=== PATIENT | male | born 1940 | race Caucasian/White ===

== ENCOUNTER 2021-06-25 22:03 | Emergency (ER) | payer MEDICARE ==
[2021-06-25] MEDS ORDERED: SODIUM CHLORIDE 0.9% 1,000 ML IV STA ×2 (22:06)
[2021-06-25 22:16] VITALS: RESP 18; TEMP 99.2
[2021-06-25 22:37] LABS: Basophils # (A) 0.1 k/uL (0-0.2); Basophils % (A) 1 %; Eosinophils # (A) 0.2 k/uL (0-0.7); Eosinophils % (A) 2 %; HCT 46.6 % (39.0-53.0); HGB 15.7 gm/dL (13.0-17.5); Lymphocytes # (A) 2.4 k/uL (1.0-4.8); Lymphocytes % (A) 27 %; MCH 31.3 pg (25.0-35.0); MCHC 33.7 g/dL (31.0-37.0); MCV 92.7 fL (80.0-100.0); Mean Platelet Volume 6.9; Monocytes # (A) 0.6 k/uL (0-1.0); Monocytes % (A) 6 %; Neutrophils # (A) 5.8 k/uL (1.3-7.7); Neutrophils % (A) 63 %; Platelet Count 278 k/uL (150-450); RBC 5.03 m/uL (4.30-5.90); RDW 13.1 % (11.5-15.5); WBC 9.1 k/uL (3.8-10.6)
[2021-06-25] MEDS ORDERED: ALTEPLASE 81 MG in EMPTY BAG 1 BAG IV STA ×2 (22:47→22:50)
[2021-06-25] MEDS ORDERED: ALTEPLASE BOLUS FOR STROKE 9 MG in EMPTY SYRINGE 1 SYR IV STA (22:47)
[2021-06-25 22:50] LABS: ALT 22 U/L (4-49); AST 47 U/L (17-59); African American GFR (CKD) >90 (>60 ml/min/1.73 sqM); Albumin 4.6 g/dL (3.5-5.0); Alkaline Phosphatase 69 U/L (38-126); Anion Gap 11 mmol/L; Blood Urea Nitrogen 21 mg/dL (9-20); Calcium 8.8 mg/dL (8.4-10.2); Carbon Dioxide 20 mmol/L (22-30); Chloride 106 mmol/L (98-107); Glucose 132 mg/dL (74-99); Magnesium 2.1 mg/dL (1.6-2.3); Non-African American GFR(CKD) 90 (>60 ml/min/1.73 sqM); Phosphorus 3.5 mg/dL (2.5-4.5); Potassium 4.8 mmol/L (3.5-5.1); Sodium 137 mmol/L (137-145); Total Protein 7.7 g/dL (6.3-8.2)
--- NOTE | 2021-06-25 22:51 | ED ---
Syncope HPI - General Chief Complaint: Fall Stated Complaint: Syncope Time Seen by Provider: 06/25/21 22:04 Source: EMS, RN notes reviewed, old records reviewed Mode of arrival: EMS Limitations: altered mental status - History of Present Illness Initial Comments: This is an 80-year-old male to the emergency department for evaluation patient resents by EMS for evaluation of a syncopal event patient was found on the back area is taking up done. Patient also admits to shoveling snow today. 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 Patient denying current chest pain thinks he may have lost consciousness when she was little before after his fall patient was found on the ground on his back not acting appropriately per family with no seizure-like activity. Patient was able to be picked up and ambulate at his house he did walk to the bathroom and walk to the ambulance and patient currently is complaining of headache MD Complaint: loss of consciousness, collapsed -: minutes(s) Prodromal Symptoms: headache, lightheaded, nausea/vomiting -: second(s) Witnessed: yes - by bystander Injuries Sustained Associated with Event: Head Current Symptoms: lightheaded, headache, weakness History: pacemaker Context: at rest Treatments Prior to Arrival: none - Related Data Allergies Allergy/AdvReac Type Severity Reaction Status Date / Time No Known Allergies Allergy Verified 06/25/21 22:16 Review of Systems ROS Statement: Those systems with pertinent positive or pertinent negative responses have been documented in the HPI. ROS Other: All systems not noted in ROS Statement are negative. Past Medical History Past Medical History: Hypertension Additional Past Medical History / Comment(s): aortic aneurysm History of Any Multi-Drug Resistant Organisms: None Reported Past Surgical History: Joint Replacement Past Psychological History: No Psychological Hx Reported Smoking Status: Never smoker Past Alcohol Use History: None Reported Past Drug Use History: None Reported General Exam - General Exam Comments Initial Comments: GCS of 15 NIH of 0 Limitations: no limitations General appearance: alert, in no apparent distress Head exam: Present: atraumatic, normocephalic, normal inspection Eye exam: Present: normal appearance, PERRL, EOMI. Absent: scleral icterus, conjunctival injection, periorbital swelling ENT exam: Present: normal exam, mucous membranes moist Neck exam: Present: normal inspection. Absent: tenderness, meningismus, lymphadenopathy Respiratory exam: Present: normal lung sounds bilaterally. Absent: respiratory distress, wheezes, rales, rhonchi, stridor Cardiovascular Exam: Present: regular rate, normal rhythm, normal heart sounds. Absent: systolic murmur, diastolic murmur, rubs, gallop, clicks GI/Abdominal exam: Present: soft, normal bowel sounds. Absent: distended, tenderness, guarding, rebound, rigid Extremities exam: Present: normal inspection, full ROM, normal capillary refill. Absent: tenderness, pedal edema, joint swelling, calf tenderness Back exam: Present: normal inspection Neurological exam: Present: alert, oriented X3, CN II-XII intact Psychiatric exam: Present: normal affect, normal mood Skin exam: Present: warm, dry, intact, normal color. Absent: rash Course Vital Signs 06/25/21 06/25/21 06/25/21 22:06 23:10 23:18 Temperature 99.2 F Pulse Rate 98 95 84 Respiratory 18 18 18 Rate Blood Pressure 189/95 209/120 173/90 O2 Sat by Pulse 97 96 96 Oximetry 06/25/21 23:30 Temperature Pulse Rate 86 Respiratory 18 Rate Blood Pressure 174/95 O2 Sat by Pulse 95 Oximetry - Reevaluation(s) Reevaluation #1: 06/26/21 00:28 Medical record is reviewed Reevaluation #2: 06/26/21 00:28 Code stroke paged about 20-30 minutes in the patient's stay as he developed complete left leg weakness loss of sensation NIH of 4 Reevaluation #3: 06/26/21 00:29 Spoke with neuro interventional list here in the emergency department, patient does have what appears to be traumatic subarachnoid hemorrhage Reevaluation #4: 06/26/21 00:29 Patient still unable to move his left leg also having urinary retention and a Fo payal is placed 06/26/21 00:30 Patient has close blood pressure parameters monitored, patient on Cardene SPP 60 Reevaluation #5: 06/26/21 00:29 Spoke with family and patient, informed results and questions have been answered - Consultations Consultation #1: Spoke with Taya Castillo will be to accept patient transfer both trauma surgery and neurology EKG Findings - EKG Comments: EKG Findings:: EKG shows A. fib 98 QRS 162 QTC 448 Medical Decision Making - Medical Decision Making 80-year-old male DF for evaluation of syncopal and surrounding the fall. Unsure of syncope happened before the fall due to the fall than is brought to the emergency department developed left-sided paralysis and urinary retention p atient does have subarachnoid hemorrhage likely traumatic no aneurysm, patient transferred for definitive treatment by neurosurgery and trauma surgery - Lab Data Result diagrams: 06/25/21 22:29 06/25/21 22:29 Lab Results 06/25/21 06/25/21 06/25/21 Range/Units 22:29 22: 22: WBC 9.1 (3.8-10.6) k/uL RBC 5.03 (4.30-5.90) m/uL Hgb 15.7 (13.0-17.5) gm/dL Hct 46.6 (39.0-53.0) % MCV 92.7 (80.0-100.0) fL MCH 31.3 (25.0-35.0) pg MCHC 33.7 (31.0-37.0) g/dL RDW 13.1 (11.5-15.5) % Plt Count 278 (150-450) k/uL MPV 6.9 Neutrophils % 63 % Lymphocytes % 27 % Monocytes % 6 % Eosinophils % 2 % Basophils % 1 % Neutrophils # 5.8 (1.3-7.7) k/uL Lymphocytes # 2.4 (1.0-4.8) k/uL Monocytes # 0.6 (0-1.0) k/uL Eosinophils # 0.2 (0-0.7) k/uL Basophils # 0.1 (0-0.2) k/uL PT 10.5 (9.0-12.0) sec INR 1.0 (<1.2) APTT 24.0 (22.0-30.0) sec D-Dimer 3.55 H (<0.60) mg/L FEU Sodium 137 (137-145) mmol/L Potassium 4.8 (3.5-5.1) mmol/L Chloride 106 (98-107) mmol/L Carbon Dioxide 20 L (22-30) mmol/L Anion Gap 11 mmol/L BUN 21 H (9-20) mg/dL Creatinine 0.69 (0.66-1.25) mg/dL Est GFR (CKD-EPI)AfAm >90 (>60 ml/min/1.73 sqM) Est GFR (CKD-EPI)NonAf 90 (>60 ml/min/1.73 sqM) Glucose 132 H (74-99) mg/dL Plasma Lactic Acid Ricardo (0.7-2.0) mmol/L Calcium 8.8 (8.4-10.2) mg/dL Phosphorus 3.5 (2.5-4.5) mg/dL Magnesium 2.1 (1.6-2.3) mg/dL Total Bilirubin 1.0 (0.2-1.3) mg/dL AST 47 (17-59) U/L ALT 22 (4-49) U/L Alkaline Phosphatase 69 (38-126) U/L Troponin I (0.000-0.034) ng/mL Total Protein 7.7 (6.3-8.2) g/dL Albumin 4.6 (3.5-5.0) g/dL TSH 2.930 (0.465-4.680) mIU/L 06/25/21 06/25/21 Range/Units 22:29 22:29 WBC (3.8-10.6) k/uL RBC (4.30-5.90) m/uL Hgb (13.0-17.5) gm/dL Hct (39.0-53.0) % MCV (80.0-100.0) fL MCH (25.0-35.0) pg MCHC (31.0-37.0) g/dL RDW (11.5-15.5) % Plt Count (150-450) k/uL MPV Neutrophils % % Lymphocytes % % Monocytes % % Eosinophils % % Basophils % % Neutrophils # (1.3-7.7) k/uL Lymphocytes # (1.0-4.8) k/uL Monocytes # (0-1.0) k/uL Eosinophils # (0-0.7) k/uL Basophils # (0-0.2) k/uL PT (9.0-12.0) sec INR (<1.2) APTT (22.0-30.0) sec D-Dimer (<0.60) mg/L FEU Sodium (137-145) mmol/L Potassium (3.5-5.1) mmol/L Chloride (98-107) mmol/L Carbon Dioxide (22-30) mmol/L Anion Gap mmol/L BUN (9-20) mg/dL Creatinine (0.66-1.25) mg/dL Est GFR (CKD-EPI)AfAm (>60 ml/min/1.73 sqM) Est GFR (CKD-EPI)NonAf (>60 ml/min/1.73 sqM) Glucose (74-99) mg/dL Plasma Lactic Acid Ricardo 2.0 (0.7-2.0) mmol/L Calcium (8.4-10.2) mg/dL Phosphorus (2.5-4.5) mg/dL Magnesium (1.6-2.3) mg/dL Total Bilirubin (0.2-1.3) mg/dL AST (17-59) U/L ALT (4-49) U/L Alkaline Phosphatase (38-126) U/L Troponin I <0.012 (0.000-0.034) ng/mL Total Protein (6.3-8.2) g/dL Albumin (3.5-5.0) g/dL TSH (0.465-4.680) mIU/L - Radiology Data Radiology results: report reviewed (Chest x-ray CT brain CT angios had neck CT lumbar spine positive for significant subarachnoid hemorrhage), image reviewed Critical Care Time Critical Care Time: Yes Total Critical Care Time: 32 Disposition Clinical Impression: Fall, Syncope, Subarachnoid hemorrhage, Head injury, Urinary retention, Back pain, Weakness Disposition: OTHER INSTITUTION NOT DEFINED Condition: Serious Is patient prescribed a controlled substance at d/c from ED?: No Referrals: Vince Carrasquillo DO [Primary Care Provider] - 1-2 days - Out of Hospital Transfer - Req. Specs Out of Hospital Transfer - Requested Specifics: Other Emergency Center ([facility])
[2021-06-25 22:53] LABS: Prothrombin Time 10.5 sec (9.0-12.0)
[2021-06-25] MEDS ORDERED: MORPHINE SULFATE 4 MG/ML SYRINGE IVP STA (23:05)
[2021-06-25] MEDS ORDERED: MORPHINE SULFATE 4 MG/ML SYRINGE IVP PRN (23:05)
[2021-06-25] MEDS ORDERED: LABETALOL 5 MG/ML VIAL MDV IVP STA (23:05)
--- NOTE | 2021-06-25 23:12 | XR ---
EXAMINATION TYPE: XR chest 1V portable DATE OF EXAM: 06/25/2021 COMPARISON: NONE HISTORY: Chest pain TECHNIQUE: Single view FINDINGS: There is no heart failure nor confluent pneumonic infiltrate. There are sternal wires. Cost ophrenic angles are clear there are chest leads. IMPRESSION: No active cardiopulmonary disease.
[2021-06-25] MEDS ORDERED: niCARdipine 20 MG in SODIUM CHLORIDE 0.9% 192 ML IV SCH (23:15)
--- NOTE | 2021-06-25 23:21 | CT ---
EXAMINATION TYPE: CT brain cspine wo con DATE OF EXAM: 06/25/2021 COMPARISON: None HISTORY: Fall CT DLP: 1633.80 mGycm Automated exposure control for dose reduction was used. Images of the brain and cervical spine obtained without contrast. There is high attenuation along the interhemispheric fissure measuring up to 2 cm in thickness and co nsistent with acute subarachnoid hemorrhage. There is also smaller amount of hemorrhage at the pariet al convexity in the right hemisphere. There are small punctate foci of increased density in the anterior left and right thalamus region isaac t is consistent with acute hemorrhage. These measure 5 mm. There is some mild mass effect upon the la teral ventricles. There is no midline shift. There is atherosclerotic calcification in the vertebral arteries. Calvarium is intact. Skull base is intact. The cervical vertebra have normal alignment. Disc spaces a re fairly normal. There is no compression fracture. There is some hypertrophic mild cervical facet ar thropathy. IMPRESSION: Massive acute subarachnoid hemorrhage in the interhemispheric fissure. Small foci of hemorrhage in th e anterior left and right thalamus. There is small amount of hemorrhage along the right cerebellar te ntorium. No acute abnormality of the cervical spine.
--- NOTE | 2021-06-25 23:23 | CT ---
EXAMINATION TYPE: CT lumbar spine wo con DATE OF EXAM: 06/25/2021 COMPARISON: None HISTORY: Fall Back pain CT DLP: 2138.60 mGycm Automated exposure control for dose reduction was used. Images obtained from the level of T11 to the S2 vertebra without contrast. The lumbar vertebrae have normal alignment. The disc spaces are fairly normal for age. There is no co mpression fracture. There is mild spurring of the endplates. Posterior elements are intact. Facet elias nts are intact. There is mild hypertrophic facet arthropathy. There is no lumbar paraspinal mass. The re is no focal bone destruction. Sacroiliac joints are intact. IMPRESSION: Mild spondylotic changes. No fracture seen.
--- NOTE | 2021-06-25 23:38 | CT ---
EXAMINATION TYPE: CT angio head neck DATE OF EXAM: 06/25/2021 COMPARISON: None HISTORY: Fall CT DLP: 538.20 mGycm Automated exposure control for dose reduction was used. CONTRAST: Performed with IV Contrast, patient injected with 65 mL of Isovue 370. Images obtained from the aortic arch to the vertex of the brain with IV contrast. There are Three-D p ostprocessed images. There is normal branching pattern of the great vessels on the aortic arch. There is asymmetric enlarg ement of the left thyroid lobe measures 4.8 cm. There is arterial flow in the subclavian arteries. Th ere is arterial flow in the common internal and external carotid arteries bilaterally. There is wide patency of the carotid artery bifurcations. There is bilateral arterial flow in the vertebral arterie s. There is no evidence of carotid or vertebral artery aneurysm or dissection. There is no mass effec t. There is arterial flow in the vertebral basilar artery system. There is atheromatous changes in the d istal vertebral arteries. There is arterial flow in the anterior posterior and middle cerebral arteries. I see no evidence of i ntracranial aneurysm or neovascularity. There is no evidence of hemodynamic stenosis. There is high a ttenuation in the interhemispheric fissure related to large acute subarachnoid hemorrhage. There is a lso high attenuation in the right cerebellar tentorium consistent with additional subarachnoid hemorr priscilla. No intracranial aneurysm identified. There is normal enhancement of the venous sinuses. IMPRESSION: Negative CT angiogram of the neck. There is a large subarachnoid hemorrhage in the interhemispheric fissure and along the right cerebell ar tentorium. Intracranial aneurysm is not identified. No evidence of hemodynamic stenosis. Negative CT angiogram of the neck. This exam and the CT brain exam were discussed with emergency room staff at 11:45 PM.
[2021-06-25] MEDS ORDERED: SODIUM CHLORIDE 0.9% 50 ML MINI-BAG IV ONE (23:48)
[2021-06-25] MEDS ORDERED: HYDROmorphone 1 MG/ML 1 ML SYRINGE IVP STA (23:58)
[2021-06-25] MEDS ORDERED: ONDANSETRON 4 MG/2 ML VIAL IVP STA (23:58)
[2021-06-26 01:03] VITALS: BP 132/87; PULSE 70
== END 2021-06-26 01:20 | disposition other institution (70) ==
LOC: EC 22:03 → SUPCPDRO 22:03 → EC 06-26 01:20
DX: S09.90XA Unspecified injury of head, initial encounter (principal); I60.9 Nontraumatic subarachnoid hemorrhage, unspecified; R33.9 Retention of urine, unspecified; I10 Essential (primary) hypertension; W19.XXXA Unspecified fall, initial encounter
CPT/HCPCS: 96361 ×2; 96375 ×3; 99285 ×2; 96365 ×2; 96366 ×2; 36415; 93005; 85379; 80053; 83605; 83735; 84100; 84443; 84484; 85025; 85610; 85730; 71045; 72125; 72131; 70496; 70450; 70498; J2270; J2405; J1170; Q9967; 96374

== ENCOUNTER → 2021-11-29 | Outpatient (CLI) | payer MEDICARE ==
[2021-11-29 17:43] LABS: HCT 44.7 % (39.6-50.0); HGB 14.6 g/dL (13.0-17.0); MCH 29.4 pg (27.0-32.0); MCHC 32.7 g/dL (32.0-37.0); MCV 89.9 fL (80.0-97.0); NRBC Per 100 WBC 0 /100 WBCS (0.0-0.0); Platelet Count 283 X 10*3/uL (140-440); RBC 4.97 X 10*6/uL (4.40-5.60); RDW 13.2 % (11.5-14.5); WBC 8.91 X 10*3/uL (4.50-10.00)
[2021-11-29 17:57] LABS: Protein, Total 6.8 g/dL (6.2-8.2)
== END | disposition home or self-care (01) ==
LOC: LABWHC1 12:16
PROVIDERS: ATTEND Psychiatry & Neurology Neurology
DX: G62.9 Polyneuropathy, unspecified (principal)
CPT/HCPCS: 36415; 82306; 84165; 84207; 84432; 85027

== ENCOUNTER → 2021-12-08 | Outpatient (CLI) | payer MEDICARE ==
--- NOTE | 2021-12-08 08:23 | CT ---
EXAMINATION TYPE: CT brain wo con CT DLP: 1135 mGycm, Automated exposure control for dose reduction was used. DATE OF EXAM: 12/08/2021 8:14 AM COMPARISON: Prior CT Brain from 08/03/2021 . CLINICAL INDICATION:Male, 81 years old with history of R42,I60.9, History of Subarachnoid bleed TECHNIQUE: Brain: Multiple axial CT images of the brain were obtained without IV contrast. Coronal and sagittal reformats are reviewed. FINDINGS: Brain: Extra-axial spaces: No abnormal extra-axial fluid collections. Ventricular system: Within normal limits Cerebral parenchyma: No acute intraparenchymal hemorrhage or mass effect. Resolution of previously se en right falx subdural hematoma. The guo-white junction is well differentiated. Scattered hypoattenu ating areas are seen within the white matter. Stable calcifications within the bilateral basal gangli a. Cerebellum: Unremarkable. Mass effect: No evidence of midline shift. Intracranial vasculature: Atherosclerotic calcifications of the intracranial vessels. Soft tissues: Normal. Calvarium/osseous structures: No depressed skull fracture. Paranasal sinuses and mastoid air cells: Clear Visualized orbits: Orbital contents are intact. IMPRESSION: 1. No acute intracranial process. 2. Resolution of previously seen right falx subdural hematoma. 3. Nonspecific white matter changes, likely secondary to chronic small vessel ischemic disease.
== END | disposition home or self-care (01) ==
LOC: RADCTMAIN 07:54
PROVIDERS: ATTEND Psychiatry & Neurology Neurology
DX: R42 Dizziness and giddiness (principal); I60.9 Nontraumatic subarachnoid hemorrhage, unspecified; I67.82 Cerebral ischemia
CPT/HCPCS: 70450

== ENCOUNTER → 2021-12-08 | Outpatient (CLI) | payer MEDICARE ==
[2021-12-08 09:31] LABS: Partial Thromboplastin Time 22.3 sec (22.0-30.0); Prothrombin Time 10.7 sec (9.0-12.0)
[2021-12-08 14:38] LABS: HGB 14.8 g/dL (13.0-17.0); MCH 29.8 pg (27.0-32.0); MCHC 32.9 g/dL (32.0-37.0); MCV 90.5 fL (80.0-97.0); Mean Platelet Volume 9.2 fL (9.5-12.2); NRBC Per 100 WBC 0 /100 WBCS (0.0-0.0); Platelet Count 286 X 10*3/uL (140-440); RBC 4.97 X 10*6/uL (4.40-5.60); RDW 13.3 % (11.5-14.5); WBC 12.43 X 10*3/uL (4.50-10.00)
[2021-12-08 14:46] LABS: African American GFR (CKD) 92.4 (60.0-200.0); Albumin/Globulin Ratio 1.82 (1.60-3.17); Anion Gap 10.5 mmol/L (10.00-18.00); BUN/Creat Ratio 25.75 Ratio (12.00-20.00); Blood Urea Nitrogen 23.2 mg/dL (9.0-27.0); Calcium 8.6 mg/dL (8.7-10.3); Carbon Dioxide 28.1 mmol/L (20.0-27.5); Globulin 2.2 g/dL (1.6-3.3); Non-African American GFR(CKD) 79.7 (60.0-200.0); Potassium 3.8 mmol/L (3.5-5.5); Total Bilirubin 0.4 mg/dL (0.30-1.20); Total Protein 6.1 g/dL (6.2-8.2)
[2021-12-08 15:24] LABS: Appearance,Urine Clear (Clear); Bilirubin,Urine Negative (Negative); Blood,Urine Negative (Negative); Color,Urine Yellow (Yellow); Ketones,Urine Negative (Negative); Nitrite,Urine Negative (Negative); Specific Gravity,Urine 1.011 (1.001-1.030); Urobilinogen,Urine 0.2 (0.2,1.0)
== END | disposition home or self-care (01) ==
LOC: LABPAT 08:15
PROVIDERS: ATTEND Orthopaedic Surgery
DX: Z01.818 Encounter for other preprocedural examination (principal); I44.0 Atrioventricular block, first degree; M17.12 Unilateral primary osteoarthritis, left knee
CPT/HCPCS: 80053; 81003; 85027; 85610; 85730; 87070; 93005

== ENCOUNTER 2024-05-22 04:25 | Inpatient (IN) | payer MEDICARE ==
--- NOTE | 2024-05-22 04:57 | ED ---
General Adult HPI - General Chief complaint: Shortness of Breath Stated complaint: SOB Time Seen by Provider: 05/22/24 04:37 Source: EMS Mode of arrival: EMS Limitations: no limitations - History of Present Illness Initial comments: Patient is an 83 y/o male hx MM presenting today for shortness of breath. Patient resides at the [facility] and this morning woke up short of breath, patient's pulse ox was in the 80s and on room air, patient was placed on nasal cannula and transported to the hospital. Patient does not wear oxygen at baseline. Patient states that he woke up feeling disoriented and got scared, began feeling short of breath. He denies any recent cough, hemoptysis, denies any chest pain, numbness or weakness, abdominal pain, nausea or vomiting, fevers or chills. Of note patient is a somewhat poor historian, he is oriented to self and place but not time. Reportedly recently finished radiation for his multiple myeloma. - Related Data Home Medications Medication Instructions Recorded Confirmed DULoxetine HCL [Cymbalta] 30 mg PO DAILY 12/17/21 05/22/24 Finasteride [Proscar] 5 mg PO DAILY 12/17/21 05/22/24 Multivitamins, Thera [Multivitamin 1 tab PO DAILY 12/17/21 05/22/24 (formulary)] Rosuvastatin [Crestor] 10 mg PO HS 12/17/21 05/22/24 ALPRAZolam [Xanax] 0.25 mg PO BID PRN 05/22/24 05/22/24 Famotidine [Pepcid] 20 mg PO BID 05/22/24 05/22/24 HYDROcodone/APAP 5-325MG [[place] 1 tab PO Q4HR PRN 05/22/24 05/22/24 5-325] Loperamide [Imodium] 2 mg PO BID PRN 05/22/24 05/22/24 amLODIPine [Norvasc] 10 mg PO DAILY 05/22/24 05/22/24 carvediloL [Coreg] 25 mg PO BID-W/MEALS 05/22/24 05/22/24 cloNIDine HCL [Catapres] 0.2 mg PO TID 05/22/24 05/22/24 hydrALAZINE HCL [Apresoline] 100 mg PO BID 05/22/24 05/22/24 Allergies Allergy/AdvReac Type Severity Reaction Status Date / Time No Known Allergies Allergy Verified 05/22/24 07:14 Review of Systems ROS Statement: Those systems with pertinent positive or pertinent negative responses have been documented in the HPI. ROS Other: All systems not noted in ROS Statement are negative. Limitations: ROS unobtainable due to patients medical condition Past Medical History Past Medical History: Cancer, GERD/Reflux, Hyperlipidemia, Hypertension Additional Past Medical History / Comment(s): aortic aneurysm,neuropathy, chronic back pain, radiation, multiple myloma History of Any Multi-Drug Resistant Organisms: None Reported Past Surgical History: Back Surgery, Joint Replacement, Orthopedic Surgery Past Psychological History: No Psychological Hx Reported Smoking Status: Never smoker Past Alcohol Use History: None Reported Past Drug Use History: None Reported General Exam - General Exam Comments Initial Comments: PE: CONSTITUTIONAL: [no apparent distress, chronically ill appearring, nontoxic, awake and alert ] SKIN: [warm, dry, no jaundice, hives or petechiae] EYES:[ pupils are equally round, extraocular movements intact without nystagmus, clear conjunctiva, non-icteric sclera] HENT: [normocephalic, atraumatic,dry mucus membranes, oropharynx clear without exudates] NECK: , [Full range of motion, normal appearance] PULMONARY: [Rhonchi and rales in the bilateral lung swan, worse on the left than the right, no wheezes or stridor, normal excursion no accessory muscle use ] CARDIOVASCULAR:[ regular rate, rhythm, normal S1 and S2. No appreciated murmurs, rubs or gallops. Strong radial pulses with intact distal perfusion. No lower extremity edema] GASTROINTESTINAL: [soft, active bowel sounds throughout, non-tender, non- distended, no palpable masses, no rebound or guarding. No hepatosplenomegaly] GENITOURINARY: MUSCULOSKELETAL: [Extremities have no gross deformity ] NEUROLOGIC: [_a/o x 3, GCS 15, normal mentation and speech. Moves all extremities x 4 without motor or sensory deficit] PSYCHIATRIC:[ _normal mood and affect, thought process is clear and linear] Limitations: no limitations Course Vital Signs 05/22/24 05/22/24 05/22/24 04:31 05:35 06:16 Temperature 99.0 F 98.6 F Pulse Rate 60 70 Respiratory 20 18 Rate Blood Pressure 132/84 124/67 O2 Sat by Pulse 92 L 96 96 Oximetry 05/22/24 05/22/24 05/22/24 08:11 09:45 09:51 Temperature Pulse Rate 65 69 69 Respiratory 16 20 22 Rate Blood Pressure 128/71 143/72 143/72 O2 Sat by Pulse 96 94 L 94 L Oximetry 05/22/24 05/22/24 05/22/24 11:00 16:11 18:22 Temperature Pulse Rate 70 68 82 Respiratory 18 18 Rate Blood Pressure 122/76 117/63 113/70 O2 Sat by Pulse 96 97 Oximetry 05/22/24 05/22/24 05/23/24 19:57 20:40 00:31 Temperature 98.1 F 97.9 F Pulse Rate 70 81 87 Respiratory 20 20 15 Rate Blood Pressure 121/63 114/56 142/66 O2 Sat by Pulse 95 95 95 Oximetry 05/23/24 05/23/24 05/23/24 02:00 04:14 08:08 Temperature Pulse Rate 81 75 95 Respiratory 17 16 18 Rate Blood Pressure 132/80 137/71 153/72 O2 Sat by Pulse 95 95 92 L Oximetry 05/23/24 11:59 Temperature Pulse Rate 86 Respiratory 16 Rate Blood Pressure 146/71 O2 Sat by Pulse 96 Oximetry EKG Findings - EKG Comments: EKG Findings:: Sinus rhythm, rate 66 bpm MS interval 201 ms QRS duration 178 ms QT/QTc 464/478 ms, right bundle branch block, left axis deviation, no STEMI. EKG performed repeated at 557 due to elevated troponin to ensure no dynamic changes, repeat EKG does appear consistent with prior without new ST elevations or depressions, QT remains prolonged with QTc QTc 484/491, no STEMI Medical Decision Making - Medical Decision Making Was pt. sent in by a medical professional or institution (, PA, PILATES INSTRUCTOR, urgent care, hospital, or care home...) When possible be specific @ -No Did you speak to anyone other than the patient for history (EMS, parent, family, police, friend...)? What history was obtained from this source @ -No Did you review nursing and triage notes (agree or disagree)? Why? @ -I reviewed nursing and triage notes Were old charts reviewed (outside hosp., previous admission, EMS record, old EKG, old radiological studies, urgent care reports/EKG's, care home records)? Report findings @ -Medical records reviewed reviewed paperwork sent from transferring facility Differential Diagnosis (chest pain, altered mental status, abdominal pain women, abdominal pain men, vaginal bleeding, weakness, fever, dyspnea, syncope, headache, dizziness, GI bleed, back pain, seizure, CVA, palpatations, mental health, musculoskeletal)? @ -Differential Dyspnea: Coronary syndrome, arrhythmia, tamponade, asthma, COPD, pulmonary embolism, pneumonia, pneumothorax, pulmonary effusion, anaphylaxis, diabetic ketoacidosis, anemia, neuromuscular, this is not meant to be an all-inclusive list. EKG interpreted by me (3pts min.). @ -As above X-rays interpreted by me (1pt min.). @ -None done CT interpreted by me (1pt min.). @ On my review, I see no evidence of pulmonary embolism, but there does appear to be bilateral upper lobe ground glass opacities. U/S interpreted by me (1pt. min.). @ -None done What testing was considered but not performed or refused? (CT, X-rays, U/S, labs)? Why? @ -None What meds were considered but not given or refused? Why? @ -None Did you discuss the management of the patient with other professionals (professionals i.e. , PA, PILATES INSTRUCTOR, lab, RT, psych nurse, social work associate, brick stacker, teacher, assignment officer, family preservation caseworker)? Give summary @ -No Was smoking cessation discussed for >3mins.? @ -No Was critical care preformed (if so, how long)? @Yes 35 minutes Were there social determinants of health that impacted care today? How? (Homelessness, low income, unemployed, alcoholism, drug addiction, transportation, low edu. Level, literacy, decrease access to med. care, shelter, rehab)? @ -No Was there de-escalation of care discussed even if they declined (Discuss DNR or withdrawal of care, Hospice)? @ -No What co-morbidities impacted this encounter? (DM, HTN, Smoking, COPD, CAD, Cancer, CVA, ARF, Chemo, Hep., AIDS, mental health diagnosis, sleep apnea, morbi d obesity)? @CHF, dementia, multiple myeloma Was patient admitted / discharged? Hospital course, mention meds given and route, prescriptions, significant lab abnormalities, going to OR and other [facility] nent info. @ -Admission- Patient is an 83 y/o male PMH MM, dementia, CHF, presenting today for shortness of breath. NAD however chronically ill appearing on exam. Rhonchi/rales in bilateral upper lung swan. Extremities appear somewhat dry. Pt arrives on 3L NC. When O2 turned down to 2L during exam pt desats to 87%, increased back to 3 L w/ pulse ox 92%, pt increased to 6L and will be transitio ap to [facility]. Discussed with pt plan for comprehensive labs, Small IV fluid bolus 500 cc can given history multiple myeloma and increased oxygen requirement will also obtain CT PE study. Patient was able to maintain adequate oxygen saturations on high flow nasal cannula on reassessment. On review of patient's labs, he has no leukocytosis or elevated neutrophils, mild hyponatremia sodium 129 potassium 3.1, chloride 95 magnesium level 2.0, troponin is elevated 0.093 with a BNP of 10,100, I suspect elevation in troponin is secondary to demand ischemia, as opposed to acute CO, will repeat an EKG, patient currently denies any chest pain, replacement potassium and Lasix ordered. Repeat EKG does not show any dynamic changes or signs of any evolving STEMI. QT QTc remains prolonged with QT/QTc 44/491, will order IV magnesium and avoid QT prolonging drugs. Reviewed CT PE study, I see no evidence of PE however does appear to show bilateral upper lobe opacities, official read pending. Pt's presented to bedside, updated her and patient to findings and plan for admission. Case discussed w. Dr Villagomez, kindly accepts for admission. Note CT chest ultimately read as significant for destructive soft tissue mass seen within the T1/T2 vertebral bodies with compromise of adjacent spinal canal not excluded, confluent soft tissue opacity seen in the bilateral upper lobes underlying malignancy not excluded, bilateral upper lobe groundglass changes concerning for underlying infectious or inflammatory process, bilateral pleural effusions no PE Undiagnosed new problem with uncertain prognosis? @ -No Drug Therapy requiring intensive monitoring for toxicity (Heparin, Nitro, Insulin, Cardizem)? @ -No Were any procedures done? @ -No Diagnosis/symptom? @Acute hypoxic respiratory failure, CHF exacerbation Acute, or Chronic, or Acute on Chronic? @Acute Uncomplicated (without systemic symptoms) or Complicated (systemic symptoms)? Complicated Side effects of treatment? @ -No Exacerbation, Progression, or Severe Exacerbation? @ -No Poses a threat to life or bodily function? How? (Chest pain, USA, CO, pneumonia, PE, COPD, DKA, ARF, appy, cholecystitis, CVA, Diverticulitis, Homicidal, Dailey icidal, threat to staff... and all critical care pts) @Yes, if allowed to progress untreated could result in fulminant respiratory failure requiring mechanical ventilation, cardiogenic shock and - Lab Data Result diagrams: 05/24/24 06:04 05/27/24 10:07 Lab Results 05/22/24 05/22/24 05/22/24 Range/Units 04:35 04:35 04:35 WBC 5.4 (3.8-10.6) k/uL RBC 3.50 L (4.30-5.90) m/uL Hgb 11.3 L (13.0-17.5) gm/dL Hct 31.8 L (39.0-53.0) % MCV 90.9 (80.0-100.0) fL MCH 32.3 (25.0-35.0) pg MCHC 35.5 (31.0-37.0) g/dL RDW 14.5 (11.5-15.5) % Plt Count 221 (150-450) k/uL MPV 7.0 Neutrophils % 79 % Lymphocytes % 16 % Monocytes % 3 % Eosinophils % 1 % Basophils % 0 % Neutrophils # 4.3 (1.3-7.7) k/uL Lymphocytes # 0.8 L (1.0-4.8) k/uL Monocytes # 0.2 (0-1.0) k/uL Eosinophils # 0.0 (0-0.7) k/uL Basophils # 0.0 (0-0.2) k/uL Poikilocytosis Slight PT 12.8 H (10.0-12.5) sec INR 1.2 H (<1.2) APTT 24.1 (22.0-30.0) sec Sodium 129 L (137-145) mmol/L Potassium 3.1 L (3.5-5.1) mmol/L Chloride 95 L (98-107) mmol/L Carbon Dioxide 26 (22-30) mmol/L Anion Gap 8 mmol/L BUN 12 (9-20) mg/dL Creatinine 0.40 L (0.66-1.25) mg/dL Est GFR (CKD-EPI)AfAm >90 (>60 ml/min/1.73 sqM) Est GFR (CKD-EPI)NonAf >90 (>60 ml/min/1.73 sqM) Glucose 132 H (74-99) mg/dL Calcium 7.1 L (8.4-10.2) mg/dL Magnesium 2.0 (1.6-2.3) mg/dL Total Bilirubin 1.0 (0.2-1.3) mg/dL AST 29 (17-59) U/L ALT 24 (4-49) U/L Alkaline Phosphatase 66 (38-126) U/L Troponin I (0.000-0.034) ng/mL NT-Pro-B Natriuret Pep 99407 pg/mL Total Protein 4.9 L (6.3-8.2) g/dL Albumin 2.5 L (3.5-5.0) g/dL 05/22/24 05/22/24 05/22/24 Range/Units 04:35 07:27 10:19 WBC (3.8-10.6) k/uL RBC (4.30-5.90) m/uL Hgb (13.0-17.5) gm/dL Hct (39.0-53.0) % MCV (80.0-100.0) fL MCH (25.0-35.0) pg MCHC (31.0-37.0) g/dL RDW (11.5-15.5) % Plt Count (150-450) k/uL MPV Neutrophils % % Lymphocytes % % Monocytes % % Eosinophils % % Basophils % % Neutrophils # (1.3-7.7) k/uL Lymphocytes # (1.0-4.8) k/uL Monocytes # (0-1.0) k/uL Eosinophils # (0-0.7) k/uL Basophils # (0-0.2) k/uL Poikilocytosis PT (10.0-12.5) sec INR (<1.2) APTT (22.0-30.0) sec Sodium (137-145) mmol/L Potassium (3.5-5.1) mmol/L Chloride (98-107) mmol/L Carbon Dioxide (22-30) mmol/L Anion Gap mmol/L BUN (9-20) mg/dL Creatinine (0.66-1.25) mg/dL Est GFR (CKD-EPI)AfAm (>60 ml/min/1.73 sqM) Est GFR (CKD-EPI)NonAf (>60 ml/min/1.73 sqM) Glucose (74-99) mg/dL Calcium (8.4-10.2) mg/dL Magnesium (1.6-2.3) mg/dL Total Bilirubin (0.2-1.3) mg/dL AST (17-59) U/L ALT (4-49) U/L Alkaline Phosphatase (38-126) U/L Troponin I 0.093 H* 0.102 H* 0.092 H* (0.000-0.034) ng/mL NT-Pro-B Natriuret Pep pg/mL Total Protein (6.3-8.2) g/dL Albumin (3.5-5.0) g/dL 05/23/24 Range/Units 03:20 WBC (3.8-10.6) k/uL RBC (4.30-5.90) m/uL Hgb (13.0-17.5) gm/dL Hct (39.0-53.0) % MCV (80.0-100.0) fL MCH (25.0-35.0) pg MCHC (31.0-37.0) g/dL RDW (11.5-15.5) % Plt Count (150-450) k/uL MPV Neutrophils % % Lymphocytes % % Monocytes % % Eosinophils % % Basophils % % Neutrophils # (1.3-7.7) k/uL Lymphocytes # (1.0-4.8) k/uL Monocytes # (0-1.0) k/uL Eosinophils # (0-0.7) k/uL Basophils # (0-0.2) k/uL Poikilocytosis PT (10.0-12.5) sec INR (<1.2) APTT (22.0-30.0) sec Sodium 135 L (137-145) mmol/L Potassium 2.9 L (3.5-5.1) mmol/L Chloride 98 (98-107) mmol/L Carbon Dioxide 31 H (22-30) mmol/L Anion Gap 6 mmol/L BUN 13 (9-20) mg/dL Creatinine 0.47 L (0.66-1.25) mg/dL Est GFR (CKD-EPI)AfAm >90 (>60 ml/min/1.73 sqM) Est GFR (CKD-EPI)NonAf >90 (>60 ml/min/1.73 sqM) Glucose 119 H (74-99) mg/dL Calcium 7.0 L (8.4-10.2) mg/dL Magnesium (1.6-2.3) mg/dL Total Bilirubin (0.2-1.3) mg/dL AST (17-59) U/L ALT (4-49) U/L Alkaline Phosphatase (38-126) U/L Troponin I (0.000-0.034) ng/mL NT-Pro-B Natriuret Pep pg/mL Total Protein (6.3-8.2) g/dL Albumin (3.5-5.0) g/dL Disposition Clinical Impression: CHF exacerbation Disposition: ADMITTED IP TO THIS HOSP Condition: Stable
[2024-05-22 05:05] LABS: Basophils % (A) 0 %; Eosinophils % (A) 1 %; HCT 31.8 % (39.0-53.0); HGB 11.3 gm/dL (13.0-17.5); Lymphocytes # (A) 0.8 k/uL (1.0-4.8); Lymphocytes % (A) 16 %; MCH 32.3 pg (25.0-35.0); MCHC 35.5 g/dL (31.0-37.0); MCV 90.9 fL (80.0-100.0); Monocytes # (A) 0.2 k/uL (0-1.0); Monocytes % (A) 3 %; Neutrophils # (A) 4.3 k/uL (1.3-7.7); Neutrophils % (A) 79 %; Platelet Count 221 k/uL (150-450); Poikilocytosis Slight; RDW 14.5 % (11.5-15.5); WBC 5.4 k/uL (3.8-10.6)
[2024-05-22] MEDS: SODIUM CHLORIDE 0.9% 500 ML 500 ML IV STA (05:09)
[2024-05-22] MEDS: ALPRAZolam 0.25 MG TAB PO STA (05:09)
[2024-05-22] MEDS: ASPIRIN 81 MG PO STA (05:09)
[2024-05-22 05:12] LABS: ALT 24 U/L (4-49); AST 29 U/L (17-59); African American GFR (CKD) >90 (>60 ml/min/1.73 sqM); Albumin 2.5 g/dL (3.5-5.0); Alkaline Phosphatase 66 U/L (38-126); Anion Gap 8 mmol/L; Blood Urea Nitrogen 12 mg/dL (9-20); Calcium 7.1 mg/dL (8.4-10.2); Carbon Dioxide 26 mmol/L (22-30); Chloride 95 mmol/L (98-107); Glucose 132 mg/dL (74-99); Non-African American GFR(CKD) >90 (>60 ml/min/1.73 sqM); Potassium 3.1 mmol/L (3.5-5.1); Sodium 129 mmol/L (137-145); Total Protein 4.9 g/dL (6.3-8.2)
[2024-05-22 05:21] LABS: NT-Pro-B-Type Natriuretic Pept 10100 pg/mL
[2024-05-22 05:48] LABS: INR 1.2 (<1.2); Partial Thromboplastin Time 24.1 sec (22.0-30.0); Prothrombin Time 12.8 sec (10.0-12.5)
--- NOTE | 2024-05-22 05:54 | CT ---
EXAM: CT Angiography Chest With Intravenous Contrast CLINICAL HISTORY: ITS.REASON CT Reason: multiple myeloma, REGINALD, hypoxia TECHNIQUE: Axial computed tomographic angiography images of the chest with intravenous contrast. CTDI is 31 mGy and DLP is 562 mGy-cm. This CT exam was performed using one or more of the following dose reduction techniques: automated exposure control, adjustment of the mA and/or kV according to patient size, and/or use of iterative reconstruction technique. MIP reconstructed images were created and reviewed. COMPARISON: No relevant prior studies available. FINDINGS: Pulmonary arteries: Unremarkable. No pulmonary embolism. Aorta: Aneurysmal dilatation of the ascending thoracic aorta measuring 4.3 cm. Calcifications are seen within the aorta. Lungs: Consolidative changes are seen within the bilateral upper lobes. Patchy areas of groundglass changes are seen throughout the bilateral upper lobes. Bibasilar atelectasis. Pleural space: Bilateral pleural effusions. No pneumothorax. Heart: Cornea artery calcifications. Mild cardiac enlargement. No significant pericardial effusion. No evidence of RV dysfunction. Mediastinum: Enlargement of the thyroid gland extending into the superior mediastinum. Bones/joints: Soft tissue mass is seen within the vertebral body and posterior elements of the 1 and T2 best characterized on series 501 image 30. Degenerative changes are seen within the spine and shoulders. The spinal canal at T1 and T2 is poorly evaluated. No acute fracture. No dislocation. Soft tissues: Unremarkable. Lymph nodes: Unremarkable. No enlarged lymph nodes. Liver: Hepatomegaly and hepatic steatosis. Kidneys and ureters: Multiple partially characterized right renal cysts which do not require follow-up. IMPRESSION: 1. Destructive soft tissue mass seen within the T1 and T2 vertebral bodies with compromise of the adjacent spinal canal not excluded. 2. Confluent soft tissue opacity seen within the bilateral upper lobes, underlying malignancy is not excluded. 3. Bilateral upper lobe groundglass changes concerning for underlying infectious or inflammatory processes. 4. Bilateral pleural effusions. 5. No pulmonary artery embolism.
[2024-05-22] MEDS: POTASSIUM CHLORIDE ER 20 MEQ TAB.ER PO STA (06:18)
[2024-05-22] MEDS: POTASSIUM CHLORIDE 20 MEQ in WATER FOR INJECTION 1 100ML.BAG IVPB STA (06:18)
[2024-05-22] MEDS: FUROSEMIDE 10 MG/ML 4 ML VIAL IV STA (06:18)
--- NOTE | 2024-05-22 09:18 | P.CRDCN ---
History of Present Illness History of present illness: HISTORY OF PRESENT ILLNESS: This is a 83-year-old male with a past medical history significant for multiple myeloma, hypertension, hyperlipidemia and GERD. Patient not follow with a [facility] ologist. We have been asked to see the patient in consultation for congestive heart failure. Patient examined at the bedside. The emergency room. Patient presented to the hospital with a chief complaint of shortness of breath. He denies chest pain or pressure. He continues to report shortness of breath this morning. Vital signs are stable. DIAGNOSTICS: - EKG reveals sinus mechanism with left bundle branch block. - Laboratory data: WBC 5.4. Hemoglobin 11.3. Platelet count 221. Sodium 129. Potassium 3.1. BUN 12. Creatinine 0.40. proBNP 10,100. Troponin 0.093. 0.102. - Chest CT: Destructive soft tissue mass seen within T1 and T2 vertebral bodies with compromise of the adjacent spinal canal not excluded. Confluent soft tissue opacity seen within the bilateral upper lobes underlying malignancy is not excluded. Bilateral upper lobe groundglass changes concerning for infectious or inflammatory process. Bilateral pleural effusions. No pulmonary embolism. - Current home cardiac medications include amlodipine 10 mg daily, carvedilol 25 mg twice a day, Catapres 0.2 mg 3 times a day, rosuvastatin 10 mg at night, hydralazine 100 mg twice a day - No previous echocardiogram, stress test, or cardiac catheterization available in EMR for review REVIEW OF SYSTEMS: At the time of my exam: CONSTITUTIONAL: Denies fever or chills. HEENT: Denies blurred vision, vision changes, or eye pain. Denies hemoptysis CARDIOVASCULAR: Denies chest pain. Denies orthopnea. Denies PND. Denies palpitations RESPIRATORY: Denies shortness of breath. GASTROINTESTINAL: Denies abdominal pain. Denies nausea or vomiting. HEMATOLOGIC: Denies bleeding disorders. GENITOURINARY: Denies any blood in urine. SKIN: Denies pruitis. Denies rash. PHYSICAL EXAM: VITAL SIGNS: Reviewed. GENERAL: Well-developed in no acute distress. HEENT: Head is normocephalic. Pupils are equal, round. Sclerae anicteric. Mucous membranes of the mouth are moist. Neck supple. No JVD or thyromegaly LUNGS: Respirations even and unlabored. Lungs essentially clear to auscultation bilaterally. HEART: Regular rate and rhythm. S1 and S2 heard. Systolic murmur noted ABDOMEN: Soft. Nondistended. Nontender. EXTREMITIES: Normal range of motion. No clubbing or cyanosis. Peripheral pulses intact. Bilateral lower extremity edema NEUROLOGIC: Awake and alert. Oriented x 3. ASSESSMENT: Shortness of breath Acute heart failure with reduced EF Acute hypoxic respiratory failure requiring supplemental oxygen Bilateral pleural effusions Elevated troponins, type II [place] secondary to oxygen supply/demand mismatch Destructive soft tissue mass seen within T1 and T2 vertebral bodies, per CT History of multiple myeloma Hypertension Hyperlipidemia History of aortic aneurysm with surgical repair GERD PLAN: Obtain 2D echo to assess cardiac structure and function Resume home cardiac medications Hold Catapres. Resume additional anti per tensive medications. Begin IV Lasix 40 mg every 12 hours Daily weights, accurate intake and output, and monitoring of kidney function Further recommendations pending patient course Nurse practitioner note has been reviewed by physician. Signing provider agrees with the documented findings, assessment, and plan of care documented by BRIDGE BUILDER as a scribe. Past Medical History Past Medical History: Cancer, GERD/Reflux, Hyperlipidemia, Hypertension Additional Past Medical History / Comment(s): aortic aneurysm,neuropathy, chr onic back pain, radiation, multiple myloma History of Any Multi-Drug Resistant Organisms: None Reported Past Surgical History: Back Surgery, Joint Replacement, Orthopedic Surgery Past Psychological History: No Psychological Hx Reported Smoking Status: Never smoker Past Alcohol Use History: None Reported Past Drug Use History: None Reported Medications and Allergies Home Medications Medication Instructions Recorded Confirmed Type DULoxetine HCL [Cymbalta] 30 mg PO DAILY 12/17/21 05/22/24 History Finasteride [Proscar] 5 mg PO DAILY 12/17/21 05/22/24 History Multivitamins, Thera [Multivitamin 1 tab PO DAILY 12/17/21 05/22/24 History (formulary)] Rosuvastatin [Crestor] 10 mg PO HS 12/17/21 05/22/24 History ALPRAZolam [Xanax] 0.25 mg PO BID PRN 05/22/24 05/22/24 History Famotidine [Pepcid] 20 mg PO BID 05/22/24 05/22/24 History HYDROcodone/APAP 5-325MG [[place] 1 tab PO Q4HR PRN 05/22/24 05/22/24 History 5-325] Loperamide [Imodium] 2 mg PO BID PRN 05/22/24 05/22/24 History amLODIPine [Norvasc] 10 mg PO DAILY 05/22/24 05/22/24 History carvediloL [Coreg] 25 mg PO BID-W/MEALS 05/22/24 05/22/24 History cloNIDine HCL [Catapres] 0.2 mg PO TID 05/22/24 05/22/24 History hydrALAZINE HCL [Apresoline] 100 mg PO BID 05/22/24 05/22/24 History Allergies Allergy/AdvReac Type Severity Reaction Status Date / Time No Known Allergies Allergy Verified 05/22/24 07:14 Physical Exam Vitals: Vital Signs Temp Pulse Resp BP Pulse Ox 05/22/24 08:11 65 16 128/71 96 05/22/24 06:16 98.6 F 70 18 124/67 96 05/22/24 05:35 96 05/22/24 04:31 99.0 F 60 20 132/84 92 L Intake and Output 05/21/24 05/22/24 05/22/24 22:59 06:59 14:59 Output Total 625 Balance -625 Output: Urine 625 Other: Voiding Method Indwelling Catheter Weight 111.13 kg Results 05/22/24 04:35 05/22/24 04:35 Cardiac Enzymes 05/22/24 05/22/24 05/22/24 Range/Units 04:35 04:35 07:27 AST 29 (17-59) U/L Troponin I 0.093 H* 0.102 H* (0.000-0.034) ng/mL Coagulation 05/22/24 Range/Units 04:35 PT 12.8 H (10.0-12.5) sec APTT 24.1 (22.0-30.0) sec CBC 05/22/24 Range/Units 04:35 WBC 5.4 (3.8-10.6) k/uL RBC 3.50 L (4.30-5.90) m/uL Hgb 11.3 L (13.0-17.5) gm/dL Hct 31.8 L (39.0-53.0) % Plt Count 221 (150-450) k/uL Comprehensive Metabolic Panel 05/22/24 Range/Units 04:35 Sodium 129 L (137-145) mmol/L Potassium 3.1 L (3.5-5.1) mmol/L Chloride 95 L (98-107) mmol/L Carbon Dioxide 26 (22-30) mmol/L BUN 12 (9-20) mg/dL Creatinine 0.40 L (0.66-1.25) mg/dL Glucose 132 H (74-99) mg/dL Calcium 7.1 L (8.4-10.2) mg/dL AST 29 (17-59) U/L ALT 24 (4-49) U/L Alkaline Phosphatase 66 (38-126) U/L Total Protein 4.9 L (6.3-8.2) g/dL Albumin 2.5 L (3.5-5.0) g/dL Current Medications Generic Name Dose Route Start Last Admin Trade Name Freq PRN Reason Stop Dose Admin Heparin Sodium (Porcine) 5,000 unit 05/22/24 09:00 Heparin Sodium,Porcine 5,000 Unit/Ml 1 Ml Vial SQ Q12HR SHARON Intake and Output 05/21/24 05/22/24 05/22/24 22:59 06:59 14:59 Output Total 625 Balance -625 Output: Urine 625 Other: Voiding Method Indwelling Catheter Weight 111.13 kg 05/22/24 04:35 05/22/24 04:35
[2024-05-22] MEDS: FUROSEMIDE 10 MG/ML 4 ML VIAL IV SCH (09:33)
[2024-05-22] MEDS: HEPARIN SODIUM,PORCINE 5,000 UNIT/ML 1 ML VIAL SQ SCH (09:33)
[2024-05-22] MEDS: HYDROcodone/APAP 5-325MG 1 EACH TAB PO STA (09:34)
[2024-05-22] MEDS: amLODIPine 10 MG TAB PO SCH (09:34)
[2024-05-22] MEDS: ASPIRIN 81 MG PO SCH (09:34)
[2024-05-22] MEDS: hydrALAZINE HCL 50 MG TAB PO SCH (09:34)
[2024-05-22] MEDS ORDERED: LOPERAMIDE 2 MG CAP PO PRN (10:06)
[2024-05-22] MEDS: DULoxetine HCL 30 MG CAPSULE.DR PO SCH (11:30)
[2024-05-22] MEDS: MULTIVITAMINS, THERA 1 EACH TAB PO SCH (11:30)
[2024-05-22] MEDS: FAMOTIDINE 20 MG TAB PO SCH (11:30)
[2024-05-22] MEDS: FINASTERIDE 5 MG TAB PO SCH (11:30)
[2024-05-22] MEDS ORDERED: ZINC OXIDE PASTE (Z-GUARD) 1 APPLIC TOPICAL PRN (14:51)
--- NOTE | 2024-05-22 15:52 | P.HPIM ---
History of Present Illness H&P Date: 05/22/24 Chief Complaint: Increased shortness of breath 83-year-old patient who follows with Dr. Marce Murrell. Patient has a diagnosis of multiple myeloma. Being followed by Dr. Tse oncologist. Patient is too weak to get any chemotherapy. Has received radiation treatment. Was diagnosed in March 2024. Multiple myeloma did affect T1 T2-3 3. Does use a collar. Received radiation treatment. Patient recently has been hospitalized at [facility]. Has progressively gotten weak. Just under a week at [facility]. Patient Comes with 1 day history of increasing shortness of breath. No cough no fever no chills. Appetite is good. Has bowel movements. Review of systems: GEN.: Tired EYES: None HEENT: None NECK: None RESPIRATORY: As above] CARDIOVASCULAR: None GASTROINTESTINAL: None GENITOURINARY: None MUSCULOSKELETAL: [Pain especially in the spine LYMPHATICS: None HEMATOLOGICAL: None PSYCHIATRY: None NEUROLOGICAL: Getting physical therapy. Difficult to walk Social history: Currently at [facility]. . No smoking or alcohol Physical examination: VITAL SIGNS: 98.6, 65, 16, 128 x 71, 96% on 6 L GENERAL: BMI 31.5, reclining bed awake short of breath. EYES: Pupils equal. Conjunctiva mi l. HEENT: External appearance of nose and ears normal, oral cavity grossly normal. NECK: JVD not raised; masses not palpable. HEART: First and second heart sounds are normal; no edema. LUNGS: Respiratory rate increased, decreased breath sounds. ABDOMEN: Soft, nontender, liver spleen not palpable, no masses palpable. PSYCH: Alert and oriented x3; mood and affect mi l. MUSCULOSKELETAL:No Clubbing/cyanosis;muscles-grossly intact NEUROLOGICAL: Cranial nerves grossly intact; no facial asymmetry, straight leg raising left side 10 to 15 degrees, right leg 10 degrees. LYMPHATICS: No lymph nodes palpable in the axilla and neck INVESTIGATIONS, reviewed in the clinical context: May 22, 2024: White count 5.4 hemoglobin 11.3 platelets 221 sodium 129 potassium 3.1 BUN 12 creatinine 0.4 Troponin I 0.093, 0.102, 0.092 proBNP [id number] EKG tracing normal sinus rhythm. Left bundle zoila block. Chest CTA: Destructive soft tissue mass within T1 and T2 vertebral bodies with compromise adjacent spinal canal not excluded. Confluent soft tissue opacity seen within the bilateral upper lobes. Bilateral pleural effusion. Bilateral upper groundglass changes. Assessment plan: -Acute congestive heart failure exacerbation IV Lasix 40 mg every 12. Fluid restriction. Cardiology consulted. 2D echo -Troponin leak from CHF. No ACS -Multiple myeloma being follow-up with Dr. Schwab out of the area. Patient is too weak to receive chemotherapy. Care received radiation treatment. It does also involve T1-T2-T3. Does wear a collar. 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 Involvement of T1-T2-T3. Has been working with PT OT outpatient. PT OT -Hyperlipidemia Crestor -BPH Proscar -Essential hypertension Amlodipine, Coreg, Catapres -Depression Cymbalta -DNR -Medical power of microelectronics assembler, Kristen - Given the complexity and severity of patient's condition expect the patient to be in the hospital at least for 2 overnights Past Medical History Past Medical History: Cancer, GERD/Reflux, Hyperlipidemia, Hypertension Additional Past Medical History / Comment(s): aortic aneurysm,neuropathy, chronic back pain, radiation, multiple myloma History of Any Multi-Drug Resistant Organisms: None Reported Past Surgical History: Back Surgery, Joint Replacement, Orthopedic Surgery Past Psychological History: No Psychological Hx Reported Smoking Status: Never smoker Past Alcohol Use History: None Reported Past Drug Use History: None Reported Medications and Allergies Home Medications Medication Instructions Recorded Confirmed Type DULoxetine HCL [Cymbalta] 30 mg PO DAILY 12/17/21 05/22/24 History Finasteride [Proscar] 5 mg PO DAILY 12/17/21 05/22/24 History Multivitamins, Thera [Multivitamin 1 tab PO DAILY 12/17/21 05/22/24 History (formulary)] Rosuvastatin [Crestor] 10 mg PO HS 12/17/21 05/22/24 History ALPRAZolam [Xanax] 0.25 mg PO BID PRN 05/22/24 05/22/24 History Famotidine [Pepcid] 20 mg PO BID 05/22/24 05/22/24 History HYDROcodone/APAP 5-325MG [[place] 1 tab PO Q4HR PRN 05/22/24 05/22/24 History 5-325] Loperamide [Imodium] 2 mg PO BID PRN 05/22/24 05/22/24 History amLODIPine [Norvasc] 10 mg PO DAILY 05/22/24 05/22/24 History carvediloL [Coreg] 25 mg PO BID-W/MEALS 05/22/24 05/22/24 History cloNIDine HCL [Catapres] 0.2 mg PO TID 05/22/24 05/22/24 History hydrALAZINE HCL [Apresoline] 100 mg PO BID 05/22/24 05/22/24 History Allergies Allergy/AdvReac Type Severity Reaction Status Date / Time No Known Allergies Allergy Verified 05/22/24 07:14 Physical Exam Vitals: Vital Signs Temp Pulse Resp BP Pulse Ox 05/22/24 09:51 69 22 143/72 94 L 05/22/24 09:45 69 20 143/72 94 L 05/22/24 08:11 65 16 128/71 96 05/22/24 06:16 98.6 F 70 18 124/67 96 05/22/24 05:35 96 05/22/24 04:31 99.0 F 60 20 132/84 92 L Intake and Output 05/21/24 05/22/24 05/22/24 22:59 06:59 14:59 Output Total 625 2400 Balance -625 -2400 Output: Urine 625 2400 Other: Voiding Method Indwelling Catheter Weight 111.13 kg Results CBC & Chem 7: 05/22/24 04:35 05/22/24 04:35 Labs: Abnormal Lab Results - Last 24 Hours (Table) 05/22/24 05/22/24 05/22/24 Range/Units 04:35 04:35 04:35 RBC 3.50 L (4.30-5.90) m/uL Hgb 11.3 L (13.0-17.5) gm/dL Hct 31.8 L (39.0-53.0) % Lymphocytes # 0.8 L (1.0-4.8) k/uL PT 12.8 H (10.0-12.5) sec INR 1.2 H (<1.2) Sodium 129 L (137-145) mmol/L Potassium 3.1 L (3.5-5.1) mmol/L Chloride 95 L (98-107) mmol/L Creatinine 0.40 L (0.66-1.25) mg/dL Glucose 132 H (74-99) mg/dL Calcium 7.1 L (8.4-10.2) mg/dL Troponin I (0.000-0.034) ng/mL Total Protein 4.9 L (6.3-8.2) g/dL Albumin 2.5 L (3.5-5.0) g/dL 05/22/24 05/22/24 Range/Units 04:35 07:27 RBC (4.30-5.90) m/uL Hgb (13.0-17.5) gm/dL Hct (39.0-53.0) % Lymphocytes # (1.0-4.8) k/uL PT (10.0-12.5) sec INR (<1.2) Sodium (137-145) mmol/L Potassium (3.5-5.1) mmol/L Chloride (98-107) mmol/L Creatinine (0.66-1.25) mg/dL Glucose (74-99) mg/dL Calcium (8.4-10.2) mg/dL Troponin I 0.093 H* 0.102 H* (0.000-0.034) ng/mL Total Protein (6.3-8.2) g/dL Albumin (3.5-5.0) g/dL
[2024-05-22] MEDS: carvediloL 12.5 MG TAB PO SCH (17:19)
[2024-05-22] MEDS: ATORVASTATIN 20 MG TAB PO SCH (20:48)
[2024-05-23 04:01] LABS: African American GFR (CKD) >90 (>60 ml/min/1.73 sqM); Anion Gap 6 mmol/L; Blood Urea Nitrogen 13 mg/dL (9-20); Carbon Dioxide 31 mmol/L (22-30); Chloride 98 mmol/L (98-107); Glucose 119 mg/dL (74-99); Non-African American GFR(CKD) >90 (>60 ml/min/1.73 sqM); Potassium 2.9 mmol/L (3.5-5.1); Sodium 135 mmol/L (137-145)
[2024-05-23] MEDS: POTASSIUM CHLORIDE ER 20 MEQ TAB.ER PO SCH ×4 (05:17→21:23)
--- NOTE | 2024-05-23 10:58 | P.CONS ---
History of Present Illness - Reason for Consult Consult date: 05/23/24 wound care - History of Present Illness This is an 83-year-old patient being seen in the emergency room for a nonhealing ulceration to the right buttocks the ulceration measures approximately 2 x 1.5 x 0.1 cm patient states that the ulceration has been there off and on for the last few months. Patient states that he has been having treatment done typically creams with home care. He has not been seen by his PCP for treatment to the ulceration. Ulceration Is a stage II pressure ulcer with fat layer exposed. Wound edges are attached to the wound base granulation seen throughout the wound bed minimal slough and nonviable tissue present patient's past medical history significant for Multiple myeloma with radiation no chemotherapy because patient is unable to tolerate denies diabetes hypertension hyperlipidemia GERD neuropathy. Review Of Systems: Constitutional: No fever, no chills, no night sweats. No weight change. No weakness, fatigue or lethargy. No daytime sleepiness. Integumentary:reports wounds, no lesions. No rash or pruritus. No unusual bruising. No change in hair or nails. Physical exam: General Appearance: Alert, cooperative, no distress, appears stated age. Skin: See HPI all other Skin color, texture, tugor normal, no rashes or lesions. Neurologic: Alert oriented x3 Assessment: 1. Stage II pressure ulcer right buttocks Plan: 1. Apply honey gel and bordered foam turn patient every 2 hours. Utilize air- filled cushion while sitting. Patient would benefit from advanced wound care however he declined at this time. Stating that home care has been taking care of it. Would be happy to see him upon discharge. Thank you for the consultation any questions please contact the wound care center DNP note has been reviewed and discussed with Dr. Begum and the impression and plan of care has been directed as dictated. Past Medical History Past Medical History: Cancer, GERD/Reflux, Hyperlipidemia, Hypertension Additional Past Medical History / Comment(s): aortic aneurysm,neuropathy, chronic back pain, radiation, multiple myloma History of Any Multi-Drug Resistant Organisms: None Reported Past Surgical History: Back Surgery, Joint Replacement, Orthopedic Surgery Past Psychological History: No Psychological Hx Reported Smoking Status: Never smoker Past Alcohol Use History: None Reported Past Drug Use History: None Reported Medications and Allergies Home Medications Medication Instructions Recorded Confirmed Type DULoxetine HCL [Cymbalta] 30 mg PO DAILY 08/19/22 01/22/25 History Finasteride [Proscar] 5 mg PO DAILY 12/17/21 05/22/24 History Multivitamins, Thera [Multivitamin 1 tab PO DAILY 12/17/21 05/22/24 History (formulary)] Rosuvastatin [Crestor] 10 mg PO HS 12/17/21 05/22/24 History ALPRAZolam [Xanax] 0.25 mg PO BID PRN 05/22/24 05/22/24 History Famotidine [Pepcid] 20 mg PO BID 05/22/24 05/22/24 History HYDROcodone/APAP 5-325MG [[place] 1 tab PO Q4HR PRN 05/22/24 05/22/24 History 5-325] Loperamide [Imodium] 2 mg PO BID PRN 05/22/24 05/22/24 History amLODIPine [Norvasc] 10 mg PO DAILY 05/22/24 05/22/24 History carvediloL [Coreg] 25 mg PO BID-W/MEALS 05/22/24 05/22/24 History cloNIDine HCL [Catapres] 0.2 mg PO TID 05/22/24 05/22/24 History hydrALAZINE HCL [Apresoline] 100 mg PO BID 05/22/24 05/22/24 History Allergies Allergy/AdvReac Type Severity Reaction Status Date / Time No Known Allergies Allergy Verified 05/22/24 07:14 Physical Exam Vitals: Vital Signs Temp Pulse Resp BP Pulse Ox 05/23/24 08:08 95 18 153/72 92 L 05/23/24 04:14 75 16 137/71 95 05/23/24 02:00 81 17 132/80 95 05/23/24 00:31 97.9 F 87 15 142/66 95 05/22/24 20:40 81 20 114/56 95 05/22/24 19:57 98.1 F 70 20 121/63 95 05/22/24 18:22 82 18 113/70 97 05/22/24 16:11 68 18 117/63 05/22/24 11:00 70 122/76 96 Intake and Output 05/22/24 05/23/24 05/23/24 22:59 06:59 14:59 Intake Total 150 Output Total 2200 400 Balance -2049 Intake: Oral 150 Output: Urine 2199 400 Uretheral (White) 1100 400 Results CBC & Chem 7: 05/22/24 04:35 05/23/24 03:20 Labs: Abnormal Lab Results - Last 24 Hours (Table) 05/22/24 05/23/24 Range/Units 10:19 03:20 Sodium 135 L (137-145) mmol/L Potassium 2.9 L (3.5-5.1) mmol/L Carbon Dioxide 31 H (22-30) mmol/L Creatinine 0.47 L (0.66-1.25) mg/dL Glucose 119 H (74-99) mg/dL Calcium 7.0 L (8.4-10.2) mg/dL Troponin I 0.092 H* (0.000-0.034) ng/mL Assessment and Plan (1) Stage II pressure ulcer of right buttock Current Visit: Yes Status: Acute Code(s): L89.312 - PRESSURE ULCER OF RIGHT BUTTOCK, STAGE 2 SNOMED Code(s): 32162925857399
--- NOTE | 2024-05-23 12:28 | PN ---
PROGRESS NOTE SUBJECTIVE: Rogerio is an 83-year-old gentleman, who is admitted to the hospital with acute exacerbation of chronic systolic heart failure. He has elevated troponin secondary to supply-demand mismatch with multiple myeloma involving the vertebrae. He has history of aortic aneurysm and underwent surgical repair for the same. This morning, he is feeling better. Urine output has improved. His oxygen needs are coming down. PHYSICAL EXAMINATION: VITAL SIGNS: Heart rate is 95 beats per minute, blood pressure is 115/70, respiratory rate is 18. CHEST: Exam reveals good air entry without any crackles. HEART: Exam reveals first and second heart sounds. No gallop. EXTREMITIES: Reveals mild edema. The patient is currently on aspirin, Norvasc, Lipitor, Lasix 40 IV q.12, and labs show that his potassium is very low. I will put him on regular dose of K-Dur at 20 b.i.d. and supplement the potassium per protocol. MMVINAYL / IJN: [id number] /
--- NOTE | 2024-05-23 13:25 | CA ---
Transthoracic Echo Report Name: Rogerio Mercado Age: 83 Gender: M : 1940 Exam Date: 05/22/2024 08:10 Exam Location: [facility] Ht (in): 74 Wt (lb): 245 Ordering Physician: Anabel Levin MD Attending/Referring Phys: Medical Insurance Biller Dorota Turcios RDCS Procedure CPT: Indications: Heart failure Cardiac Hx: Hx of AO anurysm repair Technical Quality: Good Contrast 1: Total Dose (mL): Contrast 2: Total Dose (mL): MEASUREMENTS (Male / Female) Normal Values 2D ECHO LV Diastolic Diameter PLAX 5.1 cm 4.2 - 5.9 / 3.9 - 5.3 cm LV Systolic Diameter PLAX 4.5 cm IVS Diastolic Thickness 1.6 cm 0.6 - 1.0 / 0.6 - 0.9 cm LVPW Diastolic Thickness 1.4 cm 0.6 - 1.0 / 0.6 - 0.9 cm LV Relative Wall Thickness 0.6 RV Internal Dim ED PLAX 2.8 cm LA Systolic Diameter LX 4.0 cm 3.0 - 4.0 / 2.7 - 3.8 cm LV Diastolic Volume MOD BP 160.4 cm??? 67 - 155 / 56 - 104 cm??? LV Systolic Volume MOD BP 110.1 cm??? - / 19 - 49 cm??? LV Ejection Fraction MOD BP 31.4 % >= 55 % LV Cardiac Index MOD BP 1756.0 cm???/min???m??? LV Diastolic Volume MOD 4C 163.5 cm??? LV Systolic Volume MOD 4C 121.1 cm??? LV Ejection Fraction MOD 4C 25.9 % LV Cardiac Index MOD 4C 1479.3 cm???/min???m??? LV Diastolic Length 4C 8.5 cm LV Systolic Length 4C 7.9 cm LV Diastolic Volume MOD 2C 135.1 cm??? LV Systolic Volume MOD 2C 100.3 cm??? LV Ejection Fraction MOD 2C 25.7 % LV Cardiac Index MOD 2C 1213.5 cm???/min???m??? LV Diastolic Length 2C 7.3 cm LV Systolic Length 2C 8.1 cm LA Volume 131.3 cm??? 18 - 58 / 22 - 52 cm??? LA Volume Index 53.9 cm???/m??? 16 - 28 cm???/m??? M-MODE Aortic Root Diameter MM 3.2 cm AV Cusp Separation MM 2.1 cm DOPPLER AV Peak Velocity 170.8 cm/s AV Peak Gradient 11.7 mmHg AI Peak Velocity 413.0 cm/s AI Peak Gradient 68.2 mmHg AI Pressure Half Time 813.1 ms MV Area PHT 5.7 cm??? MV Deceleration Time 149.3 ms TR Peak Velocity 295.5 cm/s TR Peak Gradient 34.9 mmHg Right Ventricular Systolic Press 39.9 mmHg FINDINGS Left Ventricle Left ventricular ejection fraction is estimated at 25-30 %. Left ventricular cavity size normal. Moderate concentric left ventricular hypertrophy. Severely increased left ventricular systoli. Mildly increased left ventricular diastolic volume. Severely increased left ventricular systolic volume. Severly decreased left ventricular ejection fraction. Right Ventricle Normal right ventricular size. Mildly reduced right ventricular global systolic function. Mild pulmonary hypertension. Right Atrium Mild right atrial dilatation. No right atrial thrombus or mass seen. Left Atrium Severely increased left atrial volume. Mildly increased left atrial area. No left atrial thrombus or mass present. Mitral Valve Structurally normal mitral valve. Trace to mild mitral regurgitation. No evidence for mitral valve prolapse. No mitral stenosis. Aortic Valve Trileaflet aortic valve. Thickened aortic valve without stenosis. Moderate to severe aortic regurgitation. Consider HARPREET if clinically indicated however no diastolic flow noted in the aorta. Tricuspid Valve Structurally normal tricuspid valve. Mild tricuspid regurgitation. Pulmonic Valve Pulmonic valve not well visualized. No pulmonic regurgitation. Pericardium No pericardial effusion. Aorta Severely dilated proximal ascending aorta 46 mm. AO anurysm repair CONCLUSIONS Left ventricular ejection fraction 25-30% with global hypokinesis RVSP 40 Moderately dilated left atrium Moderate to severe aortic regurgitation. Consider HARPREET if clinically indicated however no diastolic flow noted in the aorta. Mild tricuspid regurgitation Ascending aortic aneurysm measuring 4.6 cm Previewed by: Dr. Roel Lewis DO (Electronically Signed) Final Date: 22 May 2024 09:53
--- NOTE | 2024-05-23 14:35 | P.PN ---
Subjective Progress Note Date: 05/23/24 83-year-old patient who follows with Dr. Marce Murrell. Patient has a diagnosis of multiple myeloma. Being followed by Dr. Tse oncologist. Patient is too weak to get any chemotherapy. Has received radiation treatment. Was diagnosed in March 2024. Multiple myeloma did affect T1 T2-3 3. Does use a collar. Received radiation treatment. Patient recently has been hospitalized at [facility]. Has progressively gotten weak. Just under a week at [facility]. Patient Comes with 1 day history of increasing shortness of breath. No cough no fever no chills. Appetite is good. Has bowel movements. 05/23. Patient seen and examined. States breathing has improved. Stated he feels much better REVIEW OF SYSTEMS: CONSTITUTIONAL: No fever, no malaise,. CARDIOVASCULAR: No chest pain, no palpitations, no syncope. PULMONARY: As mentioned above GASTROINTESTINAL: No diarrhea, no nausea, no vomiting, no abdominal pain. NEUROLOGICAL: No headaches, no weakness, PHYSICAL EXAMINATION: GENERAL: The patient is alert and oriented x3, not in any acute distress. Well developed, well nourished. HEENT: Pupils are round and equally reacting to light. EOMI. No scleral icterus. No conjunctival pallor. Normocephalic, atraumatic. No pharyngeal erythema. No thyromegaly. CARDIOVASCULAR: S1 and S2 present. No murmurs, rubs, or gallops. PULMONARY: Diminished breath sounds at the bases bilaterally, no wheezing or crackles. ABDOMEN: Soft, nontender, nondistended, normoactive bowel sounds. No palpable organomegaly. MUSCULOSKELETAL: No joint swelling or deformity. EXTREMITIES: No cyanosis, clubbing, or pedal edema. NEUROLOGICAL: Gross neurological examination did not reveal any focal deficits. SKIN: No rashes. Assessment and plan -Acute congestive heart failure exacerbation Monitor vital signs monitor CBC Monitor CMP Strict I's and O's, daily weights, continue IV Lasix 40 mg every 12 2D echo pending cardiology following -Troponin leak from CHF. No ACS -Multiple myeloma being follow-up with Dr. Schwab out of the area. Patient is too weak to receive chemotherapy. Care received radiation treatment. It does also involve T1-T2-T3. Does wear a collar. 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 Involvement of T1-T2-T3. Has been working with PT OT outpatient. PT OT -Hyperlipidemia Crestor -BPH Proscar -Essential hypertension Amlodipine, Coreg, Catapres -Depression Cymbalta Labs and medication were reviewed.. Continue same treatment. Continue with symptomatic treatment. Resume home medication. Monitor labs and vitals. DVT and GI prophylaxis. Further recommendations as per clinical course of the patient Dictation was produced using [employer] dictation software. please excuse any grammatical, word or spelling errors. Objective - Vital Signs Vital signs: Vital Signs Temp 97.9 F 05/23/24 00:31 Pulse 95 05/23/24 08:08 Resp 18 05/23/24 08:08 BP 153/72 05/23/24 08:08 Pulse Ox 92 L 05/23/24 08:08 FiO2 Intake & Output 05/22/24 05/23/24 05/23/24 18:59 06:59 18:59 Intake Total 150 Output Total 3900 2200 400 Balance -3900 -2050 -400 Weight 111.13 kg Intake: Oral 150 Output: Urine 3900 2200 400 Uretheral (White) 1100 400 - Labs CBC & Chem 7: 05/22/24 04:35 05/23/24 11:17 Labs: Abnormal Lab Results - Last 24 Hours (Table) 05/23/24 Range/Units 03:20 Sodium 135 L (137-145) mmol/L Potassium 2.9 L (3.5-5.1) mmol/L Carbon Dioxide 31 H (22-30) mmol/L Creatinine 0.47 L (0.66-1.25) mg/dL Glucose 119 H (74-99) mg/dL Calcium 7.0 L (8.4-10.2) mg/dL
[2024-05-23] MEDS: hydrALAZINE HCL 50 MG TAB PO SCH (15:16)
[2024-05-23] MEDS ORDERED: Potassium Replacement Protocol 1 EACH MISC MISCELLANE PRN (20:05)
[2024-05-24 06:30] LABS: Basophils % (A) 0 %; Eosinophils # (A) 0.1 k/uL (0-0.7); Eosinophils % (A) 1 %; HCT 36.1 % (39.0-53.0); HGB 11.9 gm/dL (13.0-17.5); Lymphocytes % (A) 16 %; MCH 30.5 pg (25.0-35.0); MCHC 32.9 g/dL (31.0-37.0); MCV 92.7 fL (80.0-100.0); Mean Platelet Volume 6.6; Monocytes # (A) 0.3 k/uL (0-1.0); Monocytes % (A) 5 %; Neutrophils # (A) 5.2 k/uL (1.3-7.7); Neutrophils % (A) 77 %; Platelet Count 331 k/uL (150-450); Poikilocytosis Slight; RDW 14.9 % (11.5-15.5); WBC 6.7 k/uL (3.8-10.6)
[2024-05-24 07:11] LABS: ALT 21 U/L (4-49); AST 22 U/L (17-59); African American GFR (CKD) >90 (>60 ml/min/1.73 sqM); Albumin 2.7 g/dL (3.5-5.0); Alkaline Phosphatase 88 U/L (38-126); Anion Gap 7 mmol/L; Blood Urea Nitrogen 16 mg/dL (9-20); Calcium 7.6 mg/dL (8.4-10.2); Carbon Dioxide 31 mmol/L (22-30); Chloride 99 mmol/L (98-107); Glucose 122 mg/dL (74-99); Non-African American GFR(CKD) >90 (>60 ml/min/1.73 sqM); Potassium 3.9 mmol/L (3.5-5.1); Sodium 137 mmol/L (137-145); Total Bilirubin 0.8 mg/dL (0.2-1.3); Total Protein 5.2 g/dL (6.3-8.2)
[2024-05-24] MEDS: HYDROcodone/APAP 5-325MG 1 EACH TAB PO PRN (08:22)
[2024-05-24] MEDS: ZINC OXIDE PASTE (Z-GUARD) 1 APPLIC TOPICAL SCH (09:00)
[2024-05-24] MEDS: ALPRAZolam 0.25 MG TAB PO PRN (11:04)
--- NOTE | 2024-05-24 13:37 | P.PN ---
Subjective HISTORY OF PRESENT ILLNESS: This is a 83-year-old male with a past medical history significant for multiple myeloma, hypertension, hyperlipidemia and GERD. Patient not follow with a seismic engineer at [facility]. We have been asked to see the patient in consultation for congestive heart failure. Patient examined at the bedside. The emergency room. Patient presented to the hospital with a chief complaint of shortness of breath. He denies chest pain or pressure. He continues to report shortness of breath this morning. Vital signs are stable. DIAGNOSTICS: - EKG reveals sinus mechanism with left bundle branch block. - Laboratory data: WBC 5.4. Hemoglobin 11.3. Platelet count 221. Sodium 129. Potassium 3.1. BUN 12. Creatinine 0.40. proBNP 10,100. Troponin 0.093. 0.102. - Chest CT: Destructive soft tissue mass seen within T1 and T2 vertebral bodies with compromise of the adjacent spinal canal not excluded. Confluent soft tissue opacity seen within the bilateral upper lobes underlying malignancy is not excluded. Bilateral upper lobe groundglass changes concerning for infectious or inflammatory process. Bilateral pleural effusions. No pulmonary embolism. - Current home cardiac medications include amlodipine 10 mg daily, carvedilol 25 mg twice a day, Catapres 0.2 mg 3 times a day, rosuvastatin 10 mg at night, hydralazine 100 mg twice a day - No previous echocardiogram, stress test, or cardiac catheterization available in EMR for review 05/24/2024 Patient examined this morning the bedside. Patient currently denies chest pain or pressure. He denies shortness of breath. Vital signs are stable. Echoc ardiogram completed revealing ejection fraction 25 to 30%, mild pulmonary hypertension, moderate to severe aortic regurgitation, trace to mild mitral regurgitation, and ascending aortic aneurysm measuring 4.6 cm. PHYSICAL EXAM: VITAL SIGNS: Reviewed. GENERAL: Well-developed in no acute distress. HEENT: Head is normocephalic. Pupils are equal, round. Sclerae anicteric. Mucous membranes of the mouth are moist. Neck supple. No JVD or thyromegaly LUNGS: Respirations even and unlabored. Lungs essentially clear to auscultation bilaterally. HEART: Regular rate and rhythm. S1 and S2 heard. Systolic murmur noted EXTREMITIES: Normal range of motion. No clubbing or cyanosis. Peripheral pulses intact. 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 Begin oral Lasix 40 mg daily Add Farxiga 10 mg daily Add Aldactone 25 mg daily Obtain records from patient's primary seismic engineer No plans for any invasive procedures from cardiac standpoint Further recommendations pending patient course Nurse practitioner note has been reviewed by physician. Signing provider agrees with the documented findings, assessment, and plan of care documented by ELECTRONIC DEVICE MONITOR as a scribe. Objective - Vital Signs Vital signs: Vital Signs Temp 97.8 F 05/24/24 11:12 Pulse 70 05/24/24 11:12 Resp 20 05/24/24 11:12 BP 139/66 05/24/24 11:12 Pulse Ox 96 05/24/24 08:20 FiO2 Intake & Output 05/23/24 05/24/24 05/24/24 18:59 06:59 18:59 Intake Total 240 20 128 Output Total 1200 1200 Balance -960 -1180 128 Weight 111.13 kg 97.5 kg Intake: IV 20 10 Invasive Line 1 20 10 Oral 240 118 Output: Urine 1200 1200 Uretheral (White) 400 Other: Voiding Method Indwelling Catheter Indwelling Catheter Indwelling Catheter - Labs CBC & Chem 7: 05/24/24 06:04 05/24/24 06:04 Labs: Abnormal Lab Results - Last 24 Hours (Table) 05/24/24 05/24/24 Range/Units 06:04 06:04 RBC 3.90 L (4.30-5.90) m/uL Hgb 11.9 L (13.0-17.5) gm/dL Hct 36.1 L (39.0-53.0) % Carbon Dioxide 31 H (22-30) mmol/L Creatinine 0.59 L (0.66-1.25) mg/dL Glucose 122 H (74-99) mg/dL Calcium 7.6 L (8.4-10.2) mg/dL Total Protein 5.2 L (6.3-8.2) g/dL Albumin 2.7 L (3.5-5.0) g/dL
[2024-05-24 13:53] VITALS: BMI 27.6
--- NOTE | 2024-05-24 14:38 | P.PN ---
Subjective Progress Note Date: 05/24/24 83-year-old patient who follows with Dr. Marce Murrell. Patient has a diagnosis of multiple myeloma. Being followed by Dr. Tse oncologist. Patient is too weak to get any chemotherapy. Has received radiation treatment. Was diagnosed in March 2024. Multiple myeloma did affect T1 T2-3 3. Does use a collar. Received radiation treatment. Patient recently has been hospitalized at [facility]. Has progressively gotten weak. Just under a week at [facility]. Patient Comes with 1 day history of increasing shortness of breath. No cough no fever no chills. Appetite is good. Has bowel movements. 05/23. Patient seen and examined. States breathing has improved. Stated he feels much better 05/24. Patient seen and examined. Blood work done today showed WBC 6.7, he moglobin 9.9, sodium 137, potassium 3.9, BUN 16, creatinine 0.59. Still complaining of shortness of breath. REVIEW OF SYSTEMS: CONSTITUTIONAL: No fever, no malaise,. CARDIOVASCULAR: No chest pain, no palpitations, no syncope. PULMONARY: As mentioned above GASTROINTESTINAL: No diarrhea, no nausea, no vomiting, no abdominal pain. NEUROLOGICAL: No headaches, no weakness, PHYSICAL EXAMINATION: GENERAL: The patient is alert and oriented x3, not in any acute distress. Well developed, well nourished. HEENT: Pupils are round and equally reacting to light. EOMI. No scleral icterus. No conjunctival pallor. Normocephalic, atraumatic. No pharyngeal erythema. No thyromegaly. CARDIOVASCULAR: S1 and S2 present. No murmurs, rubs, or gallops. PULMONARY: Diminished breath sounds at the bases bilaterally, no wheezing or crackles. ABDOMEN: Soft, nontender, nondistended, normoactive bowel sounds. No palpable organomegaly. MUSCULOSKELETAL: No joint swelling or deformity. EXTREMITIES: No cyanosis, clubbing, or pedal edema. NEUROLOGICAL: Gross neurological examination did not reveal any focal deficits. SKIN: No rashes. Assessment and plan -Acute congestive heart failure exacerbation Monitor vital signs monitor CBC Monitor CMP Strict I's and O's, daily weights, IV Lasix changed to oral cardiology following -Troponin leak from CHF. No ACS -Multiple myeloma being follow-up with Dr. Schwab out of the area. Patient is too weak to receive chemotherapy. Care received radiation treatment. It does also involve T1-T2-T3. Does wear a collar. 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 Involvement of T1-T2-T3. Has been working with PT OT outpatient. PT OT -Hyperlipidemia Crestor -BPH Proscar -Essential hypertension Amlodipine, Coreg, Catapres -Depression Cymbalta Labs and medication were reviewed.. Continue same treatment. Continue with symptomatic treatment. Resume home medication. Monitor labs and vitals. DVT and GI prophylaxis. Further recommendations as per clinical course of the patient Dictation was produced using [employer] dictation software. please excuse any grammatical, word or spelling errors. Objective - Vital Signs Vital signs: Vital Signs Temp 97.5 F L 05/24/24 08:20 Pulse 102 H 05/24/24 08:20 Resp 17 05/24/24 08:20 BP 151/72 05/24/24 08:20 Pulse Ox 96 05/24/24 08:20 FiO2 Intake & Output 05/23/24 05/24/24 05/24/24 18:59 06:59 18:59 Intake Total 240 20 128 Output Total 1200 1200 Balance -960 -1180 128 Weight 111.13 kg 97.5 kg Intake: IV 20 10 Invasive Line 1 20 10 Oral 240 118 Output: Urine 1200 1200 Uretheral (White) 400 Other: Voiding Method Indwelling Catheter Indwelling Catheter Indwelling Catheter - Labs CBC & Chem 7: 05/24/24 06:04 05/24/24 06:04 Labs: Abnormal Lab Results - Last 24 Hours (Table) 05/23/24 05/24/24 05/24/24 Range/Units 11:17 06:04 06:04 RBC 3.90 L (4.30-5.90) m/uL Hgb 11.9 L (13.0-17.5) gm/dL Hct 36.1 L (39.0-53.0) % Potassium 3.2 L (3.5-5.1) mmol/L Carbon Dioxide 31 H (22-30) mmol/L Creatinine 0.59 L (0.66-1.25) mg/dL Glucose 122 H (74-99) mg/dL Calcium 7.6 L (8.4-10.2) mg/dL Total Protein 5.2 L (6.3-8.2) g/dL Albumin 2.7 L (3.5-5.0) g/dL
[2024-05-24] MEDS: SPIRONOLACTONE 25 MG TAB PO SCH (14:54)
[2024-05-25] MEDS: FUROSEMIDE 40 MG TAB PO SCH (08:31)
[2024-05-25] MEDS: DAPAGLIFLOZIN PROPANEDIOL 10 MG TABLET PO SCH (08:31)
--- NOTE | 2024-05-25 11:08 | P.PN ---
Subjective HISTORY OF PRESENT ILLNESS: This is a 83-year-old male with a past medical history significant for multiple myeloma, hypertension, hyperlipidemia and GERD. Patient not follow with a vegetable washing machine operator at [facility]. We have been asked to see the patient in consultation for congestive heart failure. Patient examined at the bedside. The emergency room. Patient presented to the hospital with a chief complaint of shortness of breath. He denies chest pain or pressure. He continues to report shortness of breath this morning. Vital signs are stable. DIAGNOSTICS: - EKG reveals sinus mechanism with left bundle branch block. - Laboratory data: WBC 5.4. Hemoglobin 11.3. Platelet count 221. Sodium 129. Potassium 3.1. BUN 12. Creatinine 0.40. proBNP 10,100. Troponin 0.093. 0.102. - Chest CT: Destructive soft tissue mass seen within T1 and T2 vertebral bodies with compromise of the adjacent spinal canal not excluded. Confluent soft tissue opacity seen within the bilateral upper lobes underlying malignancy is not excluded. Bilateral upper lobe groundglass changes concerning for infectious or inflammatory process. Bilateral pleural effusions. No pulmonary embolism. - Current home cardiac medications include amlodipine 10 mg daily, carvedilol 25 mg twice a day, Catapres 0.2 mg 3 times a day, rosuvastatin 10 mg at night, hydralazine 100 mg twice a day - No previous echocardiogram, stress test, or cardiac catheterization available in EMR for review 05/24/2024 Patient examined this morning the bedside. Patient currently denies chest pain or pressure. He denies shortness of breath. Vital signs are stable. Echoc ardiogram completed revealing ejection fraction 25 to 30%, mild pulmonary hypertension, moderate to severe aortic regurgitation, trace to mild mitral regurgitation, and ascending aortic aneurysm measuring 4.6 cm. 05/25/2024 Patient examined this morning at the bedside. Patient currently denies any chest pain or pressure. He denies shortness of breath. Vital signs are stable. No records received from patient's primary vegetable washing machine operator as of this morning. Patient is hoping to be discharged today. PHYSICAL EXAM: VITAL SIGNS: Reviewed. GENERAL: Well-developed in no acute distress. HEENT: Head is normocephalic. Pupils are equal, round. Sclerae anicteric. Mucous membranes of the mouth are moist. Neck supple. No JVD or thyromegaly LUNGS: Respirations even and unlabored. Lungs essentially clear to auscultation bilaterally. HEART: Regular rate and rhythm. S1 and S2 heard. Systolic murmur noted EXTREMITIES: Normal range of motion. No clubbing or cyanosis. Peripheral pulses intact. Bilateral lower extremity edema ASSESSMENT: Shortness of breath Acute heart failure with reduced EF Cardiomyopathy, 25 to 30%, ischemic versus nonischemic Moderate to severe aortic regurgitation Acute hypoxic respiratory failure requiring supplemental oxygen Bilateral pleural effusions Elevated troponins, type II CA secondary to oxygen supply/demand mismatch Destructive soft tissue mass seen within T1 and T2 vertebral bodies, per CT History of multiple myeloma Hypertension Hyperlipidemia History of aortic aneurysm with surgical repair GERD PLAN: Continue current cardiac medications No plans for any invasive procedures from cardiac standpoint Patient is hoping to be discharged home today Patient may be discharged from a cardiac standpoint. He is to follow-up postdischarge with his primary vegetable washing machine operator in [place] Further recommendations pending patient course Nurse practitioner note has been reviewed by physician. Signing provider agrees with the documented findings, assessment, and plan of care documented by WEAVER AXMINSTER as a scribe. Objective - Vital Signs Vital signs: Vital Signs Temp 97.7 F 05/25/24 08:30 Pulse 64 05/25/24 08:30 Resp 20 05/25/24 08:30 BP 148/71 05/25/24 08:30 Pulse Ox 94 L 05/25/24 08:30 FiO2 Intake & Output 05/24/24 05/25/24 05/25/24 18:59 06:59 18:59 Intake Total 796 20 730 Output Total 450 Balance 796 -430 730 Weight 97.5 kg 98 kg Intake: IV 20 20 10 Invasive Line 1 20 20 10 Oral 776 720 Output: Urine 450 Other: Voiding Method Indwelling Catheter Indwelling Catheter Indwelling Catheter # Bowel Movements 1 - Labs CBC & Chem 7: 05/24/24 06:04 05/24/24 06:04
--- NOTE | 2024-05-25 13:15 | P.PN ---
Subjective Progress Note Date: 05/25/24 83-year-old patient who follows with Dr. Marce Murrell. Patient has a diagnosis of multiple myeloma. Being followed by Dr. Tse oncologist. Patient is too weak to get any chemotherapy. Has received radiation treatment. Was diagnosed in March 2024. Multiple myeloma did affect T1 T2-3 3. Does use a collar. Received radiation treatment. Patient recently has been hospitalized at [facility]. Has progressively gotten weak. Just under a week at [facility]. Patient Comes with 1 day history of increasing shortness of breath. No cough no fever no chills. Appetite is good. Has bowel movements. 05/23. Patient seen and examined. States breathing has improved. Stated he feels much better 05/24. Patient seen and examined. Blood work done today showed WBC 6.7, he moglobin 9.9, sodium 137, potassium 3.9, BUN 16, creatinine 0.59. Still complaining of shortness of breath. 05/25. Patient seen and examined. Complaining of lethargy and weakness. Breathing is improving. REVIEW OF SYSTEMS: CONSTITUTIONAL: No fever, no malaise,. CARDIOVASCULAR: No chest pain, no palpitations, no syncope. PULMONARY: As mentioned above GASTROINTESTINAL: No diarrhea, no nausea, no vomiting, no abdominal pain. NEUROLOGICAL: No headaches, no weakness, PHYSICAL EXAMINATION: GENERAL: The patient is alert and oriented x3, ill looking HEENT: Pupils are round and equally reacting to light. EOMI. No scleral icterus. No conjunctival pallor. Normocephalic, atraumatic. No pharyngeal erythema. No thyromegaly. CARDIOVASCULAR: S1 and S2 present. No murmurs, rubs, or gallops. PULMONARY: Diminished breath sounds at the bases bilaterally, no wheezing or crackles. ABDOMEN: Soft, nontender, nondistended, normoactive bowel sounds. No palpable organomegaly. MUSCULOSKELETAL: No joint swelling or deformity. EXTREMITIES: No cyanosis, clubbing, or pedal edema. NEUROLOGICAL: Gross neurological examination did not reveal any focal deficits. SKIN: No rashes. Assessment and plan -Acute systolic congestive heart failure exacerbation Monitor vital signs monitor CBC Monitor CMP Strict I's and O's, daily weights, Lasix 40 g daily Continue [facility] cardiology following, recommend guideline to treatment therapy for CHF -Troponin leak from CHF. No ACS -Multiple myeloma being follow-up with Dr. Schwab out of the area. Patient is too weak to receive chemotherapy. Care received radiation treatment. It does also involve T1-T2-T3. Does wear a collar. 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 Involvement of T1-T2-T3. Has been working with PT OT outpatient. PT OT -Hyperlipidemia Crestor -BPH Proscar -Essential hypertension Amlodipine, Coreg, Catapres -Depression Cymbalta Labs and medication were reviewed.. Continue same treatment. Continue with symptomatic treatment. Resume home medication. Monitor labs and vitals. DVT and GI prophylaxis. Further recommendations as per clinical course of the patient Dictation was produced using [employer] dictation software. please excuse any grammatical, word or spelling errors. Objective - Vital Signs Vital signs: Vital Signs Temp 97.9 F 05/25/24 11:40 Pulse 99 05/25/24 11:40 Resp 18 05/25/24 11:40 BP 107/51 05/25/24 11:40 Pulse Ox 95 05/25/24 11:40 FiO2 Intake & Output 05/24/24 05/25/24 05/25/24 18:59 06:59 18:59 Intake Total 336 57 5752 Output Total 450 Balance 796 -430 1210 Weight 97.5 kg 98 kg Intake: IV 20 20 10 Invasive Line 1 20 20 10 Oral 776 1200 Output: Urine 450 Other: Voiding Method Indwelling Catheter Indwelling Catheter Indwelling Catheter # Bowel Movements 1 - Labs CBC & Chem 7: 05/24/24 06:04 05/24/24 06:04
--- NOTE | 2024-05-25 17:52 | XR ---
EXAMINATION TYPE: XR abdomen 1V DATE OF EXAM: 05/25/2024 5:45 PM COMPARISON: None. CLINICAL INDICATION: Male, 83 years old with history of abdominal distention; H TECHNIQUE: One radiographic view of the abdomen was obtained. FINDINGS: Numerous dilated gas-filled loops of bowel throughout the abdomen concerning for obstructio n. [id number] chronic stubborn in the right hemiabdomen. Evaluate for free air limited by supin e technique. Partially visualized median sternotomy wires. IMPRESSION: Numerous dilated gas-filled loops of bowel throughout the abdomen concerning for small bowel obstruct ion. Recommend CT abdomen/pelvis for further evaluation as clinically indicated. [facility], , 05/25/2024 5:49 PM
--- NOTE | 2024-05-25 19:23 | CT ---
EXAMINATION TYPE: CT abdomen pelvis wo con DATE OF EXAM: 05/25/2024 6:41 PM COMPARISON: Previous CT study 05/22/2024. CLINICAL INDICATION: Male, 83 years old with history of possible small bowel obstruction; SBO TECHNIQUE: Axial CT abdomen pelvis wo con;Sagittal and coronal reformats were created on a separate workstation. Oral contrast used: without Oral Contrast (none if empty) CT DLP: 820 mGycm, Automated exposure control for dose reduction was used. FINDINGS: LOWER CHEST: Small bilateral pleural effusions. Partially visualized coronary artery calcifications a nd median sternotomy wires. ABDOMEN LIVER: Unremarkable GALLBLADDER AND BILE DUCTS: Unremarkable. PANCREAS: Fatty parenchyma atrophy. No pancreatic ductal dilatation or evidence of acute pancreatitis . SPLEEN: Unremarkable. ADRENAL GLANDS: Unremarkable. KIDNEYS AND URETERS: Simple and hemorrhagic cysts in the bilateral kidneys. Limited evaluation for re nal cell carcinoma given lack of IV contrast. No hydronephrosis or ureter. Nonobstructing renal or ur eteral calculus. PELVIS BLADDER: Decompressed with intraluminal White catheter and several ventral wall thickening. REPRODUCTIVE: Unremarkable. ABDOMEN & PELVIS STOMACH AND BOWEL: Fluid-filled rectosigmoid colon suggesting diarrhea. No evidence of small bowel ob struction.Stomach unremarkable. PERITONEUM/RETROPERITONEUM: No evidence of pneumoperitoneum or free fluid. VASCULATURE: No abdominal aortic aneurysm. 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 MUSCULOSKELETAL: No acute osseous abnormalities LYMPH NODES: No gross evidence for lymphadenopathy. SOFT TISSUE/ABDOMINAL WALL: Small fat containing bilateral inguinal hernias. IMPRESSION: 1. No evidence of small bowel obstruction. 2. Liquid stool in the rectosigmoid colon suggesting diarrhea. 3. White catheter within the decompressed urinary bladder lumen. 4. Small bilateral pleural effusions partially visualized. 5. Fusiform interval dilatation of the proximal left renal artery, not well evaluated given lack of IV contrast. [facility], , 05/25/2024 7:20 PM
--- NOTE | 2024-05-26 10:19 | P.CON ---
Consult Note - . Consult date: 05/26/24 Assessment/Plan:: Patient is an 83 y/o male hx MM presenting today for shortness of breath. Patient resides at the [facility] and woke up short of breath. Patient evaluated for small bowel obstruction. He states he is currently not having any nausea or vomiting. He states he is passing gas. He had a CT-AP which does not show small bowel obstruction. Review of Systems ROS Statement: Those systems with pertinent positive or pertinent negative responses have been documented in the HPI. ROS Other: All systems not noted in ROS Statement are negative. Limitations: ROS unobtainable due to patients medical condition Past Medical History Past Medical History: Cancer, GERD/Reflux, Hyperlipidemia, Hypertension Additional Past Medical History / Comment(s): aortic aneurysm,neuropathy, chronic back pain, radiation, multiple myloma History of Any Multi-Drug Resistant Organisms: None Reported Past Surgical History: Back Surgery, Joint Replacement, Orthopedic Surgery Past Psychological History: No Psychological Hx Reported Smoking Status: Never smoker Past Alcohol Use History: None Reported Past Drug Use History: None Reported General Exam - General Exam Comments Initial Comments: PE: CONSTITUTIONAL: [no apparent distress, well appearing] SKIN: [warm, dry, no jaundice, hives or petechiae] EYES:[ pupils are equally round, extraocular movements intact without nystagmus, clear conjunctiva, non-icteric sclera] HENT: [normocephalic, atraumatic, moist mucus membranes, oropharynx clear without exudates] NECK: , [Full range of motion, normal appearance] PULMONARY: [Rhonchi and rales in the bilateral lung swan, worse on the left than the right, no wheezes or stridor, normal excursion no accessory muscle use c] CARDIOVASCULAR:[ regular rate, rhythm, normal S1 and S2. No appreciated murmurs, rubs or gallops. Strong radial pulses with intact distal perfusion. No lower extremity edema] GASTROINTESTINAL: [soft, active bowel sounds throughout, non-tender, non- distended, no palpable masses, no rebound or guarding. No hepatosplenomegaly] GENITOURINARY: MUSCULOSKELETAL: [Extremities have no gross deformity, no edema, redness, or swelling. No calf swelling ] NEUROLOGIC: [_a/o x 3, GCS 15, normal mentation and speech. Moves all extremities x 4 without motor or sensory deficit] PSYCHIATRIC:[ _normal mood and affect, thought process is clear and linear] 83 year old male evaluated for SBO -CT-AP reviewed which does not show any evidence of SBO. However patients abdomen is quite distended. Will keep NPO with meds for now. No need for nasogastric tube at this time. -Monitor Bowel Function -Further recs to follow Elias Wheeler DO [facility] [phone]
--- NOTE | 2024-05-26 10:50 | P.PN ---
Subjective HISTORY OF PRESENT ILLNESS: This is a 83-year-old male with a past medical history significant for multiple myeloma, hypertension, hyperlipidemia and GERD. Patient not follow with a jewelry drilling machine operator at [facility]. We have been asked to see the patient in consultation for congestive heart failure. Patient examined at the bedside. The emergency room. Patient presented to the hospital with a chief complaint of shortness of breath. He denies chest pain or pressure. He continues to report shortness of breath this morning. Vital signs are stable. DIAGNOSTICS: - EKG reveals sinus mechanism with left bundle branch block. - Laboratory data: WBC 5.4. Hemoglobin 11.3. Platelet count 221. Sodium 129. Potassium 3.1. BUN 12. Creatinine 0.40. proBNP 10,100. Troponin 0.093. 0.102. - Chest CT: Destructive soft tissue mass seen within T1 and T2 vertebral bodies with compromise of the adjacent spinal canal not excluded. Confluent soft tissue opacity seen within the bilateral upper lobes underlying malignancy is not excluded. Bilateral upper lobe groundglass changes concerning for infectious or inflammatory process. Bilateral pleural effusions. No pulmonary embolism. - Current home cardiac medications include amlodipine 10 mg daily, carvedilol 25 mg twice a day, Catapres 0.2 mg 3 times a day, rosuvastatin 10 mg at night, hydralazine 100 mg twice a day - No previous echocardiogram, stress test, or cardiac catheterization available in EMR for review 05/24/2024 Patient examined this morning the bedside. Patient currently denies chest pain or pressure. He denies shortness of breath. Vital signs are stable. Echoc ardiogram completed revealing ejection fraction 25 to 30%, mild pulmonary hypertension, moderate to severe aortic regurgitation, trace to mild mitral regurgitation, and ascending aortic aneurysm measuring 4.6 cm. 05/25/2024 Patient examined this morning at the bedside. Patient currently denies any chest pain or pressure. He denies shortness of breath. Vital signs are stable. No records received from patient's primary jewelry drilling machine operator as of this morning. Patient is hoping to be discharged today. 05/26/2024 Patient examined this morning at the bedside. Patient currently denies any chest pain or pressure. He denies shortness of breath. Vital signs are stable. Telemetry reveals sinus mechanism. PHYSICAL EXAM: VITAL SIGNS: Reviewed. GENERAL: Well-developed in no acute distress. HEENT: Head is normocephalic. Pupils are equal, round. Sclerae anicteric. Mucous membranes of the mouth are moist. Neck supple. No JVD or thyromegaly LUNGS: Respirations even and unlabored. Lungs essentially clear to auscultation bilaterally. HEART: Regular rate and rhythm. S1 and S2 heard. Systolic murmur noted EXTREMITIES: Normal range of motion. No clubbing or cyanosis. Peripheral pulses intact. Bilateral lower extremity edema ASSESSMENT: Shortness of breath Acute heart failure with reduced EF Cardiomyopathy, 25 to 30%, ischemic versus nonischemic Moderate to severe aortic regurgitation Acute hypoxic respiratory failure requiring supplemental oxygen Bilateral pleural effusions Elevated troponins, type II MN secondary to oxygen supply/demand mismatch Destructive soft tissue mass seen within T1 and T2 vertebral bodies, per CT History of multiple myeloma Hypertension Hyperlipidemia History of aortic aneurysm with surgical repair GERD PLAN: Continue current cardiac medications No plans for any invasive procedures from cardiac standpoint He is to follow-up postdischarge with his primary jewelry drilling machine operator in [place] Further recommendations pending patient course Nurse practitioner note has been reviewed by physician. Signing provider agrees with the documented findings, assessment, and plan of care documented by ROVING MARKER as a scribe. Objective - Vital Signs Vital signs: Vital Signs Temp 98 F 05/26/24 08:45 Pulse 81 05/26/24 08:45 Resp 18 05/26/24 08:45 BP 149/68 05/26/24 08:45 Pulse Ox 93 L 05/26/24 08:45 FiO2 Intake & Output 05/25/24 05/26/24 05/26/24 18:59 06:59 18:59 Intake Total 2180 20 10 Output Total 950 1280 Balance 1230 -1260 10 Weight 96.5 kg Intake: IV 20 20 10 Invasive Line 1 20 20 10 Oral 2160 Output: Urine 950 1280 Other: Voiding Method Indwelling Catheter Indwelling Catheter Indwelling Catheter # Bowel Movements 1 - Labs CBC & Chem 7: 05/24/24 06:04 05/24/24 06:04
--- NOTE | 2024-05-26 14:00 | P.PN ---
Subjective Progress Note Date: 05/26/24 83-year-old patient who follows with Dr. Marce Murrell. Patient has a diagnosis of multiple myeloma. Being followed by Dr. Tse oncologist. Patient is too weak to get any chemotherapy. Has received radiation treatment. Was diagnosed in March 2024. Multiple myeloma did affect T1 T2-3 3. Does use a collar. Received radiation treatment. Patient recently has been hospitalized at [facility]. Has progressively gotten weak. Just under a week at [facility]. Patient Comes with 1 day history of increasing shortness of breath. No cough no fever no chills. Appetite is good. Has bowel movements. 05/23. Patient seen and examined. States breathing has improved. Stated he feels much better 05/24. Patient seen and examined. Blood work done today showed WBC 6.7, he moglobin 9.9, sodium 137, potassium 3.9, BUN 16, creatinine 0.59. Still complaining of shortness of breath. 05/25. Patient seen and examined. Complaining of lethargy and weakness. Breathing is improving. 05/26. Patient seen and examined. Patient was complaining abdominal distention. CT abdomen and pelvis done did not show any bowel obstruction. Patient is passing gas. REVIEW OF SYSTEMS: CONSTITUTIONAL: No fever, no malaise,. CARDIOVASCULAR: No chest pain, no palpitations, no syncope. PULMONARY: As mentioned above GASTROINTESTINAL: As mentioned above NEUROLOGICAL: No headaches, no weakness, PHYSICAL EXAMINATION: GENERAL: The patient is alert and oriented x3, ill looking HEENT: Pupils are round and equally reacting to light. EOMI. No scleral icterus. No conjunctival pallor. Normocephalic, atraumatic. No pharyngeal erythema. No thyromegaly. CARDIOVASCULAR: S1 and S2 present. No murmurs, rubs, or gallops. PULMONARY: Diminished breath sounds at the bases bilaterally, no wheezing or crackles. ABDOMEN: Distended, no guarding normoactive bowel sounds. No palpable organomegaly. MUSCULOSKELETAL: No joint swelling or deformity. EXTREMITIES: No cyanosis, clubbing, or pedal edema. NEUROLOGICAL: Gross neurological examination did not reveal any focal deficits. SKIN: No rashes. Assessment and plan -Acute systolic congestive heart failure exacerbation Monitor vital signs monitor CBC Monitor CMP Strict I's and O's, daily weights, Lasix 40 mg daily Continue Farxiga, Coreg, Norvasc cardiology following, recommend guideline to treatment therapy for CHF -Troponin leak from CHF. No ACS Abdominal distention Keep patient n.p.o. Results of CT abdominal and pelvis noted. General surgery following -Multiple myeloma being follow-up with Dr. Schwab out of the area. Patient is too weak to receive chemotherapy. Care received radiation treatment. It does also involve T1-T2-T3. Does wear a collar. 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 Involvement of T1-T2-T3. Has been working with PT OT outpatient. PT OT -Hyperlipidemia Crestor -BPH Proscar -Essential hypertension Amlodipine, Coreg, Catapres -Depression Cymbalta Labs and medication were reviewed.. Continue same treatment. Continue with symptomatic treatment. Resume home medication. Monitor labs and vitals. DVT and GI prophylaxis. Further recommendations as per clinical course of the patient Dictation was produced using [email or web address] dictation software. please excuse any grammatical, word or spelling errors. Objective - Vital Signs Vital signs: Vital Signs Temp 98 F 05/26/24 08:45 Pulse 81 05/26/24 08:45 Resp 18 05/26/24 08:45 BP 149/68 05/26/24 08:45 Pulse Ox 93 L 05/26/24 08:45 FiO2 Intake & Output 05/25/24 05/26/24 05/26/24 18:59 06:59 18:59 Intake Total 2180 20 10 Output Total 950 1280 1100 Balance 1230 -1260 -1090 Weight 96.5 kg Intake: IV 20 20 10 Invasive Line 1 20 20 10 Oral 2160 Output: Urine 950 1280 1100 Other: Voiding Method Indwelling Catheter Indwelling Catheter Indwelling Catheter # Bowel Movements 1 - Labs CBC & Chem 7: 05/24/24 06:04 05/24/24 06:04
[2024-05-27 03:01] LABS: Glucose,Whole Blood 78 mg/dL (70-110)
[2024-05-27] MEDS: QUEtiapine 25 MG TAB PO STA (03:16)
--- NOTE | 2024-05-27 03:52 | CT ---
EXAM: CT Head Without Intravenous Contrast CLINICAL HISTORY: ITS.REASON CT Reason: confusion TECHNIQUE: Axial computed tomography images of the head/brain without intravenous contrast. CTDI is 49.2 mGy and DLP is 1272.2 mGy-cm. This CT exam was performed using one or more of the following dose reduction techniques: automated exposure control, adjustment of the mA and/or kV according to patient size, and/or use of iterative reconstruction technique. COMPARISON: No relevant prior studies available. FINDINGS: Brain: No hemorrhage, herniation, or mass effect. Chronic microvascular ischemic changes. Ventricles: No hydrocephalus. Age related cerebral volume loss. Bones/joints: Unremarkable. Soft tissues: Unremarkable. Sinuses: No air fluid levels. Mastoid air cells: Clear. IMPRESSION: No acute hemorrhage, hydrocephalus, or mass effect.
[2024-05-27 05:13] LABS: ABG Base Excess 3.3 mmol/L; ABG HCO3 27 mmol/L (21-25); ABG PCO2 36 mmHg (35-45); ABG PH 7.48 (7.35-7.45); ABG PO2 68 mmHg (83-108); ABG TCO2 28 mmol/L (19-24); Allen Test Performed? Yes
[2024-05-27] MEDS ORDERED: SACUBITRIL/VALSARTAN 24 MG-26 MG TABLET PO SCH (10:15)
[2024-05-27 10:43] LABS: African American GFR (CKD) >90 (>60 ml/min/1.73 sqM); Anion Gap 9 mmol/L; Blood Urea Nitrogen 20 mg/dL (9-20); Calcium 8.2 mg/dL (8.4-10.2); Carbon Dioxide 26 mmol/L (22-30); Chloride 98 mmol/L (98-107); Glucose 99 mg/dL (74-99); Non-African American GFR(CKD) >90 (>60 ml/min/1.73 sqM); Potassium 4.3 mmol/L (3.5-5.1); Sodium 133 mmol/L (137-145)
--- NOTE | 2024-05-27 14:22 | P.PN ---
Subjective Progress Note Date: 05/27/24 HISTORY OF PRESENT ILLNESS: This is a 83-year-old male with a past medical history significant for multiple myeloma, hypertension, hyperlipidemia and GERD. Patient not follow with a cigarette making machine catcher at [facility]. We have been asked to see the patient in consultation for congestive heart failure. Patient examined at the bedside. The emergency room. Patient presented to the hospital with a chief complaint of shortness of breath. He denies chest pain or pressure. He continues to report shortness of breath this morning. Vital signs are stable. DIAGNOSTICS: - EKG reveals sinus mechanism with left bundle branch block. - Laboratory data: WBC 5.4. Hemoglobin 11.3. Platelet count 221. Sodium 129. Potassium 3.1. BUN 12. Creatinine 0.40. proBNP 10,100. Troponin 0.093. 0.102. - Chest CT: Destructive soft tissue mass seen within T1 and T2 vertebral bodies with compromise of the adjacent spinal canal not excluded. Confluent soft tissue opacity seen within the bilateral upper lobes underlying malignancy is not excluded. Bilateral upper lobe groundglass changes concerning for i nfectious or inflammatory process. Bilateral pleural effusions. No pulmonary embolism. - Current home cardiac medications include amlodipine 10 mg daily, carvedilol 25 mg twice a day, Catapres 0.2 mg 3 times a day, rosuvastatin 10 mg at night, hydralazine 100 mg twice a day - No previous echocardiogram, stress test, or cardiac catheterization available in EMR for review 05/24/2024 Patient examined this morning the bedside. Patient currently denies chest pain or pressure. He denies shortness of breath. Vital signs are stable. Echocardiogram completed revealing ejection fraction 25 to 30%, mild pulmonary hypertension, moderate to severe aortic regurgitation, trace to mild mitral regurgitation, and ascending aortic aneurysm measuring 4.6 cm. 05/25/2024 Patient examined this morning at the bedside. Patient currently denies any chest pain or pressure. He denies shortness of breath. Vital signs are stable. No records received from patient's primary cigarette making machine catcher as of this morning. Patient is hoping to be discharged today. 05/26/2024 Patient examined this morning at the bedside. Patient currently denies any chest pain or pressure. He denies shortness of breath. Vital signs are stable. Telemetry reveals sinus mechanism. 05/27 Patient seen and examined. Blood pressure 132/60, heart rate 82. Reviewed patient's medications. Repeat blood work reveals BUN 20, creatinine 0.[address] of the brain reveals no acute hemorrhage, hydrocephalus or mass effect. PHYSICAL EXAM: VITAL SIGNS: Reviewed. GENERAL: Well-developed in no acute distress. HEENT: Head is normocephalic. Pupils are equal, round. Sclerae anicteric. Mucous membranes of the mouth are moist. Neck supple. No JVD or thyromegaly LUNGS: Respirations even and unlabored. Lungs essentially clear to auscultation bilaterally. HEART: Regular rate and rhythm. S1 and S2 heard. Systolic murmur noted EXTREMITIES: Normal range of motion. No clubbing or cyanosis. Peripheral pulses intact. Bilateral lower extremity edema ASSESSMENT: Shortness of breath Acute heart failure with reduced EF Cardiomyopathy, 25 to 30%, ischemic versus nonischemic Moderate to severe aortic regurgitation Acute hypoxic respiratory failure requiring supplemental oxygen Bilateral pleural effusions Elevated troponins, type II MD secondary to oxygen supply/demand mismatch Destructive soft tissue mass seen within T1 and T2 vertebral bodies, per CT History of multiple myeloma Hypertension Hyperlipidemia History of aortic aneurysm with surgical repair GERD PLAN: Continue current cardiac medications No plans for any invasive procedures from cardiac standpoint Continue patient on aspirin 81 mg daily, atorvastatin, Coreg, Farxiga, Lasix 40 mg daily, hydralazine, potassium, spironolactone Discontinue amlodipine Start patient on Entresto 24-26 mg twice daily. He is to follow-up postdischarge with his primary cigarette making machine catcher in [place] Further recommendations pending patient course Nurse practitioner note has been reviewed by physician. Signing provider agrees with the documented findings, assessment, and plan of care documented by HVAC REFRIGERATION TECHNICIAN as a scribe. Objective - Vital Signs Vital signs: Vital Signs Temp 98.1 F 05/27/24 04:00 Pulse 82 05/27/24 04:00 Resp 15 05/27/24 04:00 BP 132/60 05/27/24 04:00 Pulse Ox 93 L 05/27/24 04:00 FiO2 Intake & Output 05/26/24 05/27/24 05/27/24 18:59 06:59 18:59 Intake Total 20 20 Output Total 2400 520 Balance -2380 -500 Weight 96.3 kg Intake: IV 20 20 Invasive Line 1 20 20 Output: Urine 2400 520 Other: Voiding Method Indwelling Catheter Indwelling Catheter - Labs CBC & Chem 7: 05/24/24 06:04 05/27/24 10:07 Labs: Abnormal Lab Results - Last 24 Hours (Table) 05/27/24 Range/Units 05:02 ABG pH 7.48 H (7.35-7.45) ABG pO2 68 L (83-108) mmHg ABG HCO3 27 H (21-25) mmol/L ABG Total CO2 28 H (19-24) mmol/L Hemoglobin 11.9 L (13.0-17.5) gm/dL
--- NOTE | 2024-05-27 14:22 | P.PN ---
Subjective Progress Note Date: 05/27/24 SURGICAL PROGRESS NOTE CHIEF COMPLAINT: Shortness of breath HISTORY OF PRESENT ILLNESS: Patient is abdomen remains distended. Nursing staff reports no nausea or vomiting. Last bowel movement was Monday. He had a CT scan abdomen and pelvis that showed no evidence of small bowel obstruction. Patient is confused. Per nursing staff his confusion is worse. Afebrile. WBC 6.7 PHYSICAL EXAM: VITAL SIGNS: Reviewed. GENERAL: Well-developed in no acute distress. ABDOMEN: Soft. Distended. Nontender NEUROLOGIC: Confused ASSESSMENT: 1. Abdominal distention. No evidence of small bowel obstruction on CT PLAN: -Keep patient n.p.o. -Continue to monitor bowel function -Continue to monitor -Further recommendations forthcoming per surgeon Physician Community Advocate note has been reviewed by physician. Signing provider agrees with the documented findings, assessment, and plan of care. Attestation Patient seen and examined at bedside. Resting comfortably. Denies any nausea or vomiting today. Patient does have some confusion at this time. No evidence of bowel obstruction on imaging. Plan to advance to clear liquid diet. Continue to monitor for further bowel function. Abdomen is soft on my exam today. Balwinder Noel, Objective - Vital Signs Vital signs: Vital Signs Temp 97.8 F 05/27/24 09:15 Pulse 62 05/27/24 11:15 Resp 17 05/27/24 11:15 BP 123/62 05/27/24 11:15 Pulse Ox 98 05/27/24 11:15 FiO2 Intake & Output 05/26/24 05/27/24 05/27/24 18:59 06:59 18:59 Intake Total 20 20 20 Output Total 2400 520 Balance -2380 -500 20 Weight 96.3 kg Intake: IV 20 20 20 Invasive Line 1 20 20 20 Output: Urine 2400 520 Other: Voiding Method Indwelling Catheter Indwelling Catheter Indwelling Catheter - Labs CBC & Chem 7: 05/24/24 06:04 05/27/24 10:07 Labs: Abnormal Lab Results - Last 24 Hours (Table) 05/27/24 05/27/24 Range/Units 05:02 10:07 ABG pH 7.48 H (7.35-7.45) ABG pO2 68 L (83-108) mmHg ABG HCO3 27 H (21-25) mmol/L ABG Total CO2 28 H (19-24) mmol/L Hemoglobin 11.9 L (13.0-17.5) gm/dL Sodium 133 L (137-145) mmol/L Creatinine 0.56 L (0.66-1.25) mg/dL Calcium 8.2 L (8.4-10.2) mg/dL
--- NOTE | 2024-05-27 16:56 | P.PN ---
Progress Note - Text Progress Note Date: 05/27/24 Chief Complaint: Increased shortness of breath 83-year-old patient who follows with Dr. Marce Murrell. Patient has a diagnosis of multiple myeloma. Being followed by Dr. Tse oncologist. Patient is too weak to get any chemotherapy. Has received radiation treatment. Was diagnosed in March 2024. Multiple myeloma did affect T1 T2-3 3. Does use a collar. Received radiation treatment. Patient recently has been hospitalized at [facility]. Has progressively gotten weak. Just under a week at [facility]. Patient Comes with 1 day history of increasing shortness of breath. No cough no fever no chills. Appetite is good. Has bowel movements. 05/23. Patient seen and examined. States breathing has improved. Stated he feels much better 05/24. Patient seen and examined. Blood work done today showed WBC 6.7, hemoglobin 9.9, sodium 137, potassium 3.9, BUN 16, creatinine 0.59. Still complaining of shortness of breath. 05/25. Patient seen and examined. Complaining of lethargy and weakness. Breathing is improving. 05/26. Patient seen and examined. Patient was complaining abdominal distention. CT abdomen and pelvis done did not show any bowel obstruction. Patient is passing gas. May 27: Laying in bed. Tired. Return to answer questions. This morning NPO. Took his medications. Spoke to patient's brother and sister at the bedside. Social history: Currently at [facility]. . No smoking or alcohol. Patient started on clear liquids by surgery. Seen by physical therapy. Patient is a total assist. Will require rehab. Physical examination: VITAL SIGNS: 97.8, 86, 18, 138 x 70, 97% on 5 L GENERAL: Reclining in bed, tired but sleepy. EYES: Pupils equal. Conjunctiva mi l. HEENT: External appearance of nose and ears normal, oral cavity grossly normal. NECK: JVD not raised; masses not palpable. HEART: First and second heart sounds are normal; no edema. LUNGS: Respiratory rate i normal, decreased breath sounds. ABDOMEN: Soft, nontender, liver spleen not palpable, no masses palpable. PSYCH: Sleepy but arousable l. MUSCULOSKELETAL: OA INVESTIGATIONS, reviewed in the clinical context: May 27: Sodium 133 potassium 4.3 [address]UN [address] scan brain [May 26] Nil acute CT abdomen pelvis [May 25] liquid stool in the rectum or sigmoid colon. Otherwise nonspecific 2D echocardiogram: EF 25 to 30%. Moderate concentric LVH. Aortic valve: Moderate to severe AR. May 22, 2024: White count 5.4 hemoglobin 11.3 platelets 221 sodium 129 potassium 3.1 BUN 12 creatinine 0.4 Troponin I 0.093, 0.102, 0.092 proBNP 43947 EKG tracing normal sinus rhythm. Left bundle zoila block. Chest CTA: Destructive soft tissue mass within T1 and T2 vertebral bodies with compromise adjacent spinal canal not excluded. Confluent soft tissue opacity seen within the bilateral upper lobes. Bilateral pleural effusion. Bilateral upper groundglass changes. Assessment plan: -Acute congestive heart failure exacerbation from systolic dysfunction EF 25 to 30%: Improved IV Lasix received. Fluid restriction. Cardiology followed Lasix 40 mg p.o. daily -Troponin leak from CHF. No ACS -Multiple myeloma being follow-up with Dr. Schwab out of the area. Patient is too weak to receive chemotherapy. received radiation treatment. It does also involve T1-T2-T3. Does wear a collar. 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 Involvement of T1-T2-T3. Has been working with PT OT outpatient. PT OT-requiring total assist -Moderate to severe aortic regurgitation Cardio following -Hyperlipidemia Crestor -BPH Proscar -Essential hypertension Amlodipine, Coreg, Catapres -Depression Cymbalta -DNR -Medical power of assistant city attorney, Kristen - Prognosis guarded. Patient require rehab. Decrease FiO2. Started on clear liquids. Past Medical History Past Medical History: Cancer, GERD/Reflux, Hyperlipidemia, Hypertension Additional Past Medical History / Comment(s): aortic aneurysm,neuropathy, chronic back pain, radiation, multiple myloma History of Any Multi-Drug Resistant Organisms: None Reported Past Surgical History: Back Surgery, Joint Replacement, Orthopedic Surgery Past Psychological History: No Psychological Hx Reported Smoking Status: Never smoker Past Alcohol Use History: None Reported Past Drug Use History: None Reported
[2024-05-27] MEDS: SACUBITRIL/VALSARTAN 24 MG-26 MG TABLET PO SCH (21:20)
--- NOTE | 2024-05-28 14:29 | P.PN ---
Subjective Progress Note Date: 05/28/24 HISTORY OF PRESENT ILLNESS: This is a 83-year-old male with a past medical history significant for multiple myeloma, hypertension, hyperlipidemia and GERD. Patient not follow with a professor of forestry at [facility]. We have been asked to see the patient in consultation for congestive heart failure. Patient examined at the bedside. The emergency room. Patient presented to the hospital with a chief complaint of shortness of breath. He denies chest pain or pressure. He continues to report shortness of breath this morning. Vital signs are stable. DIAGNOSTICS: - EKG reveals sinus mechanism with left bundle branch block. - Laboratory data: WBC 5.4. Hemoglobin 11.3. Platelet count 221. Sodium 129. Potassium 3.1. BUN 12. Creatinine 0.40. proBNP 10,100. Troponin 0.093. 0.102. - Chest CT: Destructive soft tissue mass seen within T1 and T2 vertebral bodies with compromise of the adjacent spinal canal not excluded. Confluent soft tissue opacity seen within the bilateral upper lobes underlying malignancy is not excluded. Bilateral upper lobe groundglass changes concerning for i nfectious or inflammatory process. Bilateral pleural effusions. No pulmonary embolism. - Current home cardiac medications include amlodipine 10 mg daily, carvedilol 25 mg twice a day, Catapres 0.2 mg 3 times a day, rosuvastatin 10 mg at night, hydralazine 100 mg twice a day - No previous echocardiogram, stress test, or cardiac catheterization available in EMR for review 05/24/2024 Patient examined this morning the bedside. Patient currently denies chest pain or pressure. He denies shortness of breath. Vital signs are stable. Echocardiogram completed revealing ejection fraction 25 to 30%, mild pulmonary hypertension, moderate to severe aortic regurgitation, trace to mild mitral regurgitation, and ascending aortic aneurysm measuring 4.6 cm. 05/25/2024 Patient examined this morning at the bedside. Patient currently denies any chest pain or pressure. He denies shortness of breath. Vital signs are stable. No records received from patient's primary professor of forestry as of this morning. Patient is hoping to be discharged today. 05/26/2024 Patient examined this morning at the bedside. Patient currently denies any chest pain or pressure. He denies shortness of breath. Vital signs are stable. Telemetry reveals sinus mechanism. 05/27 Patient seen and examined. Blood pressure 132/60, heart rate 82. Reviewed patient's medications. Repeat blood work reveals BUN 20, creatinine 0.[address] of the brain reveals no acute hemorrhage, hydrocephalus or mass effect. 05/28 Patient seen and examined. Yesterday, patient was started on Entresto 24-26 mg twice daily. Blood pressure 119/58, heart rate 93, pulse ox 98% on 3 L nasal cannula. Repeat blood work reveals BUN 20 creatinine 0.56, sodium 133 and potassium 4.3. PHYSICAL EXAM: VITAL SIGNS: Reviewed. GENERAL: Well-developed in no acute distress. HEENT: Head is normocephalic. Pupils are equal, round. Sclerae anicteric. Mucous membranes of the mouth are moist. Neck supple. No JVD or thyromegaly LUNGS: Respirations even and unlabored. Lungs essentially clear to auscultation bilaterally. HEART: Regular rate and rhythm. S1 and S2 heard. Systolic murmur noted EXTREMITIES: No clubbing or cyanosis. Peripheral pulses intact. Bilateral lower extremity edema ASSESSMENT: Shortness of breath Acute heart failure with reduced EF Cardiomyopathy, 25 to 30%, ischemic versus nonischemic Moderate to severe aortic regurgitation Acute hypoxic respiratory failure requiring supplemental oxygen Bilateral pleural effusions Elevated troponins, type II NM secondary to oxygen supply/demand mismatch Destructive soft tissue mass seen within T1 and T2 vertebral bodies, per CT History of multiple myeloma Hypertension Hyperlipidemia History of aortic aneurysm with surgical repair GERD PLAN: Continue current cardiac medications No plans for any invasive procedures from cardiac standpoint Continue patient on aspirin 81 mg daily, atorvastatin, Coreg, Farxiga, Lasix 40 mg daily, hydralazine, potassium, spironolactone Continue patient on Entresto 24-26 mg twice daily. He is to follow-up postdischarge with his primary professor of forestry in [place] Further recommendations pending patient course Nurse practitioner note has been reviewed by physician. Signing provider agrees with the documented findings, assessment, and plan of care documented by TURRET LATHE TENDER as a scribe. Objective - Vital Signs Vital signs: Vital Signs Temp 97.9 F 05/28/24 04:00 Pulse 89 05/28/24 04:00 Resp 15 05/28/24 04:00 BP 122/65 05/28/24 04:00 Pulse Ox 96 05/28/24 04:00 FiO2 Intake & Output 05/27/24 05/28/24 05/28/24 18:59 06:59 18:59 Intake Total 20 20 Output Total 600 425 Balance -580 -405 Weight 92.5 kg Intake: IV 20 20 Invasive Line 1 20 10 Invasive Line 2 10 Output: Urine 600 425 Other: Voiding Method Indwelling Catheter Indwelling Catheter - Labs CBC & Chem 7: 05/24/24 06:04 05/27/24 10:07 Labs: Abnormal Lab Results - Last 24 Hours (Table) 05/27/24 Range/Units 10:07 Sodium 133 L (137-145) mmol/L Creatinine 0.56 L (0.66-1.25) mg/dL Calcium 8.2 L (8.4-10.2) mg/dL
--- NOTE | 2024-05-28 15:07 | P.PN ---
Subjective Progress Note Date: 05/28/24 SURGICAL PROGRESS NOTE CHIEF COMPLAINT: Shortness of breath HISTORY OF PRESENT ILLNESS: Abdominal distention has improved. Patient did have a large liquidy stool this morning. He denies any abdominal pain. Denies any nausea or vomiting. Patient appears less confused today. Diet advanced to full liquids for lunch. Afebrile. PHYSICAL EXAM: VITAL SIGNS: Reviewed. GENERAL: Well-developed in no acute distress. ABDOMEN: Soft. Nondistended. Nontender NEUROLOGIC: mildly Confused ASSESSMENT: 1. Abdominal distention. Resolved. No evidence of small bowel obstruction on CT PLAN: -Advance diet to low fiber for dinner -Senna, stool softener added for constipation -Continue to monitor Physician Manager Bank note has been reviewed by physician. Signing provider agrees with the documented findings, assessment, and plan of care. Attestation Patient seen and examined at bedside. Patient with history of abdominal distention that appears to be resolving. No evidence of bowel obstruction. Had a large bowel movement this morning. Plan to advance diet and introduce bowel regimen. No plan for surgical intervention. Balwinder Noel DO Objective - Vital Signs Vital signs: Vital Signs Temp 97.6 F 05/28/24 08:00 Pulse 55 L 05/28/24 11:50 Resp 18 05/28/24 11:50 BP 131/62 05/28/24 11:50 Pulse Ox 97 05/28/24 11:50 FiO2 Intake & Output 05/27/24 05/28/24 05/28/24 18:59 06:59 18:59 Intake Total 20 20 20 Output Total 600 425 Balance -580 -405 20 Weight 92.5 kg Intake: IV 20 20 20 Invasive Line 1 20 10 Invasive Line 2 10 20 Output: Urine 600 425 Other: Voiding Method Indwelling Catheter Indwelling Catheter Indwelling Catheter # Bowel Movements 1 - Labs CBC & Chem 7: 05/24/24 06:04 05/27/24 10:07
[2024-05-28] MEDS: SENNOSIDES 8.6 MG TAB PO SCH (15:27)
--- NOTE | 2024-05-28 15:47 | P.PN ---
Progress Note - Text Progress Note Date: 05/28/24 Chief Complaint: Increased shortness of breath 83-year-old patient who follows with Dr. Marce Murrell. Patient has a diagnosis of multiple myeloma. Being followed by Dr. Tse oncologist. Patient is too weak to get any chemotherapy. Has received radiation treatment. Was diagnosed in March 2024. Multiple myeloma did affect T1 T2-3 3. Does use a collar. Received radiation treatment. Patient recently has been hospitalized at [facility]. Has progressively gotten weak. Just under a week at [facility]. Patient Comes with 1 day history of increasing shortness of breath. No cough no fever no chills. Appetite is good. Has bowel movements. 05/23. Patient seen and examined. States breathing has improved. Stated he feels much better 05/24. Patient seen and examined. Blood work done today showed WBC 6.7, hemoglobin 9.9, sodium 137, potassium 3.9, BUN 16, creatinine 0.59. Still complaining of shortness of breath. 05/25. Patient seen and examined. Complaining of lethargy and weakness. Breathing is improving. 05/26. Patient seen and examined. Patient was complaining abdominal distention. CT abdomen and pelvis done did not show any bowel obstruction. Patient is passing gas. May 27: Laying in bed. Tired. Return to answer questions. This morning NPO. Took his medications. Spoke to patient's brother and sister at the bedside.Patient started on clear liquids by surgery. Seen by physical therapy. Patient is a total assist. Will require rehab. 8: In bed. More awake. Holding a conversation with visitors. On full liquids per surgery. Advance to low fiber diet for supper tonight. No BM today. Abdomen soft. No nausea vomiting. Active Medications Hydrocodone Bitart/Acetaminophen (Hydrocodone/Apap 5-325mg 1 Each Tab) 1 each PO Q4HR PRN PRN Reason: Pain Last Admin: 05/28/24 15:27 Dose: 1 each Alprazolam (Alprazolam 0.25 Mg Tab) 0.25 mg PO BID PRN PRN Reason: Anxiety Last Admin: 05/26/24 20:50 Dose: 0.25 mg Aspirin (Aspirin 81 Mg) 81 mg PO DAILY [facility] Last Admin: 05/28/24 08:07 Dose: 81 mg Atorvastatin Calcium (Atorvastatin 20 Mg Tab) 20 mg PO HS [facility] Last Admin: 05/27/24 21:20 Dose: 20 mg Carvedilol (Carvedilol 12.5 Mg Tab) 25 mg PO BID-W/MEALS [facility] Last Admin: 05/28/24 15:27 Dose: 25 mg Dapagliflozin (Dapagliflozin Propanediol 10 Mg Tablet) 10 mg PO DAILY [facility] Last Admin: 05/28/24 08:07 Dose: 10 mg Duloxetine HCl (Duloxetine Hcl 30 Mg Capsule.Dr) 30 mg PO DAILY [facility] Last Admin: 05/28/24 08:07 Dose: 30 mg Famotidine (Famotidine 20 Mg Tab) 20 mg PO BID [facility] Last Admin: 05/28/24 08:07 Dose: 20 mg Finasteride (Finasteride 5 Mg Tab) 5 mg PO DAILY [facility] Last Admin: 05/28/24 08:07 Dose: 5 mg Furosemide (Furosemide 40 Mg Tab) 40 mg PO DAILY [facility] Last Admin: 05/28/24 08:07 Dose: 40 mg Heparin Sodium (Porcine) (Heparin Sodium,Porcine 5,000 Unit/Ml 1 Ml Vial) 5,000 unit SQ Q12HR [facility] Last Admin: 05/28/24 08:08 Dose: 5,000 unit Hydralazine HCl (Hydralazine Hcl 50 Mg Tab) 100 mg PO TID [facility] Last Admin: 05/28/24 15:27 Dose: 100 mg Loperamide HCl (Loperamide 2 Mg Cap) 2 mg PO BID PRN PRN Reason: Diarrhea Miscellaneous Information (Potassium Replacement Protocol 1 Each Misc) 1 each MISCELLANE DAILY PRN; Protocol PRN Reason: Per Protocol Multivitamins (Multivitamins, Thera 1 Each Tab) 1 each PO DAILY [facility] Last Admin: 05/28/24 08:07 Dose: 1 each Petrolatum (Zinc Oxide Paste (Z-Guard) 1 Applic) 1 applic TOPICAL BID [facility]; Protocol Last Admin: 05/28/24 08:08 Dose: 1 applic Potassium Chloride (Potassium Chloride Er 20 Meq Tab.Er) 20 meq PO BID [facility] Last Admin: 05/28/24 08:07 Dose: 20 meq Sacubitril/Valsartan (Sacubitril/Valsartan 24 Mg-26 Mg Tablet) 1 each PO Q12H [facility] Last Admin: 05/28/24 08:07 Dose: 1 each Senna (Sennosides 8.6 Mg Tab) 8.6 mg PO DAILY [facility] Last Admin: 05/28/24 15:27 Dose: 8.6 mg Spironolactone (Spironolactone 25 Mg Tab) 25 mg PO DAILY [facility] Last Admin: 05/28/24 08:07 Dose: 25 mg Social history: Currently at [facility]. . No smoking or alcohol. Physical examination: VITAL SIGNS: 97.6, 71, 18, 118 x 51, 97% on 3 L GENERAL: Resting bed, comfortable, awake. EYES: Pupils equal. Conjunctiva mi l. HEENT: External appearance of nose and ears normal, oral cavity grossly normal. NECK: JVD not raised; masses not palpable. HEART: First and second heart sounds are normal; no edema. LUNGS: Respiratory rate i normal, decreased breath sounds. ABDOMEN: Soft, nontender, liver spleen not palpable, no masses palpable. PSYCH: Answering questions appropriately MUSCULOSKELETAL: OA INVESTIGATIONS, reviewed in the clinical context: May 27: Sodium 133 potassium 4.3 BUN [address] scan brain [May 26] Nil acute CT abdomen pelvis [May 25] liquid stool in the rectum or sigmoid colon. Otherwise nonspecific 2D echocardiogram: EF 25 to 30%. Moderate concentric LVH. Aortic valve: Moderate to severe AR. May 22, 2024: White count 5.4 hemoglobin 11.3 platelets 221 sodium 129 potas sium 3.1 BUN 12 creatinine 0.4 Troponin I 0.093, 0.102, 0.092 proBNP 18107 EKG tracing normal sinus rhythm. Left bundle zoila block. Chest CTA: Destructive soft tissue mass within T1 and T2 vertebral bodies with compromise adjacent spinal canal not excluded. Confluent soft tissue opacity seen within the bilateral upper lobes. Bilateral pleural effusion. Bilateral upper groundglass changes. Assessment plan: -Acute congestive heart failure exacerbation from systolic dysfunction EF 25 to 30%: Improved IV Lasix initially. Fluid restriction. Cardiology followed Lasix 40 mg p.o. daily -Troponin leak from CHF. No ACS -Multiple myeloma being follow-up with Dr. Schwab out of the area. Patient is too weak to receive chemotherapy. received radiation treatment. It does also involve T1-T2-T3. Does wear a collar. 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 Involvement of T1-T2-T3. Has been working with PT OT outpatient. PT OT-requiring total assist -Moderate to severe aortic regurgitation Cardio following -Hyperlipidemia Crestor -BPH Proscar -Essential hypertension Amlodipine, Coreg, Catapres -Depression Cymbalta -DNR -Medical power of direct mail marketer, Kristen - Tolerating full liquid. Advance to soft bland this evening. Looking at probable discharge to rehab tomorrow. Past Medical History Past Medical History: Cancer, GERD/Reflux, Hyperlipidemia, Hypertension Additional Past Medical History / Comment(s): aortic aneurysm,neuropathy, chronic back pain, radiation, multiple myloma History of Any Multi-Drug Resistant Organisms: None Reported Past Surgical History: Back Surgery, Joint Replacement, Orthopedic Surgery Past Psychological History: No Psychological Hx Reported Smoking Status: Never smoker Past Alcohol Use History: None Reported Past Drug Use History: None Reported
[2024-05-29 07:04] LABS: African American GFR (CKD) >90 (>60 ml/min/1.73 sqM); Anion Gap 4 mmol/L; Blood Urea Nitrogen 29 mg/dL (9-20); Calcium 8.3 mg/dL (8.4-10.2); Carbon Dioxide 30 mmol/L (22-30); Chloride 100 mmol/L (98-107); Glucose 131 mg/dL (74-99); Non-African American GFR(CKD) 90 (>60 ml/min/1.73 sqM); Potassium 4.9 mmol/L (3.5-5.1); Sodium 134 mmol/L (137-145)
--- NOTE | 2024-05-29 10:43 | P.PN ---
Subjective HISTORY OF PRESENT ILLNESS: This is a 83-year-old male with a past medical history significant for multiple myeloma, hypertension, hyperlipidemia and GERD. Patient not follow with a wheel aligner at [facility]. We have been asked to see the patient in consultation for congestive heart failure. Patient examined at the bedside. The emergency room. Patient presented to the hospital with a chief complaint of shortness of breath. He denies chest pain or pressure. He continues to report shortness of breath this morning. Vital signs are stable. DIAGNOSTICS: - EKG reveals sinus mechanism with left bundle branch block. - Laboratory data: WBC 5.4. Hemoglobin 11.3. Platelet count 221. Sodium 129. Potassium 3.1. BUN 12. Creatinine 0.40. proBNP 10,100. Troponin 0.093. 0.102. - Chest CT: Destructive soft tissue mass seen within T1 and T2 vertebral bodies with compromise of the adjacent spinal canal not excluded. Confluent soft tissue opacity seen within the bilateral upper lobes underlying malignancy is not excluded. Bilateral upper lobe groundglass changes concerning for infectious or inflammatory process. Bilateral pleural effusions. No pulmonary embolism. - Current home cardiac medications include amlodipine 10 mg daily, carvedilol 25 mg twice a day, Catapres 0.2 mg 3 times a day, rosuvastatin 10 mg at night, hydralazine 100 mg twice a day - No previous echocardiogram, stress test, or cardiac catheterization available in EMR for review 05/24/2024 Patient examined this morning the bedside. Patient currently denies chest pain or pressure. He denies shortness of breath. Vital signs are stable. Echoc ardiogram completed revealing ejection fraction 25 to 30%, mild pulmonary hypertension, moderate to severe aortic regurgitation, trace to mild mitral regurgitation, and ascending aortic aneurysm measuring 4.6 cm. 05/25/2024 Patient examined this morning at the bedside. Patient currently denies any chest pain or pressure. He denies shortness of breath. Vital signs are stable. No records received from patient's primary wheel aligner as of this morning. Patient is hoping to be discharged today. 05/26/2024 Patient examined this morning at the bedside. Patient currently denies any chest pain or pressure. He denies shortness of breath. Vital signs are stable. Telemetry reveals sinus mechanism. 05/27 Patient seen and examined. Blood pressure 132/60, heart rate 82. Reviewed patient's medications. Repeat blood work reveals BUN 20, creatinine 0.[address] of the brain reveals no acute hemorrhage, hydrocephalus or mass effect. 05/28 Patient seen and examined. Yesterday, patient was started on Entresto 24-26 mg twice daily. Blood pressure 119/58, heart rate 93, pulse ox 98% on 3 L nasal cannula. Repeat blood work reveals BUN 20 creatinine 0.56, sodium 133 and potas sium 4.3. 05/29/2024 Patient examined this morning at the bedside. Patient currently denies chest p ain or pressure. He denies shortness of breath. Vital signs are stable. Patient is currently on 3 L nasal cannula with oxygen saturations greater than 92%. Vital signs are stable. Per nursing, patient has chronic indwelling urinary catheter. PHYSICAL EXAM: VITAL SIGNS: Reviewed. GENERAL: Well-developed in no acute distress. HEENT: Head is normocephalic. Pupils are equal, round. Sclerae anicteric. Mucous membranes of the mouth are moist. Neck supple. No JVD or thyromegaly LUNGS: Respirations even and unlabored. Lungs essentially clear to auscultation bilaterally. HEART: Regular rate and rhythm. S1 and S2 heard. Systolic murmur noted EXTREMITIES: Normal range of motion. No clubbing or cyanosis. Peripheral pulses intact. Trace bilateral lower extremity edema ASSESSMENT: Shortness of breath Acute heart failure with reduced EF Cardiomyopathy, 25 to 30%, ischemic versus nonischemic Moderate to severe aortic regurgitation Acute hypoxic respiratory failure requiring supplemental oxygen Bilateral pleural effusions Elevated troponins, type II WI secondary to oxygen supply/demand mismatch Destructive soft tissue mass seen within T1 and T2 vertebral bodies, per CT History of multiple myeloma Hypertension Hyperlipidemia History of aortic aneurysm with surgical repair GERD PLAN: Continue current cardiac medications Wean oxygen as tolerated to maintain oxygen saturations greater than 92% No plans for any invasive procedures from cardiac standpoint He is to follow-up postdischarge with his primary wheel aligner in [place] We will follow on an as-needed basis. Please call with questions or concerns. Nurse practitioner note has been reviewed by physician. Signing provider agrees with the documented findings, assessment, and plan of care documented by FUR DYER as a scribe. Objective - Vital Signs Vital signs: Vital Signs Temp 97.8 F 05/29/24 06:02 Pulse 76 05/29/24 06:02 Resp 12 01/29/25 06:02 BP 125/68 05/29/24 06:02 Pulse Ox 91 L 05/29/24 08:46 FiO2 Intake & Output 05/28/24 05/29/24 05/29/24 18:59 06:59 18:59 Intake Total 140 800 200 Output Total 900 250 Balance -760 550 200 Weight 92.5 kg Intake: IV 20 20 Invasive Line 2 20 20 Oral 120 780 200 Output: Urine 900 250 Other: Voiding Method Indwelling Catheter Indwelling Catheter # Bowel Movements 1 - Labs CBC & Chem 7: 05/24/24 06:04 05/29/24 05:56 Labs: Abnormal Lab Results - Last 24 Hours (Table) 05/29/24 Range/Units 05:56 Sodium 134 L (137-145) mmol/L BUN 29 H (9-20) mg/dL Glucose 131 H (74-99) mg/dL Calcium 8.3 L (8.4-10.2) mg/dL
--- NOTE | 2024-05-29 14:18 | P.PN ---
Subjective Progress Note Date: 05/29/24 SURGICAL PROGRESS NOTE CHIEF COMPLAINT: Shortness of breath HISTORY OF PRESENT ILLNESS: Patient lying in bed comfortably. He did have bowel movement yesterday. He is tolerating low fiber diet. He denies any abdominal pain. Vital stable PHYSICAL EXAM: VITAL SIGNS: Reviewed. GENERAL: Well-developed in no acute distress. ABDOMEN: Soft. Mildly distended. Nontender ASSESSMENT: 1. Abdominal distention. Improved. No evidence of small bowel obstruction on CT PLAN: -Continue low fiber diet -Continue Senokot stool softener -Continue to monitor bowel function -Increase activity level Physician Roof Painter note has been reviewed by physician. Signing provider agrees with the documented findings, assessment, and plan of care. Attestation Patient seen and examined at bedside. Presented with chief complaint of shortness of breath. Abdominal distention appears to be improving. Continues to have bowel function. Continue low fiber diet and bowel regimen. No plan for surgical intervention at this time. Balwinder Noel, Objective - Vital Signs Vital signs: Vital Signs Temp 97.5 F L 05/29/24 12:14 Pulse 90 05/29/24 12:14 Resp 16 05/29/24 12:14 BP 119/61 05/29/24 12:14 Pulse Ox 95 05/29/24 12:14 FiO2 Intake & Output 05/28/24 05/29/24 05/29/24 18:59 06:59 18:59 Intake Total 140 800 440 Output Total 900 250 Balance -760 550 440 Weight 92.5 kg Intake: IV 20 20 Invasive Line 2 20 20 Oral 120 780 440 Output: Urine 900 250 Other: Voiding Method Indwelling Catheter Indwelling Catheter Indwelling Catheter # Bowel Movements 1 - Labs CBC & Chem 7: 05/24/24 06:04 05/29/24 05:56 Labs: Abnormal Lab Results - Last 24 Hours (Table) 05/29/24 Range/Units 05:56 Sodium 134 L (137-145) mmol/L BUN 29 H (9-20) mg/dL Glucose 131 H (74-99) mg/dL Calcium 8.3 L (8.4-10.2) mg/dL
--- NOTE | 2024-05-29 18:41 | P.PN ---
Progress Note - Text Progress Note Date: 05/29/24 Chief Complaint: Increased shortness of breath 83-year-old patient who follows with Dr. Marce Murrell. Patient has a diagnosis of multiple myeloma. Being followed by Dr. Tse oncologist. Patient is too weak to get any chemotherapy. Has received radiation treatment. Was diagnosed in March 2024. Multiple myeloma did affect T1 T2-3 3. Does use a collar. Received radiation treatment. Patient recently has been hospitalized at [facility]. Has progressively gotten weak. Just under a week at [facility]. Patient Comes with 1 day history of increasing shortness of breath. No cough no fever no chills. Appetite is good. Has bowel movements. 05/23. Patient seen and examined. States breathing has improved. Stated he feels much better 05/24. Patient seen and examined. Blood work done today showed WBC 6.7, hemoglobin 9.9, sodium 137, potassium 3.9, BUN 16, creatinine 0.59. Still complaining of shortness of breath. 05/25. Patient seen and examined. Complaining of lethargy and weakness. Breathing is improving. 05/26. Patient seen and examined. Patient was complaining abdominal distention. CT abdomen and pelvis done did not show any bowel obstruction. Patient is passing gas. May 27: Laying in bed. Tired. Return to answer questions. This morning NPO. Took his medications. Spoke to patient's brother and sister at the bedside.Patient started on clear liquids by surgery. Seen by physical therapy. Patient is a total assist. Will require rehab. : In bed. More awake. Holding a conversation with visitors. On full liquids per surgery. Advance to low fiber diet for supper tonight. No BM today. Abdomen soft. No nausea vomiting. May 29: Social work is looking into placement. Eating fair. Patient still requiring assist. Seen by PT OT. Active Medications Hydrocodone Bitart/Acetaminophen (Hydrocodone/Apap 5-325mg 1 Each Tab) 1 each PO Q4HR PRN PRN Reason: Pain Last Admin: 05/28/24 20:20 Dose: 1 each Alprazolam (Alprazolam 0.25 Mg Tab) 0.25 mg PO BID PRN PRN Reason: Anxiety Last Admin: 05/26/24 20:50 Dose: 0.25 mg Aspirin (Aspirin 81 Mg) 81 mg PO DAILY [facility] Last Admin: 05/29/24 09:55 Dose: 81 mg Atorvastatin Calcium (Atorvastatin 20 Mg Tab) 20 mg PO HS [facility] Last Admin: 05/28/24 20:20 Dose: 20 mg Carvedilol (Carvedilol 12.5 Mg Tab) 25 mg PO BID-W/MEALS [facility] Last Admin: 05/29/24 17:52 Dose: 25 mg Dapagliflozin (Dapagliflozin Propanediol 10 Mg Tablet) 10 mg PO DAILY [facility] Last Admin: 05/29/24 09:48 Dose: 10 mg Duloxetine HCl (Duloxetine Hcl 30 Mg Capsule.Dr) 30 mg PO DAILY [facility] Last Admin: 05/29/24 09:48 Dose: 30 mg Famotidine (Famotidine 20 Mg Tab) 20 mg PO BID [facility] Last Admin: 05/29/24 09:47 Dose: 20 mg Finasteride (Finasteride 5 Mg Tab) 5 mg PO DAILY [facility] Last Admin: 05/29/24 09:48 Dose: 5 mg Furosemide (Furosemide 40 Mg Tab) 40 mg PO DAILY [facility] Last Admin: 05/29/24 09:48 Dose: 40 mg Heparin Sodium (Porcine) (Heparin Sodium,Porcine 5,000 Unit/Ml 1 Ml Vial) 5,000 unit SQ Q12HR [facility] Last Admin: 05/29/24 09:49 Dose: 5,000 unit Hydralazine HCl (Hydralazine Hcl 50 Mg Tab) 100 mg PO TID [facility] Last Admin: 05/29/24 16:46 Dose: 100 mg Loperamide HCl (Loperamide 2 Mg Cap) 2 mg PO BID PRN PRN Reason: Diarrhea Miscellaneous Information (Potassium Replacement Protocol 1 Each Misc) 1 each MISCELLANE DAILY PRN; Protocol PRN Reason: Per Protocol Multivitamins (Multivitamins, Thera 1 Each Tab) 1 each PO DAILY [facility] Last Admin: 05/29/24 09:55 Dose: 1 each Petrolatum (Zinc Oxide Paste (Z-Guard) 1 Applic) 1 applic TOPICAL BID [facility]; Protocol Last Admin: 05/29/24 16:48 Dose: 1 applic Potassium Chloride (Potassium Chloride Er 20 Meq Tab.Er) 20 meq PO BID [facility] Last Admin: 05/29/24 09:48 Dose: 20 meq Sacubitril/Valsartan (Sacubitril/Valsartan 24 Mg-26 Mg Tablet) 1 each PO Q12H [facility] Last Admin: 05/29/24 09:48 Dose: 1 each Senna (Sennosides 8.6 Mg Tab) 8.6 mg PO DAILY [facility] Last Admin: 05/29/24 09:48 Dose: 8.6 mg Spironolactone (Spironolactone 25 Mg Tab) 25 mg PO DAILY [facility] Last Admin: 05/29/24 09:48 Dose: 25 mg Social history: Currently at [facility]. . No smoking or alcohol. Physical examination: VITAL SIGNS: 97.5, 90, 16, 119 x 61, 95% on 3 L GENERAL: Resting bed awake comfortable EYES: Pupils equal. Conjunctiva mi l. HEENT: External appearance of nose and ears normal, oral cavity grossly normal. NECK: JVD not raised; masses not palpable. HEART: First and second heart sounds are normal; no edema. LUNGS: Respiratory rate i normal, decreased breath sounds. ABDOMEN: Soft, nontender, liver spleen not palpable, no masses palpable. PSYCH: Answering questions appropriately MUSCULOSKELETAL: OA INVESTIGATIONS, reviewed in the clinical context: May 29: Potassium 4.9 creatinine 0.66 May 27: Sodium 133 potassium 4.3 BUN [address] scan brain [May 26] Nil acute CT abdomen pelvis [May 25] liquid stool in the rectum or sigmoid colon. Otherwise nonspecific 2D echocardiogram: EF 25 to 30%. Moderate concentric LVH. Aortic valve: Moderate to severe AR. May 22, 2024: White count 5.4 hemoglobin 11.3 platelets 221 sodium 129 potassium 3.1 BUN 12 creatinine 0.4 Troponin I 0.093, 0.102, 0.092 proBNP 57441 EKG tracing normal sinus rhythm. Left bundle zoila block. Chest CTA: Destructive soft tissue mass within T1 and T2 vertebral bodies with compromise adjacent spinal canal not excluded. Confluent soft tissue opacity seen within the bilateral upper lobes. Bilateral pleural effusion. Bilateral upper groundglass changes. Assessment plan: -Acute congestive heart failure exacerbation from systolic dysfunction EF 25 to 30%: Improved IV Lasix initially. Now on Lasix 40 mg daily Fluid restriction. Cardiology followed -Troponin leak from CHF. No ACS -Multiple myeloma being follow-up with Dr. Schwab out of the area. Patient is too weak to receive chemotherapy. received radiation treatment. It does also involve T1-T2-T3. Does wear a collar. 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 Involvement of T1-T2-T3. Has been working with PT OT outpatient. PT OT-requiring total assist -Moderate to severe aortic regurgitation Cardio following -Hyperlipidemia Crestor -BPH Proscar -Essential hypertension Amlodipine, Coreg, Catapres -Depression Cymbalta -DNR -Medical power of city attorney, Kristen - Continue current medication treatment plan. Look into possible rehab placement. Past Medical History Past Medical History: Cancer, GERD/Reflux, Hyperlipidemia, Hypertension Additional Past Medical History / Comment(s): aortic aneurysm,neuropathy, chronic back pain, radiation, multiple myloma History of Any Multi-Drug Resistant Organisms: None Reported Past Surgical History: Back Surgery, Joint Replacement, Orthopedic Surgery Past Psychological History: No Psychological Hx Reported Smoking Status: Never smoker Past Alcohol Use History: None Reported Past Drug Use History: None Reported
--- NOTE | 2024-05-30 14:00 | P.DS ---
Providers Date of admission: 05/23/24 08:23 Expected date of discharge: 05/30/24 Attending physician: Vasile Villagomez Consults: 05/25/24 18:06 Consult Physician Routine Consulting Provider: Eilas Wheeler Consult Reason/Comments: possible small obstruction Do you want consulting provider notified?: Yes Primary care physician: Marce Murrell [facility] Course: Chief Complaint: Increased shortness of breath 83-year-old patient who follows with Dr. Marce Murrell. Patient has a diagnosis of multiple myeloma. Being followed by Dr. Tse oncologist. Patient is too weak to get any chemotherapy. Has received radiation treatment. Was diagnosed in March 2024. Multiple myeloma did affect T1 T2-3 3. Does use a collar. Received radiation treatment. Patient recently has been hospitalized at [facility]. Has progressively gotten weak. Just under a week at [facility]. Patient Comes with 1 day history of increasing shortness of breath. No cough no fever no chills. Appetite is good. Has bowel movements. 05/23. Patient seen and examined. States breathing has improved. Stated he feels much better 05/24. Patient seen and examined. Blood work done today showed WBC 6.7, hemoglobin 9.9, sodium 137, potassium 3.9, BUN 16, creatinine 0.59. Still complaining of shortness of breath. 05/25. Patient seen and examined. Complaining of lethargy and weakness. Breathing is improving. 05/26. Patient seen and examined. Patient was complaining abdominal distention. CT abdomen and pelvis done did not show any bowel obstruction. Patient is passing gas. May 27: Laying in bed. Tired. Return to answer questions. This morning NPO. Took his medications. Spoke to patient's brother and sister at the [facility].Patient started on clear liquids by surgery. Seen by physical therapy. Patient is a total assist. Will require rehab. : In bed. More awake. Holding a conversation with visitors. On full liquids per surgery. Advance to low fiber diet for supper tonight. No BM today. Abdomen soft. No nausea vomiting. May 29: Social work is looking into placement. Eating fair. Patient still requiring assist. Seen by PT OT. May 30: Comfortable. Tolerating diet. Spoke to aids social worker Paolo. Patient accepted at [facility]. Patient follow-up with cardiology outpatient. Social history: Currently at [facility]. . No smoking or alcohol. Physical examination: VITAL SIGNS: 97.5, 71, 16, 125 x 55, 95% GENERAL: Resting bed awake comfortable EYES: Pupils equal. Conjunctiva mi l. HEENT: External appearance of nose and ears normal, oral cavity grossly normal. NECK: JVD not raised; masses not palpable. HEART: First and second heart sounds are normal; no edema. LUNGS: Respiratory rate i normal, decreased breath sounds. ABDOMEN: Soft, nontender, liver spleen not palpable, no masses palpable. PSYCH: Answering questions appropriately MUSCULOSKELETAL: OA INVESTIGATIONS, reviewed in the clinical context: May 29: Potassium 4.9 creatinine 0.66 May 27: Sodium 133 potassium 4.3 BUN [address] scan brain [May 26] Nil acute CT abdomen pelvis [May 25] liquid stool in the rectum or sigmoid colon. Otherwise nonspecific 2D echocardiogram: EF 25 to 30%. Moderate concentric LVH. Aortic valve: Moderate to severe AR. May 22, 2024: White count 5.4 hemoglobin 11.3 platelets 221 sodium 129 potassium 3.1 BUN 12 creatinine 0.4 Troponin I 0.093, 0.102, 0.092 proBNP 52435 EKG tracing normal sinus rhythm. Left bundle zoila block. Chest CTA: Destructive soft tissue mass within T1 and T2 vertebral bodies with compromise adjacent spinal canal not excluded. Confluent soft tissue opacity seen within the bilateral upper lobes. Bilateral pleural effusion. Bilateral upper groundglass changes. Assessment plan: -Acute congestive heart failure exacerbation from systolic dysfunction EF 25 to 30%: Improved IV Lasix initially. Now on Lasix 40 mg daily Fluid restriction. Cardiology followed -Troponin leak from CHF. No ACS -Multiple myeloma being follow-up with Dr. Schwab out of the area. Patient is too weak to receive chemotherapy. received radiation treatment. It does also involve T1-T2-T3. Does wear a collar. 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 Involvement of T1-T2-T3. Has been working with PT OT outpatient. -Moderate to severe aortic regurgitation Cardio following -Hyperlipidemia Crestor -BPH Proscar -Essential hypertension Amlodipine, Coreg, Catapres -Depression Cymbalta -DNR -Medical power of manager services, Kristen - Disposition: [facility] for rehab Past Medical History Past Medical History: Cancer, GERD/Reflux, Hyperlipidemia, Hypertension Additional Past Medical History / Comment(s): aortic aneurysm,neuropathy, chronic back pain, radiation, multiple myloma History of Any Multi-Drug Resistant Organisms: None Reported Past Surgical History: Back Surgery, Joint Replacement, Orthopedic Surgery Past Psychological History: No Psychological Hx Reported Smoking Status: Never smoker Past Alcohol Use History: None Reported Past Drug Use History: None Reported Plan - Discharge Summary Discharge Rx Participant: No New Discharge Prescriptions: New Spironolactone [Aldactone] 25 mg PO DAILY tab Aspirin 81 mg PO DAILY tab Sacubitril/Valsartan [Entresto 24 mg-26 mg Tablet] 1 each PO Q12H tab Dapagliflozin Propanediol [Farxiga] 10 mg PO DAILY #0 tab Potassium Chloride ER [K-Dur 20] 20 meq PO BID tab Furosemide [Lasix] 40 mg PO DAILY tab Sennosides [Senokot] 8.6 mg PO DAILY tab Continue Multivitamins, Thera [Multivitamin (formulary)] 1 tab PO DAILY DULoxetine HCL [Cymbalta] 30 mg PO DAILY Finasteride [Proscar] 5 mg PO DAILY carvediloL [Coreg] 25 mg PO BID-W/MEALS Famotidine [Pepcid] 20 mg PO BID HYDROcodone/APAP 5-325MG [[place] 5-325] 1 tab PO Q4HR PRN #18 tab PRN Reason: Pain Rosuvastatin [Crestor] 10 mg PO HS Loperamide [Imodium] 2 mg PO BID PRN PRN Reason: Diarrhea ALPRAZolam [Xanax] 0.25 mg PO BID PRN #6 tab PRN Reason: Anxiety Changed hydrALAZINE HCL [Apresoline] 100 mg PO TID #0 Discontinued cloNIDine HCL [Catapres] 0.2 mg PO TID amLODIPine [Norvasc] 10 mg PO DAILY Discharge Medication List DULoxetine HCL [Cymbalta] 30 mg PO DAILY 12/17/21 [History] Finasteride [Proscar] 5 mg PO DAILY 12/17/21 [History] Multivitamins, Thera [Multivitamin (formulary)] 1 tab PO DAILY 12/17/21 [History] Rosuvastatin [Crestor] 10 mg PO HS 12/17/21 [History] Famotidine [Pepcid] 20 mg PO BID 05/22/24 [History] Loperamide [Imodium] 2 mg PO BID PRN 05/22/24 [History] carvediloL [Coreg] 25 mg PO BID-W/MEALS 05/22/24 [History] ALPRAZolam [Xanax] 0.25 mg PO BID PRN #6 tab 05/30/24 [Rx] Aspirin 81 mg PO DAILY tab 05/30/24 [Rx] Dapagliflozin Propanediol [Farxiga] 10 mg PO DAILY #0 tab 05/30/24 [Rx] Furosemide [Lasix] 40 mg PO DAILY tab 05/30/24 [Rx] HYDROcodone/APAP 5-325MG [[place] 5-325] 1 tab PO Q4HR PRN #18 tab 05/30/24 [Rx] Potassium Chloride ER [K-Dur 20] 20 meq PO BID tab 05/30/24 [Rx] Sacubitril/Valsartan [Entresto 24 mg-26 mg Tablet] 1 each PO Q12H tab 05/30/24 [Rx] Sennosides [Senokot] 8.6 mg PO DAILY tab 05/30/24 [Rx] Spironolactone [Aldactone] 25 mg PO DAILY tab 05/30/24 [Rx] hydrALAZINE HCL [Apresoline] 100 mg PO TID #0 05/30/24 [Rx] Follow up Appointment(s)/Referral(s): Roel Lewis DO [STAFF PHYSICIAN] - 2 Weeks [facility], [NON-STAFF] - 1 Week Marce Murrell MD [Primary Care Provider] - 1-2 days
--- NOTE | 2024-05-30 15:16 | P.PN ---
Subjective Progress Note Date: 05/30/24 SURGICAL PROGRESS NOTE CHIEF COMPLAINT: Shortness of breath HISTORY OF PRESENT ILLNESS: Patient is sitting up in bedside chair comfortably. He has been tolerating diet. He has had bowel movement. Denies any abdominal pain. Afebrile. Patient scheduled for discharge today PHYSICAL EXAM: VITAL SIGNS: Reviewed. GENERAL: Well-developed in no acute distress. ABDOMEN: Soft. nondistended. Nontender ASSESSMENT: 1. Abdominal distention. Improved. No evidence of small bowel obstruction on CT PLAN: -Patient can be discharged from surgical standpoint -Recommend continuing a bowel regimen after discharge Physician Loan Service Officer note has been reviewed by physician. Signing provider agrees with the documented findings, assessment, and plan of care. Attestation Patient seen and examined at bedside. Presented with chief complaint of shortness of breath. Consulted for abdominal distention. Having bowel function with no evidence of small bowel obstruction. Tolerating diet. No plan for surgical intervention. Surgically stable for discharge. Balwinder Noel DO Objective - Vital Signs Vital signs: Vital Signs Temp 97.5 F L 05/30/24 12:59 Pulse 71 05/30/24 12:59 Resp 17 05/30/24 09:32 BP 125/55 05/30/24 12:59 Pulse Ox 95 05/30/24 12:59 FiO2 Intake & Output 05/29/24 05/30/24 05/30/24 18:59 06:59 18:59 Intake Total 440 480 Output Total 1400 500 Balance -960 -20 Intake: Oral 440 480 Output: Urine 1400 500 Other: Voiding Method Indwelling Catheter Indwelling Catheter Indwelling Catheter # Bowel Movements 1 - Labs CBC & Chem 7: 05/24/24 06:04 05/29/24 05:56
[2024-05-30 15:26] VITALS: BP 103/55; PULSE 78; RESP 16; TEMP 97
== END 2024-05-30 17:55 | DRG 280 ==
LOC: EC 04:25 → 3SCARD 07:11 → OBSVTOIN 05-23 08:23 → 3SCARD 05-23 11:45 → 5NMEDONC 05-29 05:47
PROVIDERS: ADMIT Hospitalist; ATTEND Hospitalist
PROC: 3E0F7SF Introduction of Other Gas into Respiratory Tract, Via Natural or Artificial Opening (ICD-10-PCS; principal; 2024-05-23)
DX: I11.0 Hypertensive heart disease with heart failure (principal); I50.23 Acute on chronic systolic (congestive) heart failure; I21.A1 Myocardial infarction type 2; J96.01 Acute respiratory failure with hypoxia; L89.312 Pressure ulcer of right buttock, stage 2; C90.00 Multiple myeloma not having achieved remission; Z66 Do not resuscitate; F32.A Depression, unspecified; I71.9 Aortic aneurysm of unspecified site, without rupture; I08.0 Rheumatic disorders of both mitral and aortic valves; I27.20 Pulmonary hypertension, unspecified; N40.0 Benign prostatic hyperplasia without lower urinary tract symptoms; K21.9 Gastro-esophageal reflux disease without esophagitis; I25.5 Ischemic cardiomyopathy; I42.8 Other cardiomyopathies; I44.7 Left bundle-branch block, unspecified; E78.5 Hyperlipidemia, unspecified; G89.29 Other chronic pain; M54.9 Dorsalgia, unspecified; Z92.3 Personal history of irradiation; L98.492 Non-pressure chronic ulcer of skin of other sites with fat layer exposed; Z79.899 Other long term (current) drug therapy; Z86.79 Personal history of other diseases of the circulatory system; Z79.82 Long term (current) use of aspirin
CPT/HCPCS: 36415; 36600; 51702; 70450; 71275; 74018; 74176; 80048; 80053; 82805; 83735; 83880; 84132; 84484; 85025; 85610; 85730; 93005; 93306; 94760; 96361; 96365; 96366; 96372; 96375; 96376; 99291

== ENCOUNTER 2024-07-31 12:03 | Inpatient (IN) | payer MEDICARE ==
--- NOTE | 2024-07-31 12:13 | ED ---
Altered Mental Status HPI - General Chief Complaint: Altered Mental Status Stated Complaint: AMS Time Seen by Provider: 07/31/24 12:05 Source: EMS, RN notes reviewed, old records reviewed Mode of arrival: EMS Limitations: altered mental status, physical limitation - History of Present Illness Initial Comments: This is a 83-year-old male to the ER was a poor historian for altered mental status. Patient comes in as a known DNR no code coming in for respiratory distress on BiPAP. Comes in for altered mental status unknown how long found to be significantly hypoxic by EMS on arrival, EMS presents patient in transport for hypoxia with altered mental status and respiratory distress MD Complaint: decreased responsiveness -: days(s) Consistency of Symptoms: getting worse Context: history of similar presentation Associated Symptoms: fever/chills, nausea/vomiting, shortness of breath, weakness, foul smelling urine Treatments Prior to Arrival: IV fluid, oxygen - Related Data Home Medications Medication Instructions Recorded Confirmed DULoxetine HCL [Cymbalta] 30 mg PO DAILY 12/17/21 07/31/24 carvediloL [Coreg] 25 mg PO BID 05/22/24 07/31/24 Acetaminophen Tab [Tylenol] 650 mg PO Q6H PRN 07/31/24 07/31/24 Aspirin 81 mg PO HS 07/31/24 07/31/24 Atorvastatin [Lipitor] 20 mg PO HS 07/31/24 07/31/24 Naloxone HCl 0.4 mg IM DIRECTED PRN 07/31/24 07/31/24 Omeprazole [PriLOSEC] 20 mg PO BID 07/31/24 07/31/24 Potassium Chloride ER [K-Dur 10] 10 meq PO DAILY 07/31/24 07/31/24 Sacubitril/Valsartan [Entresto 24 1 tab PO BID 07/31/24 07/31/24 mg-26 mg Tablet] Sennosides [Senokot] 17.2 mg PO DAILY 07/31/24 07/31/24 Tamsulosin [Flomax] 0.4 mg PO HS 07/31/24 07/31/24 Previous Rx's Medication Instructions Recorded Dapagliflozin Propanediol [Farxiga] 10 mg PO DAILY #0 tab 05/30/24 hydrALAZINE HCL [Apresoline] 100 mg PO TID #0 05/30/24 HYDROcodone/APAP 5-325MG [Pride 1 each PO Q8HR PRN #9 tab 08/05/24 5-325] HYDROcodone/APAP 5-325MG [Pride 1 tab PO Q8HR PRN #9 tab 08/05/24 5-325] Magnesium Oxide [Mag-Ox] 400 mg PO DAILY tab 08/05/24 Spironolactone [Aldactone] 12.5 mg PO DAILY #0 tab 08/05/24 Torsemide [Demadex] 20 mg PO DAILY #30 tab 08/05/24 Allergies Allergy/AdvReac Type Severity Reaction Status Date / Time No Known Allergies Allergy Verified 07/31/24 13:00 Review of Systems ROS Statement: Those systems with pertinent positive or pertinent negative responses have been documented in the HPI. ROS Other: All systems not noted in ROS Statement are negative. Past Medical History Past Medical History: Cancer, GERD/Reflux, Hyperlipidemia, Hypertension Additional Past Medical History / Comment(s): aortic aneurysm,neuropathy, chronic back pain, radiation, multiple myloma History of Any Multi-Drug Resistant Organisms: None Reported Past Surgical History: Back Surgery, Joint Replacement, Orthopedic Surgery Past Psychological History: No Psychological Hx Reported Smoking Status: Never smoker Past Alcohol Use History: None Reported Past Drug Use History: None Reported General Exam Limitations: altered mental status, physical limitation General appearance: alert, anxious, lethargic, obtunded, in distress Head exam: Present: atraumatic, normocephalic, normal inspection Eye exam: Present: normal appearance, PERRL, EOMI. Absent: scleral icterus, conjunctival injection, periorbital swelling ENT exam: Present: normal exam, mucous membranes moist Neck exam: Present: normal inspection. Absent: tenderness, meningismus, lymphadenopathy Respiratory exam: Present: respiratory distress, rhonchi, accessory muscle use, decreased breath sounds, prolonged expiratory. Absent: wheezes, rales, stridor Cardiovascular Exam: Present: normal rhythm, tachycardia, normal heart sounds. Absent: systolic murmur, diastolic murmur, rubs, gallop, clicks GI/Abdominal exam: Present: soft, normal bowel sounds. Absent: distended, tenderness, guarding, rebound, rigid Extremities exam: Present: normal inspection, full ROM, normal capillary refill. Absent: tenderness, pedal edema, joint swelling, calf tenderness Back exam: Present: normal inspection Neurological exam: Present: alert, oriented X3, CN II-XII intact Psychiatric exam: Present: normal affect, normal mood Skin exam: Present: warm, dry, intact, normal color. Absent: rash Course Vital Signs 07/31/24 07/31/24 07/31/24 12:04 12:08 12:09 Temperature 100 F H Pulse Rate 101 H Pulse Rate [ Surface Mount Technology Operator ] Respiratory 28 H 32 H Rate Blood Pressure 71/44 76/42 Blood Pressure [Right Arm] O2 Sat by Pulse 91 L Oximetry Fraction of Inspired Oxygen (FIO2) 07/31/24 07/31/24 07/31/24 12:25 12:27 12:31 Temperature 100.8 F H Pulse Rate 99 97 Pulse Rate [ Surface Mount Technology Operator ] Respiratory 28 H Rate Blood Pressure 73/45 Blood Pressure [Right Arm] O2 Sat by Pulse 96 Oximetry Fraction of 50 Inspired Oxygen (FIO2) 07/31/24 07/31/24 07/31/24 12:42 13:08 13:41 Temperature 97.0 F L Pulse Rate 92 93 86 Pulse Rate [ Surface Mount Technology Operator ] Respiratory 38 H 34 H Rate Blood Pressure 81/46 70/42 Blood Pressure [Right Arm] O2 Sat by Pulse 98 98 Oximetry Fraction of Inspired Oxygen (FIO2) 07/31/24 07/31/24 07/31/24 14:47 15:04 15:53 Temperature 95.5 F L Pulse Rate 83 82 Pulse Rate [ Surface Mount Technology Operator ] Respiratory 25 H 22 Rate Blood Pressure 73/42 91/51 83/48 Blood Pressure [Right Arm] O2 Sat by Pulse 98 99 Oximetry Fraction of Inspired Oxygen (FIO2) 07/31/24 07/31/24 07/31/24 16:13 17:15 17:37 Temperature Pulse Rate 86 86 Pulse Rate [ Surface Mount Technology Operator ] Respiratory 20 18 Rate Blood Pressure 107/58 107/62 Blood Pressure [Right Arm] O2 Sat by Pulse 100 100 Oximetry Fraction of 35 Inspired Oxygen (FIO2) 07/31/24 07/31/24 07/31/24 18:10 18:56 19:57 Temperature 97 F L 96.3 F L Pulse Rate 82 Pulse Rate [ Surface Mount Technology Operator ] Respiratory 18 12 Rate Blood Pressure 107/56 Blood Pressure 144/67 [Right Arm] O2 Sat by Pulse 98 98 Oximetry Fraction of 35 35 Inspired Oxygen (FIO2) 07/31/24 07/31/24 07/31/24 20:34 20:36 21:00 Temperature 96.6 F L 96.6 F L Pulse Rate 87 69 Pulse Rate [ 72 Surface Mount Technology Operator ] Respiratory 30 H 13 Rate Blood Pressure 136/89 145/74 Blood Pressure 146/76 [Right Arm] O2 Sat by Pulse 97 99 Oximetry Fraction of 50 35 35 Inspired Oxygen (FIO2) - Reevaluation(s) Reevaluation #1: 07/31/24 13:35 Medical record is reviewed Patient does have documented no code, DNR and transfer paperwork Reevaluation #2: 07/31/24 13:35 Patient is showing improvement on BiPAP for significant work of breathing Heart rate is improved patient given fever control here in the ER Blood pressure is improving with IV resuscitation Reevaluation #3: 07/31/24 13:36 Patient continues to improve here in the ER Reevaluation #4: Was pt. sent in by a medical professional or institution (, PA, VIDEO NETWORK ENGINEER, urgent care, hospital, or senior living...) When possible be specific @ -no Did you speak to anyone other than the patient for history (EMS, parent, family, police, friend...)? What history was obtained from this source @ -no Did you review nursing and triage notes (agree or disagree)? Why? @ -agree Are old charts reviewed (outside hosp., previous admission, EMS record, old EKG, old radiological studies, urgent care reports/EKG's, senior living records)? Report findings @ -yes Differential Diagnosis (chest pain, altered mental status, abdominal pain women, abdominal pain men, vaginal bleeding, weakness, fever, dyspnea, syncope, headache, dizziness, GI bleed, back pain, seizure, CVA, palpatations, mental health, musculoskeletal)? @ -prior EKG interpreted by me (3pts min.). @ -yes X-rays interpreted by me (1pt min.). @ -yes negative for acute disease CT interpreted by me (1pt min.). @ -no U/S interpreted by me (1pt. min.). @ -no What testing was considered but not performed or refused? (CT, X-rays, U/S, labs)? Why? @ -none What meds were considered but not given or refused? Why? @ -none Did you discuss the management of the patient with other professionals (professionals i.e. , PA, VIDEO NETWORK ENGINEER, lab, RT, psych nurse, social science research assistant, medical laboratory technologist, teacher, field artillery officer, director case)? Give summary @ -no Was smoking cessation discussed for >3mins.? @ -no Was critical care preformed (if so, how long)? @ -yes95 Were there social determinants of health that impacted care today? How? (Homelessness, low income, unemployed, alcoholism, drug addiction, transportation, low edu. Level, literacy, decrease access to med. care, senior living, rehab)? @ -none Was there de-escalation of care discussed even if they declined (Discuss DNR or withdrawal of care, Hospice)? DNR status @ -no What co-morbidities impacted this encounter? (DM, HTN, Smoking, COPD, CAD, Cancer, CVA, ARF, Chemo, Hep., AIDS, mental health diagnosis, sleep apnea, morbid obesity)? @ -none Was patient admitted / discharged? Hospital course, mention meds given and route, prescriptions, significant lab abnormalities, going to OR and other perti nent info. @ - 83 male with significant sepsis fever UTI pneumonia CHF acute kidney injury non-ST elevated KS with renal failure. Patient will be admitted for further supportive care is a doing not intubate DO NOT RESUSCITATE patient no code Admitted Undiagnosed new problem with uncertain prognosis? @ -no Drug Therapy requiring intensive monitoring for toxicity (Heparin, Nitro, Insulin, Cardizem)? @ -no Were any procedures done? @ -no Diagnosis/symptom? @ -UTI pneumonia CHF ROSA non-STEMI renal failure sepsis and hypotension Acute, or Chronic, or Acute on Chronic? @ -Acute Uncomplicated (without systemic symptoms) or Complicated (systemic symptoms)? @ -Complicated Side effects of treatment? @ -no Exacerbation, Progression, or Severe Exacerbation? @ -exacerbation Poses a threat to life or bodily function? How? (Chest pain, USA, KS, pneumonia, PE, COPD, DKA, ARF, appy, cholecystitis, CVA, Diverticulitis, Homicidal, Suicidal, threat to staff... and all critical care pts) @ -yes severe life threat Reevaluation #5: Differential Fever: Pneumonia, viral URI, endocarditis, myocarditis, pericarditis, otitis, sinusitis, peritonsillar Abscess, retropharyngeal Abscess, epiglottitis, peritonitis, appendicitis, [place] cystitis, diverticulitis, hepatitis, colitis, UTI, PID, TOA, pyelonephritis, prostatitis, epididymitis, meningitis, encephalitis, pulmonary embolism, CVA, thyroid storm, pancreatitis, adrenal crisis, cavernous sinus thrombosis, this is not meant to be an all-inclusive list. - Consultations Consultation #1: Spoke with Dr. Florian agrees to admit this patient Procedures - Central Line Placement Right IJ Consent Obtained: verbal consent Patient Placed on Monitor/Pulse Ox: Yes MD Prep: mask, gown, gloves Central Line Prep: Chlorhexidine scrub, sterile drapes applied Local Anesthesia Used: Lidocaine 1% Ultrasound Used for Placement: Yes Central Line Lumen Inserted: triple Bloods Obtained for Lab: Yes Central Line Position: good blood return, all ports aspirated, flushed, capped, sutured in place with 3-0 nylon Dressing Applied: Tegaderm Post Procedure X-Ray: tip of catheter in good position Patient Tolerated Procedure: well Complications: none Medical Decision Making - Medical Decision Making 83 male with significant sepsis fever UTI pneumonia CHF acute kidney injury non- ST elevated KS with renal failure. Patient will be admitted for further s upportive care is a doing not intubate DO NOT RESUSCITATE patient no code - Lab Data Result diagrams: 08/04/24 05:34 08/05/24 04:46 Lab Results 07/31/24 07/31/24 07/31/24 Range/Units 12:13 12:13 12:13 WBC 16.0 H (3.8-10.6) k/uL RBC 4.54 (4.30-5.90) m/uL Hgb 13.4 (13.0-17.5) gm/dL Hct 42.8 (39.0-53.0) % MCV 94.2 (80.0-100.0) fL MCH 29.6 (25.0-35.0) pg MCHC 31.4 (31.0-37.0) g/dL RDW 14.7 (11.5-15.5) % Plt Count 225 (150-450) k/uL MPV 7.3 Neutrophils % 96 % Lymphocytes % 2 % Monocytes % 1 % Eosinophils % 0 % Basophils % 0 % Neutrophils # 15.3 H (1.3-7.7) k/uL Lymphocytes # 0.3 L (1.0-4.8) k/uL Monocytes # 0.2 (0-1.0) k/uL Eosinophils # 0.1 (0-0.7) k/uL Basophils # 0.0 (0-0.2) k/uL PT 12.9 H (10.0-12.5) sec INR 1.2 H (<1.2) APTT 24.1 (22.0-30.0) sec Sodium 130 L (137-145) mmol/L Potassium 4.1 (3.5-5.1) mmol/L Chloride 100 (98-107) mmol/L Carbon Dioxide 14 L (22-30) mmol/L Anion Gap 16 mmol/L BUN 76 H (9-20) mg/dL Creatinine 3.75 H (0.66-1.25) mg/dL Est GFR (CKD-EPI)AfAm 16 (>60 ml/min/1.73 sqM) Est GFR (CKD-EPI)NonAf 14 (>60 ml/min/1.73 sqM) Glucose 99 (74-99) mg/dL Lactic Ac Sepsis Rflx Plasma Lactic Acid Ricardo (0.7-2.0) mmol/L Calcium 7.6 L (8.4-10.2) mg/dL Phosphorus 6.1 H (2.5-4.5) mg/dL Magnesium 2.2 (1.6-2.3) mg/dL Total Bilirubin 1.0 (0.2-1.3) mg/dL AST 18 (17-59) U/L ALT 12 (4-49) U/L Alkaline Phosphatase 183 H (38-126) U/L Troponin I (0.000-0.034) ng/mL NT-Pro-B Natriuret Pep 16938 pg/mL Total Protein 5.2 L (6.3-8.2) g/dL Albumin 2.6 L (3.5-5.0) g/dL TSH 2.470 (0.465-4.680) mIU/L Urine Color Urine Appearance (Clear) Urine pH (5.0-8.0) Ur Specific [place] (1.001-1.035) Urine Protein (Negative) Urine Glucose (UA) (Negative) Urine Ketones (Negative) Urine Blood (Negative) Urine Nitrite (Negative) Urine Bilirubin (Negative) Urine Urobilinogen (<2.0) mg/dL Ur Leukocyte Esterase (Negative) Urine RBC (0-5) /hpf Urine WBC (0-5) /hpf Ur Squamous Epith Cells (0-4) /hpf Urine Bacteria (None) /hpf Influenza Type A (PCR) (Not Detectd) Influenza Type B (PCR) (Not Detectd) RSV (PCR) (Not Detectd) SARS-CoV-2 (PCR) (Not Detectd) 07/31/24 07/31/24 07/31/24 Range/Units 12:13 12:13 12:13 WBC (3.8-10.6) k/uL RBC (4.30-5.90) m/uL Hgb (13.0-17.5) gm/dL Hct (39.0-53.0) % MCV (80.0-100.0) fL MCH (25.0-35.0) pg MCHC (31.0-37.0) g/dL RDW (11.5-15.5) % Plt Count (150-450) k/uL MPV Neutrophils % % Lymphocytes % % Monocytes % % Eosinophils % % Basophils % % Neutrophils # (1.3-7.7) k/uL Lymphocytes # (1.0-4.8) k/uL Monocytes # (0-1.0) k/uL Eosinophils # (0-0.7) k/uL Basophils # (0-0.2) k/uL PT (10.0-12.5) sec INR (<1.2) APTT (22.0-30.0) sec Sodium (137-145) mmol/L Potassium (3.5-5.1) mmol/L Chloride (98-107) mmol/L Carbon Dioxide (22-30) mmol/L Anion Gap mmol/L BUN (9-20) mg/dL Creatinine (0.66-1.25) mg/dL Est GFR (CKD-EPI)AfAm (>60 ml/min/1.73 sqM) Est GFR (CKD-EPI)NonAf (>60 ml/min/1.73 sqM) Glucose (74-99) mg/dL Lactic Ac Sepsis Rflx Plasma Lactic Acid Ricardo 2.9 H* (0.7-2.0) mmol/L Calcium (8.4-10.2) mg/dL Phosphorus (2.5-4.5) mg/dL Magnesium (1.6-2.3) mg/dL Total Bilirubin (0.2-1.3) mg/dL AST (17-59) U/L ALT (4-49) U/L Alkaline Phosphatase (38-126) U/L Troponin I 0.122 H* (0.000-0.034) ng/mL NT-Pro-B Natriuret Pep pg/mL Total Protein (6.3-8.2) g/dL Albumin (3.5-5.0) g/dL TSH (0.465-4.680) mIU/L Urine Color Urine Appearance (Clear) Urine pH (5.0-8.0) Ur Specific [place] (1.001-1.035) Urine Protein (Negative) Urine Glucose (UA) (Negative) Urine Ketones (Negative) Urine Blood (Negative) Urine Nitrite (Negative) Urine Bilirubin (Negative) Urine Urobilinogen (<2.0) mg/dL Ur Leukocyte Esterase (Negative) Urine RBC (0-5) /hpf Urine WBC (0-5) /hpf Ur Squamous Epith Cells (0-4) /hpf Urine Bacteria (None) /hpf Influenza Type A (PCR) Not Detected (Not Detectd) Influenza Type B (PCR) Not Detected (Not Detectd) RSV (PCR) Not Detected (Not Detectd) SARS-CoV-2 (PCR) Not Detected (Not Detectd) 07/31/24 07/31/24 Range/Units 12:27 12:53 WBC (3.8-10.6) k/uL RBC (4.30-5.90) m/uL Hgb (13.0-17.5) gm/dL Hct (39.0-53.0) % MCV (80.0-100.0) fL MCH (25.0-35.0) pg MCHC (31.0-37.0) g/dL RDW (11.5-15.5) % Plt Count (150-450) k/uL MPV Neutrophils % % Lymphocytes % % Monocytes % % Eosinophils % % Basophils % % Neutrophils # (1.3-7.7) k/uL Lymphocytes # (1.0-4.8) k/uL Monocytes # (0-1.0) k/uL Eosinophils # (0-0.7) k/uL Basophils # (0-0.2) k/uL PT (10.0-12.5) sec INR (<1.2) APTT (22.0-30.0) sec Sodium (137-145) mmol/L Potassium (3.5-5.1) mmol/L Chloride (98-107) mmol/L Carbon Dioxide (22-30) mmol/L Anion Gap mmol/L BUN (9-20) mg/dL Creatinine (0.66-1.25) mg/dL Est GFR (CKD-EPI)AfAm (>60 ml/min/1.73 sqM) Est GFR (CKD-EPI)NonAf (>60 ml/min/1.73 sqM) Glucose (74-99) mg/dL Lactic Ac Sepsis Rflx Y Plasma Lactic Acid Ricardo (0.7-2.0) mmol/L Calcium (8.4-10.2) mg/dL Phosphorus (2.5-4.5) mg/dL Magnesium (1.6-2.3) mg/dL Total Bilirubin (0.2-1.3) mg/dL AST (17-59) U/L ALT (4-49) U/L Alkaline Phosphatase (38-126) U/L Troponin I (0.000-0.034) ng/mL NT-Pro-B Natriuret Pep pg/mL Total Protein (6.3-8.2) g/dL Albumin (3.5-5.0) g/dL TSH (0.465-4.680) mIU/L Urine Color Yellow Urine Appearance Turbid (Clear) Urine pH 5.0 (5.0-8.0) Ur Specific [place] 1.014 (1.001-1.035) Urine Protein 1+ H (Negative) Urine Glucose (UA) 1+ H (Negative) Urine Ketones Negative (Negative) Urine Blood Moderate H (Negative) Urine Nitrite Negative (Negative) Urine Bilirubin Negative (Negative) Urine Urobilinogen <2.0 (<2.0) mg/dL Ur Leukocyte Esterase Large H (Negative) Urine RBC 34 H (0-5) /hpf Urine WBC >182 H (0-5) /hpf Ur Squamous Epith Cells 1 (0-4) /hpf Urine Bacteria Many H (None) /hpf Influenza Type A (PCR) (Not Detectd) Influenza Type B (PCR) (Not Detectd) RSV (PCR) (Not Detectd) SARS-CoV-2 (PCR) (Not Detectd) - EKG Data -: EKG Interpreted by Me (EKG is sinus tachycardia, 100 OR 212 QRS 169 QTc 439) - Radiology Data Radiology results: report reviewed (Chest x-ray is positive CHF suspect pneumonia), image reviewed Critical Care Time Critical Care Time: Yes Total Critical Care Time: 95 Disposition Clinical Impression: CHF exacerbation, Altered mental status, CHF (congestive heart failure), ROSA (acute kidney injury), Sepsis, NSTEMI (non-ST elevated myocardial infarction), DNR no code (do not resuscitate), Delirium due to general medical condition Disposition: ADMITTED IP TO THIS HOSP Is patient prescribed a controlled substance at d/c from ED?: No Time of Disposition: 14:00
[2024-07-31] MEDS: LACTATED RINGERS 1,000 ML IV SCH (12:23)
[2024-07-31] MEDS: SODIUM CHLORIDE 0.9% 1,000 ML IV ONE (12:23)
[2024-07-31 12:26] LABS: Basophils % (A) 0 %; Eosinophils # (A) 0.1 k/uL (0-0.7); Eosinophils % (A) 0 %; HCT 42.8 % (39.0-53.0); HGB 13.4 gm/dL (13.0-17.5); Lymphocytes # (A) 0.3 k/uL (1.0-4.8); Lymphocytes % (A) 2 %; MCH 29.6 pg (25.0-35.0); MCHC 31.4 g/dL (31.0-37.0); MCV 94.2 fL (80.0-100.0); Mean Platelet Volume 7.3; Monocytes # (A) 0.2 k/uL (0-1.0); Monocytes % (A) 1 %; Neutrophils # (A) 15.3 k/uL (1.3-7.7); Neutrophils % (A) 96 %; Platelet Count 225 k/uL (150-450); RBC 4.54 m/uL (4.30-5.90); RDW 14.7 % (11.5-15.5)
[2024-07-31] MEDS: IPRATROPIUM-ALBUTEROL 3 ML NEB INHALATION STA (12:31)
[2024-07-31] MEDS: ACETAMINOPHEN IV (For NPO) 1,000 MG in EMPTY BAG 1 BAG IVPB STA (12:32)
[2024-07-31] MEDS: AZITHROMYCIN 500 MG in SODIUM CHLORIDE 0.9% 250 ML IVPB SCH (12:36)
[2024-07-31 12:44] LABS: ALT 12 U/L (4-49); AST 18 U/L (17-59); Albumin 2.6 g/dL (3.5-5.0); Alkaline Phosphatase 183 U/L (38-126); Anion Gap 16 mmol/L; Blood Urea Nitrogen 76 mg/dL (9-20); Calcium 7.6 mg/dL (8.4-10.2); Carbon Dioxide 14 mmol/L (22-30); Chloride 100 mmol/L (98-107); Glucose 99 mg/dL (74-99); Magnesium 2.2 mg/dL (1.6-2.3); Phosphorus 6.1 mg/dL (2.5-4.5); Potassium 4.1 mmol/L (3.5-5.1); Sodium 130 mmol/L (137-145); Total Protein 5.2 g/dL (6.3-8.2)
[2024-07-31 12:49] LABS: African American GFR (CKD) 16 (>60 ml/min/1.73 sqM); Non-African American GFR(CKD) 14 (>60 ml/min/1.73 sqM)
[2024-07-31 12:51] LABS: INR 1.2 (<1.2)
[2024-07-31 12:52] LABS: Partial Thromboplastin Time 24.1 sec (22.0-30.0); Prothrombin Time 12.9 sec (10.0-12.5)
[2024-07-31 12:53] LABS: NT-Pro-B-Type Natriuretic Pept 12000 pg/mL
[2024-07-31 12:59] LABS: Appearance,Urine Turbid (Clear); Bacteria,Urine Many /hpf; Bilirubin,Urine Negative (Negative); Blood,Urine Moderate (Negative); Color,Urine Yellow; Glucose,Urine (UA) 1+ (Negative); Ketones,Urine Negative (Negative); Leukocyte Esterase,Urine Large (Negative); Nitrite,Urine Negative (Negative); Protein,Urine 1+ (Negative); RBC,Urine 34 /hpf (0-5); Specific Gravity,Urine 1.014 (1.001-1.035); Squamous Epithelial Cell,Urine 1 /hpf (0-4); Urobilinogen,Urine <2.0 mg/dL (<2.0); WBC,Urine >182 /hpf (0-5)
[2024-07-31 13:01] LABS: Influenza A Not Detected (Not Detectd); Influenza B Not Detected (Not Detectd); RSV Not Detected (Not Detectd)
[2024-07-31] MEDS: IBUPROFEN IV 800 MG in SODIUM CHLORIDE 0.9% 250 ML IV ONE (13:08)
[2024-07-31] MEDS ORDERED: ONDANSETRON 4 MG/2 ML VIAL IVP PRN (13:30)
[2024-07-31] MEDS ORDERED: NALOXONE 0.4 MG/ML 1 ML VIAL IV PRN (13:30)
[2024-07-31] MEDS ORDERED: MORPHINE SULFATE 4 MG/ML SYRINGE IV PRN (13:30)
[2024-07-31] MEDS: DEXTROSE 5%-0.45% NACL 1,000 ML IV SCH (13:40)
[2024-07-31] MEDS: PANTOPRAZOLE 40 MG/10 ML VIAL IV SCH (13:43)
[2024-07-31] MEDS: NOREPINEPHRINE 32 MG in SODIUM CHLORIDE 0.9% 218 ML IV SCH (14:36)
--- NOTE | 2024-07-31 15:27 | XR ---
EXAMINATION TYPE: XR chest 1V portable DATE OF EXAM: 07/31/2024 3:19 PM COMPARISON: Chest radiographs from 06/25/2021 CLINICAL INDICATION: Male, 83 years old with history of weak; [facility] TECHNIQUE: XR chest 1V portable Frontal view of the chest. FINDINGS: Lungs/Pleura: There is no evidence of pleural effusion, focal consolidation, or pneumothorax. Pulmonary vascularity: Unremarkable. Heart/mediastinum: Cardiomediastinal silhouette is unremarkable. Left atrial appendage occlusion rossy ce is present. Musculoskeletal: No acute osseous pathology. Midline sternotomy wires are noted. Other findings: None Lines/Tubes: Right internal jugular central venous catheter with distal tip at the cavoatrial junction. IMPRESSION: Chronic changes without acute pulmonary process. No significant change from prior. [facility], , 07/31/2024 3:25 PM
[2024-07-31] MEDS: CEFEPIME 2 GM in SODIUM CHLORIDE 0.9% 100 ML IVPB STA (16:37)
--- NOTE | 2024-07-31 17:40 | P.CNPUL ---
History of Present Illness Consult date: 07/31/24 Reason for consult: dyspnea History of present illness: This is a 83-year-old male patient was transferred to the emergency department from alf due to diminished level of consciousness and significant respiratory distress. The patient was noted to be dehydrated, septic and the patient also had purulent foul-smelling urine output. In the emergency, the patient was placed on a BiPAP at a pressure of 12 over 5 cm of water with an FiO 2 of 50%. The patient received 1 L of IV fluid en route and received another 2 L in the emergency and started on pressors for hemodynamic support and the patient was noted to be hypotensive. The patient has a DNR/DNI CODE STATUS. Multiple comorbidities including previous history of multiple myeloma, chronic systolic heart failure with an EF of around 25 to 30% and moderate-severe aortic regurgitation, hypertension, hyperlipidemia, BPH and depression. The patient was hospitalized back in May 2024 for worsening shortness of breath. At that time, the patient was treated for an acute decompensated CHF and the patient was discharged home. For now, the patient has a leukocytosis with white cell count of 16. He has an acute kidney injury. His creatinine is currently up to 3.7 with a BUN of 76 from a normal baseline. He has an anion gap metabolic acidosis with a gap of 16 and a serum bicarb of 14. His troponin was elevated at 0.122. proBNP level is 12,000. Albumin level is at 2.6. LFTs are normal. UA is suggestive of an infection as the patient has more than 180 white cell count per high-power field. Patient also has large leukocyte esterase. Plus for glucose and +1 ket ones. The viral screen was negative. The patient was given a triple-lumen catheter in the emergency department and started on IV fluids and pressors. He was also given a dose of Rocephin and Zithromax in the emergency department. CAT scan of the abdomen and pelvis that was done during his last admission from May 2024 showed no significant intra-abdominal abnormalities. He does have a destructive soft tissue mass involving the T1/T2 vertebral bodies with compromise of the adjacent spinal canal and this was attributed to his previous history of multiple myeloma. In terms of his multiple myeloma, the patient has been treated by an out of town nursing admin oncologist and details of the treatment are not available. Review of Systems ROS unobtainable: due to mental status Past Medical History Past Medical History: Cancer, GERD/Reflux, Hyperlipidemia, Hypertension Additional Past Medical History / Comment(s): aortic aneurysm,neuropathy, chronic back pain, radiation, multiple myloma History of Any Multi-Drug Resistant Organisms: None Reported Past Surgical History: Back Surgery, Joint Replacement, Orthopedic Surgery Past Psychological History: No Psychological Hx Reported Smoking Status: Never smoker Past Alcohol Use History: None Reported Past Drug Use History: None Reported Medications and Allergies Home Medications Medication Instructions Recorded Confirmed Type DULoxetine HCL [Cymbalta] 30 mg PO DAILY 12/17/21 07/31/24 History carvediloL [Coreg] 25 mg PO BID 05/22/24 07/31/24 History Dapagliflozin Propanediol [Farxiga] 10 mg PO DAILY #0 tab 05/30/24 07/31/24 Rx Furosemide [Lasix] 40 mg PO DAILY tab 05/30/24 07/31/24 Rx Spironolactone [Aldactone] 25 mg PO DAILY tab 05/30/24 07/31/24 Rx hydrALAZINE HCL [Apresoline] 100 mg PO TID #0 05/30/24 07/31/24 Rx Acetaminophen Tab [Tylenol] 650 mg PO Q6H PRN 07/31/24 07/31/24 History Aspirin 81 mg PO HS 07/31/24 07/31/24 History Atorvastatin [Lipitor] 20 mg PO HS 07/31/24 07/31/24 History Docusate [Colace] 100 mg PO BID 07/31/24 07/31/24 History HYDROcodone/APAP 5-325MG [[place] 1 tab PO Q8HR PRN 07/31/24 07/31/24 History 5-325] Naloxone HCl 0.4 mg IM DIRECTED PRN 07/31/24 07/31/24 History Naloxone HCl [Narcan] 4 mg NASAL DIRECTED PRN 07/31/24 07/31/24 History Omeprazole [PriLOSEC] 20 mg PO BID 07/31/24 07/31/24 History Potassium Chloride ER [K-Dur 10] 10 meq PO DAILY 07/31/24 07/31/24 History Sacubitril/Valsartan [Entresto 24 1 tab PO BID 07/31/24 07/31/24 History mg-26 mg Tablet] Sennosides [Senokot] 17.2 mg PO DAILY 07/31/24 07/31/24 History Tamsulosin [Flomax] 0.4 mg PO HS 07/31/24 07/31/24 History Allergies Allergy/AdvReac Type Severity Reaction Status Date / Time No Known Allergies Allergy Verified 07/31/24 13:00 Physical Exam Vitals: Vital Signs Temp Pulse Resp BP Pulse Ox FiO2 07/31/24 13:41 86 34 H 70/42 98 07/31/24 13:08 97.0 F L 93 38 H 81/46 98 07/31/24 12:42 92 07/31/24 12:31 97 07/31/24 12:27 100.8 F H 99 28 H 73/45 96 07/31/24 12:25 50 07/31/24 12:09 32 H 07/31/24 12:08 76/42 07/31/24 12:04 100 F H 101 H 28 H 71/44 91 L Intake and Output 07/30/24 07/31/24 07/31/24 22:59 06:59 14:59 Other: Weight 88.451 kg The patient appeared quite sick and the patient has labored breathing and a BiPAP pressure of 12/5 with an FiO2 of 50%. Head exam is unremarkable. No scleral icterus or corneal arcus noted. Neck is with jugular venous distension, thyromegaly, or carotid bruits. Carotid upstrokes are brisk bilaterally. Lungs are c diminished bilaterally along with bibasilar crackles Cardiac exam reveals the PMI to be normally sized and situated. Rhythm is regular. First and second heart sounds normal. No murmurs, rubs or gallops. Abdominal exam reveals normal bowel sounds, no masses, no organomegaly and no aortic enlargement. Extremities are nonedematous and both femoral and pedal pulses are normal. Examination of the skin revealed no evidence of significant rashes, suspicious appearing nevi or other concerning lesions. Neurologically, the patient is obtunded and has diminished level of consciousness. Results - Laboratory Findings CBC and BMP: 07/31/24 12:13 07/31/24 12:13 PT/INR, D-dimer PT 12.9 sec (10.0-12.5) H 07/31/24 12:13 INR 1.2 (<1.2) H 07/31/24 12:13 Abnormal lab findings: Abnormal Labs 07/31/24 07/31/24 07/31/24 12:13 12:13 12:13 WBC 16.0 H Neutrophils # 15.3 H Lymphocytes # 0.3 L PT 12.9 H INR 1.2 H Sodium 130 L Carbon Dioxide 14 L BUN 76 H Creatinine 3.75 H Plasma Lactic Acid Ricardo Calcium 7.6 L Phosphorus 6.1 H Alkaline Phosphatase 183 H Troponin I Total Protein 5.2 L Albumin 2.6 L Urine Protein Urine Glucose (UA) Urine Blood Ur Leukocyte Esterase Urine RBC Urine WBC Urine Bacteria 07/31/24 07/31/24 07/31/24 12:13 12:13 12:27 WBC Neutrophils # Lymphocytes # PT INR Sodium Carbon Dioxide BUN Creatinine Plasma Lactic Acid Ricardo 2.9 H* Calcium Phosphorus Alkaline Phosphatase Troponin I 0.122 H* Total Protein Albumin Urine Protein 1+ H Urine Glucose (UA) 1+ H Urine Blood Moderate H Ur Leukocyte Esterase Large H Urine RBC 34 H Urine WBC >182 H Urine Bacteria Many H - Diagnostic Findings Chest x-ray: image reviewed Assessment and Plan Plan: Septic shock, likely of a urinary source. The patient was given a total of 3 L of IV fluids and the patient is currently on norepinephrine for blood pressure support. The patient was given broad-spectrum antibiotics and currently is on a combination of IV Rocephin and Zithromax. Cultures were sent and the results are still pending for now. There could be also a cardiogenic component to his shock as the patient has severe cardiomyopathy with an EF around 25 to 30% in addition to valvular heart disease Acute leukocytosis secondary to above Acute hypotension secondary to above Acute kidney injury, rule out intravascular volume depletion/dehydration in addition to sepsis. Rule out ATN. In addition, the patient has an acute urinary tract infection. Acute hypoxic respiratory failure, currently on a BiPAP at a pressure of 12 over 5 cm of water and FiO2 of 50% Chronic systolic heart failure with an ejection fraction of 25 to 30% Valvular heart disease with severe aortic regurgitation Ascending aortic aneurysm post surgical repair (Dr Heath, 10/2019) Multiple myeloma, details of his previous treatment is unknown. 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 The patient has received radiation therapy in 04/23 and he was given neck collar Hypertension Hyperlipidemia BPH Depression Osteoarthritis DNR/DNI CODE STATUS NHR resident, Marla in [facility] This patient is critically ill. Currently on a BiPAP at a pressure of 12/5 with an FiO2 of 35% Continue fluid resuscitation and switched IV fluids to D5 bicarb infusion at rate of 150 cc an hour Norepinephrine infusion currently running at 0.25 mcg/kg/min. Will add vasopressin Continue IV antibiotics. The patient was given a combination of IV Rocephin and Zithromax. Antibiotics has been switched to IV cefepime. I reviewed the chest x-ray. I particularly do not see any airspace disease or consolidation. The septic source is most likely urinary. Blood cultures Urine cultures US renal in am White catheter in place Urine output is adequate Cardiac rhythm is sinus Triple-lumen catheter has been inserted DNR/DNI CODE STATUS Will continue to follow Time with Patient: Greater than 30
[2024-07-31] MEDS: VASOPRESSIN 20 UNIT in SODIUM CHLORIDE 0.9% 50 ML IV SCH (18:21)
[2024-07-31] MEDS: DEXTROSE 5% IN WATER 1,000 ML with SODIUM BICARB (1 MEQ/ML) 150 ML IV SCH (18:38)
[2024-07-31 20:32] LABS: Glucose,Whole Blood 211 mg/dL (70-110)
[2024-07-31] MEDS: TAMSULOSIN 0.4 MG CAP.ER.24H PO SCH (21:26)
[2024-07-31] MEDS: ASPIRIN 81 MG PO SCH (21:26)
[2024-07-31] MEDS: PANTOPRAZOLE 40 MG TABLET PO SCH (21:26)
[2024-07-31] MEDS: ATORVASTATIN 20 MG TAB PO SCH (21:26)
--- NOTE | 2024-07-31 22:10 | P.HPIM ---
History of Present Illness H&P Date: 07/31/24 Chief Complaint: Altered mentation This is a 83-year-old patient who was transferred from [facility]. Patient Dr. Marce Murrell Most of the history obtained by the nurse at the bedside. Patient at the baseline nonambulatory. Is a 2% maximum assist. They often use a Roni lift. Patient at baseline is AOx3 rather talkative. Patient is at a chronic White catheter since March. Last changed in June of this year. Patient was brought in today because of altered mental status and also is found to have a pulse ox of 84%. Patient's urine was found to be rather cloudy. Patient became hypotensive felt to be in hypotensive shock. Was given a liter bolus by the EMS and 2 more liters in the ER. Admitted to the ICU. Put on vasopressors to in clude IV vasopressin and norepinephrine. Patient is on ZOLL on a BiPAP. Patient's Brenda does the medical decision making. Patient's CODE STATUS is DNR. Earlier in the day patient was seen by the bilingual teacher. White catheter was changed the ER. Does have some traumatic hematuria. Which is starting to clear up. Present time patient unable to give any history Admitting review of systems: Currently patient unable to give any history Social history: Resident of [facility]. Two-person maximum assist. Often Roni lift is used. Patient's monitors the medical power of assistant prosecuting attorney. No history of smoking or alcohol reported Physical examination: VITAL SIGNS: Tmax 100.8, 101, 28, 71 x 44, 91% on 15 L nonrebreather on presentation GENERAL: BMI 25, on BiPAP lethargic. EYES: Pupils equal. Conjunctiva mi l. HEENT: External appearance of nose and ears normal, oral cavity grossly normal. NECK: JVD unable to assess; masses not palpable. HEART: First and second heart sounds are normal; no edema. LUNGS: Respiratory rate increased, diminished breath sounds. ABDOMEN: Soft, nontender, liver spleen not palpable, no masses palpable. White catheter with cloudy urine PSYCH: Lethargic]l. MUSCULOSKELETAL:No Clubbing/cyanosis;muscles-grossly intact. OA in many joints NEUROLOGICAL: Cranial nerves grossly intact; no facial asymmetry, power sensation grossly intact. LYMPHATICS: No lymph nodes palpable in the axilla and neck INVESTIGATIONS, reviewed in the clinical context: July 31, 2024: White count 16 hemoglobin 13.4 platelets 225 sodium 130 potassium 4.1 BUN 36 creatinine 3.75 lactic acid 2.9 phosphorus 6.1 troponin I 0.122 proBNP 87217 TSH 2.4 UA moderate blood. Large leukoesterase. WBC greater than 182. Nitrite negative Influenza type A, type B, RSV, SARS-CoV-2: Not detected EKG tracing personally reviewed by me-normal sinus rhythm. Left bundle zoila block pattern. Abnormal baseline Chest x-ray film personally reviewed by me-possible scattered infiltrates right base 2D echocardiogram: [May 2024) EF 25 to 30%. Moderate concentric LVH. Moderate to severe aortic regurgitation Creatinine 0.66 May 29, 2024 Assessment plan: -Septic shock Patient received IV fluid boluses. Currently on IV vasopressin norepinephrine -Right basal pneumonia suspect gram-negative organism, causing acute hypoxic respiratory failure IV cefepime -Acute delirium/toxic encephalopathy, from sepsis -Acute hypoxic respiratory failure secondary to pneumonia Currently on BiPAP -Acute kidney injury, ATN from septic shock Patient's creatinine was 0.6 in May 29, 2024 IV fluids. Follow renal function closely -Acute UTI with cystitis causing sepsis from chronic White catheter. Urine culture. IV cefepime -Chronic bladder outflow obstruction patient has a chronic White catheter since March 2024. Catheter was last changed in June of this year and in the ER. -Traumatic hematuria from White catheter being replaced in the ER. Started to clear up -Chronic medical debility. At baseline patient is a two-person assist and requires a Roni lift -Left buttock decub ulcer stage II/III. Consult wound care team -Hypovolemic, hyponatremia IV fluids -Positive troponin from hemodynamic mismatch. No ACS -Left bundle zoila block -Hyperlipidemia -Essential hypertension, currently in hypotensive shock -Primary osteoarthritis multiple joint -Chronic congestive heart failure, from systolic dysfunction EF 25 to 30%. Follow fluid status closely. -Moderate to severe aortic regurgitation -DNR -Medical power of assistant prosecuting attorney, Kristen Patient in the ICU. Being followed by bilingual teacher. Past Medical History Past Medical History: Cancer, Heart Failure, GERD/Reflux, Hyperlipidemia, Hypertension Additional Past Medical History / Comment(s): aortic aneurysm,neuropathy, chronic back pain, radiation, multiple myloma History of Any Multi-Drug Resistant Organisms: None Reported Past Surgical History: Back Surgery, Joint Replacement, Orthopedic Surgery Additional Past Surgical History / Comment(s): Aortic aneurysm repair, Lt knee replacement Past Anesthesia/Blood Transfusion Reactions: No Reported Reaction Past Psychological History: No Psychological Hx Reported Smoking Status: Never smoker Past Alcohol Use History: None Reported Past Drug Use History: None Reported Medications and Allergies Home Medications Medication Instructions Recorded Confirmed Type DULoxetine HCL [Cymbalta] 30 mg PO DAILY 12/17/21 07/31/24 History carvediloL [Coreg] 25 mg PO BID 05/22/24 07/31/24 History Dapagliflozin Propanediol [Farxiga] 10 mg PO DAILY #0 tab 05/30/24 07/31/24 Rx Furosemide [Lasix] 40 mg PO DAILY tab 05/30/24 07/31/24 Rx Spironolactone [Aldactone] 25 mg PO DAILY tab 05/30/24 07/31/24 Rx hydrALAZINE HCL [Apresoline] 100 mg PO TID #0 05/30/24 07/31/24 Rx Acetaminophen Tab [Tylenol] 650 mg PO Q6H PRN 07/31/24 07/31/24 History Aspirin 81 mg PO HS 07/31/24 07/31/24 History Atorvastatin [Lipitor] 20 mg PO HS 07/31/24 07/31/24 History Docusate [Colace] 100 mg PO BID 07/31/24 07/31/24 History HYDROcodone/APAP 5-325MG [[place] 1 tab PO Q8HR PRN 07/31/24 07/31/24 History 5-325] Naloxone HCl 0.4 mg IM DIRECTED PRN 07/31/24 07/31/24 History Naloxone HCl [Narcan] 4 mg NASAL DIRECTED PRN 07/31/24 07/31/24 History Omeprazole [PriLOSEC] 20 mg PO BID 07/31/24 07/31/24 History Potassium Chloride ER [K-Dur 10] 10 meq PO DAILY 07/31/24 07/31/24 History Sacubitril/Valsartan [Entresto 24 1 tab PO BID 07/31/24 07/31/24 History mg-26 mg Tablet] Sennosides [Senokot] 17.2 mg PO DAILY 07/31/24 07/31/24 History Tamsulosin [Flomax] 0.4 mg PO HS 07/31/24 07/31/24 History Allergies Allergy/AdvReac Type Severity Reaction Status Date / Time No Known Allergies Allergy Verified 07/31/24 13:00 Physical Exam Vitals: Vital Signs Temp Pulse Pulse Resp BP BP Pulse Ox 07/31/24 21:00 96.6 F L 72 12 146/76 98 07/31/24 20:36 07/31/24 20:34 96.6 F L 87 30 H 136/89 97 07/31/24 19:57 96.3 F L 12 144/67 98 07/31/24 18:56 07/31/24 18:10 97 F L 82 18 107/56 98 07/31/24 17:37 07/31/24 17:15 86 18 107/62 100 07/31/24 16:13 86 20 107/58 100 07/31/24 15:53 95.5 F L 82 22 83/48 99 07/31/24 15:04 83 25 H 91/51 98 07/31/24 14:47 73/42 07/31/24 13:41 86 34 H 70/42 98 07/31/24 13:08 97.0 F L 93 38 H 81/46 98 07/31/24 12:42 92 07/31/24 12:31 97 07/31/24 12:27 100.8 F H 99 28 H 73/45 96 07/31/24 12:25 07/31/24 12:09 32 H 07/31/24 12:08 76/42 07/31/24 12:04 100 F H 101 H 28 H 71/44 91 L FiO2 07/31/24 21:00 35 07/31/24 20:36 35 07/31/24 20:34 50 07/31/24 19:57 35 07/31/24 18:56 35 07/31/24 18:10 07/31/24 17:37 35 07/31/24 17:15 07/31/24 16:13 07/31/24 15:53 07/31/24 15:04 07/31/24 14:47 07/31/24 13:41 07/31/24 13:08 07/31/24 12:42 07/31/24 12:31 07/31/24 12:27 07/31/24 12:25 50 07/31/24 12:09 07/31/24 12:08 07/31/24 12:04 Intake and Output 07/31/24 07/31/24 07/31/24 06:59 14:59 22:59 Intake Total 0.622 342.986 Output Total 225 Balance 0.622 117.986 Intake: IV 300 Dextrose 5% in Water 1, 300 000 ml @ 150 mls/hr IV . Q7H40M SHARON with Sodium Bicarb (1 Meq/ml) 150 ml Rx#:[id number] Intake, IV Titration 0.622 42.986 Amount Norepinephrine 32 mg In 0.622 42.986 Sodium Chloride 0.9% 218 ml @ 0.03 MCG/KG/MIN 1. 244 mls/hr IV .Q24H SHARON Rx#:[id number] Output: Urine 225 Other: Weight 88.451 kg 88.451 kg Results CBC & Chem 7: 07/31/24 12:13 07/31/24 12:13 Labs: Abnormal Lab Results - Last 24 Hours (Table) 07/31/24 07/31/24 07/31/24 Range/Units 12:13 12:13 12:13 WBC 16.0 H (3.8-10.6) k/uL Neutrophils # 15.3 H (1.3-7.7) k/uL Lymphocytes # 0.3 L (1.0-4.8) k/uL PT 12.9 H (10.0-12.5) sec INR 1.2 H (<1.2) Sodium 130 L (137-145) mmol/L Carbon Dioxide 14 L (22-30) mmol/L BUN 76 H (9-20) mg/dL Creatinine 3.75 H (0.66-1.25) mg/dL POC Glucose (mg/dL) (70-110) mg/dL Plasma Lactic Acid Ricardo (0.7-2.0) mmol/L Calcium 7.6 L (8.4-10.2) mg/dL Phosphorus 6.1 H (2.5-4.5) mg/dL Alkaline Phosphatase 183 H (38-126) U/L Troponin I (0.000-0.034) ng/mL Total Protein 5.2 L (6.3-8.2) g/dL Albumin 2.6 L (3.5-5.0) g/dL Urine Protein (Negative) Urine Glucose (UA) (Negative) Urine Blood (Negative) Ur Leukocyte Esterase (Negative) Urine RBC (0-5) /hpf Urine WBC (0-5) /hpf Urine Bacteria (None) /hpf 07/31/24 07/31/24 07/31/24 Range/Units 12:13 12:13 12:27 WBC (3.8-10.6) k/uL Neutrophils # (1.3-7.7) k/uL Lymphocytes # (1.0-4.8) k/uL PT (10.0-12.5) sec INR (<1.2) Sodium (137-145) mmol/L Carbon Dioxide (22-30) mmol/L BUN (9-20) mg/dL Creatinine (0.66-1.25) mg/dL POC Glucose (mg/dL) (70-110) mg/dL Plasma Lactic Acid Ricardo 2.9 H* (0.7-2.0) mmol/L Calcium (8.4-10.2) mg/dL Phosphorus (2.5-4.5) mg/dL Alkaline Phosphatase (38-126) U/L Troponin I 0.122 H* (0.000-0.034) ng/mL Total Protein (6.3-8.2) g/dL Albumin (3.5-5.0) g/dL Urine Protein 1+ H (Negative) Urine Glucose (UA) 1+ H (Negative) Urine Blood Moderate H (Negative) Ur Leukocyte Esterase Large H (Negative) Urine RBC 34 H (0-5) /hpf Urine WBC >182 H (0-5) /hpf Urine Bacteria Many H (None) /hpf 07/31/24 Range/Units 20:31 WBC (3.8-10.6) k/uL Neutrophils # (1.3-7.7) k/uL Lymphocytes # (1.0-4.8) k/uL PT (10.0-12.5) sec INR (<1.2) Sodium (137-145) mmol/L Carbon Dioxide (22-30) mmol/L BUN (9-20) mg/dL Creatinine (0.66-1.25) mg/dL POC Glucose (mg/dL) 211 H (70-110) mg/dL Plasma Lactic Acid Ricardo (0.7-2.0) mmol/L Calcium (8.4-10.2) mg/dL Phosphorus (2.5-4.5) mg/dL Alkaline Phosphatase (38-126) U/L Troponin I (0.000-0.034) ng/mL Total Protein (6.3-8.2) g/dL Albumin (3.5-5.0) g/dL Urine Protein (Negative) Urine Glucose (UA) (Negative) Urine Blood (Negative) Ur Leukocyte Esterase (Negative) Urine RBC (0-5) /hpf Urine WBC (0-5) /hpf Urine Bacteria (None) /hpf Thrombosis Risk Factor Assmnt - Choose All That Apply Any of the Below Risk Factors Present?: Yes Each Factor Represents 1 point: Medical pt on bed rest, Sepsis (< 1month) Each Risk Factor Represents 2 Points: Central venous access, Patient confined to bed Each Risk Factor Represents 3 Points: Age 75 years or older Thrombosis Risk Factor Assessment Total Risk Factor Score: 9 Thrombosis Risk Factor Assessment Level: High Risk
--- NOTE | 2024-07-31 22:51 | P.CONS ---
History of Present Illness - Reason for Consult Consult date: 07/31/24 Sepsis Requesting physician: Jeffry Samuel - Chief Complaint Decreased level of responsiveness weakness x 1 day - History of Present Illness Patient is a 83-year-old male with a past medical history significant for reflux hyperlipidemia hypertension aortic aneurysm history of multiple myeloma and shelter resident patient did have a chronic indwelling White catheter for retention not very clear when the last time his catheter was changed patient was primarily seen by the family yesterday and she was doing well has been sent to the ER this morning from a local shelter via EMS concerning for decreased level of consciousness and also noticed to have significant respiratory distress on arrival to the ER patient did have a temperature of 100.8 F patient was tachycardic tachypneic hypotensive requiring fluid and pressor support he was also hypoxic requiring a BiPAP patient was started on Rocephin and Zithromax infectious disease was consulted for further management of antibiotic therapy most information has been obtained from the and the son at the bedside as reported being less responsive this morning and lethargic no clear history of any fever at the shelter no clear history of any nausea or vomiting or diarrhea and the not very clear about when the last time the White catheter was changed, patient did have a white count of 16,000 with a left shift did have elevated BUN and creatinine liver enzymes are normal troponin was elevated urine is positive influenza RSV COVID testing was negative patient did have chest x-ray chronic changes without acute pulmonary process, the patient does have significant sediment in his White catheter that has been changed by the nursing staff in the ER Review of Systems Positive points has been mentioned in HPI complete review could not be obtained because of his underlying mental status Past Medical History Past Medical History: Cancer, GERD/Reflux, Hyperlipidemia, Hypertension Additional Past Medical History / Comment(s): aortic aneurysm,neuropathy, chronic back pain, radiation, multiple myloma History of Any Multi-Drug Resistant Organisms: None Reported Past Surgical History: Back Surgery, Joint Replacement, Orthopedic Surgery Past Psychological History: No Psychological Hx Reported Smoking Status: Never smoker Past Alcohol Use History: None Reported Past Drug Use History: None Reported Medications and Allergies Home Medications Medication Instructions Recorded Confirmed Type DULoxetine HCL [Cymbalta] 30 mg PO DAILY 12/17/21 07/31/24 History carvediloL [Coreg] 25 mg PO BID 05/22/24 07/31/24 History Dapagliflozin Propanediol [Farxiga] 10 mg PO DAILY #0 tab 05/30/24 07/31/24 Rx Furosemide [Lasix] 40 mg PO DAILY tab 05/30/24 07/31/24 Rx Spironolactone [Aldactone] 25 mg PO DAILY tab 05/30/24 07/31/24 Rx hydrALAZINE HCL [Apresoline] 100 mg PO TID #0 05/30/24 07/31/24 Rx Acetaminophen Tab [Tylenol] 650 mg PO Q6H PRN 07/31/24 07/31/24 History Aspirin 81 mg PO HS 07/31/24 07/31/24 History Atorvastatin [Lipitor] 20 mg PO HS 07/31/24 07/31/24 History Docusate [Colace] 100 mg PO BID 07/31/24 07/31/24 History HYDROcodone/APAP 5-325MG [[place] 1 tab PO Q8HR PRN 07/31/24 07/31/24 History 5-325] Naloxone HCl 0.4 mg IM DIRECTED PRN 07/31/24 07/31/24 History Naloxone HCl [Narcan] 4 mg NASAL DIRECTED PRN 07/31/24 07/31/24 History Omeprazole [PriLOSEC] 20 mg PO BID 07/31/24 07/31/24 History Potassium Chloride ER [K-Dur 10] 10 meq PO DAILY 07/31/24 07/31/24 History Sacubitril/Valsartan [Entresto 24 1 tab PO BID 07/31/24 07/31/24 History mg-26 mg Tablet] Sennosides [Senokot] 17.2 mg PO DAILY 07/31/24 07/31/24 History Tamsulosin [Flomax] 0.4 mg PO HS 07/31/24 07/31/24 History Allergies Allergy/AdvReac Type Severity Reaction Status Date / Time No Known Allergies Allergy Verified 07/31/24 13:00 Physical Exam Vitals: Vital Signs Temp Pulse Resp BP Pulse Ox FiO2 07/31/24 13:41 86 34 H 70/42 98 07/31/24 13:08 97.0 F L 93 38 H 81/46 98 07/31/24 12:42 92 07/31/24 12:31 97 07/31/24 12:27 100.8 F H 99 28 H 73/45 96 07/31/24 12:25 50 07/31/24 12:09 32 H 07/31/24 12:08 76/42 07/31/24 12:04 100 F H 101 H 28 H 71/44 91 L Intake and Output 07/30/24 07/31/24 07/31/24 22:59 06:59 14:59 Other: Weight 88.451 kg GENERAL DESCRIPTION: Elderly male on the BiPAP HEENT: Shows Pallor , no scleral icterus. Oral mucous membrane is dry. NECK: Trachea central, no thyromegaly. LUNGS: Unlabored breathing. Decreased breath sounds at the base HEART: S1, S2, regular rate and rhythm. No loud murmur ABDOMEN: Soft, no tenderness , guarding or rigidity, no organomegaly EXTREMITIES: No edema of feet. SKIN: No rash, no masses palpable. NEUROLOGICAL: The patient is unresponsive on a BiPAP orientation could not be determined Results CBC & Chem 7: 07/31/24 12:13 07/31/24 12:13 Labs: Abnormal Lab Results - Last 24 Hours (Table) 07/31/24 07/31/24 07/31/24 Range/Units 12:13 12:13 12:13 WBC 16.0 H (3.8-10.6) k/uL Neutrophils # 15.3 H (1.3-7.7) k/uL Lymphocytes # 0.3 L (1.0-4.8) k/uL PT 12.9 H (10.0-12.5) sec INR 1.2 H (<1.2) Sodium 130 L (137-145) mmol/L Carbon Dioxide 14 L (22-30) mmol/L BUN 76 H (9-20) mg/dL Creatinine 3.75 H (0.66-1.25) mg/dL Plasma Lactic Acid Ricardo (0.7-2.0) mmol/L Calcium 7.6 L (8.4-10.2) mg/dL Phosphorus 6.1 H (2.5-4.5) mg/dL Alkaline Phosphatase 183 H (38-126) U/L Troponin I (0.000-0.034) ng/mL Total Protein 5.2 L (6.3-8.2) g/dL Albumin 2.6 L (3.5-5.0) g/dL Urine Protein (Negative) Urine Glucose (UA) (Negative) Urine Blood (Negative) Ur Leukocyte Esterase (Negative) Urine RBC (0-5) /hpf Urine WBC (0-5) /hpf Urine Bacteria (None) /hpf 07/31/24 07/31/24 07/31/24 Range/Units 12:13 12:13 12:27 WBC (3.8-10.6) k/uL Neutrophils # (1.3-7.7) k/uL Lymphocytes # (1.0-4.8) k/uL PT (10.0-12.5) sec INR (<1.2) Sodium (137-145) mmol/L Carbon Dioxide (22-30) mmol/L BUN (9-20) mg/dL Creatinine (0.66-1.25) mg/dL Plasma Lactic Acid Ricardo 2.9 H* (0.7-2.0) mmol/L Calcium (8.4-10.2) mg/dL Phosphorus (2.5-4.5) mg/dL Alkaline Phosphatase (38-126) U/L Troponin I 0.122 H* (0.000-0.034) ng/mL Total Protein (6.3-8.2) g/dL Albumin (3.5-5.0) g/dL Urine Protein 1+ H (Negative) Urine Glucose (UA) 1+ H (Negative) Urine Blood Moderate H (Negative) Ur Leukocyte Esterase Large H (Negative) Urine RBC 34 H (0-5) /hpf Urine WBC >182 H (0-5) /hpf Urine Bacteria Many H (None) /hpf Assessment and Plan (1) Catheter-associated urinary tract infection Current Visit: Yes Status: Acute Code(s): T83.511A - I/I REACT D/T INDWELLING URETHRAL CATHETER, INIT; N39.0 - URINARY TRACT INFECTION, SITE NOT SPECIFIED SNOMED Code(s): 235784107 (2) Sepsis Current Visit: Yes Status: Acute Code(s): A41.9 - SEPSIS, UNSPECIFIED ORGANISM SNOMED Code(s): 91173841 Plan: 1patient presented hospital with sepsis in this patient who did have fever tachycardia elevated white count hypotension and tachypnea requiring admission to the ICU source is likely catheter associated UTI keeping in mind patient is a shelter resident will need to cover for resistant gram-negative with a likely pathogen 2patient did have elevated creatinine high risk of nephrotoxicity from certain diabetics and will need to check ultrasound to make sure evidence of any obstructive uropathy 3-White catheter has already been change urine culture need to be sent and we will follow-up on the blood culture 3discontinue Rocephin and Zithromax 4we will start the patient cefepime dose adjusted to the kidney function while waiting for the culture to finalize Family the bedside question concern answered We will follow on clinical condition and cultures to further adjust medication if needed Thank you for this consultation we will follow the patient along with you Dictation was produced using [employer] dictation software. please excuse any g rammatical, word or spelling errors. Time with Patient: Greater than 30
[2024-08-01] MEDS: ACETAMINOPHEN TAB 325 MG TAB PO PRN (00:52)
[2024-08-01 03:33] LABS: ALT 21 U/L (4-49); AST 32 U/L (17-59); Albumin 2.3 g/dL (3.5-5.0); Alkaline Phosphatase 124 U/L (38-126); Anion Gap 15 mmol/L; Blood Urea Nitrogen 74 mg/dL (9-20); Calcium 6.9 mg/dL (8.4-10.2); Carbon Dioxide 17 mmol/L (22-30); Chloride 95 mmol/L (98-107); Glucose 226 mg/dL (74-99); Phosphorus 6.7 mg/dL (2.5-4.5); Potassium 4.3 mmol/L (3.5-5.1); Sodium 127 mmol/L (137-145); Total Bilirubin 0.8 mg/dL (0.2-1.3); Total Protein 4.6 g/dL (6.3-8.2)
[2024-08-01 03:39] LABS: African American GFR (CKD) 17 (>60 ml/min/1.73 sqM); Non-African American GFR(CKD) 15 (>60 ml/min/1.73 sqM)
[2024-08-01 03:50] LABS: Basophils % (A) 0 %; Eosinophils % (A) 0 %; HCT 35.2 % (39.0-53.0); HGB 11.1 gm/dL (13.0-17.5); Hypochromasia Slight; Lymphocytes # (A) 0.5 k/uL (1.0-4.8); Lymphocytes % (A) 2 %; MCH 30.1 pg (25.0-35.0); MCHC 31.5 g/dL (31.0-37.0); MCV 95.3 fL (80.0-100.0); Monocytes # (A) 0.7 k/uL (0-1.0); Monocytes % (A) 3 %; Neutrophils # (A) 20.3 k/uL (1.3-7.7); Neutrophils % (A) 94 %; Platelet Count 166 k/uL (150-450); RBC 3.69 m/uL (4.30-5.90); RDW 14.7 % (11.5-15.5); WBC 21.7 k/uL (3.8-10.6)
[2024-08-01] MEDS: CEFEPIME 1 GM in SODIUM CHLORIDE 0.9% 50 ML IVPB SCH (04:00)
--- NOTE | 2024-08-01 08:22 | XR ---
EXAMINATION TYPE: XR chest 1V portable DATE OF EXAM: 08/01/2024 5:35 AM COMPARISON: Chest radiographs from 07/31/2024 CLINICAL INDICATION: Male, 83 years old with history of Sepsis; [facility] TECHNIQUE: XR chest 1V portable Frontal view of the chest. FINDINGS: Lungs/Pleura: There is no evidence of pleural effusion, focal consolidation, or pneumothorax. Pulmonary vascularity: Unremarkable. Heart/mediastinum: Cardiomediastinal silhouette is unremarkable. Atherosclerotic calcifications are seen in the aorta. Left atrial appendage occlusion device is present. Musculoskeletal: No acute osseous pathology. Midline sternotomy wires are noted. Other findings: None Lines/Tubes: Right internal jugular central venous catheter with distal tip at the cavoatrial junction. IMPRESSION: No acute cardiopulmonary disease/process. [facility], , 08/01/2024 8:20 AM
--- NOTE | 2024-08-01 08:33 | US ---
EXAMINATION TYPE: US kidneys/renal and bladder DATE OF EXAM: 08/01/2024 COMPARISON: 05/25/2024 CLINICAL INDICATION: Male, 83 years old with history of uti and bacteremia; Portable ICU patient. Bl adder saunders. Hx renal cysts. TECHNIQUE: Grayscale imaging of the bilateral kidneys and urinary bladder: FINDINGS: EXAM MEASUREMENTS: Right Kidney: 12.7 x 5.9 x 6.3 cm Left Kidney: 13.0 x 5.4 x 6.4 cm Right Kidney: Free fluid seen anterior to lower pole. Possible dilated renal pelvis. Mid anterior cor tical solid appearing lesion = 2.1 x 2.9 x 2.7 cm. Mid lower pole anechoic lesion - 2.0 x 1.5 x 2.0 cm Left Kidney: Medial inferior anechoic lesion - 4.8 x 5.2 x 4.7 cm. Possible lesion vs cortical lobul arity - 2.4 x 2.0 x 2.2 cm Bladder: saunders seen. Bladder wall - 6.3 mm Bilateral Jets not seen due to saunders IMPRESSION: 1. Right renal solid cortical mass measuring up to 2.9 cm concerning for malignancy until proven oth erwise. Renal mass protocol MRI with contrast recommended. Additional cysts area of probable lobulati on the left kidney could also be evaluated at that time. 2. Additional simple appearing right-sided and left-sided renal cysts. 3. Thickened urinary bladder wall with Saunders catheter. Correlate with urinalysis for cystitis. [facility], , 08/01/2024 8:31 AM
[2024-08-01] MEDS ORDERED: HALOPERIDOL LACTATE 5 MG/ML 1 ML VIAL IVP PRN ×2 (09:09→09:12)
[2024-08-01] MEDS: DULoxetine HCL 30 MG CAPSULE.DR PO SCH (09:10)
[2024-08-01] MEDS: HALOPERIDOL LACTATE 5 MG/ML 1 ML VIAL IVP PRN (09:26)
--- NOTE | 2024-08-01 11:16 | P.NPCON ---
History of Present Illness - Reason for Consult acute renal failure - History of Present Illness Patient is an 83-year-old male with history of dementia, gastroesophageal reflux disease and hypertension. Patient also has history of multiple myeloma. He is admitted to the hospital with mental status changes and shortness of breath. Patient apparently had foul-smelling urine. He was initially on BiPAP. Blood pressure was low with systolic in the 70s. Patient is status post IV fluids and was maintained on pressors. He was on Levophed and vasopressin. Vasopressin is now off and Levophed is significantly decreased. Currently patient has had good urine output. He is being treated for urinary tract infection Patient was agitated earlier today. He received Haldol. Serum creatinine was 3.7 on admission and decreased to 3.5 today. Previous creatinine was 0.6 on 05/29/2024. Past Medical History Past Medical History: Cancer, GERD/Reflux, Hyperlipidemia, Hypertension Additional Past Medical History / Comment(s): aortic aneurysm,neuropathy, chronic back pain, radiation, multiple myloma History of Any Multi-Drug Resistant Organisms: None Reported Past Surgical History: Back Surgery, Joint Replacement, Orthopedic Surgery Additional Past Surgical History / Comment(s): Aortic aneurysm repair, Lt knee replacement Past Anesthesia/Blood Transfusion Reactions: No Reported Reaction Past Psychological History: No Psychological Hx Reported Smoking Status: Never smoker Past Alcohol Use History: None Reported Past Drug Use History: None Reported Medications and Allergies Home Medications Medication Instructions Recorded Confirmed Type DULoxetine HCL [Cymbalta] 30 mg PO DAILY 12/17/21 07/31/24 History carvediloL [Coreg] 25 mg PO BID 05/22/24 07/31/24 History Dapagliflozin Propanediol [Farxiga] 10 mg PO DAILY #0 tab 05/30/24 07/31/24 Rx Furosemide [Lasix] 40 mg PO DAILY tab 05/30/24 07/31/24 Rx Spironolactone [Aldactone] 25 mg PO DAILY tab 05/30/24 07/31/24 Rx hydrALAZINE HCL [Apresoline] 100 mg PO TID #0 05/30/24 07/31/24 Rx Acetaminophen Tab [Tylenol] 650 mg PO Q6H PRN 07/31/24 07/31/24 History Aspirin 81 mg PO HS 07/31/24 07/31/24 History Atorvastatin [Lipitor] 20 mg PO HS 07/31/24 07/31/24 History Docusate [Colace] 100 mg PO BID 07/31/24 07/31/24 History HYDROcodone/APAP 5-325MG [[place] 1 tab PO Q8HR PRN 07/31/24 07/31/24 History 5-325] Naloxone HCl 0.4 mg IM DIRECTED PRN 07/31/24 07/31/24 History Naloxone HCl [Narcan] 4 mg NASAL DIRECTED PRN 07/31/24 07/31/24 History Omeprazole [PriLOSEC] 20 mg PO BID 07/31/24 07/31/24 History Potassium Chloride ER [K-Dur 10] 10 meq PO DAILY 07/31/24 07/31/24 History Sacubitril/Valsartan [Entresto 24 1 tab PO BID 07/31/24 07/31/24 History mg-26 mg Tablet] Sennosides [Senokot] 17.2 mg PO DAILY 07/31/24 07/31/24 History Tamsulosin [Flomax] 0.4 mg PO HS 07/31/24 07/31/24 History Allergies Allergy/AdvReac Type Severity Reaction Status Date / Time No Known Allergies Allergy Verified 07/31/24 13:00 Physical Exam Vitals: Vital Signs Temp Pulse Pulse Resp BP BP Pulse Ox 08/01/24 10:15 65 16 93/52 95 08/01/24 10:00 70 13 93/43 95 08/01/24 09:45 63 13 101/53 95 08/01/24 09:30 76 22 110/59 94 L 08/01/24 09:15 80 21 109/64 96 08/01/24 09:00 78 20 102/60 96 08/01/24 08:45 79 18 110/61 93 L 08/01/24 08:38 94 L 08/01/24 08:30 77 19 116/52 97 08/01/24 08:15 89 20 105/55 92 L 08/01/24 08:00 96.8 F L 76 22 108/58 96 08/01/24 07:45 75 22 118/60 95 08/01/24 07:30 68 24 115/69 98 08/01/24 07:15 70 24 102/60 99 08/01/24 07:00 62 16 91/46 98 04/03/25 06:00 64 18 88/48 98 08/01/24 05:06 08/01/24 05:00 62 11 L 90/48 99 08/01/24 04:00 96.6 F L 64 12 128/64 99 08/01/24 03:00 62 16 132/61 99 08/01/24 02:00 61 14 125/61 98 08/01/24 01:00 67 18 149/93 99 08/01/24 00:08 96.4 F L 65 14 132/61 99 08/01/24 00:00 96.4 F L 65 11 L 141/65 98 07/31/24 23:00 75 18 143/78 99 07/31/24 22:00 70 12 148/79 98 07/31/24 21:00 96.6 F L 69 72 13 145/74 146/76 99 07/31/24 20:36 07/31/24 20:34 96.6 F L 87 30 H 136/89 97 07/31/24 19:57 96.3 F L 12 144/67 98 07/31/24 18:56 07/31/24 18:10 97 F L 82 18 107/56 98 07/31/24 17:37 07/31/24 17:15 86 18 107/62 100 07/31/24 16:13 86 20 107/58 100 07/31/24 15:53 95.5 F L 82 22 83/48 99 07/31/24 15:04 83 25 H 91/51 98 07/31/24 14:47 73/42 07/31/24 13:41 86 34 H 70/42 98 07/31/24 13:08 97.0 F L 93 38 H 81/46 98 07/31/24 12:42 92 07/31/24 12:31 97 07/31/24 12:27 100.8 F H 99 28 H 73/45 96 07/31/24 12:25 07/31/24 12:09 32 H 07/31/24 12:08 76/42 07/31/24 12:04 100 F H 101 H 28 H 71/44 91 L FiO2 08/01/24 10:15 08/01/24 10:00 08/01/24 09:45 08/01/24 09:30 08/01/24 09:15 08/01/24 09:00 08/01/24 08:45 08/01/24 08:38 08/01/24 08:30 08/01/24 08:15 08/01/24 08:00 08/01/24 07:45 08/01/24 07:30 35 08/01/24 07:15 08/01/24 07:00 08/01/24 06:00 08/01/24 05:06 35 08/01/24 05:00 08/01/24 04:00 35 08/01/24 03:00 08/01/24 02:00 08/01/24 01:00 08/01/24 00:08 35 08/01/24 00:00 35 07/31/24 23:00 07/31/24 22:00 07/31/24 21:00 35 07/31/24 20:36 35 07/31/24 20:34 50 07/31/24 19:57 35 07/31/24 18:56 35 07/31/24 18:10 07/31/24 17:37 35 07/31/24 17:15 07/31/24 16:13 07/31/24 15:53 07/31/24 15:04 07/31/24 14:47 07/31/24 13:41 07/31/24 13:08 07/31/24 12:42 07/31/24 12:31 07/31/24 12:27 07/31/24 12:25 50 07/31/24 12:09 07/31/24 12:08 07/31/24 12:04 Intake and Output 07/31/24 08/01/24 08/01/24 22:59 06:59 14:59 Intake Total 094.772 4823.939 459.363 Output Total 265 335 210 Balance 847.252 9054.939 249.363 Intake: IV 450 1350 450 Dextrose 5% in Water 1, 450 1350 450 000 ml @ 150 mls/hr IV . Q7H40M SHARON with Sodium Bicarb (1 Meq/ml) 150 ml Rx#:[id number] Intake, IV Titration 63.847 66.939 9.363 Amount Norepinephrine 32 mg In 63.847 23.716 9.363 Sodium Chloride 0.9% 218 ml @ 0.03 MCG/KG/MIN 1. 244 mls/hr IV .Q24H SHARON Rx#:[id number] Vasopressin 20 unit In 43.223 Sodium Chloride 0.9% 50 ml @ 0.03 UNITS/MIN 4.59 mls/hr IV .Q11H7M SHARON Rx# :[id number] Output: Urine 265 335 210 Other: Voiding Method Indwelling Catheter Indwelling Catheter Indwelling Catheter Weight 88.451 kg 96.8 kg Patient is awake, comfortable, no acute distress. Examination of the heart S1 and S2 Examination of the lungs bilateral breath sounds are heard Abdomen is soft nontender Examination of lower extremities shows no significant edema [employer] ADMINISTRATOR exam shows patient is moving all 4 extremities. Results - Lab Results Most recent lab results Calcium 6.9 mg/dL (8.4-10.2) L 08/01/24 02:46 Phosphorus 6.7 mg/dL (2.5-4.5) H 08/01/24 02:46 Magnesium 2.0 mg/dL (1.6-2.3) 08/01/24 02:46 08/01/24 02:46 08/01/24 02:46 Assessment and Plan Assessment: 1. Acute kidney injury, ischemic ATN, nonoliguric from hypotension and sepsis.Maintained on IV fluids. UA suggestive of UTI. Ultrasound shows right renal cortical mass concern for malignancy. No obstruction noted 2. Anion gap metabolic acidosis associated with acute kidney injury, hypotension and lactic acidosis, maintained on bicarb drip 3. Hyponatremia associated with acute kidney injury. Patient was hypovolemic and currently maintained on bicarb drip. This will be changed to a base of half-normal saline. 4. UTI with sepsis 5. Mental status changes secondary to above 6. Right renal mass with concern for malignancy, patient will need workup down the road Plan: Change bicarb drip to half-normal saline with 100 mEq of sodium bicarb Repeat labs in a.m. Continue with antibiotics Patient will need evaluation of the right renal mass down the road.
[2024-08-01] MEDS: SODIUM CHLORIDE 0.45% 1,000 ML with SODIUM BICARB (1 MEQ/ML) 100 ML IV SCH (12:55)
--- NOTE | 2024-08-01 14:14 | P.CRDCN ---
History of Present Illness Consult date: 08/01/24 History of present illness: HISTORY OF PRESENTING ILLNESS: Patient is known to Dr. Hutchinson. 83-year-old with past medical history multiple myeloma, hypertension, dyslipidemia. Resident of a nursing facility, two-person assist, wheelchair bound, has a chronic White since March. He is not able to provide much history and history is obtained from the present at bedside and from the medical chart. He was brought to the hospital because of altered mental status and was found to be hypoxic. He was also found to be hypertensive with concerns of cloudy urine from the White catheter. In ER he received IV fluid resuscitation and was placed on pressors. Cardiology was consulted for elevated troponins, hemodynamic instability and for management of his multiple cardiac comorbidities. Admission Labs: Leukocytosis WBC 16, repeat 21, Hb 13 repeat 11, BUN 37, cr eatinine 3.75 Admission EKG: Sinus tachycardia with left middle branch block Imaging: Chest x-ray showed mild increased interstitial marking however no signs of consolidation congestion. Prior cardiac testing: Echo from May 2024 shows an EF of 25 to 30%, moderate concentric LVH, mildly dilated RV with mildly reduced systolic function, moderate to severe aortic regurgitation, ascending aorta aneurysm measuring 4.6 cm REVIEW OF SYSTEMS: 14 point review of system is negative except what is mentioned above in HPI. PHYSICAL EXAMINATION: Neck: Brisk carotid upstroke, no jugular venous distention. Lungs: Clear to auscultation. Heart: Regular rate and rhythm, S1-S2, mild systolic murmur audible Abdomen: Soft nontender, positive bowel sounds. Extremities: 1+ pitting edema bilateral extremity. Neuro: Alert but confused,. Detailed neuro exam was not performed. ASSESSMENT: # Septic shock, likely from complicated UTI, likely from infected indwelling White catheter # Metabolic encephalopathy, likely due to above # Acute on chronic hypoxic respiratory failure # ROSA, creatinine 3.5. Baseline 0.5 # Elevated troponin, type II NSTEMI, because of poor renal clearance and septic shock # CAD status post CABG # Moderate to severe aortic regurgitation # Dilated ascending aorta at 4.6 intubator # History of multiple myeloma # Essential hypertension, dyslipidemia # History of aortic aneurysm status post surgical repair PLAN: At this time patient's prognosis is poor because of multi organ involvement Continue supportive care Aspirin, Lipitor, He is on Aldactone 25, Coreg 25 twice daily, Farxiga 10, Entresto 24/26 mg at home. These medications are held at this time because patient is on pressors. Once patient is off pressors, consider reintroducing these medications Monitor kidney function and electrolytes Asael Parr MD, FAC, RPVI Thank you for allowing [facility] to participate in this patient's care. Feel free to reach out in case of any followup questions. Past Medical History Past Medical History: Cancer, GERD/Reflux, Hyperlipidemia, Hypertension Additional Past Medical History / Comment(s): aortic aneurysm,neuropathy, chronic back pain, radiation, multiple myloma History of Any Multi-Drug Resistant Organisms: None Reported Past Surgical History: Back Surgery, Joint Replacement, Orthopedic Surgery Additional Past Surgical History / Comment(s): Aortic aneurysm repair, Lt knee replacement Past Anesthesia/Blood Transfusion Reactions: No Reported Reaction Past Psychological History: No Psychological Hx Reported Smoking Status: Never smoker Past Alcohol Use History: None Reported Past Drug Use History: None Reported Medications and Allergies Home Medications Medication Instructions Recorded Confirmed Type DULoxetine HCL [Cymbalta] 30 mg PO DAILY 12/17/21 07/31/24 History carvediloL [Coreg] 25 mg PO BID 05/22/24 07/31/24 History Dapagliflozin Propanediol [Farxiga] 10 mg PO DAILY #0 tab 05/30/24 07/31/24 Rx Furosemide [Lasix] 40 mg PO DAILY tab 05/30/24 07/31/24 Rx Spironolactone [Aldactone] 25 mg PO DAILY tab 05/30/24 07/31/24 Rx hydrALAZINE HCL [Apresoline] 100 mg PO TID #0 05/30/24 07/31/24 Rx Acetaminophen Tab [Tylenol] 650 mg PO Q6H PRN 07/31/24 07/31/24 History Aspirin 81 mg PO HS 07/31/24 07/31/24 History Atorvastatin [Lipitor] 20 mg PO HS 07/31/24 07/31/24 History Docusate [Colace] 100 mg PO BID 07/31/24 07/31/24 History HYDROcodone/APAP 5-325MG [[place] 1 tab PO Q8HR PRN 07/31/24 07/31/24 History 5-325] Naloxone HCl 0.4 mg IM DIRECTED PRN 07/31/24 07/31/24 History Naloxone HCl [Narcan] 4 mg NASAL DIRECTED PRN 07/31/24 07/31/24 History Omeprazole [PriLOSEC] 20 mg PO BID 07/31/24 07/31/24 History Potassium Chloride ER [K-Dur 10] 10 meq PO DAILY 07/31/24 07/31/24 History Sacubitril/Valsartan [Entresto 24 1 tab PO BID 07/31/24 07/31/24 History mg-26 mg Tablet] Sennosides [Senokot] 17.2 mg PO DAILY 07/31/24 07/31/24 History Tamsulosin [Flomax] 0.4 mg PO HS 07/31/24 07/31/24 History Allergies Allergy/AdvReac Type Severity Reaction Status Date / Time No Known Allergies Allergy Verified 07/31/24 13:00 Physical Exam Vitals: Vital Signs Temp Pulse Pulse Resp BP BP Pulse Ox 08/01/24 13:00 72 26 H 101/61 97 08/01/24 12:45 97 19 104/57 96 08/01/24 12:30 72 18 103/53 96 08/01/24 12:15 77 20 101/57 96 08/01/24 12:00 97.0 F L 70 20 104/48 96 08/01/24 11:45 77 20 106/50 97 08/01/24 11:30 62 17 102/52 95 08/01/24 11:15 73 21 107/58 96 08/01/24 11:00 70 16 103/54 96 08/01/24 10:45 75 16 87/56 96 08/01/24 10:30 63 15 111/56 95 08/01/24 10:15 65 16 93/52 95 08/01/24 10:00 70 13 93/43 95 08/01/24 09:45 63 13 101/53 95 08/01/24 09:30 76 22 110/59 94 L 08/01/24 09:15 80 21 109/64 96 08/01/24 09:00 78 20 102/60 96 08/01/24 08:45 79 18 110/61 93 L 08/01/24 08:38 94 L 08/01/24 08:30 77 19 116/52 97 08/01/24 08:15 89 20 105/55 92 L 08/01/24 08:00 96.8 F L 76 22 108/58 96 08/01/24 07:45 75 22 118/60 95 08/01/24 07:30 68 24 115/69 98 08/01/24 07:15 70 24 102/60 99 08/01/24 07:00 62 16 91/46 98 08/01/24 06:00 64 18 88/48 98 08/01/24 05:06 08/01/24 05:00 62 11 L 90/48 99 08/01/24 04:00 96.6 F L 64 12 128/64 99 08/01/24 03:00 62 16 132/61 99 08/01/24 02:00 61 14 125/61 98 08/01/24 01:00 67 18 149/93 99 08/01/24 00:08 96.4 F L 65 14 132/61 99 08/01/24 00:00 96.4 F L 65 11 L 141/65 98 07/31/24 23:00 75 18 143/78 99 07/31/24 22:00 70 12 148/79 98 07/31/24 21:00 96.6 F L 69 72 13 145/74 146/76 99 07/31/24 20:36 07/31/24 20:34 96.6 F L 87 30 H 136/89 97 07/31/24 19:57 96.3 F L 12 144/67 98 07/31/24 18:56 07/31/24 18:10 97 F L 82 18 107/56 98 07/31/24 17:37 07/31/24 17:15 86 18 107/62 100 07/31/24 16:13 86 20 107/58 100 07/31/24 15:53 95.5 F L 82 22 83/48 99 07/31/24 15:04 83 25 H 91/51 98 07/31/24 14:47 73/42 FiO2 08/01/24 13:00 08/01/24 12:45 08/01/24 12:30 08/01/24 12:15 08/01/24 12:00 08/01/24 11:45 08/01/24 11:30 08/01/24 11:15 08/01/24 11:00 08/01/24 10:45 08/01/24 10:30 08/01/24 10:15 08/01/24 10:00 08/01/24 09:45 08/01/24 09:30 08/01/24 09:15 08/01/24 09:00 08/01/24 08:45 08/01/24 08:38 08/01/24 08:30 08/01/24 08:15 08/01/24 08:00 08/01/24 07:45 08/01/24 07:30 35 08/01/24 07:15 08/01/24 07:00 08/01/24 06:00 08/01/24 05:06 35 08/01/24 05:00 08/01/24 04:00 35 08/01/24 03:00 08/01/24 02:00 08/01/24 01:00 08/01/24 00:08 35 08/01/24 00:00 35 07/31/24 23:00 07/31/24 22:00 07/31/24 21:00 35 07/31/24 20:36 35 07/31/24 20:34 50 07/31/24 19:57 35 07/31/24 18:56 35 07/31/24 18:10 07/31/24 17:37 35 07/31/24 17:15 07/31/24 16:13 07/31/24 15:53 07/31/24 15:04 07/31/24 14:47 Intake and Output 07/31/24 08/01/24 08/01/24 22:59 06:59 14:59 Intake Total 875.526 9627.939 1014.890 Output Total 265 335 290 Balance 578.765 4686.939 724.890 Intake: IV 450 1350 750 Dextrose 5% in Water 1, 450 1350 750 000 ml @ 150 mls/hr IV . Q7H40M SHARON with Sodium Bicarb (1 Meq/ml) 150 ml Rx#:[id number] Intake, IV Titration 63.847 66.939 144.890 Amount Norepinephrine 32 mg In 63.847 23.716 14.890 Sodium Chloride 0.9% 218 ml @ 0.03 MCG/KG/MIN 1. 244 mls/hr IV .Q24H SHARON Rx#:[id number] Sodium Chloride 0.45% 1, 130 000 ml @ 130 mls/hr IV . Q8H28M SHARON with Sodium Bicarb (1 Meq/ml) 100 ml Rx#:[id number] Vasopressin 20 unit In 43.223 Sodium Chloride 0.9% 50 ml @ 0.03 UNITS/MIN 4.59 mls/hr IV .Q11H7M SHARON Rx# :[id number] Tube Feeding 120 Output: Urine 265 335 290 Other: Voiding Method Indwelling Catheter Indwelling Catheter Indwelling Catheter Weight 88.451 kg 96.8 kg Results 08/01/24 02:46 08/01/24 02:46 Cardiac Enzymes 08/01/24 Range/Units 02:46 AST 32 (17-59) U/L CBC 08/01/24 Range/Units 02:46 WBC 21.7 H (3.8-10.6) k/uL RBC 3.69 L (4.30-5.90) m/uL Hgb 11.1 L (13.0-17.5) gm/dL Hct 35.2 L (39.0-53.0) % Plt Count 166 (150-450) k/uL Comprehensive Metabolic Panel 08/01/24 Range/Units 02:46 Sodium 127 L (137-145) mmol/L Potassium 4.3 (3.5-5.1) mmol/L Chloride 95 L (98-107) mmol/L Carbon Dioxide 17 L (22-30) mmol/L BUN 74 H (9-20) mg/dL Creatinine 3.53 H (0.66-1.25) mg/dL Glucose 226 H (74-99) mg/dL Calcium 6.9 L (8.4-10.2) mg/dL AST 32 (17-59) U/L ALT 21 (4-49) U/L Alkaline Phosphatase 124 (38-126) U/L Total Protein 4.6 L (6.3-8.2) g/dL Albumin 2.3 L (3.5-5.0) g/dL Current Medications Generic Name Dose Route Start Last Admin Trade Name Freq PRN Reason Stop Dose Admin Acetaminophen 650 mg 07/31/24 16:11 08/01/24 11:07 Acetaminophen Tab 325 Mg Tab PO 650 mg Q6H PRN Administration Pain Hydrocodone Bitart/Acetaminophen 1 each 04/02/25 16:11 Hydrocodone/Apap 5-325mg 1 Each Tab PO Q8HR PRN Moderate to Severe Pain (4-10) Aspirin 81 mg 07/31/24 21:00 07/31/24 21:26 Aspirin 81 Mg PO Not Given HS [facility] Atorvastatin Calcium 20 mg 07/31/24 21:00 07/31/24 21:26 Atorvastatin 20 Mg Tab PO Not Given HS [facility] Duloxetine HCl 30 mg 08/01/24 09:00 08/01/24 09:10 Duloxetine Hcl 30 Mg Capsule.Dr PO Not Given DAILY [facility] Haloperidol Lactate 2 mg 08/01/24 09:17 08/01/24 09:26 Haloperidol Lactate 5 Mg/Ml 1 Ml Vial IVP 2 mg Q4HR PRN Administration Agitation or Acute Psychosis Norepinephrine Bitartrate 32 250 mls @ 1.244 mls/hr 07/31/24 14:30 08/01/24 12:59 mg/ Sodium Chloride IV 0.03 mcg/kg/min .Q24H SHARON 1.244 mls/hr Titration Protocol 0.03 MCG/KG/MIN Cefepime HCl 1 gm/ Sodium 50 mls @ 12.5 mls/hr 08/01/24 04:00 08/01/24 04:00 Chloride IVPB 12.5 mls/hr Q12H SHARON Administration Protocol Vasopressin 20 unit/ Sodium 51 mls @ 4.59 mls/hr 07/31/24 18:30 08/01/24 04:32 Chloride IV Not Given .Q11H7M SHARON Protocol 0.03 UNITS/MIN Sodium Bicarbonate 100 ml/ 1,100 mls @ 130 mls/hr 08/01/24 13:00 08/01/24 12:55 Sodium Chloride IV 130 mls/hr .Q8H28M SHARON Administration Morphine Sulfate 4 mg 07/31/24 13:30 Morphine Sulfate 4 Mg/Ml Syringe IV Q4HR PRN Severe Pain (Scale 7 to 10) Naloxone HCl 0.2 mg 07/31/24 13:30 Naloxone 0.4 Mg/Ml 1 Ml Vial IV Q2M PRN Opioid Reversal Ondansetron HCl 4 mg 07/31/24 13:30 Ondansetron 4 Mg/2 Ml Vial IVP Q8HR PRN Nausea And Vomiting Pantoprazole Sodium 40 mg 07/31/24 13:45 08/01/24 09:26 Pantoprazole 40 Mg/10 Ml Vial IV 40 mg DAILY SHARON Administration Quetiapine Fumarate 100 mg 08/02/24 09:00 Quetiapine 100 Mg Tab PO DAILY [facility]ON Tamsulosin HCl 0.4 mg 07/31/24 21:00 07/31/24 21:26 Tamsulosin 0.4 Mg Cap.Er.24h PO Not Given HS [facility]ON Intake and Output 07/31/24 08/01/24 08/01/24 22:59 06:59 14:59 Intake Total 931.694 2854.939 1014.890 Output Total 265 335 290 Balance 854.998 1385.939 724.890 Intake: IV 450 1350 750 Dextrose 5% in Water 1, 450 1350 750 000 ml @ 150 mls/hr IV . Q7H40M SHARON with Sodium Bicarb (1 Meq/ml) 150 ml Rx#:[id number] Intake, IV Titration 63.847 66.939 144.890 Amount Norepinephrine 32 mg In 63.847 23.716 14.890 Sodium Chloride 0.9% 218 ml @ 0.03 MCG/KG/MIN 1. 244 mls/hr IV .Q24H SHARON Rx#:[id number] Sodium Chloride 0.45% 1, 130 000 ml @ 130 mls/hr IV . Q8H28M SHARON with Sodium Bicarb (1 Meq/ml) 100 ml Rx#:[id number] Vasopressin 20 unit In 43.223 Sodium Chloride 0.9% 50 ml @ 0.03 UNITS/MIN 4.59 mls/hr IV .Q11H7M SHARON Rx# :[id number] Tube Feeding 120 Output: Urine 265 335 290 Other: Voiding Method Indwelling Catheter Indwelling Catheter Indwelling Catheter Weight 88.451 kg 96.8 kg 08/01/24 02:46 08/01/24 02:46
--- NOTE | 2024-08-01 14:28 | P.PN ---
Subjective Progress Note Date: 08/01/24 Principal diagnosis: Reason for follow-up is sepsis and UTI Patient is a 83-year-old male with a past medical history significant for reflux hyperlipidemia hypertension aortic aneurysm history of multiple myeloma and custodial resident patient did have a chronic indwelling White catheter for retention brought to the hospital for unresponsiveness and has been diagnosed with sepsis secondary to catheter associated UTI. On today's evaluation that is 08/01/2024,the patient did have resolution of his fever and is afebrile today, patient is on room air not requiring supplemental oxygen and denies any shortness of breath no chest pain or cough.Patient seem to be more awake alert today denies having any nausea or vomiting, no abdominal pain and no diarrhea has been reported. Patient white count is 21.7, creatinine is 3.53 cultures currently pending Objective - Vital Signs Vital signs: Vital Signs Temp 96.8 F L 08/01/24 08:00 Pulse 70 08/01/24 11:00 Resp 16 08/01/24 11:00 BP 103/54 08/01/24 11:00 Pulse Ox 96 08/01/24 11:00 FiO2 35 08/01/24 07:30 Intake & Output 07/31/24 08/01/24 08/01/24 18:59 06:59 18:59 Intake Total 4.912 1926.496 459.363 Output Total 600 210 Balance 4.912 1326.496 249.363 Weight 88.451 kg 96.8 kg Intake: IV 1800 450 Dextrose 5% in Water 1, 1800 450 000 ml @ 150 mls/hr IV . Q7H40M SHARON with Sodium Bicarb (1 Meq/ml) 150 ml Rx#:[id number] Intake, IV Titration 4.912 126.496 9.363 Amount Norepinephrine 32 mg In 4.912 83.273 9.363 Sodium Chloride 0.9% 218 ml @ 0.03 MCG/KG/MIN 1. 244 mls/hr IV .Q24H SHARON Rx#:[id number] Vasopressin 20 unit In 43.223 Sodium Chloride 0.9% 50 ml @ 0.03 UNITS/MIN 4.59 mls/hr IV .Q11H7M SHARON Rx# :[id number] Output: Urine 600 210 Other: Voiding Method Indwelling Catheter Indwelling Catheter - Exam GENERAL DESCRIPTION: An elderly male lying in bed in no distress RESPIRATORY SYSTEM: Unlabored breathing , decreased breath sounds at bases HEART: S1 S2 regular rate and rhythm , ABDOMEN: Soft , no tenderness EXTREMITIES: No edema feet - Labs CBC & Chem 7: 08/01/24 02:46 08/01/24 02:46 Labs: Abnormal Lab Results - Last 24 Hours (Table) 07/31/24 07/31/24 07/31/24 Range/Units 12:13 12:13 12:13 WBC (3.8-10.6) k/uL RBC (4.30-5.90) m/uL Hgb (13.0-17.5) gm/dL Hct (39.0-53.0) % Neutrophils # (1.3-7.7) k/uL Lymphocytes # (1.0-4.8) k/uL PT 12.9 H (10.0-12.5) sec INR 1.2 H (<1.2) Sodium 130 L (137-145) mmol/L Chloride (98-107) mmol/L Carbon Dioxide 14 L (22-30) mmol/L BUN 76 H (9-20) mg/dL Creatinine 3.75 H (0.66-1.25) mg/dL Glucose (74-99) mg/dL POC Glucose (mg/dL) (70-110) mg/dL Plasma Lactic Acid Ricardo 2.9 H* (0.7-2.0) mmol/L Calcium 7.6 L (8.4-10.2) mg/dL Phosphorus 6.1 H (2.5-4.5) mg/dL Alkaline Phosphatase 183 H (38-126) U/L Troponin I (0.000-0.034) ng/mL Total Protein 5.2 L (6.3-8.2) g/dL Albumin 2.6 L (3.5-5.0) g/dL Urine Protein (Negative) Urine Glucose (UA) (Negative) Urine Blood (Negative) Ur Leukocyte Esterase (Negative) Urine RBC (0-5) /hpf Urine WBC (0-5) /hpf Urine Bacteria (None) /hpf 07/31/24 07/31/24 07/31/24 Range/Units 12:13 12:27 20:31 WBC (3.8-10.6) k/uL RBC (4.30-5.90) m/uL Hgb (13.0-17.5) gm/dL Hct (39.0-53.0) % Neutrophils # (1.3-7.7) k/uL Lymphocytes # (1.0-4.8) k/uL PT (10.0-12.5) sec INR (<1.2) Sodium (137-145) mmol/L Chloride (98-107) mmol/L Carbon Dioxide (22-30) mmol/L BUN (9-20) mg/dL Creatinine (0.66-1.25) mg/dL Glucose (74-99) mg/dL POC Glucose (mg/dL) 211 H (70-110) mg/dL Plasma Lactic Acid Ricardo (0.7-2.0) mmol/L Calcium (8.4-10.2) mg/dL Phosphorus (2.5-4.5) mg/dL Alkaline Phosphatase (38-126) U/L Troponin I 0.122 H* (0.000-0.034) ng/mL Total Protein (6.3-8.2) g/dL Albumin (3.5-5.0) g/dL Urine Protein 1+ H (Negative) Urine Glucose (UA) 1+ H (Negative) Urine Blood Moderate H (Negative) Ur Leukocyte Esterase Large H (Negative) Urine RBC 34 H (0-5) /hpf Urine WBC >182 H (0-5) /hpf Urine Bacteria Many H (None) /hpf 08/01/24 08/01/24 Range/Units 02:46 02:46 WBC 21.7 H (3.8-10.6) k/uL RBC 3.69 L (4.30-5.90) m/uL Hgb 11.1 L (13.0-17.5) gm/dL Hct 35.2 L (39.0-53.0) % Neutrophils # 20.3 H (1.3-7.7) k/uL Lymphocytes # 0.5 L (1.0-4.8) k/uL PT (10.0-12.5) sec INR (<1.2) Sodium 127 L (137-145) mmol/L Chloride 95 L (98-107) mmol/L Carbon Dioxide 17 L (22-30) mmol/L BUN 74 H (9-20) mg/dL Creatinine 3.53 H (0.66-1.25) mg/dL Glucose 226 H (74-99) mg/dL POC Glucose (mg/dL) (70-110) mg/dL Plasma Lactic Acid Ricardo (0.7-2.0) mmol/L Calcium 6.9 L (8.4-10.2) mg/dL Phosphorus 6.7 H (2.5-4.5) mg/dL Alkaline Phosphatase (38-126) U/L Troponin I (0.000-0.034) ng/mL Total Protein 4.6 L (6.3-8.2) g/dL Albumin 2.3 L (3.5-5.0) g/dL Urine Protein (Negative) Urine Glucose (UA) (Negative) Urine Blood (Negative) Ur Leukocyte Esterase (Negative) Urine RBC (0-5) /hpf Urine WBC (0-5) /hpf Urine Bacteria (None) /hpf Assessment and Plan (1) Catheter-associated urinary tract infection Current Visit: Yes Status: Acute Code(s): T83.511A - I/I REACT D/T INDWELLING URETHRAL CATHETER, INIT; N39.0 - URINARY TRACT INFECTION, SITE NOT SPECIFIED SNOMED Code(s): 598444161 (2) Sepsis Current Visit: Yes Status: Acute Code(s): A41.9 - SEPSIS, UNSPECIFIED ORGANISM SNOMED Code(s): 03211093 Plan: 1patient presented hospital with sepsis in this patient who did have fever tachycardia elevated white count hypotension and tachypnea requiring admission to the ICU source is likely catheter associated UTI keeping in mind patient is a custodial resident will need to cover for resistant gram-negative with a likely pathogen 2patient did have elevated creatinine high risk of nephrotoxicity from certain anTIbiotics, patient did have ultrasound suggestive of right renal mass will benefit from urology evaluation 3-White catheter has already been change urine culture need to be sent and we will follow-up on the blood culture 3patient to continue with cefepime while waiting for the culture to finalize at the bedside question answered Dictation was produced using [employer] dictation software. please excuse any grammatical, word or spelling errors. Time with Patient: Less than 30
[2024-08-01] MEDS ORDERED: BENZOCAINE/MENTHOL LOZENG 1 EACH LOZENGE MUCOUS MEM PRN (15:27)
--- NOTE | 2024-08-01 15:29 | P.PN ---
Progress Note - Text Progress Note Date: 08/01/24 Chief Complaint: Altered mentation This is a 83-year-old patient who was transferred from [facility]. Patient Dr. Marce Murrell Most of the history obtained by the nurse at the bedside. Patient at the baseline nonambulatory. Is a 2% maximum assist. They often use a Roni lift. Patient at baseline is AOx3 rather talkative. Patient is at a chronic White catheter since March. Last changed in June of this year. Patient was brought in today because of altered mental status and also is found to have a pulse ox of 84%. Patient's urine was found to be rather cloudy. Patient became hypotensive felt to be in hypotensive shock. Was given a liter bolus by the EMS and 2 more liters in the ER. Admitted to the ICU. Put on vasopressors to include IV vasopressin and norepinephrine. Patient is on ZOLL on a BiPAP. Patient's Brenda does the medical decision making. Patient's CODE STATUS is DNR. Earlier in the day patient was seen by the lubrication equipment servicer. White catheter was changed the ER. Does have some traumatic hematuria. Which is starting to clear up. Present time patient unable to give any history July 3: ICU. Awake. Was delirious this morning with confusion and shouting out. On epinephrine. Patient been off BiPAP. On room air 97%. White catheter. No hematuria. On IV cefepime. Was n.p.o. this morning. Sodium bicarb drip for metabolic acidosis Active Medications Acetaminophen (Acetaminophen Tab 325 Mg Tab) 650 mg PO Q6H PRN PRN Reason: Pain Last Admin: 08/01/24 11:07 Dose: 650 mg Hydrocodone Bitart/Acetaminophen (Hydrocodone/Apap 5-325mg 1 Each Tab) 1 each PO Q8HR PRN PRN Reason: Moderate to Severe Pain (4-10) Aspirin (Aspirin 81 Mg) 81 mg PO HS [facility] Last Admin: 07/31/24 21:26 Dose: Not Given Atorvastatin Calcium (Atorvastatin 20 Mg Tab) 20 mg PO HS [facility] Last Admin: 07/31/24 21:26 Dose: Not Given Duloxetine HCl (Duloxetine Hcl 30 Mg Capsule.Dr) 30 mg PO DAILY [facility] Last Admin: 08/01/24 09:10 Dose: Not Given Haloperidol Lactate (Haloperidol Lactate 5 Mg/Ml 1 Ml Vial) 2 mg IVP Q4HR PRN PRN Reason: Agitation or Acute Psychosis Last Admin: 08/01/24 09:26 Dose: 2 mg Norepinephrine Bitartrate 32 (mg/ Sodium Chloride) 250 mls @ 1.244 mls/hr IV .Q24H [facility]; Protocol Last Titration: 08/01/24 12:59 Dose: 0.03 mcg/kg/min, 1.244 mls/hr Cefepime HCl 1 gm/ Sodium (Chloride) 50 mls @ 12.5 mls/hr IVPB Q12H [facility]; Protocol Last Admin: 08/01/24 04:00 Dose: 12.5 mls/hr Vasopressin 20 unit/ Sodium (Chloride) 51 mls @ 4.59 mls/hr IV .Q11H7M [facility]; Protocol Last Admin: 08/01/24 04:32 Dose: Not Given Sodium Bicarbonate 100 ml/ (Sodium Chloride) 1,100 mls @ 130 mls/hr IV .Q8H28M [facility] Last Admin: 08/01/24 12:55 Dose: 130 mls/hr Morphine Sulfate (Morphine Sulfate 4 Mg/Ml Syringe) 4 mg IV Q4HR PRN PRN Reason: Severe Pain (Scale 7 to 10) Naloxone HCl (Naloxone 0.4 Mg/Ml 1 Ml Vial) 0.2 mg IV Q2M PRN PRN Reason: Opioid Reversal Ondansetron HCl (Ondansetron 4 Mg/2 Ml Vial) 4 mg IVP Q8HR PRN PRN Reason: Nausea And Vomiting Pantoprazole Sodium (Pantoprazole 40 Mg/10 Ml Vial) 40 mg IV DAILY [facility] Last Admin: 08/01/24 09:26 Dose: 40 mg Quetiapine Fumarate (Quetiapine 100 Mg Tab) 100 mg PO DAILY [facility] Tamsulosin HCl (Tamsulosin 0.4 Mg Cap.Er.24h) 0.4 mg PO HS [facility] Last Admin: 07/31/24 21:26 Dose: Not Given Social history: Resident of [facility]. Two-person maximum assist. Often Roni lift is used. Patient's monitors the medical power of senior trial attorney. No history of smoking or alcohol reported Physical examination: VITAL SIGNS: Afebrile, 77, 18, 106 x 60, 95% room air GENERAL: Awake. Slightly anxious, off oxygen. EYES: Pupils equal. Conjunctiva mi l. HEENT: External appearance of nose and ears normal, oral cavity grossly normal. NECK: JVD unable to assess; masses not palpable. HEART: First and second heart sounds are normal; no edema. LUNGS: Respiratory rate increased, diminished breath sounds. ABDOMEN: Soft, nontender, liver spleen not palpable, no masses palpable. White catheter with cloudy urine PSYCH: Answering simple questions. Was delirious this morning INVESTIGATIONS, reviewed in the clinical context: August 01: White count 21.7 hemoglobin 11.1 platelets 166 sodium 127 potassium 4.3 BUN 34 creatinine 3.53 July 31, 2024: White count 16 hemoglobin 13.4 platelets 225 sodium 130 potassium 4.1 BUN 36 creatinine 3.75 lactic acid 2.9 phosphorus 6.1 troponin I 0.122 proBNP 53205 TSH 2.4 UA moderate blood. Large leukoesterase. WBC greater than 182. Nitrite negative Influenza type A, type B, RSV, SARS-CoV-2: Not detected EKG tracing personally reviewed by me-normal sinus rhythm. Left bundle zoila block pattern. Abnormal baseline Chest x-ray film personally reviewed by me-possible scattered infiltrates right base 2D echocardiogram: [May 2024) EF 25 to 30%. Moderate concentric LVH. Moderate to severe aortic regurgitation Creatinine 0.66 May 29, 2024 Assessment plan: -Septic shock: Slow to improve Patient received IV fluid boluses. Initially on IV vasopressin norepinephrine Today on IV norepinephrine -Right basal pneumonia suspect gram-negative organism, causing acute hypoxic respiratory failure: Improving IV cefepime -Acute delirium/toxic encephalopathy, from sepsis: Fluctuating -Acute hypoxic respiratory failure secondary to pneumonia: Resolved Initially BiPAP. Today on room air -Acute kidney injury, ATN from septic shock: Slow to respond Patient's creatinine was 0.6 in May 29, 2024 IV fluids. Follow renal function closely -Metabolic acidosis from renal failure Sodium bicarbonate drip -Acute UTI with cystitis causing sepsis from chronic White catheter. Urine culture. IV cefepime -Chronic bladder outflow obstruction patient has a chronic White catheter since March 2024. Catheter was last changed in June of this year and in the ER. -Traumatic hematuria from White catheter being replaced in the ER. Resolved -Chronic medical debility. At baseline patient is a two-person assist and requires a Roni lift -Left buttock decub ulcer stage II/III. Consult wound care team -Hypovolemic, hyponatremia: Worsening IV fluids -Positive troponin from hemodynamic mismatch. No ACS -Left bundle zoila block -Hyperlipidemia -Essential hypertension, currently in hypotensive shock -Primary osteoarthritis multiple joint -Chronic congestive heart failure, from systolic dysfunction EF 25 to 30%. Follow fluid status closely. -Moderate to severe aortic regurgitation -DNR -Medical power of senior trial attorney, Kristen Norepinephrine. Delirium. Off oxygen. Continue antibiotics. Cultures pend ing. Past Medical History Past Medical History: Cancer, Heart Failure, GERD/Reflux, Hyperlipidemia, Hypertension Additional Past Medical History / Comment(s): aortic aneurysm,neuropathy, chronic back pain, radiation, multiple myloma History of Any Multi-Drug Resistant Organisms: None Reported Past Surgical History: Back Surgery, Joint Replacement, Orthopedic Surgery Additional Past Surgical History / Comment(s): Aortic aneurysm repair, Lt knee replacement Past Anesthesia/Blood Transfusion Reactions: No Reported Reaction Past Psychological History: No Psychological Hx Reported Smoking Status: Never smoker Past Alcohol Use History: None Reported Past Drug Use History: None Reported
--- NOTE | 2024-08-01 19:29 | P.PN ---
Subjective Progress Note Date: 08/01/24 This is a 83-year-old male patient was transferred to the emergency department from [facility] due to diminished level of consciousness and significant respiratory distress. The patient was noted to be dehydrated, septic and the patient also had purulent foul-smelling urine output. In the emergency, the patient was placed on a BiPAP at a pressure of 12 over 5 cm of water with an FiO2 of 50%. The patient received 1 L of IV fluid en route and received another 2 L in the emergency and started on pressors for hemodynamic support and the patient was noted to be hypotensive. The patient has a DNR/DNI CODE STATUS. Multiple comorbidities including previous history of multiple myeloma, chronic systolic heart failure with an EF of around 25 to 30% and moderate-severe aortic regurgitation, hypertension, hyperlipidemia, BPH and depression. The patient was hospitalized back in May 2024 for worsening shortness of breath. At that time, the patient was treated for an acute decompensated CHF and the patient was discharged home. For now, the patient has a leukocytosis with white cell count of 16. He has an acute kidney injury. His creatinine is currently up to 3.7 with a BUN of 76 from a normal baseline. He has an anion gap metabolic acidosis with a gap of 16 and a serum bicarb of 14. His troponin was elevated at 0.122. proBNP level is 12,000. Albumin level is at 2.6. LFTs are normal. UA is suggestive of an infection as the patient has more than 180 white cell count per high-power field. Patient also has large leukocyte esterase. Plus for glucose and +1 ketones. The viral screen was negative. The patient was given a triple-lumen catheter in the emergency department and started on IV fluids and pressors. He was also given a dose of Rocephin and Zithromax in the emergency department. CAT scan of the abdomen and pelvis that was done during his last admission from May 2024 showed no significant intra-abdominal abnormalities. He does have a destructive soft tissue mass involving the T1/T2 vertebral bodies with compromise of the adjacent spinal canal and this was attributed to his previous history of multiple myeloma. In terms of his multiple myeloma, the patient has been treated by an out of town operations systems specialist oncologist and details of the treatment are not available. On 08/01/2024, the patient is off BiPAP. The patient is currently on room air oxygen with a pulse ox of 95%. The patient is having delirium along with paranoid ideation. He feels that he is being poisoned by the medical staff. He is a bit restless and agitated. He has a sitter at the bedside. The patient accordingly will be given Haldol. Otherwise, he is doing well. He remains on IV fluids and the patient is on D5 bicarb infusion at rate of 150 cc an hour. Urine output has been in the order of 6 ounces over the past 12 hours. The patient remains on norepinephrine running at 0.05 mcg/kg/min. Chest x-ray shows mild pulm vessel congestion. No evidence of any airspace disease or pneumonia or consolidation. The patient's cultures are still pending. UA was significant abnormal suspecting a UTI with secondary sepsis. Rest of the blood work shows a white cell count of 21.7, hemoglobin 11.1 and platelet count of 166. BUN is 74 with a creatinine of 3.5 and sodium levels at 127 and a serum bicarb is currently at 17. Total protein is at 4.6 with an albumin level of 2.3. Remains on IV cefepime. Vasopressin has been discontinued. No other significant events overnight. No focal neurological deficit at this point in time. He has underlying history of multiple myeloma. Objective - Vital Signs Vital signs: Vital Signs Temp 96.8 F L 08/01/24 08:00 Pulse 78 08/01/24 09:00 Resp 20 08/01/24 09:00 BP 102/60 08/01/24 09:00 Pulse Ox 96 08/01/24 09:00 FiO2 35 08/01/24 07:30 Intake & Output 07/31/24 08/01/24 08/01/24 18:59 06:59 18:59 Intake Total 4.912 1926.496 150 Output Total 600 60 Balance 4.912 1326.496 90 Weight 88.451 kg 96.8 kg Intake: IV 1800 150 Dextrose 5% in Water 1, 1800 150 000 ml @ 150 mls/hr IV . Q7H40M [facility] with Sodium Bicarb (1 Meq/ml) 150 ml Rx#:[id number] Intake, IV Titration 4.912 126.496 Amount Norepinephrine 32 mg In 4.2 83.273 Sodium Chloride 0.9% 218 ml @ 0.03 MCG/KG/MIN 1. 244 mls/hr IV .Q24H [facility] Rx#:[id number] Vasopressin 20 unit In 43.223 Sodium Chloride 0.9% 50 ml @ 0.03 UNITS/MIN 4.59 mls/hr IV .Q11H7M [facility] Rx# :[id number] Output: Urine 600 60 Other: Voiding Method Indwelling Catheter - Exam The patient appeared quite sick and the patient calm and comfortable on room air oxygen Head exam is unremarkable. No scleral icterus or corneal arcus noted. Neck is with jugular venous distension, thyromegaly, or carotid bruits. Carotid upstrokes are brisk bilaterally. Lungs are c diminished bilaterally along with bibasilar crackles Cardiac exam reveals the PMI to be normally sized and situated. Rhythm is regular. First and second heart sounds normal. No murmurs, rubs or gallops. Abdominal exam reveals normal bowel sounds, no masses, no organomegaly and no aortic enlargement. Extremities are nonedematous and both femoral and pedal pulses are normal. Examination of the skin revealed no evidence of significant rashes, suspicious appearing nevi or other concerning lesions. Neurologically, the patient is alert awake and communicating. He is delirious and confused. Some mild agitation. Obvious signs of paranoia based on discussion with the patient. - Labs CBC & Chem 7: 08/01/24 02:46 08/01/24 02:46 Labs: Abnormal Lab Results - Last 24 Hours (Table) 07/31/24 07/31/24 07/31/24 Range/Units 12:13 12:13 12:13 WBC 16.0 H (3.8-10.6) k/uL RBC (4.30-5.90) m/uL Hgb (13.0-17.5) gm/dL Hct (39.0-53.0) % Neutrophils # 15.3 H (1.3-7.7) k/uL Lymphocytes # 0.3 L (1.0-4.8) k/uL PT 12.9 H (10.0-12.5) sec INR 1.2 H (<1.2) Sodium 130 L (137-145) mmol/L Chloride (98-107) mmol/L Carbon Dioxide 14 L (22-30) mmol/L BUN 76 H (9-20) mg/dL Creatinine 3.75 H (0.66-1.25) mg/dL Glucose (74-99) mg/dL POC Glucose (mg/dL) (70-110) mg/dL Plasma Lactic Acid Ricardo (0.7-2.0) mmol/L Calcium 7.6 L (8.4-10.2) mg/dL Phosphorus 6.1 H (2.5-4.5) mg/dL Alkaline Phosphatase 183 H (38-126) U/L Troponin I (0.000-0.034) ng/mL Total Protein 5.2 L (6.3-8.2) g/dL Albumin 2.6 L (3.5-5.0) g/dL Urine Protein (Negative) Urine Glucose (UA) (Negative) Urine Blood (Negative) Ur Leukocyte Esterase (Negative) Urine RBC (0-5) /hpf Urine WBC (0-5) /hpf Urine Bacteria (None) /hpf 07/31/24 07/31/24 07/31/24 Range/Units 12:13 12:13 12:27 WBC (3.8-10.6) k/uL RBC (4.30-5.90) m/uL Hgb (13.0-17.5) gm/dL Hct (39.0-53.0) % Neutrophils # (1.3-7.7) k/uL Lymphocytes # (1.0-4.8) k/uL PT (10.0-12.5) sec INR (<1.2) Sodium (137-145) mmol/L Chloride (98-107) mmol/L Carbon Dioxide (22-30) mmol/L BUN (9-20) mg/dL Creatinine (0.66-1.25) mg/dL Glucose (74-99) mg/dL POC Glucose (mg/dL) (70-110) mg/dL Plasma Lactic Acid Ricardo 2.9 H* (0.7-2.0) mmol/L Calcium (8.4-10.2) mg/dL Phosphorus (2.5-4.5) mg/dL Alkaline Phosphatase (38-126) U/L Troponin I 0.122 H* (0.000-0.034) ng/mL Total Protein (6.3-8.2) g/dL Albumin (3.5-5.0) g/dL Urine Protein 1+ H (Negative) Urine Glucose (UA) 1+ H (Negative) Urine Blood Moderate H (Negative) Ur Leukocyte Esterase Large H (Negative) Urine RBC 34 H (0-5) /hpf Urine WBC >182 H (0-5) /hpf Urine Bacteria Many H (None) /hpf 07/31/24 08/01/24 08/01/24 Range/Units 20:31 02:46 02:46 WBC 21.7 H (3.8-10.6) k/uL RBC 3.69 L (4.30-5.90) m/uL Hgb 11.1 L (13.0-17.5) gm/dL Hct 35.2 L (39.0-53.0) % Neutrophils # 20.3 H (1.3-7.7) k/uL Lymphocytes # 0.5 L (1.0-4.8) k/uL PT (10.0-12.5) sec INR (<1.2) Sodium 127 L (137-145) mmol/L Chloride 95 L (98-107) mmol/L Carbon Dioxide 17 L (22-30) mmol/L BUN 74 H (9-20) mg/dL Creatinine 3.53 H (0.66-1.25) mg/dL Glucose 226 H (74-99) mg/dL POC Glucose (mg/dL) 211 H (70-110) mg/dL Plasma Lactic Acid Ricardo (0.7-2.0) mmol/L Calcium 6.9 L (8.4-10.2) mg/dL Phosphorus 6.7 H (2.5-4.5) mg/dL Alkaline Phosphatase (38-126) U/L Troponin I (0.000-0.034) ng/mL Total Protein 4.6 L (6.3-8.2) g/dL Albumin 2.3 L (3.5-5.0) g/dL Urine Protein (Negative) Urine Glucose (UA) (Negative) Urine Blood (Negative) Ur Leukocyte Esterase (Negative) Urine RBC (0-5) /hpf Urine WBC (0-5) /hpf Urine Bacteria (None) /hpf Assessment and Plan Plan: Septic shock, likely of a urinary source. UA was abnormal. Cultures are still pending. The patient was resuscitated with IV fluids and the patient is currently on IV cefepime. Norepinephrine dose has been reduced and the patient is currently on low-dose norepinephrine running at 0.05 mcg/kg/min. The patient is off vasopressin. Delirium/paranoia Acute leukocytosis secondary to above Acute hypotension secondary to above, still requiring low-dose norepinephrine infusion for blood pressure control Acute kidney injury, rule out intravascular volume depletion/dehydration in addition to sepsis. Rule out ATN. In addition, the patient has an acute urinary tract infection. Renal function is slightly improved compared to yesterday and the patient is nonoliguric at this point Acute hypoxic respiratory failure, currently on room air oxygen Chronic systolic heart failure with an ejection fraction of 25 to 30% Valvular heart disease with severe aortic regurgitation Ascending aortic aneurysm post surgical repair (Dr Heath, 10/2019) Multiple myeloma, details of his previous treatment is unknown. 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 The thalia rodríguez has received radiation therapy in 04/23 and he was given neck collar Renal mass.The ultrasound of the kidneys shows a right renal solid cortical mass measuring up to 0.9 cm in size concerning for malignancy unless proven otherwise. Hypertension Hyperlipidemia BPH Depression Osteoarthritis DNR/DNI CODE STATUS NHR resident, [facility] in [facility] Patient is currently on room air oxygen Continue IV fluids to D5 bicarb infusion at rate of 150 cc an hour Norepinephrine infusion is at a low dose and the patient is currently off vasopressin Continue IV antibiotics. IV cefepime. I reviewed the chest x-ray. I particularly do not see any airspace disease or consolidation. The septic source is most likely urinary. Blood cultures Urine cultures The ultrasound of the kidneys shows a right renal solid cortical mass measuring up to 0.9 cm in size concerning for malignancy unless proven otherwise. There is also right and left-sided renal cysts. Thickening of the bladder wall c onsistent with cystitis. White catheter in place Urine output is adequate Cardiac rhythm is sinus Triple-lumen catheter has been inserted Haldol for delirium 2 mg every 4 hours on a as needed basis Seroquel 100 mg p.o. daily DNR/DNI CODE STATUS Will continue to follow Condition remains critical. This evaluation was done and 32 minutes.
[2024-08-01] MEDS: HYDROcodone/APAP 5-325MG 1 EACH TAB PO PRN (20:06)
[2024-08-02 04:19] LABS: African American GFR (CKD) 24 (>60 ml/min/1.73 sqM); Anion Gap 11 mmol/L; Blood Urea Nitrogen 78 mg/dL (9-20); Calcium 6.5 mg/dL (8.4-10.2); Carbon Dioxide 24 mmol/L (22-30); Chloride 93 mmol/L (98-107); Glucose 99 mg/dL (74-99); Non-African American GFR(CKD) 21 (>60 ml/min/1.73 sqM); Potassium 3.3 mmol/L (3.5-5.1); Sodium 128 mmol/L (137-145)
[2024-08-02 04:47] LABS: Basophils % (A) 0 %; Eosinophils # (A) 0.1 k/uL (0-0.7); Eosinophils % (A) 0 %; HCT 32.1 % (39.0-53.0); HGB 10.4 gm/dL (13.0-17.5); Lymphocytes # (A) 0.8 k/uL (1.0-4.8); Lymphocytes % (A) 4 %; MCH 30.5 pg (25.0-35.0); MCHC 32.3 g/dL (31.0-37.0); MCV 94.6 fL (80.0-100.0); Mean Platelet Volume 7.5; Monocytes # (A) 0.6 k/uL (0-1.0); Monocytes % (A) 3 %; Neutrophils % (A) 91 %; Platelet Count 201 k/uL (150-450); RDW 14.7 % (11.5-15.5); WBC 18.7 k/uL (3.8-10.6)
[2024-08-02] MEDS: POTASSIUM CHLORIDE 20 MEQ in WATER FOR INJECTION 1 100ML.BAG IVPB SCH (08:15)
[2024-08-02] MEDS: QUEtiapine 100 MG TAB PO SCH (08:38)
[2024-08-02] MEDS: SODIUM CHLORIDE 0.9% 1,000 ML IV SCH (10:34)
[2024-08-02] MEDS: carvediloL 12.5 MG TAB PO SCH (10:35)
--- NOTE | 2024-08-02 13:55 | P.PN ---
Subjective Progress Note Date: 08/02/24 This is a 83-year-old male patient was [facility] department [facility] due to diminished level of consciousness and significant respiratory distress. The patient was noted to be dehydrated, septic and the patient also had purulent foul-smelling urine output. In the emergency, the patient was placed on a BiPAP at a pressure of 12 over 5 cm of water with an FiO2 of 50%. The patient received 1 L of IV fluid en route and received another 2 L in the emergency and started on pressors for hemodynamic support and the patient was noted to be hypotensive. The patient has a DNR/DNI CODE STATUS. Multiple comorbidities including previous history of multiple myeloma, chronic systolic heart failure with an EF of around 25 to 30% and moderate-severe aortic regurgitation, hypertension, hyperlipidemia, BPH and depression. The patient was hospitalized back in May 2024 for worsening shortness of breath. At that time, the patient was treated for an acute decompensated CHF and the patient was discharged home. For now, the patient has a leukocytosis with white cell count of 16. He has an acute kidney injury. His creatinine is currently up to 3.7 with a BUN of 76 from a normal baseline. He has an anion gap metabolic acidosis with a gap of 16 and a serum bicarb of 14. His troponin was elevated at 0.122. proBNP level is 12,000. Albumin level is at 2.6. LFTs are normal. UA is suggestive of an infection as the patient has more than 180 white cell count per high-power field. Patient also has large leukocyte esterase. Plus for glucose and +1 ketones. The viral screen was negative. The patient was given a triple-lumen catheter in the emergency department and started on IV fluids and pressors. He was also given a dose of Rocephin and Zithromax in the emergency department. CAT scan of the abdomen and pelvis that was done during his last admission from May 2024 showed no significant intra-abdominal abnormalities. He does have a destructive soft tissue mass involving the T1/T2 vertebral bodies with compromise of the adjacent spinal canal and this was attributed to his previous history of multiple myeloma. 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 On 08/01/2024, the patient is off BiPAP. The patient is currently on room air oxygen with a pulse ox of 95%. The patient is having delirium along with paranoid ideation. He feels that he is being poisoned by the medical staff. He is a bit restless and agitated. He has a sitter at the bedside. The patient accordingly will be given Haldol. Otherwise, he is doing well. He remains on IV fluids and the patient is on D5 bicarb infusion at rate of 150 cc an hour. Urine output has been in the order of 6 ounces over the past 12 hours. The patient remains on norepinephrine running at 0.05 mcg/kg/min. Chest x-ray shows mild pulm vessel congestion. No evidence of any airspace disease or pneumonia or consolidation. The patient's cultures are still pending. UA was significant abnormal suspecting a UTI with secondary sepsis. Rest of the blood work shows a white cell count of 21.7, hemoglobin 11.1 and platelet count of 166. BUN is 74 with a creatinine of 3.5 and sodium levels at 127 and a serum bicarb is currently at 17. Total protein is at 4.6 with an albumin level of 2.3. Remains on IV cefepime. Vasopressin has been discontinued. No other significant events overnight. No focal neurological deficit at this point in time. He has underlying history of multiple myeloma. 08/02/2024, the patient is being seen for a follow-up. The patient is stable and the patient is doing well. Awake and alert and communicating. No significant respiratory distress and the patient is currently on room air oxygen. Has not required BiPAP therapy overnight. He remains on a D5 bicarb infusion at rate of 130 cc an hour. He is on room air oxygen. Mental status is improved and the patient has no significant bradycardia on today's evaluation. Given Haldol he yesterday. Also given Seroquel yesterday. No focal neurological deficits. Vitals improving and currently down to 18.7 with a hemoglobin 10.4 and a platelet count of 2 1. Sodium levels at 128, potassium is at 3.3, renal function continues to improve and the creatinine is down to 2.7 with a BUN of 78. Serum bicarb is at 24. Cultures remain negative. The patient remains on IV cefepime as an empiric antibiotic coverage. He will be started back on his Coreg at a lower dose of 6.25 mg p.o. twice a day. Denies having any specific complaints. He remains on room air oxygen. Objective - Vital Signs Vital signs: Vital Signs Temp 97.6 F 08/02/24 08:00 Pulse 64 08/02/24 08:00 Resp 19 08/02/24 08:00 BP 114/48 08/02/24 08:00 Pulse Ox 95 08/02/24 08:00 FiO2 35 08/01/24 07:30 Intake & Output 08/01/24 08/02/24 08/02/24 18:59 06:59 18:59 Intake Total 2198.083 1871.207 440 Output Total 440 530 235 Balance 5643.832 5004.207 205 Weight 104 kg Intake: IV 750 310 Dextrose 5% in Water 1, 750 000 ml @ 150 mls/hr IV . Q7H40M [facility] with Sodium Bicarb (1 Meq/ml) 150 ml Rx#:[id number] Potassium Chloride 20 meq 50 In Water For Injection 1 100ml.bag @ 50 mls/hr IVPB Q2H [facility] Rx#: [id number] Sodium Chloride 0.45% 1, 260 000 ml @ 130 mls/hr IV . Q8H28M [facility] with Sodium Bicarb (1 Meq/ml) 100 ml Rx#:[id number] Intake, IV Titration 607.881 3629.207 130 Amount Cefepime 1 gm In Sodium 50 Chloride 0.9% 50 ml @ 12. 5 mls/hr IVPB Q12H [facility] Rx #:[id number] Norepinephrine 32 mg In 18.083 11.207 Sodium Chloride 0.9% 218 ml @ 0.03 MCG/KG/MIN 1. 244 mls/hr IV .Q24H [facility] Rx#:[id number] Sodium Chloride 0.45% 1, 780 1560 130 000 ml @ 130 mls/hr IV . Q8H28M [facility] with Sodium Bicarb (1 Meq/ml) 100 ml Rx#:[id number] Oral 480 300 Tube Feeding 120 Output: Urine 440 530 235 Other: Voiding Method Indwelling Catheter Indwelling Catheter # Bowel Movements 1 - Exam The patient appeared quite sick and the patient calm and comfortable on room air oxygen Head exam is unremarkable. No scleral icterus or corneal arcus noted. Neck is with jugular venous distension, thyromegaly, or carotid bruits. Carotid upstrokes are brisk bilaterally. Lungs are c diminished bilaterally along with bibasilar crackles Cardiac exam reveals the PMI to be normally sized and situated. Rhythm is regular. First and second heart sounds normal. No murmurs, rubs or gallops. Abdominal exam reveals normal bowel sounds, no masses, no organomegaly and no aortic enlargement. Extremities are nonedematous and both femoral and pedal pulses are normal. Examination of the skin revealed no evidence of significant rashes, suspicious appearing nevi or other concerning lesions. Neurologically, the patient is alert awake and communicating. He is delirious and confused. Some mild agitation. Obvious signs of paranoia based on discussion with the patient. - Labs CBC & Chem 7: 08/02/24 02:58 08/02/24 02:58 Labs: Abnormal Lab Results - Last 24 Hours (Table) 08/02/24 08/02/24 Range/Units 02:58 02:58 WBC 18.7 H (3.8-10.6) k/uL RBC 3.40 L (4.30-5.90) m/uL Hgb 10.4 L (13.0-17.5) gm/dL Hct 32.1 L (39.0-53.0) % Neutrophils # 17.0 H (1.3-7.7) k/uL Lymphocytes # 0.8 L (1.0-4.8) k/uL Sodium 128 L (137-145) mmol/L Potassium 3.3 L (3.5-5.1) mmol/L Chloride 93 L (98-107) mmol/L BUN 78 H (9-20) mg/dL Creatinine 2.72 H (0.66-1.25) mg/dL Calcium 6.5 L (8.4-10.2) mg/dL Microbiology - Last 24 Hours (Table) 07/31/24 22:56 Blood Culture - Preliminary Blood 07/31/24 22:56 Urine Culture - Preliminary Urine,Catheterized Assessment and Plan Plan: Septic shock, likely of a urinary source. UA was abnormal. Cultures are still pending. The patient was resuscitated with IV fluids and the patient is currently on IV cefepime. Cultures are still pending and the patient is currently off pressors Delirium/paranoia, improved, given Haldol and currently on Seroquel Acute leukocytosis secondary to above Acute hypotension secondary to above, the patient is currently off pressors Acute kidney injury, rule out intravascular volume depletion/dehydration in addition to sepsis. Rule out ATN. In addition, the patient has an acute urinary tract infection. Renal function continues to improve and the patient is producing adequate amount of urine output Acute hypoxic respiratory failure, currently on room air oxygen Chronic systolic heart failure with an ejection fraction of 25 to 30% Valvular heart disease with severe aortic regurgitation Ascending aortic aneurysm post surgical repair (Dr Heath, 10/2019) Multiple myeloma, details of his previous treatment is unknown. 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 The patient has received radiation therapy in 04/23 and he was given neck collar Renal mass.The ultrasound of the kidneys shows a right renal solid cortical mass measuring up to 0.9 cm in size concerning for malignancy unless proven otherwise. Hypertension Hyperlipidemia BPH Depression Osteoarthritis DNR/DNI CODE STATUS NHR resident, [place] in [facility] Patient is currently on room air oxygen Continue IV fluids and switch this patient to normal saline at rate of 75 cc an hour The patient is currently off pressors Continue IV antibiotics. IV cefepime. I reviewed the chest x-ray. I particularly do not see any airspace disease or consolidation. The septic source is most likely urinary. Blood cultures pending Urine cultures pending The ultrasound of the kidneys shows a right renal solid cortical mass measuring up to 0.9 cm in size concerning for malignancy unless proven otherwise. There is also right and left-sided renal cysts. Thickening of the bladder wall consistent with cystitis. White catheter in place Urine output is adequate Cardiac rhythm is sinus Triple-lumen catheter has been inserted Seroquel 100 mg p.o. daily Start Coreg 6.25 mg twice a day DNR/DNI CODE STATUS Will continue to follow Time with Patient: Greater than 30
--- NOTE | 2024-08-02 14:13 | P.PN ---
Subjective Progress Note Date: 08/02/24 HISTORY OF PRESENTING ILLNESS: Patient is known to Dr. Hutchinson. 83-year-old with past medical history multiple myeloma, hypertension, dyslipidemia. Resident of a nursing facility, two-person assist, wheelchair bound, has a chronic White since March. He is not able to provide much history and history is obtained from the present at bedside and from the medical chart. He was brought to the hospital because of altered mental status and was found to be hypoxic. He was also found to be hypertensive with concerns of cloudy urine from the White catheter. In ER he received IV fluid resuscitation and was placed on pressors. Cardiology was consulted for elevated troponins, hemodynamic instability and for management of his multiple cardiac comorbidities. Admission Labs: Leukocytosis WBC 16, repeat 21, Hb 13 repeat 11, BUN 37, creatinine 3.75 Admission EKG: Sinus tachycardia with left middle branch block Imaging: Chest x-ray showed mild increased interstitial marking however no signs of consolidation congestion. Prior cardiac testing: Echo from May 2024 shows an EF of 25 to 30%, moderate concentric LVH, mildly dilated RV with mildly reduced systolic function, moderate to severe aortic regurgitation, ascending aorta aneurysm measuring 4.6 cm 08/02/2024 Seen and examined at bedside this a.m. Very drowsy and not able to provide a review of system. He received Seroquel this morning since then he has been sleeping. Off pressors, blood pressure is stable, sinus rhythm on telemetry Mild swelling in the legs, will discontinue IV fluids PHYSICAL EXAMINATION: Neck: Brisk carotid upstroke, no jugular venous distention. Lungs: Clear to auscultation. Heart: Regular rate and rhythm, S1-S2, mild systolic murmur audible Abdomen: Soft nontender, positive bowel sounds. Extremities: 1+ pitting edema bilateral extremity. Neuro: Alert but confused,. Detailed neuro exam was not performed. ASSESSMENT: # Septic shock, likely from complicated UTI, likely from infected indwelling White catheter # Metabolic encephalopathy, likely due to above # Acute on chronic hypoxic respiratory failure # ROSA, creatinine 3.5. Baseline 0.5 # Elevated troponin, type II NSTEMI, because of poor renal clearance and septic shock # CAD status post CABG # Moderate to severe aortic regurgitation # Dilated ascending aorta at 4.6 intubator # History of multiple myeloma # Essential hypertension, dyslipidemia # History of aortic aneurysm status post surgical repair PLAN: At this time patient's prognosis is poor because of multi organ involvement Continue supportive care Aspirin, Lipitor, Patient is off pressors. Start Coreg 6.25 mg twice daily, uptitrate as tolerated. Kidney function is not at baseline, continue to hold other medications. He is on Aldactone 25, Coreg 25 twice daily, Farxiga 10, Entresto 24/26 mg at home prior to admission. Objective - Vital Signs Vital signs: Vital Signs Temp 97.6 F 08/02/24 08:00 Pulse 82 08/02/24 11:00 Resp 14 08/02/24 11:00 BP 144/73 08/02/24 11:00 Pulse Ox 96 08/02/24 11:00 FiO2 35 08/01/24 07:30 Intake & Output 08/01/24 08/02/24 08/02/24 18:59 06:59 18:59 Intake Total 2198.083 1871.207 695 Output Total 440 530 385 Balance 5971.869 5824.207 310 Weight 104 kg Intake: IV 750 565 Dextrose 5% in Water 1, 750 000 ml @ 150 mls/hr IV . Q7H40M [facility] with Sodium Bicarb (1 Meq/ml) 150 ml Rx#:[id number] Potassium Chloride 20 meq 100 In Water For Injection 1 100ml.bag @ 50 mls/hr IVPB Q2H [facility] Rx#: [id number] Sodium Chloride 0.45% 1, 390 000 ml @ 130 mls/hr IV . Q8H28M [facility] with Sodium Bicarb (1 Meq/ml) 100 ml Rx#:[id number] Sodium Chloride 0.9% 1, 75 000 ml @ 75 mls/hr IV . [id number] [facility] Rx#:[id number] Intake, IV Titration 635.083 8574.207 130 Amount Cefepime 1 gm In Sodium 50 Chloride 0.9% 50 ml @ 12. 5 mls/hr IVPB Q12H [facility] Rx #:[id number] Norepinephrine 32 mg In 18.083 11.207 Sodium Chloride 0.9% 218 ml @ 0.03 MCG/KG/MIN 1. 244 mls/hr IV .Q24H [facility] Rx#:[id number] Sodium Chloride 0.45% 1, 780 1560 130 000 ml @ 130 mls/hr IV . Q8H28M [facility] with Sodium Bicarb (1 Meq/ml) 100 ml Rx#:[id number] Oral 480 300 Tube Feeding 120 Output: Urine 440 530 385 Other: Voiding Method Indwelling Catheter Indwelling Catheter Indwelling Catheter # Bowel Movements 1 - Labs CBC & Chem 7: 08/02/24 02:58 08/02/24 02:58 Labs: Abnormal Lab Results - Last 24 Hours (Table) 08/02/24 08/02/24 Range/Units 02:58 02:58 WBC 18.7 H (3.8-10.6) k/uL RBC 3.40 L (4.30-5.90) m/uL Hgb 10.4 L (13.0-17.5) gm/dL Hct 32.1 L (39.0-53.0) % Neutrophils # 17.0 H (1.3-7.7) k/uL Lymphocytes # 0.8 L (1.0-4.8) k/uL Sodium 128 L (137-145) mmol/L Potassium 3.3 L (3.5-5.1) mmol/L Chloride 93 L (98-107) mmol/L BUN 78 H (9-20) mg/dL Creatinine 2.72 H (0.66-1.25) mg/dL Calcium 6.5 L (8.4-10.2) mg/dL Microbiology - Last 24 Hours (Table) 07/31/24 22:56 Blood Culture - Preliminary Blood 07/31/24 22:56 Urine Culture - Preliminary Urine,Catheterized
--- NOTE | 2024-08-02 14:54 | P.PN ---
Subjective Patient is seen for follow-up for acute kidney injury. Maintained on IV fluids Bicarb drip has been discontinued Currently off of pressors Serum creatinine down to 2.7. Mentation has improved. Patient is tolerating oral intake. Objective - Vital Signs Vital signs: Vital Signs Temp 97.6 F 08/02/24 08:00 Pulse 82 08/02/24 11:00 Resp 14 08/02/24 11:00 BP 144/73 08/02/24 11:00 Pulse Ox 96 08/02/24 11:00 FiO2 35 08/01/24 07:30 Intake & Output 08/01/24 08/02/24 08/02/24 18:59 06:59 18:59 Intake Total 2198.083 1871.207 695 Output Total 440 530 385 Balance 7847.322 4001.207 310 Weight 104 kg Intake: IV 750 565 Dextrose 5% in Water 1, 750 000 ml @ 150 mls/hr IV . Q7H40M [facility] with Sodium Bicarb (1 Meq/ml) 150 ml Rx#:[id number] Potassium Chloride 20 meq 100 In Water For Injection 1 100ml.bag @ 50 mls/hr IVPB Q2H [facility] Rx#: [id number] Sodium Chloride 0.45% 1, 390 000 ml @ 130 mls/hr IV . Q8H28M [facility] with Sodium Bicarb (1 Meq/ml) 100 ml Rx#:[id number] Sodium Chloride 0.9% 1, 75 000 ml @ 75 mls/hr IV . [id number] [facility] Rx#:[id number] Intake, IV Titration 971.912 6796.207 130 Amount Cefepime 1 gm In Sodium 50 Chloride 0.9% 50 ml @ 12. 5 mls/hr IVPB Q12H [facility] Rx #:[id number] Norepinephrine 32 mg In 18.083 11.207 Sodium Chloride 0.9% 218 ml @ 0.03 MCG/KG/MIN 1. 244 mls/hr IV .Q24H [facility] Rx#:[id number] Sodium Chloride 0.45% 1, 780 1560 130 000 ml @ 130 mls/hr IV . Q8H28M [facility] with Sodium Bicarb (1 Meq/ml) 100 ml Rx#:[id number] Oral 480 300 Tube Feeding 120 Output: Urine 440 530 385 Other: Voiding Method Indwelling Catheter Indwelling Catheter Indwelling Catheter # Bowel Movements 1 - Exam Patient is awake, comfortable, no acute distress. Examination of the heart S1 and S2 Examination of the lungs bilateral breath sounds are heard Abdomen is soft nontender Examination of lower extremities shows no significant edema [employer] SAL[employer] exam shows patient is moving all 4 extremities. - Labs CBC & Chem 7: 08/02/24 02:58 08/02/24 02:58 Labs: Abnormal Lab Results - Last 24 Hours (Table) 08/02/24 08/02/24 Range/Units 02:58 02:58 WBC 18.7 H (3.8-10.6) k/uL RBC 3.40 L (4.30-5.90) m/uL Hgb 10.4 L (13.0-17.5) gm/dL Hct 32.1 L (39.0-53.0) % Neutrophils # 17.0 H (1.3-7.7) k/uL Lymphocytes # 0.8 L (1.0-4.8) k/uL Sodium 128 L (137-145) mmol/L Potassium 3.3 L (3.5-5.1) mmol/L Chloride 93 L (98-107) mmol/L BUN 78 H (9-20) mg/dL Creatinine 2.72 H (0.66-1.25) mg/dL Calcium 6.5 L (8.4-10.2) mg/dL Microbiology - Last 24 Hours (Table) 07/31/24 22:56 Blood Culture - Preliminary Blood 07/31/24 22:56 Urine Culture - Preliminary Urine,Catheterized Assessment and Plan Assessment: 1. Acute kidney injury, ischemic ATN, nonoliguric from hypotension and sepsis. Maintained on IV fluids. UA suggestive of UTI. Ultrasound shows right renal cortical mass with concern for malignancy. No obstruction noted. 2. Anion gap metabolic acidosis associated with acute kidney injury, hypotension and lactic acidosis, status post bicarb drip 3. Hyponatremia, hypovolemic, improving 4. UTI with sepsis 5. Mental status changes secondary to above 6. Right renal mass with concern for malignancy, patient will need workup down the road Plan: Agree with discontinuation of bicarb drip. Continue with normal saline Repeat labs in a.m. Continue with antibiotics Patient will need evaluation of the right renal mass down the road.
--- NOTE | 2024-08-02 16:59 | P.PN ---
Progress Note - Text Progress Note Date: 08/02/24 Chief Complaint: Altered mentation This is a 83-year-old patient who was transferred from [facility]. Patient Dr. Marce Murrell Most of the history obtained by the nurse at the bedside. Patient at the baseline nonambulatory. Is a 2% maximum assist. They often use a Roni lift. Patient at baseline is AOx3 rather talkative. Patient is at a chronic White catheter since March. Last changed in June of this year. Patient was brought in today because of altered mental status and also is found to have a pulse ox of 84%. Patient's urine was found to be rather cloudy. Patient became hypotensive felt to be in hypotensive shock. Was given a liter bolus by the EMS and 2 more liters in the ER. Admitted to the ICU. Put on vasopressors to include IV vasopressin and norepinephrine. Patient is on ZOLL on a BiPAP. Patient's Brenda does the medical decision making. Patient's CODE STATUS is DNR. Earlier in the day patient was seen by the webbing tacker. White catheter was changed the ER. Does have some traumatic hematuria. Which is starting to clear up. Present time patient unable to give any history July 3: ICU. Awake. Was delirious this morning with confusion and shouting out. On epinephrine. Patient been off BiPAP. On room air 97%. White catheter. No hematuria. On IV cefepime. Was n.p.o. this morning. Sodium bicarb drip for metabolic acidosis July 4: ICU. Patient seen this afternoon. Not confused anymore. Remains on room air. On IV cefepime. Sinus rhythm. Refused to eat. Renal function slowly improving. White catheter. Active Medications Acetaminophen (Acetaminophen Tab 325 Mg Tab) 650 mg PO Q6H PRN PRN Reason: Pain Last Admin: 08/02/24 01:31 Dose: 650 mg Hydrocodone Bitart/Acetaminophen (Hydrocodone/Apap 5-325mg 1 Each Tab) 1 each PO Q8HR PRN PRN Reason: Moderate to Severe Pain (4-10) Last Admin: 08/01/24 20:06 Dose: 1 each Aspirin (Aspirin 81 Mg) 81 mg PO HS SHARON Last Admin: 08/01/24 20:06 Dose: 81 mg Atorvastatin Calcium (Atorvastatin 20 Mg Tab) 20 mg PO HS SHARON Last Admin: 08/01/24 20:06 Dose: 20 mg Benzocaine/Menthol (Benzocaine/Menthol Lozeng 1 Each Lozenge) 1 each MUCOUS MEM Q4HR PRN PRN Reason: Sore Throat Carvedilol (Carvedilol 6.25 Mg Tab) 6.25 mg PO BID-W/MEALS COUNT INCLUDES THE [facility] Duloxetine HCl (Duloxetine Hcl 30 Mg Capsule.Dr) 30 mg PO DAILY COUNT INCLUDES THE [facility] Last Admin: 08/02/24 08:38 Dose: 30 mg Haloperidol Lactate (Haloperidol Lactate 5 Mg/Ml 1 Ml Vial) 2 mg IVP Q4HR PRN PRN Reason: Agitation or Acute Psychosis Last Admin: 08/02/24 01:31 Dose: 2 mg Cefepime HCl 1 gm/ Sodium (Chloride) 50 mls @ 12.5 mls/hr IVPB Q12H COUNT INCLUDES THE [facility]; Prot ocol Last Admin: 08/02/24 04:06 Dose: 12.5 mls/hr Morphine Sulfate (Morphine Sulfate 4 Mg/Ml Syringe) 4 mg IV Q4HR PRN PRN Reason: Severe Pain (Scale 7 to 10) Naloxone HCl (Naloxone 0.4 Mg/Ml 1 Ml Vial) 0.2 mg IV Q2M PRN PRN Reason: Opioid Reversal Ondansetron HCl (Ondansetron 4 Mg/2 Ml Vial) 4 mg IVP Q8HR PRN PRN Reason: Nausea And Vomiting Pantoprazole Sodium (Pantoprazole 40 Mg/10 Ml Vial) 40 mg IV DAILY COUNT INCLUDES THE [facility] Last Admin: 08/02/24 08:38 Dose: 40 mg Quetiapine Fumarate (Quetiapine 100 Mg Tab) 100 mg PO DAILY COUNT INCLUDES THE [facility] Last Admin: 08/02/24 08:38 Dose: 100 mg Tamsulosin HCl (Tamsulosin 0.4 Mg Cap.Er.24h) 0.4 mg PO [facility] Last Admin: 08/01/24 20:06 Dose: 0.4 mg Social history: Resident of [facility]. Two-person maximum assist. Often Roni lift is used. Patient's monitors the medical power of health care attorney. No history of smoking or alcohol reported Physical examination: VITAL SIGNS: 97.6, 64, 19, 114 x 48, 95% room air GENERAL: Laying in bed, comfortable. EYES: Pupils equal. Conjunctiva mi l. HEENT: External appearance of nose and ears normal, oral cavity grossly normal. NECK: JVD unable to assess; masses not palpable. HEART: First and second heart sounds are normal; no edema. LUNGS: Respiratory rate increased, diminished breath sounds. ABDOMEN: Soft, nontender, liver spleen not palpable, no masses palpable. White catheter with cloudy urine PSYCH: Answering questions appropriately INVESTIGATIONS, reviewed in the clinical context: August 02: White count 18.7 hemoglobin 10.4 platelets 211 sodium 128 potassium 3.3. 78 creatinine 2.72 August 01: White count 21.7 hemoglobin 11.1 platelets 166 sodium 127 potassium 4.3 BUN 34 creatinine 3.53 July 31, 2024: White count 16 hemoglobin 13.4 platelets 225 sodium 130 potassium 4.1 BUN 36 creatinine 3.75 lactic acid 2.9 phosphorus 6.1 troponin I 0.122 proBNP 37950 TSH 2.4 UA moderate blood. Large leukoesterase. WBC greater than 182. Nitrite negative Influenza type A, type B, RSV, SARS-CoV-2: Not detected EKG tracing personally reviewed by me-normal sinus rhythm. Left bundle zoila block pattern. Abnormal baseline Chest x-ray film personally reviewed by me-possible scattered infiltrates right base 2D echocardiogram: [May 2024) EF 25 to 30%. Moderate concentric LVH. Moderate to severe aortic regurgitation Creatinine 0.66 May 29, 2024 Assessment plan: -Septic shock: Resolved Patient received IV fluid boluses. Initially on IV vasopressin norepinephrine -Right basal pneumonia suspect gram-negative organism, causing acute hypoxic respiratory failure: Clinically improved IV cefepime -Acute delirium/toxic encephalopathy, from sepsis: Improved -Acute hypoxic respiratory failure secondary to pneumonia: Resolved Initially BiPAP. Now on room air r -Acute kidney injury, ATN from septic shock: Slow improvement Patient's creatinine was 0.6 in May 29, 2024 IV fluids. Follow renal function closely -Metabolic acidosis from renal failure: Corrected Received sodium bicarbonate drip -Acute UTI with cystitis causing sepsis from chronic White catheter. Urine culture pending . IV cefepime -Chronic bladder outflow obstruction patient has a chronic White catheter since March 2024. Catheter was last changed in June of this year and in the ER. -Traumatic hematuria from White catheter being replaced in the ER. Resolved -Chronic medical debility. At baseline patient is a two-person assist and requires a Roni lift -Left buttock decub ulcer stage II/III. Wound care team following -Hypovolemic, hyponatremia: Slow to respond IV fluids -Positive troponin from hemodynamic mismatch. No ACS -Left bundle zoila block -Hyperlipidemia -Essential hypertension, [initially on presentation was in hypotensive shock] Remains off antihypertensives -Primary osteoarthritis multiple joint -Chronic congestive heart failure, from systolic dysfunction EF 25 to 30%. Follow fluid status closely. -Moderate to severe aortic regurgitation -DNR -Medical power of health care attorney, Kristen Poor oral intake. Off pressors. IV cefepime. On room air. Patient to be moved out of the ICU. Past Medical History Past Medical History: Cancer, Heart Failure, GERD/Reflux, Hyperlipidemia, Hypertension Additional Past Medical History / Comment(s): aortic aneurysm,neuropathy, chronic back pain, radiation, multiple myloma History of Any Multi-Drug Resistant Organisms: None Reported Past Surgical History: Back Surgery, Joint Replacement, Orthopedic Surgery Additional Past Surgical History / Comment(s): Aortic aneurysm repair, Lt knee replacement Past Anesthesia/Blood Transfusion Reactions: No Reported Reaction Past Psychological History: No Psychological Hx Reported Smoking Status: Never smoker Past Alcohol Use History: None Reported Past Drug Use History: None Reported
[2024-08-02] MEDS: carvediloL 6.25 MG TAB PO SCH (18:34)
--- NOTE | 2024-08-03 07:25 | P.PN ---
Subjective Progress Note Date: 08/02/24 Principal diagnosis: Reason for follow-up is sepsis and UTI Patient is a 83-year-old male with a past medical history significant for reflux hyperlipidemia hypertension aortic aneurysm history of multiple myeloma and half-way resident patient did have a chronic indwelling White catheter for retention brought to the hospital for unresponsiveness and has been diagnosed with sepsis secondary to catheter associated UTI. On today's evaluation that is 08/02/2024, the patient continues to be afebrile, the patient is on room air and breathing comfortably, the Pt seem to be sleepy today but no agitation no vomiting diarrhea any change reported by the family at the bedside. Patient white count is down to 18.7, creatinine is 2.72 cultures currently pending Objective - Vital Signs Vital signs: Vital Signs Temp 97.6 F 08/02/24 08:00 Pulse 82 08/02/24 11:00 Resp 14 08/02/24 11:00 BP 144/73 08/02/24 11:00 Pulse Ox 96 08/02/24 11:00 FiO2 35 08/01/24 07:30 Intake & Output 08/01/24 08/02/24 08/02/24 18:59 06:59 18:59 Intake Total 2198.083 1871.207 695 Output Total 440 530 385 Balance 0122.347 1937.207 310 Weight 104 kg Intake: IV 750 565 Dextrose 5% in Water 1, 750 000 ml @ 150 mls/hr IV . Q7H40M SHARON with Sodium Bicarb (1 Meq/ml) 150 ml Rx#:[id number] Potassium Chloride 20 meq 100 In Water For Injection 1 100ml.bag @ 50 mls/hr IVPB Q2H SHARON Rx#: [id number] Sodium Chloride 0.45% 1, 390 000 ml @ 130 mls/hr IV . Q8H28M SHARON with Sodium Bicarb (1 Meq/ml) 100 ml Rx#:[id number] Sodium Chloride 0.9% 1, 75 000 ml @ 75 mls/hr IV . [id number] SHARON Rx#:[id number] Intake, IV Titration 953.521 0585.207 130 Amount Cefepime 1 gm In Sodium 50 Chloride 0.9% 50 ml @ 12. 5 mls/hr IVPB Q12H SHARON Rx #:[id number] Norepinephrine 32 mg In 18.083 11.207 Sodium Chloride 0.9% 218 ml @ 0.03 MCG/KG/MIN 1. 244 mls/hr IV .Q24H SHARON Rx#:[id number] Sodium Chloride 0.45% 1, 780 1560 130 000 ml @ 130 mls/hr IV . Q8H28M SHARON with Sodium Bicarb (1 Meq/ml) 100 ml Rx#:[id number] Oral 480 300 Tube Feeding 120 Output: Urine 440 530 385 Other: Voiding Method Indwelling Catheter Indwelling Catheter Indwelling Catheter # Bowel Movements 1 - Exam GENERAL DESCRIPTION: An elderly male lying in bed in no distress RESPIRATORY SYSTEM: Unlabored breathing , decreased breath sounds at bases HEART: S1 S2 regular rate and rhythm , ABDOMEN: Soft , no tenderness EXTREMITIES: No edema feet - Labs CBC & Chem 7: 08/02/24 02:58 08/02/24 17:19 Labs: Abnormal Lab Results - Last 24 Hours (Table) 08/02/24 08/02/24 Range/Units 02:58 02:58 WBC 18.7 H (3.8-10.6) k/uL RBC 3.40 L (4.30-5.90) m/uL Hgb 10.4 L (13.0-17.5) gm/dL Hct 32.1 L (39.0-53.0) % Neutrophils # 17.0 H (1.3-7.7) k/uL Lymphocytes # 0.8 L (1.0-4.8) k/uL Sodium 128 L (137-145) mmol/L Potassium 3.3 L (3.5-5.1) mmol/L Chloride 93 L (98-107) mmol/L BUN 78 H (9-20) mg/dL Creatinine 2.72 H (0.66-1.25) mg/dL Calcium 6.5 L (8.4-10.2) mg/dL Microbiology - Last 24 Hours (Table) 07/31/24 22:56 Blood Culture - Preliminary Blood 07/31/24 22:56 Urine Culture - Preliminary Urine,Catheterized Assessment and Plan (1) Catheter-associated urinary tract infection Current Visit: Yes Status: Acute Code(s): T83.511A - I/I REACT D/T INDWELLING URETHRAL CATHETER, INIT; N39.0 - URINARY TRACT INFECTION, SITE NOT SPECIFIED SNOMED Code(s): 993002911 (2) Sepsis Current Visit: Yes Status: Acute Code(s): A41.9 - SEPSIS, UNSPECIFIED ORGANISM SNOMED Code(s): 29993614 Plan: 1patient presented hospital with sepsis in this patient who did have fever tachycardia elevated white count hypotension and tachypnea requiring admission to the ICU source is likely catheter associated UTI keeping in mind patient is a half-way resident will need to cover for resistant gram-negative with a likely pathogen 2patient did have elevated creatinine high risk of nephrotoxicity from certain anTIbiotics, patient did have ultrasound suggestive of right renal mass will benefit from urology evaluation 3-White catheter has already been change urine culture as well as blood cultures currently pending 3patient to continue with cefepime in view of clinical improvement while waiting for the culture to finalize and monitor clinical course closely at the bedside question answered Dictation was produced using [employer] dictation software. please excuse any grammatical, word or spelling errors. Time with Patient: Less than 30
[2024-08-03] MEDS: QUEtiapine 50 MG TAB PO SCH (08:39)
--- NOTE | 2024-08-03 08:47 | P.PN ---
Subjective Patient is seen in follow-up for acute kidney injury. Creatinine 2.7 yesterday. Morning labs pending. Has White catheter. Nonoliguric. Oral intake fair per RN. Vital signs are stable. General: No acute distress. HEENT: Head exam is unremarkable. On room air. LUNGS: No audible rhonchi or wheezes. HEART: Rate and Rhythm are regular. ABDOMEN: Nontender. EXTREMITITES: No edema. Objective - Vital Signs Vital signs: Vital Signs Temp 98.3 F 08/03/24 07:13 Pulse 89 08/03/24 07:13 Resp 16 08/03/24 07:13 BP 142/69 08/03/24 07:13 Pulse Ox 96 08/03/24 07:13 FiO2 35 08/01/24 07:30 Intake & Output 08/02/24 08/03/24 08/03/24 18:59 06:59 18:59 Intake Total 1235 Output Total 810 1400 Balance 425 -1400 Intake: IV 565 Potassium Chloride 20 meq 100 In Water For Injection 1 100ml.bag @ 50 mls/hr IVPB Q2H SHARON Rx#: [id number] Sodium Chloride 0.45% 1, 390 000 ml @ 130 mls/hr IV . Q8H28M SHARON with Sodium Bicarb (1 Meq/ml) 100 ml Rx#:[id number] Sodium Chloride 0.9% 1, 75 000 ml @ 75 mls/hr IV . [id number] SHARON Rx#:[id number] Intake, IV Titration 130 Amount Sodium Chloride 0.45% 1, 130 000 ml @ 130 mls/hr IV . Q8H28M SHARON with Sodium Bicarb (1 Meq/ml) 100 ml Rx#:[id number] Oral 540 Output: Urine 810 1400 Other: Voiding Method Indwelling Catheter Indwelling Catheter # Bowel Movements 1 2 - Labs CBC & Chem 7: 08/02/24 02:58 08/02/24 17:19 Labs: Abnormal Lab Results - Last 24 Hours (Table) 08/02/24 Range/Units 17:19 Potassium 3.4 L (3.5-5.1) mmol/L Microbiology - Last 24 Hours (Table) 07/31/24 22:56 Blood Culture - Preliminary Blood Assessment and Plan Plan: Assessment: 1. Acute kidney injury secondary to ATN. Creatinine 0.6 dated May 29, 2024. Creatinine 3.75 this admission and improved to 2.7 as of yesterday. 2. Right renal mass. 3. Chronic urinary retention with White catheter. This was changed August 02, 2024. 4. Severe sepsis secondary to UTI on antibiotics. 5. Chronic systolic CHF ejection fraction of 25 to 30% with moderate to severe aortic regurgitation. Plan: Continue to hold diuretics. Encourage oral intake. Consult urology regarding the renal mass and bleeding from the White site. Avoid nephrotoxins. Continue to monitor renal function and urine output.
[2024-08-03 10:42] LABS: African American GFR (CKD) 59 (>60 ml/min/1.73 sqM); Anion Gap 9 mmol/L; Blood Urea Nitrogen 63 mg/dL (9-20); Calcium 6.8 mg/dL (8.4-10.2); Carbon Dioxide 26 mmol/L (22-30); Chloride 99 mmol/L (98-107); Glucose 135 mg/dL (74-99); Non-African American GFR(CKD) 51 (>60 ml/min/1.73 sqM); Potassium 3.6 mmol/L (3.5-5.1); Sodium 134 mmol/L (137-145)
[2024-08-03] MEDS: POTASSIUM CHLORIDE ER 20 MEQ TAB.ER PO STA (13:10)
[2024-08-03 13:15] VITALS: BMI 29.4
--- NOTE | 2024-08-03 15:02 | P.PN ---
Subjective Progress Note Date: 08/03/24 Principal diagnosis: Reason for follow-up is sepsis and UTI Patient is a 83-year-old male with a past medical history significant for reflux hyperlipidemia hypertension aortic aneurysm history of multiple myeloma and assisted resident patient did have a chronic indwelling White catheter for retention brought to the hospital for unresponsiveness and has been diagnosed with sepsis secondary to catheter associated UTI. On today's evaluation that is 08/03/2024, patient did not have any fever and denies any chills, patient is breathing comfortably on room air, patient with no chest pain or cough patient did not have any abdominal pain nausea vomiting or any loose stools, Patient creatinine down to 1.30 blood urine cultures currently pending no CBC was done today Objective - Vital Signs Vital signs: Vital Signs Temp 98.3 F 08/03/24 07:13 Pulse 89 08/03/24 08:00 Resp 16 08/03/24 08:00 BP 142/69 08/03/24 07:13 Pulse Ox 96 08/03/24 07:13 FiO2 35 08/01/24 07:30 Intake & Output 08/02/24 08/03/24 08/03/24 18:59 06:59 18:59 Intake Total 1235 Output Total 810 1400 Balance 425 -1400 Intake: IV 565 Potassium Chloride 20 meq 100 In Water For Injection 1 100ml.bag @ 50 mls/hr IVPB Q2H SHARON Rx#: [id number] Sodium Chloride 0.45% 1, 390 000 ml @ 130 mls/hr IV . Q8H28M SHARON with Sodium Bicarb (1 Meq/ml) 100 ml Rx#:[id number] Sodium Chloride 0.9% 1, 75 000 ml @ 75 mls/hr IV . [id number] SHARON Rx#:[id number] Intake, IV Titration 130 Amount Sodium Chloride 0.45% 1, 130 000 ml @ 130 mls/hr IV . Q8H28M SHARON with Sodium Bicarb (1 Meq/ml) 100 ml Rx#:[id number] Oral 540 Output: Urine 810 1400 Other: Voiding Method Indwelling Catheter Indwelling Catheter Indwelling Catheter # Bowel Movements 1 2 - Exam GENERAL DESCRIPTION: An elderly male lying in bed in no distress RESPIRATORY SYSTEM: Unlabored breathing , decreased breath sounds at bases HEART: S1 S2 regular rate and rhythm , ABDOMEN: Soft , no tenderness EXTREMITIES: No edema feet - Labs CBC & Chem 7: 08/02/24 02:58 08/03/24 10:01 Labs: Abnormal Lab Results - Last 24 Hours (Table) 08/02/24 08/03/24 Range/Units 17:19 10:01 Sodium 134 L (137-145) mmol/L Potassium 3.4 L (3.5-5.1) mmol/L BUN 63 H (9-20) mg/dL Creatinine 1.30 H (0.66-1.25) mg/dL Glucose 135 H (74-99) mg/dL Calcium 6.8 L (8.4-10.2) mg/dL Microbiology - Last 24 Hours (Table) 07/31/24 22:56 Blood Culture - Preliminary Blood Assessment and Plan (1) Catheter-associated urinary tract infection Current Visit: Yes Status: Acute Code(s): T83.511A - I/I REACT D/T INDWELLING URETHRAL CATHETER, INIT; N39.0 - URINARY TRACT INFECTION, SITE NOT SPECIFIED SNOMED Code(s): 836289844 (2) Sepsis Current Visit: Yes Status: Acute Code(s): A41.9 - SEPSIS, UNSPECIFIED ORGANISM SNOMED Code(s): 70674896 Plan: 1patient presented hospital with sepsis in this patient who did have fever tachycardia elevated white count hypotension and tachypnea requiring admission to the ICU source is likely catheter associated UTI keeping in mind patient is a assisted resident will need to cover for resistant gram-negative with a likely pathogen 2patient did have elevated creatinine high risk of nephrotoxicity from certain anTIbiotics, patient did have ultrasound suggestive of right renal mass will benefit from urology evaluation 3-White catheter has already been change urine culture as well as blood cultures currently pending 3patient has shown some clinical improvement still waiting on the blood urine culture to be finalized continue with cefepime and monitor clinical course closely Dictation was produced using [employer] dictation software. please excuse any grammatical, word or spelling errors. Time with Patient: Less than 30
--- NOTE | 2024-08-03 16:14 | P.PN ---
Subjective Progress Note Date: 08/03/24 This is a 83-year-old male patient was transferred to the emergency department from assisted due to diminished level of consciousness and significant respiratory distress. The patient was noted to be dehydrated, septic and the patient also had purulent foul-smelling urine output. In the emergency, the patient was placed on a BiPAP at a pressure of 12 over 5 cm of water with an FiO2 of 50%. The patient received 1 L of IV fluid en route and received another 2 L in the emergency and started on pressors for hemodynamic support and the patient was noted to be hypotensive. The patient has a DNR/DNI CODE STATUS. Multiple comorbidities including previous history of multiple myeloma, chronic systolic heart failure with an EF of around 25 to 30% and moderate-severe aortic regurgitation, hypertension, hyperlipidemia, BPH and depression. The patient was hospitalized back in May 2024 for worsening shortness of breath. At that time, the patient was treated for an acute decompensated CHF and the patient was discharged home. For now, the patient has a leukocytosis with white cell count of 16. He has an acute kidney injury. His creatinine is currently up to 3.7 with a BUN of 76 from a normal baseline. He has an anion gap metabolic acidosis with a gap of 16 and a serum bicarb of 14. His troponin was elevated at 0.122. proBNP level is 12,000. Albumin level is at 2.6. LFTs are normal. UA is suggestive of an infection as the patient has more than 180 white cell count per high-power field. Patient also has large leukocyte esterase. Plus for glucose and +1 ketones. The viral screen was negative. The patient was given a triple-lumen catheter in the emergency department and started on IV fluids and pressors. He was also given a dose of Rocephin and Zithromax in the emergency department. CAT scan of the abdomen and pelvis that was done during his last admission from May 2024 showed no significant intra-abdominal abnormalities. He does have a destructive soft tissue mass involving the T1/T2 vertebral bodies with compromise of the adjacent spinal canal and this was attributed to his previous history of multiple myeloma. In terms of his multiple myeloma, the patient has been treated by an out of town composition stone applicator oncologist and details of the treatment are not available. On 08/01/2024, the patient is off BiPAP. The patient is currently on room air oxygen with a pulse ox of 95%. The patient is having delirium along with paranoid ideation. He feels that he is being poisoned by the medical staff. He is a bit restless and agitated. He has a sitter at the bedside. The patient accordingly will be given Haldol. Otherwise, he is doing well. He remains on IV fluids and the patient is on D5 bicarb infusion at rate of 150 cc an hour. Urine output has been in the order of 6 ounces over the past 12 hours. The patient remains on norepinephrine running at 0.05 mcg/kg/min. Chest x-ray shows mild pulm vessel congestion. No evidence of any airspace disease or pneumonia or consolidation. The patient's cultures are still pending. UA was significant abnormal suspecting a UTI with secondary sepsis. Rest of the blood work shows a white cell count of 21.7, hemoglobin 11.1 and platelet count of 166. BUN is 74 with a creatinine of 3.5 and sodium levels at 127 and a serum bicarb is currently at 17. Total protein is at 4.6 with an albumin level of 2.3. Remains on IV cefepime. Vasopressin has been discontinued. No other significant events overnight. No focal neurological deficit at this point in time. He has underlying history of multiple myeloma. 08/02/2024, the patient is being seen for a follow-up. The patient is stable and the patient is doing well. Awake and alert and communicating. No significant respiratory distress and the patient is currently on room air oxygen. Has not required BiPAP therapy overnight. He remains on a D5 bicarb infusion at rate of 130 cc an hour. He is on room air oxygen. Mental status is improved and the patient has no significant bradycardia on today's evaluation. Given Haldol he yesterday. Also given Seroquel yesterday. No focal neurological deficits. Vitals improving and currently down to 18.7 with a hemoglobin 10.4 and a platelet count of 2 1. Sodium levels at 128, potassium is at 3.3, renal function continues to improve and the creatinine is down to 2.7 with a BUN of 78. Serum bicarb is at 24. Cultures remain negative. The patient remains on IV cefepime as an empiric antibiotic coverage. He will be started back on his Coreg at a lower dose of 6.25 mg p.o. twice a day. Denies having any specific complaints. He remains on room air oxygen. 08/03/2024, the patient was released out of the intensive care unit. The patient is currently on the medical floor. The patient is resting comfortably in bed he is on room air oxygen. Remains on IV cefepime. No respiratory distress. Renal function continues to improve. Blood work from today shows a creatinine of 1.3 and a BUN of 63, both are improving. Sodium levels at 134 and a potassium level is at 3.6. Medications remain unchanged. Remains on IV cefepime. Earlier cultures came back all negative. Objective - Vital Signs Vital signs: Vital Signs Temp 98.2 F 08/03/24 11:50 Pulse 72 08/03/24 11:50 Resp 16 08/03/24 11:50 BP 149/74 08/03/24 11:50 Pulse Ox 97 08/03/24 11:50 FiO2 35 08/01/24 07:30 Intake & Output 08/02/24 08/03/24 08/03/24 18:59 06:59 18:59 Intake Total 1235 Output Total 810 1400 Balance 425 -1400 Weight 104 kg Intake: IV 565 Potassium Chloride 20 meq 100 In Water For Injection 1 100ml.bag @ 50 mls/hr IVPB Q2H SHARON Rx#: [id number] Sodium Chloride 0.45% 1, 390 000 ml @ 130 mls/hr IV . Q8H28M SHARON with Sodium Bicarb (1 Meq/ml) 100 ml Rx#:[id number] Sodium Chloride 0.9% 1, 75 000 ml @ 75 mls/hr IV . [id number] SHARON Rx#:[id number] Intake, IV Titration 130 Amount Sodium Chloride 0.45% 1, 130 000 ml @ 130 mls/hr IV . Q8H28M SHARON with Sodium Bicarb (1 Meq/ml) 100 ml Rx#:[id number] Oral 540 Output: Urine 810 1400 Other: Voiding Method Indwelling Catheter Indwelling Catheter Indwelling Catheter # Bowel Movements 1 2 - Exam The patient appeared quite sick and the patient calm and comfortable on room air oxygen Head exam is unremarkable. No scleral icterus or corneal arcus noted. Neck is with jugular venous distension, thyromegaly, or carotid bruits. Carotid upstrokes are brisk bilaterally. Lungs are c diminished bilaterally along with bibasilar crackles Cardiac exam reveals the PMI to be normally sized and situated. Rhythm is regular. First and second heart sounds normal. No murmurs, rubs or gallops. Abdominal exam reveals normal bowel sounds, no masses, no organomegaly and no aortic enlargement. Extremities are nonedematous and both femoral and pedal pulses are normal. Examination of the skin revealed no evidence of significant rashes, suspicious appearing nevi or other concerning lesions. Neurologically, the patient is alert awake and communicating. He is delirious and confused. Some mild agitation. Obvious signs of paranoia based on discussion with the patient. - Labs CBC & Chem 7: 08/02/24 02:58 08/03/24 10:01 Labs: Abnormal Lab Results - Last 24 Hours (Table) 08/02/24 08/03/24 Range/Units 17:19 10:01 Sodium 134 L (137-145) mmol/L Potassium 3.4 L (3.5-5.1) mmol/L BUN 63 H (9-20) mg/dL Creatinine 1.30 H (0.66-1.25) mg/dL Glucose 135 H (74-99) mg/dL Calcium 6.8 L (8.4-10.2) mg/dL Microbiology - Last 24 Hours (Table) 07/31/24 22:56 Blood Culture - Preliminary Blood Assessment and Plan Plan: Septic shock, likely of a urinary source. All cultures came back negative. The patient is hemodynamically stable on IV cefepime. Delirium/paranoia, improved, given Haldol and currently on Seroquel Acute leukocytosis secondary to above Acute hypotension secondary to above, the patient is currently off pressors Acute kidney injury, rule out intravascular volume depletion/dehydration in addition to sepsis. Rule out ATN. In addition, the patient has an acute urinary tract infection. Renal function continues to improve and the patient is producing adequate amount of urine output Acute hypoxic respiratory failure, currently on room air oxygen Chronic systolic heart failure with an ejection fraction of 25 to 30% Valvular heart disease with severe aortic regurgitation Ascending aortic aneurysm post surgical repair (Dr Heath, 10/2019) Multiple myeloma, details of his previous treatment is unknown. 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 The patient has received radiation therapy in 04/23 and he was given neck collar Renal mass.The ultrasound of the kidneys shows a right renal solid cortical mass measuring up to 0.9 cm in size concerning for malignancy unless proven otherwise. Hypertension Hyperlipidemia BPH Depression Osteoarthritis DNR/DNI CODE STATUS [facility] Patient is currently on room air oxygen The patient is currently off pressors Continue IV antibiotics. IV cefepime. I reviewed the chest x-ray. I pa rticularly do not see any airspace disease or consolidation. The septic source is most likely urinary. The ultrasound of the kidneys shows a right renal solid cortical mass measuring up to 0.9 cm in size concerning for malignancy unless proven otherwise. There is also right and left-sided renal cysts. Thickening of the bladder wall consistent with cystitis. White catheter in place Urine output is adequate Cardiac rhythm is sinus Triple-lumen catheter has been inserted Seroquel 100 mg p.o. daily Start Coreg 6.25 mg twice a day DNR/DNI CODE STATUS
[2024-08-03] MEDS ORDERED: amLODIPine 2.5 MG TAB PO SCH (16:45)
--- NOTE | 2024-08-03 16:49 | P.PN ---
Subjective Progress Note Date: 08/03/24 HISTORY OF PRESENTING ILLNESS: Patient is known to Dr. Hutchinson. 83-year-old with past medical history multiple myeloma, hypertension, dyslipidemia. Resident of a nursing facility, two-person assist, wheelchair bound, has a chronic White since March. He is not able to provide much history and history is obtained from the present at bedside and from the medical chart. He was brought to the hospital because of altered mental status and was found to be hypoxic. He was also found to be hypertensive with concerns of cloudy urine from the White catheter. In ER he received IV fluid resuscitation and was placed on pressors. Cardiology was consulted for elevated troponins, hemodynamic instability and for management of his multiple cardiac comorbidities. Admission Labs: Leukocytosis WBC 16, repeat 21, Hb 13 repeat 11, BUN 37, creatinine 3.75 Admission EKG: Sinus tachycardia with left middle branch block Imaging: Chest x-ray showed mild increased interstitial marking however no signs of consolidation congestion. Prior cardiac testing: Echo from May 2024 shows an EF of 25 to 30%, moderate concentric LVH, mildly dilated RV with mildly reduced systolic function, moderate to severe aortic regurgitation, ascending aorta aneurysm measuring 4.6 cm 08/02/2024 Seen and examined at bedside this a.m. Very drowsy and not able to provide a review of system. He received Seroquel this morning since then he has been sleeping. Off pressors, blood pressure is stable, sinus rhythm on telemetry Mild swelling in the legs, will discontinue IV fluids 08/03/2024 Patient seen and examined at bedside this a.m. Kidney function is improving Moved out of ICU Doing better blood pressure is controlled Consider adding diuretic tomorrow. PHYSICAL EXAMINATION: Neck: Brisk carotid upstroke, no jugular venous distention. Lungs: Clear to auscultation. Heart: Regular rate and rhythm, S1-S2, mild systolic murmur audible Abdomen: Soft nontender, positive bowel sounds. Extremities: 1+ pitting edema bilateral extremity. Neuro: Alert but confused,. Detailed neuro exam was not performed. ASSESSMENT: # Septic shock, likely from complicated UTI, likely from infected indwelling White catheter, resolving # Metabolic encephalopathy, likely due to above # Acute on chronic hypoxic respiratory failure # ROSA, creatinine 3.5. Baseline 0.5 # Elevated troponin, type II NSTEMI, because of poor renal clearance and septic shock # CAD status post CABG # Moderate to severe aortic regurgitation # Dilated ascending aorta at 4.6 cm # History of multiple myeloma # Essential hypertension, dyslipidemia # History of aortic aneurysm status post surgical repair PLAN: Aspirin, Lipitor Increase Coreg to 12.5 mg twice daily. Add Entresto half tablet 24/26 mg twice daily. Uptitrate as tolerated. Refrain from using SGLT2 due to recent UTI from indwelling catheter. Once kidney function improves consider aldactone. Consider adding Lasix tomorrow Would recommend further workup for severe aortic regurgitation on outpatient patient however he is DNR/DNI. Would recommend outpatient follow-up with primary tech ed/woodshop teacher He is on Aldactone 25, Coreg 25 twice daily, Farxiga 10, Entresto 24/26 mg at home prior to admission. Objective - Vital Signs Vital signs: Vital Signs Temp 98.2 F 08/03/24 11:50 Pulse 72 08/03/24 11:50 Resp 16 08/03/24 11:50 BP 149/74 08/03/24 11:50 Pulse Ox 97 08/03/24 11:50 FiO2 35 08/01/24 07:30 Intake & Output 08/02/24 08/03/24 08/03/24 18:59 06:59 18:59 Intake Total 1235 Output Total 810 1400 1500 Balance 425 -1400 -1500 Weight 104 kg Intake: IV 565 Potassium Chloride 20 meq 100 In Water For Injection 1 100ml.bag @ 50 mls/hr IVPB Q2H SHARON Rx#: [id number] Sodium Chloride 0.45% 1, 390 000 ml @ 130 mls/hr IV . Q8H28M SHARON with Sodium Bicarb (1 Meq/ml) 100 ml Rx#:[id number] Sodium Chloride 0.9% 1, 75 000 ml @ 75 mls/hr IV . [id number] SHARON Rx#:[id number] Intake, IV Titration 130 Amount Sodium Chloride 0.45% 1, 130 000 ml @ 130 mls/hr IV . Q8H28M SHARON with Sodium Bicarb (1 Meq/ml) 100 ml Rx#:[id number] Oral 540 Output: Urine 810 1400 1500 Other: Voiding Method Indwelling Catheter Indwelling Catheter Indwelling Catheter # Bowel Movements 1 2 - Labs CBC & Chem 7: 08/02/24 02:58 08/03/24 10:01 Labs: Abnormal Lab Results - Last 24 Hours (Table) 08/02/24 08/03/24 Range/Units 17:19 10:01 Sodium 134 L (137-145) mmol/L Potassium 3.4 L (3.5-5.1) mmol/L BUN 63 H (9-20) mg/dL Creatinine 1.30 H (0.66-1.25) mg/dL Glucose 135 H (74-99) mg/dL Calcium 6.8 L (8.4-10.2) mg/dL Microbiology - Last 24 Hours (Table) 07/31/24 22:56 Blood Culture - Preliminary Blood
[2024-08-03] MEDS ORDERED: ZINC OXIDE PASTE (Z-GUARD) 1 APPLIC TOPICAL PRN (16:58)
[2024-08-03] MEDS: carvediloL 12.5 MG TAB PO SCH (17:15)
--- NOTE | 2024-08-03 18:58 | P.PN ---
Progress Note - Text Progress Note Date: 08/03/24 Chief Complaint: Altered mentation This is a 83-year-old patient who was transferred from [facility]. Patient Dr. Marce Murrell Most of the history obtained by the nurse at the bedside. Patient at the baseline nonambulatory. Is a 2% maximum assist. They often use a Roni lift. Patient at baseline is AOx3 rather talkative. Patient is at a chronic White catheter since March. Last changed in June of this year. Patient was brought in today because of altered mental status and also is found to have a pulse ox of 84%. Patient's urine was found to be rather cloudy. Patient became hypotensive felt to be in hypotensive shock. Was given a liter bolus by the EMS and 2 more liters in the ER. Admitted to the ICU. Put on vasopressors to include IV vasopressin and norepinephrine. Patient is on ZOLL on a BiPAP. Patient's Brenda does the medical decision making. Patient's CODE STATUS is DNR. Earlier in the day patient was seen by the gas flow regulator. White catheter was changed the ER. Does have some traumatic hematuria. Which is starting to clear up. Present time patient unable to give any history July 3: ICU. Awake. Was delirious this morning with confusion and shouting out. On epinephrine. Patient been off BiPAP. On room air 97%. White catheter. No hematuria. On IV cefepime. Was n.p.o. this morning. Sodium bicarb drip for metabolic acidosis August 02: ICU. Patient seen this afternoon. Not confused anymore. Remains on room air. On IV cefepime. Sinus rhythm. Refused to eat. Renal function slowly improving. White catheter. August 03: Patient is on the medical floor. at the bedside. More awake. Answering questions. Eating much better.. Urine and blood cultures pending. On IV cefepime. Active Medications Acetaminophen (Acetaminophen Tab 325 Mg Tab) 650 mg PO Q6H PRN PRN Reason: Pain Last Admin: 08/03/24 14:25 Dose: 650 mg Hydrocodone Bitart/Acetaminophen (Hydrocodone/Apap 5-325mg 1 Each Tab) 1 each PO Q8HR PRN PRN Reason: Moderate to Severe Pain (4-10) Last Admin: 08/02/24 21:20 Dose: 1 each Aspirin (Aspirin 81 Mg) 81 mg PO HS [facility] Last Admin: 08/02/24 21:13 Dose: 81 mg Atorvastatin Calcium (Atorvastatin 20 Mg Tab) 20 mg PO HS [facility] Last Admin: 08/02/24 21:15 Dose: 20 mg Benzocaine/Menthol (Benzocaine/Menthol Lozeng 1 Each Lozenge) 1 each MUCOUS MEM Q4HR PRN PRN Reason: Sore Throat Carvedilol (Carvedilol 12.5 Mg Tab) 12.5 mg PO BID-W/MEALS [facility] Last Admin: 08/03/24 17:15 Dose: 12.5 mg Duloxetine HCl (Duloxetine Hcl 30 Mg Capsule.Dr) 30 mg PO DAILY [facility] Last Admin: 08/03/24 08:39 Dose: 30 mg Haloperidol Lactate (Haloperidol Lactate 5 Mg/Ml 1 Ml Vial) 2 mg IVP Q4HR PRN PRN Reason: Agitation or Acute Psychosis Last Admin: 08/02/24 01:31 Dose: 2 mg Cefepime HCl 1 gm/ Sodium (Chloride) 50 mls @ 12.5 mls/hr IVPB Q12H [facility]; Protocol Last Admin: 08/03/24 15:45 Dose: 12.5 mls/hr Morphine Sulfate (Morphine Sulfate 4 Mg/Ml Syringe) 4 mg IV Q4HR PRN PRN Reason: Severe Pain (Scale 7 to 10) Naloxone HCl (Naloxone 0.4 Mg/Ml 1 Ml Vial) 0.2 mg IV Q2M PRN PRN Reason: Opioid Reversal Ondansetron HCl (Ondansetron 4 Mg/2 Ml Vial) 4 mg IVP Q8HR PRN PRN Reason: Nausea And Vomiting Pantoprazole Sodium (Pantoprazole 40 Mg/10 Ml Vial) 40 mg IV DAILY [facility] Last Admin: 08/03/24 08:39 Dose: 40 mg Petrolatum (Zinc Oxide Paste (Z-Guard) 1 Applic) 1 applic TOPICAL DAILY PRN; Protocol PRN Reason: Wound Healing Quetiapine Fumarate (Quetiapine 50 Mg Tab) 50 mg PO DAILY [facility] Last Admin: 08/03/24 08:39 Dose: 50 mg Sacubitril/Valsartan (Sacubitril/Valsartan 24 Mg-26 Mg Tablet) 0.5 each PO BID [facility] Tamsulosin HCl (Tamsulosin 0.4 Mg Cap.Er.24h) 0.4 mg PO HS [facility] Last Admin: 08/02/24 21:13 Dose: 0.4 mg Social history: Resident of [facility]. Two-person maximum assist. Often Roni lift is used. Patient's monitors the medical power of paper sales representative. No history of smoking or alcohol reported Physical examination: VITAL SIGNS: 98.2, 72, 16, 149 x 74, 97% room air GENERAL: Laying in bed, more awake EYES: Pupils equal. Conjunctiva mi l. HEENT: External appearance of nose and ears normal, oral cavity grossly normal. NECK: JVD unable to assess; masses not palpable. HEART: First and second heart sounds are normal; no edema. LUNGS: Respiratory rate increased, diminished breath sounds. ABDOMEN: Soft, nontender, liver spleen not palpable, no masses palpable. White catheter with cloudy urine PSYCH: Answering questions better. INVESTIGATIONS, reviewed in the clinical context: August 03: Sodium 134 potassium 3.6 BUN 63 creatinine 1.3 August 02: White count 18.7 hemoglobin 10.4 platelets 211 sodium 128 potassium 3.3. 78 creatinine 2.72 August 01: White count 21.7 hemoglobin 11.1 platelets 166 sodium 127 potassium 4.3 BUN 34 creatinine 3.53 July 31, 2024: White count 16 hemoglobin 13.4 platelets 225 sodium 130 potassium 4.1 BUN 36 creatinine 3.75 lactic acid 2.9 phosphorus 6.1 troponin I 0.122 proBNP 95527 TSH 2.4 UA moderate blood. Large leukoesterase. WBC greater than 182. Nitrite negative Influenza type A, type B, RSV, SARS-CoV-2: Not detected EKG tracing personally reviewed by me-normal sinus rhythm. Left bundle zoila block pattern. Abnormal baseline Chest x-ray film personally reviewed by me-possible scattered infiltrates right base 2D echocardiogram: [May 2024) EF 25 to 30%. Moderate concentric LVH. Moderate to severe aortic regurgitation Creatinine 0.66 May 29, 2024 Assessment plan: -Septic shock: Resolved Patient received IV fluid boluses. Initially on IV vasopressin norepinephrine -Right basal pneumonia suspect gram-negative organism, causing acute hypoxic respiratory failure: Clinically improved Urine and blood cultures pending IV cefepime -Acute delirium/toxic encephalopathy, from sepsis: Much better -Acute hypoxic respiratory failure secondary to pneumonia: Resolved Initially BiPAP. Now on room air r -Acute kidney injury, ATN from septic shock: Improving Patient's creatinine was 0.6 in May 29, 2024 IV fluids. Follow renal function closely -Metabolic acidosis from renal failure: Corrected Received sodium bicarbonate drip -Acute UTI with cystitis causing sepsis from chronic White catheter. Urine culture pending . IV cefepime -Chronic bladder outflow obstruction patient has a chronic White catheter since March 2024. Catheter was last changed in June of this year and in the ER. -Traumatic hematuria from White catheter being replaced in the ER. Resolved -Chronic medical debility. At baseline patient is a two-person assist and requires a Roni lift -Left buttock decub ulcer stage II/III. Wound care team following -Hypovolemic, hyponatremia: Improving IV fluids -Positive troponin from hemodynamic mismatch. No ACS -Left bundle zoila block -Hyperlipidemia -Essential hypertension, [initially on presentation was in hypotensive shock] Remains off antihypertensives -Primary osteoarthritis multiple joint -Chronic congestive heart failure, from systolic dysfunction EF 25 to 30%. Follow fluid status closely. -Moderate to severe aortic regurgitation -DNR -Medical power of paper sales representative, Kristen Eating much better. IV cefepime. Discussed with and son at the bedside. Past Medical History Past Medical History: Cancer, Heart Failure, GERD/Reflux, Hyperlipidemia, Hypertension Additional Past Medical History / Comment(s): aortic aneurysm,neuropathy, chronic back pain, radiation, multiple myloma History of Any Multi-Drug Resistant Organisms: None Reported Past Surgical History: Back Surgery, Joint Replacement, Orthopedic Surgery Additional Past Surgical History / Comment(s): Aortic aneurysm repair, Lt knee replacement Past Anesthesia/Blood Transfusion Reactions: No Reported Reaction Past Psychological History: No Psychological Hx Reported Smoking Status: Never smoker Past Alcohol Use History: None Reported Past Drug Use History: None Reported
[2024-08-03] MEDS: SACUBITRIL/VALSARTAN 24 MG-26 MG TABLET PO SCH (21:25)
[2024-08-04] MEDS: CEFEPIME 2 GM in SODIUM CHLORIDE 0.9% 100 ML IVPB SCH (03:17)
[2024-08-04 06:08] LABS: Basophils % (A) 0 %; Eosinophils # (A) 0.1 k/uL (0-0.7); Eosinophils % (A) 1 %; HCT 36.8 % (39.0-53.0); Lymphocytes # (A) 0.9 k/uL (1.0-4.8); Lymphocytes % (A) 9 %; MCV 96.6 fL (80.0-100.0); Mean Platelet Volume 7.4; Monocytes # (A) 0.4 k/uL (0-1.0); Monocytes % (A) 4 %; Neutrophils # (A) 8.8 k/uL (1.3-7.7); Neutrophils % (A) 85 %; Platelet Count 231 k/uL (150-450); RBC 3.81 m/uL (4.30-5.90); WBC 10.4 k/uL (3.8-10.6)
[2024-08-04] MEDS: PANTOPRAZOLE 40 MG TABLET PO SCH (08:40)
--- NOTE | 2024-08-04 11:18 | P.PN ---
Subjective Progress Note Date: 08/04/24 HISTORY OF PRESENTING ILLNESS: Patient is known to Dr. Hutchinson. 83-year-old with past medical history multiple myeloma, hypertension, dyslipidemia. Resident of a nursing facility, two-person assist, wheelchair bound, has a chronic White since March. He is not able to provide much history and history is obtained from the present at bedside and from the medical chart. He was brought to the hospital because of altered mental status and was found to be hypoxic. He was also found to be hypertensive with concerns of cloudy urine from the White catheter. In ER he received IV fluid resuscitation and was placed on pressors. Cardiology was consulted for elevated troponins, hemodynamic instability and for management of his multiple cardiac comorbidities. Admission Labs: Leukocytosis WBC 16, repeat 21, Hb 13 repeat 11, BUN 37, creatinine 3.75 Admission EKG: Sinus tachycardia with left middle branch block Imaging: Chest x-ray showed mild increased interstitial marking however no signs of consolidation congestion. Prior cardiac testing: Echo from May 2024 shows an EF of 25 to 30%, moderate concentric LVH, mildly dilated RV with mildly reduced systolic function, moderate to severe aortic regurgitation, ascending aorta aneurysm measuring 4.6 cm 08/02/2024 Seen and examined at bedside this a.m. Very drowsy and not able to provide a review of system. He received Seroquel this morning since then he has been sleeping. Off pressors, blood pressure is stable, sinus rhythm on telemetry Mild swelling in the legs, will discontinue IV fluids 08/03/2024 Patient seen and examined at bedside this a.m. Kidney function is improving Moved out of ICU Doing better blood pressure is controlled Consider adding diuretic tomorrow. 06/06/2024 BP 167/83, heart rate 87 bpm, PHYSICAL EXAMINATION: Neck: Brisk carotid upstroke, no jugular venous distention. Lungs: Clear to auscultation. Heart: Regular rate and rhythm, S1-S2, mild systolic murmur audible Abdomen: Soft nontender, positive bowel sounds. Extremities: 1+ pitting edema bilateral extremity. Neuro: Alert but confused,. Detailed neuro exam was not performed. ASSESSMENT: # Septic shock, likely from complicated UTI, likely from infected indwelling White catheter, resolving # Metabolic encephalopathy, likely due to above # Acute on chronic hypoxic respiratory failure # ROSA, creatinine 3.5. Baseline 0.5 # Elevated troponin, type II NSTEMI, because of poor renal clearance and septic shock # CAD status post CABG # Moderate to severe aortic regurgitation # Dilated ascending aorta at 4.6 cm # History of multiple myeloma # Essential hypertension, dyslipidemia # History of aortic aneurysm status post surgical repair PLAN: Aspirin, Lipitor Increase Coreg to 25 mg twice daily. Entresto 24/26 mg twice daily. Uptitrate as tolerated. Start torsemide 20mg Po daily Refrain from using SGLT2 due to recent UTI from indwelling catheter. Once kidney function improves consider aldactone. Would recommend further workup for severe aortic regurgitation on outpatient patient however he is DNR/DNI. Would recommend outpatient follow-up with primary sales manager and readdress the goals of care He is on Aldactone 25, Coreg 25 twice daily, Farxiga 10, Entresto 24/26 mg at home prior to admission. Objective - Vital Signs Vital signs: Vital Signs Temp 97.5 F L 08/04/24 07:27 Pulse 87 08/04/24 08:00 Resp 16 08/04/24 08:00 BP 158/75 08/04/24 07:27 Pulse Ox 96 08/04/24 07:27 FiO2 35 08/01/24 07:30 Intake & Output 08/03/24 08/04/24 08/04/24 18:59 06:59 18:59 Output Total 1500 300 Balance -1500 -300 Weight 104 kg Output: Urine 1500 300 Other: Voiding Method Indwelling Catheter Indwelling Catheter Indwelling Catheter - Labs CBC & Chem 7: 08/04/24 05:34 08/03/24 10:01 Labs: Abnormal Lab Results - Last 24 Hours (Table) 08/04/24 Range/Units 05:34 RBC 3.81 L (4.30-5.90) m/uL Hgb 11.0 L (13.0-17.5) gm/dL Hct 36.8 L (39.0-53.0) % MCHC 30.0 L (31.0-37.0) g/dL Neutrophils # 8.8 H (1.3-7.7) k/uL Lymphocytes # 0.9 L (1.0-4.8) k/uL Microbiology - Last 24 Hours (Table) 07/31/24 22:56 Blood Culture - Preliminary Blood 04/02/25 22:56 Urine Culture - Final Urine,Catheterized
[2024-08-04 11:20] LABS: Magnesium 1.9 mg/dL (1.5-2.4)
[2024-08-04 11:21] LABS: BUN/Creat Ratio 35.17 Ratio (12.00-20.00); Blood Urea Nitrogen 42.2 mg/dL (9.0-27.0); Calcium 6.9 mg/dL (8.7-10.3); Carbon Dioxide 27.5 mmol/L (21.6-31.8); Chloride 106 mmol/L (96-109); Glucose 109 mg/dL (70-110); Potassium 3.9 mmol/L (3.5-5.5); Sodium 145 mmol/L (135-145)
--- NOTE | 2024-08-04 11:37 | P.PN ---
Subjective Patient is seen in follow-up for acute kidney injury. Renal function improving. Has White catheter. Nonoliguric. Oral intake good. Vital signs are stable. General: No acute distress. HEENT: Head exam is unremarkable. On room air. LUNGS: No audible rhonchi or wheezes. HEART: Rate and Rhythm are regular. ABDOMEN: Nontender. EXTREMITITES: No edema. Objective - Vital Signs Vital signs: Vital Signs Temp 97.5 F L 08/04/24 07:27 Pulse 87 08/04/24 08:00 Resp 16 08/04/24 08:00 BP 158/75 08/04/24 07:27 Pulse Ox 96 08/04/24 07:27 FiO2 35 08/01/24 07:30 Intake & Output 08/03/24 08/04/24 08/04/24 18:59 06:59 18:59 Output Total 1500 300 Balance -1500 -300 Weight 104 kg Output: Urine 1500 300 Other: Voiding Method Indwelling Catheter Indwelling Catheter Indwelling Catheter - Labs CBC & Chem 7: 08/04/24 05:34 08/04/24 05:34 Labs: Abnormal Lab Results - Last 24 Hours (Table) 08/04/24 08/04/24 Range/Units 05:34 05:34 RBC 3.81 L (4.30-5.90) m/uL Hgb 11.0 L (13.0-17.5) gm/dL Hct 36.8 L (39.0-53.0) % MCHC 30.0 L (31.0-37.0) g/dL Neutrophils # 8.8 H (1.3-7.7) k/uL Lymphocytes # 0.9 L (1.0-4.8) k/uL BUN 42.2 H (9.0-27.0) mg/dL BUN/Creatinine Ratio 35.17 H (12.00-20.00) Ratio Microbiology - Last 24 Hours (Table) 07/31/24 22:56 Blood Culture - Preliminary Blood 07/31/24 22:56 Urine Culture - Final Urine,Catheterized Assessment and Plan Plan: Assessment: 1. Acute kidney injury secondary to ATN. Creatinine 0.6 dated May 29, 2024. Creatinine 3.75 this admission and improved to 1.2 today. 2. Right renal mass. Urology consulted. 3. Chronic urinary retention with White catheter. This was changed August 02, 2024. 4. Severe sepsis secondary to UTI on antibiotics. 5. Chronic systolic CHF ejection fraction of 25 to 30% with moderate to severe aortic regurgitation. Plan: Entresto and Demadex added by cardiology today. Encourage oral intake. Avoid nephrotoxins. Continue to monitor renal function and urine output.
--- NOTE | 2024-08-04 11:50 | P.PN ---
Subjective Progress Note Date: 08/04/24 This is a 83-year-old male patient was transferred to the emergency department from [facility] due to diminished level of consciousness and significant respiratory distress. The patient was noted to be dehydrated, septic and the patient also had purulent foul-smelling urine output. In the emergency, the patient was placed on a BiPAP at a pressure of 12 over 5 cm of water with an FiO2 of 50%. The patient received 1 L of IV fluid en route and received another 2 L in the emergency and started on pressors for hemodynamic support and the patient was noted to be hypotensive. The patient has a DNR/DNI CODE STATUS. Multiple comorbidities including previous history of multiple myeloma, chronic systolic heart failure with an EF of around 25 to 30% and moderate-severe aortic regurgitation, hypertension, hyperlipidemia, BPH and depression. The patient was hospitalized back in May 2024 for worsening shortness of breath. At that time, the patient was treated for an acute decompensated CHF and the patient was discharged home. For now, the patient has a leukocytosis with white cell count of 16. He has an acute kidney injury. His creatinine is currently up to 3.7 with a BUN of 76 from a normal baseline. He has an anion gap metabolic acidosis with a gap of 16 and a serum bicarb of 14. His troponin was elevated at 0.122. proBNP level is 12,000. Albumin level is at 2.6. LFTs are normal. UA is suggestive of an infection as the patient has more than 180 white cell count per high-power field. Patient also has large leukocyte esterase. Plus for glucose and +1 ketones. The viral screen was negative. The patient was given a triple-lumen catheter in the emergency department and started on IV fluids and pressors. He was also given a dose of Rocephin and Zithromax in the emergency department. CAT scan of the abdomen and pelvis that was done during his last admission from May 2024 showed no significant intra-abdominal abnormalities. He does have a destructive soft tissue mass involving the T1/T2 vertebral bodies with compromise of the adjacent spinal canal and this was attributed to his previous history of multiple myeloma. In terms of his multiple myeloma, the patient has been treated by an out of town tour coordinator oncologist and details of the treatment are not available. On 08/01/2024, the patient is off BiPAP. The patient is currently on room air oxygen with a pulse ox of 95%. The patient is having delirium along with paranoid ideation. He feels that he is being poisoned by the medical staff. He is a bit restless and agitated. He has a sitter at the bedside. The patient accordingly will be given Haldol. Otherwise, he is doing well. He remains on IV fluids and the patient is on D5 bicarb infusion at rate of 150 cc an hour. Urine output has been in the order of 6 ounces over the past 12 hours. The patient remains on norepinephrine running at 0.05 mcg/kg/min. Chest x-ray shows mild pulm vessel congestion. No evidence of any airspace disease or pneumonia or consolidation. The patient's cultures are still pending. UA was significant abnormal suspecting a UTI with secondary sepsis. Rest of the blood work shows a white cell count of 21.7, hemoglobin 11.1 and platelet count of 166. BUN is 74 with a creatinine of 3.5 and sodium levels at 127 and a serum bicarb is currently at 17. Total protein is at 4.6 with an albumin level of 2.3. Remains on IV cefepime. Vasopressin has been discontinued. No other significant events overnight. No focal neurological deficit at this point in time. He has underlying history of multiple myeloma. 08/02/2024, the patient is being seen for a follow-up. The patient is stable and the patient is doing well. Awake and alert and communicating. No significant respiratory distress and the patient is currently on room air oxygen. Has not required BiPAP therapy overnight. He remains on a D5 bicarb infusion at rate of 130 cc an hour. He is on room air oxygen. Mental status is improved and the patient has no significant bradycardia on today's evaluation. Given Haldol he yesterday. Also given Seroquel yesterday. No focal neurological deficits. Vitals improving and currently down to 18.7 with a hemoglobin 10.4 and a platelet count of 2 1. Sodium levels at 128, potassium is at 3.3, renal function continues to improve and the creatinine is down to 2.7 with a BUN of 78. Serum bicarb is at 24. Cultures remain negative. The patient remains on IV cefepime as an empiric antibiotic coverage. He will be started back on his Coreg at a lower dose of 6.25 mg p.o. twice a day. Denies having any specific complaints. He remains on room air oxygen. 08/03/2024, the patient was released out of the intensive care unit. The patient is currently on the medical floor. The patient is resting comfortably in bed he is on room air oxygen. Remains on IV cefepime. No respiratory distress. Renal function continues to improve. Blood work from today shows a creatinine of 1.3 and a BUN of 63, both are improving. Sodium levels at 134 and a potassium level is at 3.6. Medications remain unchanged. Remains on IV cefepime. Earlier cultures came back all negative. 08/04/2024, the patient is stable, on room air oxygen. No agitation. No restlessness. No change in mental status. Hemodynamically stable. Afebrile. Labs from today showed a BUN of 42 with a creatinine of 1.2. Electrolytes are all within normal limits. Medications remain unchanged. Remains on IV Rocephin. Rest of the cardiac medications remain unchanged. Objective - Vital Signs Vital signs: Vital Signs Temp 97.5 F L 08/04/24 07:27 Pulse 87 08/04/24 08:00 Resp 16 08/04/24 08:00 BP 158/75 08/04/24 07:27 Pulse Ox 96 08/04/24 07:27 FiO2 35 08/01/24 07:30 Intake & Output 08/03/24 08/04/24 08/04/24 18:59 06:59 18:59 Output Total 1500 300 Balance -1500 -300 Weight 104 kg Output: Urine 1500 300 Other: Voiding Method Indwelling Catheter Indwelling Catheter Indwelling Catheter - Exam The patient appeared quite sick and the patient calm and comfortable on room air oxygen Head exam is unremarkable. No scleral icterus or corneal arcus noted. Neck is with jugular venous distension, thyromegaly, or carotid bruits. Carotid upstrokes are brisk bilaterally. Lungs are c diminished bilaterally along with bibasilar crackles Cardiac exam reveals the PMI to be normally sized and situated. Rhythm is regular. First and second heart sounds normal. No murmurs, rubs or gallops. Abdominal exam reveals normal bowel sounds, no masses, no organomegaly and no aortic enlargement. Extremities are nonedematous and both femoral and pedal pulses are normal. Examination of the skin revealed no evidence of significant rashes, suspicious appearing nevi or other concerning lesions. Neurologically, the patient is alert awake and communicating. He is delirious and confused. Some mild agitation. Obvious signs of paranoia based on discussion with the patient. - Labs CBC & Chem 7: 08/04/24 05:34 08/04/24 05:34 Labs: Abnormal Lab Results - Last 24 Hours (Table) 08/03/24 08/04/24 Range/Units 10:01 05:34 RBC 3.81 L (4.30-5.90) m/uL Hgb 11.0 L (13.0-17.5) gm/dL Hct 36.8 L (39.0-53.0) % MCHC 30.0 L (31.0-37.0) g/dL Neutrophils # 8.8 H (1.3-7.7) k/uL Lymphocytes # 0.9 L (1.0-4.8) k/uL Sodium 134 L (137-145) mmol/L BUN 63 H (9-20) mg/dL Creatinine 1.30 H (0.66-1.25) mg/dL Glucose 135 H (74-99) mg/dL Calcium 6.8 L (8.4-10.2) mg/dL Microbiology - Last 24 Hours (Table) 07/31/24 22:56 Blood Culture - Preliminary Blood 07/31/24 22:56 Urine Culture - Final Urine,Catheterized Assessment and Plan Plan: Septic shock, likely of a urinary source. All cultures came back negative. The patient is hemodynamically stable on IV cefepime. Delirium/paranoia, improved, given Haldol and currently on Seroquel Acute leukocytosis secondary to above Acute hypotension secondary to above, the patient is currently off pressors Acute kidney injury, rule out intravascular volume depletion/dehydration in addition to sepsis. Rule out ATN. In addition, the patient has an acute urinary tract infection. Renal function continues to improve and the patient is producing adequate amount of urine output Acute hypoxic respiratory failure, currently on room air oxygen Chronic systolic heart failure with an ejection fraction of 25 to 30%, currently on a combination of Entresto and Coreg. Valvular heart disease with severe aortic regurgitation Ascending aortic aneurysm post surgical repair (Dr Heath, 10/2019) Multiple myeloma, details of his previous treatment is unknown. 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 The patient has received radiation therapy in 04/23 and he was given neck collar Renal mass.The ultrasound of the kidneys shows a right renal solid cortical mass measuring up to 0.9 cm in size concerning for malignancy unless proven otherwise. Hypertension Hyperlipidemia BPH Depression Osteoarthritis DNR/DNI CODE STATUS NHR resident, [facility] Patient is currently on room air oxygen The patient is currently off pressors Continue IV antibiotics. IV Rocephin I reviewed the chest x-ray. I particularly do not see any airspace disease or consolidation. The septic source is most likely urinary. The ultrasound of the kidneys shows a right renal solid cortical mass measuring up to 0.9 cm in size concerning for malignancy unless proven otherwise. There is also right and left-sided renal cysts. Thickening of the bladder wall consistent with cystitis. White catheter in place Urine output is adequate Cardiac rhythm is sinus Triple-lumen catheter has been inserted Seroquel 100 mg p.o. daily Start Coreg 25 mg p.o. twice daily Entresto 24/26 mg 1 tablet twice a day Torsemide 20 mg p.o. daily Monitor renal function nephrology on the case DNR/DNI CODE STATUS
[2024-08-04] MEDS: carvediloL 12.5 MG TAB PO STA (11:57)
[2024-08-04] MEDS: TORSEMIDE 20 MG TAB PO SCH (11:57)
--- NOTE | 2024-08-04 12:57 | P.GSCN ---
History of Present Illness Consult date: 08/04/24 Reason for Consult: Urinary retention Requesting physician: Feroz Dejesus History of present illness: The patient is an 83-year-old white male well-known to me. He was last seen by me in the office in March 2023 and was confirmed to be emptying his bladder completely at that time. He currently resides at [facility] and has had an indwelling White catheter since late 2023, he states because he is unable to ambulate due to his neuropathy. He was brought to the ER for evaluation of altered mental status and was found to be hypoxic. His urine was noted to be cloudy. The White catheter was changed in the ER, and subsequently hematuria was noted. Urine culture shows polymicrobia. Blood cultures are negative at 72 hours. Review of Systems - Constitutional Denies chills, Denies fever - Genitourinary Reports as per HPI Past Medical History Past Medical History: Cancer, GERD/Reflux, Hyperlipidemia, Hypertension Additional Past Medical History / Comment(s): aortic aneurysm,neuropathy, chronic back pain, radiation, multiple myloma History of Any Multi-Drug Resistant Organisms: None Reported Past Surgical History: Back Surgery, Joint Replacement, Orthopedic Surgery Additional Past Surgical History / Comment(s): Aortic aneurysm repair, Lt knee replacement Past Anesthesia/Blood Transfusion Reactions: No Reported Reaction Past Psychological History: No Psychological Hx Reported Smoking Status: Never smoker Past Alcohol Use History: None Reported Past Drug Use History: None Reported Medications and Allergies Home Medications Medication Instructions Recorded Confirmed Type DULoxetine HCL [Cymbalta] 30 mg PO DAILY 12/17/21 07/31/24 History carvediloL [Coreg] 25 mg PO BID 05/22/24 07/31/24 History Dapagliflozin Propanediol [Farxiga] 10 mg PO DAILY #0 tab 05/30/24 07/31/24 Rx Furosemide [Lasix] 40 mg PO DAILY tab 05/30/24 07/31/24 Rx Spironolactone [Aldactone] 25 mg PO DAILY tab 05/30/24 07/31/24 Rx hydrALAZINE HCL [Apresoline] 100 mg PO TID #0 05/30/24 07/31/24 Rx Acetaminophen Tab [Tylenol] 650 mg PO Q6H PRN 07/31/24 07/31/24 History Aspirin 81 mg PO HS 07/31/24 07/31/24 History Atorvastatin [Lipitor] 20 mg PO HS 07/31/24 07/31/24 History Docusate [Colace] 100 mg PO BID 07/31/24 07/31/24 History HYDROcodone/APAP 5-325MG [[place] 1 tab PO Q8HR PRN 07/31/24 07/31/24 History 5-325] Naloxone HCl 0.4 mg IM DIRECTED PRN 07/31/24 07/31/24 History Naloxone HCl [Narcan] 4 mg NASAL DIRECTED PRN 07/31/24 07/31/24 History Omeprazole [PriLOSEC] 20 mg PO BID 07/31/24 07/31/24 History Potassium Chloride ER [K-Dur 10] 10 meq PO DAILY 07/31/24 07/31/24 History Sacubitril/Valsartan [Entresto 24 1 tab PO BID 07/31/24 07/31/24 History mg-26 mg Tablet] Sennosides [Senokot] 17.2 mg PO DAILY 07/31/24 07/31/24 History Tamsulosin [Flomax] 0.4 mg PO HS 07/31/24 07/31/24 History Allergies Allergy/AdvReac Type Severity Reaction Status Date / Time No Known Allergies Allergy Verified 07/31/24 13:00 Surgical - Exam Vital Signs Temp Pulse Resp BP Pulse Ox 100 F H 101 H 28 H 71/44 91 L 07/31/24 12:04 07/31/24 12:04 07/31/24 12:04 07/31/24 12:04 07/31/24 12:04 - General well developed, well nourished, no distress - Respiratory normal respiratory effort - Genitourinary The White catheter is in place. The penis appears normal, with no active bleeding. The urethral meatus shows possible minimal ventral erosion, without evidence of irritation. The scrotum and testes are normal. - Psychiatric oriented to time, oriented to person, oriented to place, speech is normal, memory intact Results - Labs 08/04/24 05:34 08/04/24 05:34 Abnormal Lab Results - Last 24 Hours (Table) 08/03/24 08/04/24 Range/Units 10:01 05:34 RBC 3.81 L (4.30-5.90) m/uL Hgb 11.0 L (13.0-17.5) gm/dL Hct 36.8 L (39.0-53.0) % MCHC 30.0 L (31.0-37.0) g/dL Neutrophils # 8.8 H (1.3-7.7) k/uL Lymphocytes # 0.9 L (1.0-4.8) k/uL Sodium 134 L (137-145) mmol/L BUN 63 H (9-20) mg/dL Creatinine 1.30 H (0.66-1.25) mg/dL Glucose 135 H (74-99) mg/dL Calcium 6.8 L (8.4-10.2) mg/dL Microbiology - Last 24 Hours (Table) 07/31/24 22:56 Blood Culture - Preliminary Blood 07/31/24 22:56 Urine Culture - Final Urine,Catheterized Diabetes panel 08/03/24 Range/Units 10:01 Sodium 134 L (137-145) mmol/L Potassium 3.6 (3.5-5.1) mmol/L Chloride 99 (98-107) mmol/L Carbon Dioxide 26 (22-30) mmol/L BUN 63 H (9-20) mg/dL Creatinine 1.30 H (0.66-1.25) mg/dL Glucose 135 H (74-99) mg/dL Calcium 6.8 L (8.4-10.2) mg/dL Calcium panel 08/03/24 Range/Units 10:01 Calcium 6.8 L (8.4-10.2) mg/dL Pituitary panel 08/03/24 Range/Units 10:01 Sodium 134 L (137-145) mmol/L Potassium 3.6 (3.5-5.1) mmol/L Chloride 99 (98-107) mmol/L Carbon Dioxide 26 (22-30) mmol/L BUN 63 H (9-20) mg/dL Creatinine 1.30 H (0.66-1.25) mg/dL Glucose 135 H (74-99) mg/dL Calcium 6.8 L (8.4-10.2) mg/dL Adrenal panel 08/03/24 Range/Units 10:01 Sodium 134 L (137-145) mmol/L Potassium 3.6 (3.5-5.1) mmol/L Chloride 99 (98-107) mmol/L Carbon Dioxide 26 (22-30) mmol/L BUN 63 H (9-20) mg/dL Creatinine 1.30 H (0.66-1.25) mg/dL Glucose 135 H (74-99) mg/dL Calcium 6.8 L (8.4-10.2) mg/dL Assessment and Plan (1) Gross hematuria Current Visit: Yes Status: Acute Code(s): R31.0 - GROSS HEMATURIA SNOMED Code(s): 369030974 Plan: When last seen in the office, the patient was taking finasteride. We renewed this prescription in late 2023. However, it is not listed as a current medication and if an indwelling White catheter is to be used on a permanent basis, I do not believe it is beneficial for Mr. Mercado to continue to take finasteride. I explained to him that he may notice over time ventral erosion of his urethral meatus. Please notify me if I can be of any further assistance.
--- NOTE | 2024-08-04 14:24 | P.PN ---
Subjective Progress Note Date: 08/04/24 Principal diagnosis: Reason for follow-up is sepsis and UTI Patient is a 83-year-old male with a past medical history significant for reflux hyperlipidemia hypertension aortic aneurysm history of multiple myeloma and [facility] resident patient did have a chronic indwelling White catheter for retention brought to the hospital for unresponsiveness and has been diagnosed with sepsis secondary to catheter associated UTI. On today's evaluation that is 08/04/2024, Patient is afebrile patient is currently on room air and denies having any shortness of breath, the patient denies any chest pain or cough, the patient denies any nausea vomiting did not have any abdominal pain and no diarrhea. Patient white count is 10.4 creatinine is 1.2 blood urine culture has been negative so far Objective - Vital Signs Vital signs: Vital Signs Temp 97.5 F L 08/04/24 07:27 Pulse 87 08/04/24 08:00 Resp 16 08/04/24 08:00 BP 158/75 08/04/24 07:27 Pulse Ox 96 08/04/24 07:27 FiO2 35 08/01/24 07:30 Intake & Output 08/03/24 08/04/24 08/04/24 18:59 06:59 18:59 Output Total 1500 300 Balance -1500 -300 Weight 104 kg Output: Urine 1500 300 Other: Voiding Method Indwelling Catheter Indwelling Catheter Indwelling Catheter - Exam GENERAL DESCRIPTION: An elderly male lying in bed in no distress RESPIRATORY SYSTEM: Unlabored breathing , decreased breath sounds at bases HEART: S1 S2 regular rate and rhythm , ABDOMEN: Soft , no tenderness EXTREMITIES: No edema feet - Labs CBC & Chem 7: 08/04/24 05:34 08/04/24 05:34 Labs: Abnormal Lab Results - Last 24 Hours (Table) 08/04/24 08/04/24 Range/Units 05:34 05:34 RBC 3.81 L (4.30-5.90) m/uL Hgb 11.0 L (13.0-17.5) gm/dL Hct 36.8 L (39.0-53.0) % MCHC 30.0 L (31.0-37.0) g/dL Neutrophils # 8.8 H (1.3-7.7) k/uL Lymphocytes # 0.9 L (1.0-4.8) k/uL BUN 42.2 H (9.0-27.0) mg/dL BUN/Creatinine Ratio 35.17 H (12.00-20.00) Ratio Microbiology - Last 24 Hours (Table) 07/31/24 22:56 Blood Culture - Preliminary Blood 07/31/24 22:56 Urine Culture - Final Urine,Catheterized Assessment and Plan (1) Catheter-associated urinary tract infection Current Visit: Yes Status: Acute Code(s): T83.511A - I/I REACT D/T INDWELLING URETHRAL CATHETER, INIT; N39.0 - URINARY TRACT INFECTION, SITE NOT SPECIFIED SNOMED Code(s): 629476784 (2) Sepsis Current Visit: Yes Status: Acute Code(s): A41.9 - SEPSIS, UNSPECIFIED ORGANISM SNOMED Code(s): 07268363 Plan: 1patient presented hospital with sepsis in this patient who did have fever tachycardia elevated white count hypotension and tachypnea requiring admission to the ICU source is likely catheter associated UTI keeping in mind patient is a [facility] resident will need to cover for resistant gram-negative with a likely pathogen 2patient did have elevated creatinine high risk of nephrotoxicity from certain anTIbiotics, patient did have ultrasound suggestive of right renal mass will benefit from urology evaluation 3-White catheter has already been change urine culture as well as blood cultures has been negative however the urine culture were done after the patient has re ceived antibiotic 3I will discontinue cefepime start the patient on Rocephin and if continue to improve we will finish therapy with Ceftin Dictation was produced using [employer] dictation software. please excuse any grammatical, word or spelling errors. Time with Patient: Less than 30
[2024-08-04] MEDS: carvediloL 12.5 MG TAB PO SCH (17:17)
--- NOTE | 2024-08-04 17:48 | P.PN ---
Progress Note - Text Progress Note Date: 08/04/24 Chief Complaint: Altered mentation This is a 83-year-old patient who was transferred from [facility]. Patient Dr. Marce Murrell Most of the history obtained by the nurse at the bedside. Patient at the baseline nonambulatory. Is a 2% maximum assist. They often use a Roni lift. Patient at baseline is AOx3 rather talkative. Patient is at a chronic White catheter since March. Last changed in June of this year. Patient was brought in today because of altered mental status and also is found to have a pulse ox of 84%. Patient's urine was found to be rather cloudy. Patient became hypotensive felt to be in hypotensive shock. Was given a liter bolus by the EMS and 2 more liters in the ER. Admitted to the ICU. Put on vasopressors to include IV vasopressin and norepinephrine. Patient is on ZOLL on a BiPAP. Patient's Brenda does the medical decision making. Patient's CODE STATUS is DNR. Earlier in the day patient was seen by the concrete bucket loader. White catheter was changed the ER. Does have some traumatic hematuria. Which is starting to clear up. Present time patient unable to give any history July 3: ICU. Awake. Was delirious this morning with confusion and shouting out. On epinephrine. Patient been off BiPAP. On room air 97%. White catheter. No hematuria. On IV cefepime. Was n.p.o. this morning. Sodium bicarb drip for metabolic acidosis July 4: ICU. Patient seen this afternoon. Not confused anymore. Remains on room air. On IV cefepime. Sinus rhythm. Refused to eat. Renal function slowly improving. White catheter. August 03: Patient is on the medical floor. at the bedside. More awake. Answering questions. Eating much better.. Urine and blood cultures pending. On IV cefepime. August 04: Eating well. at the bedside. Baseline patient is nonambulatory. 96% room air. Urine culture negative. Blood culture pending. Plan to discharge to rehab tomorrow. Active Medications Acetaminophen (Acetaminophen Tab 325 Mg Tab) 650 mg PO Q6H PRN PRN Reason: Pain Last Admin: 08/04/24 13:08 Dose: 650 mg Hydrocodone Bitart/Acetaminophen (Hydrocodone/Apap 5-325mg 1 Each Tab) 1 each PO Q8HR PRN PRN Reason: Moderate to Severe Pain (4-10) Last Admin: 08/03/24 21:31 Dose: 1 each Aspirin (Aspirin 81 Mg) 81 mg PO HS [facility] Last Admin: 08/03/24 21:25 Dose: 81 mg Atorvastatin Calcium (Atorvastatin 20 Mg Tab) 20 mg PO HS [facility] Last Admin: 08/03/24 21:26 Dose: 20 mg Benzocaine/Menthol (Benzocaine/Menthol Lozeng 1 Each Lozenge) 1 each MUCOUS MEM Q4HR PRN PRN Reason: Sore Throat Carvedilol (Carvedilol 12.5 Mg Tab) 25 mg PO BID-W/MEALS [facility] Last Admin: 08/04/24 17:17 Dose: 25 mg Duloxetine HCl (Duloxetine Hcl 30 Mg Capsule.Dr) 30 mg PO DAILY [facility] Last Admin: 08/04/24 08:39 Dose: 30 mg Haloperidol Lactate (Haloperidol Lactate 5 Mg/Ml 1 Ml Vial) 2 mg IVP Q4HR PRN PRN Reason: Agitation or Acute Psychosis Last Admin: 08/02/24 01:31 Dose: 2 mg Ceftriaxone Sodium 2 gm/ (Sodium Chloride) 50 mls @ 100 mls/hr IVPB Q24HR [facility]; Protocol Last Admin: 08/04/24 11:57 Dose: 100 mls/hr Morphine Sulfate (Morphine Sulfate 4 Mg/Ml Syringe) 4 mg IV Q4HR PRN PRN Reason: Severe Pain (Scale 7 to 10) Naloxone HCl (Naloxone 0.4 Mg/Ml 1 Ml Vial) 0.2 mg IV Q2M PRN PRN Reason: Opioid Reversal Ondansetron HCl (Ondansetron 4 Mg/2 Ml Vial) 4 mg IVP Q8HR PRN PRN Reason: Nausea And Vomiting Pantoprazole Sodium (Pantoprazole 40 Mg Tablet) 40 mg PO AC-BRKFST [facility] Last Admin: 08/04/24 08:40 Dose: 40 mg Petrolatum (Zinc Oxide Paste (Z-Guard) 1 Applic) 1 applic TOPICAL DAILY PRN; Protocol PRN Reason: Wound Healing Quetiapine Fumarate (Quetiapine 50 Mg Tab) 50 mg PO DAILY [facility] Last Admin: 08/04/24 08:39 Dose: 50 mg Sacubitril/Valsartan (Sacubitril/Valsartan 24 Mg-26 Mg Tablet) 1 each PO BID [facility] Tamsulosin HCl (Tamsulosin 0.4 Mg Cap.Er.24h) 0.4 mg PO HS [facility] Last Admin: 08/03/24 21:26 Dose: 0.4 mg Torsemide (Torsemide 20 Mg Tab) 20 mg PO DAILY [facility] Last Admin: 08/04/24 11:57 Dose: 20 mg Social history: Resident of [facility]. Two-person maximum assist. Often Roni lift is used. Patient's monitors the medical power of tax services manager. No history of smoking or alcohol reported Physical examination: VITAL SIGNS: 98.3, 86, 16, 154 x 74, 96% room air GENERAL: Reclining in bed, eating lunch EYES: Pupils equal. Conjunctiva mi l. HEENT: External appearance of nose and ears normal, oral cavity grossly normal. NECK: JVD unable to assess; masses not palpable. HEART: First and second heart sounds are normal; no edema. LUNGS: Respiratory rate normal diminished breath sounds. ABDOMEN: Soft, nontender, liver spleen not palpable, no masses palpable. White catheter PSYCH: Answering questions appropriately INVESTIGATIONS, reviewed in the clinical context: August 04: White count 10.4 hemoglobin platelets 231 sodium 145 potassium 3.9 creatinine 1.2 August 03: Sodium 134 potassium 3.6 BUN 63 creatinine 1.3 August 02: White count 18.7 hemoglobin 10.4 platelets 211 sodium 128 potassium 3.3. 78 creatinine 2.72 August 01: White count 21.7 hemoglobin 11.1 platelets 166 sodium 127 potassium 4.3 BUN 34 creatinine 3.53 July 31, 2024: White count 16 hemoglobin 13.4 platelets 225 sodium 130 potassium 4.1 BUN 36 creatinine 3.75 lactic acid 2.9 phosphorus 6.1 troponin I 0.122 proBNP 46899 TSH 2.4 UA moderate blood. Large leukoesterase. WBC greater than 182. Nitrite negative Influenza type A, type B, RSV, SARS-CoV-2: Not detected EKG tracing personally reviewed by me-normal sinus rhythm. Left bundle zoila block pattern. Abnormal baseline Chest x-ray film personally reviewed by me-possible scattered infiltrates right base 2D echocardiogram: [May 2024) EF 25 to 30%. Moderate concentric LVH. Moderate to severe aortic regurgitation Creatinine 0.66 May 29, 2024 Assessment plan: -Septic shock: Resolved Patient received IV fluid boluses. Initially on IV vasopressin norepinephrine -Right basal pneumonia suspect gram-negative organism, causing acute hypoxic r espiratory failure: Much better Urine and blood cultures pending IV cefepime -Acute delirium/toxic encephalopathy, from sepsis: Much improved -Acute hypoxic respiratory failure secondary to pneumonia: Resolved Initially BiPAP. Now on room air r -Acute kidney injury, ATN from septic shock: Improving Patient's creatinine was 0.6 in May 29, 2024. Creatinine 3.75 on admission IV fluids. Follow renal function closely -Metabolic acidosis from renal failure: Corrected Received sodium bicarbonate drip -Acute UTI with cystitis causing sepsis from chronic White catheter. Urine culture pending . IV cefepime -Chronic bladder outflow obstruction patient has a chronic White catheter since March 2024. Catheter was last changed in June of this year and in the ER. -Traumatic hematuria from White catheter being replaced in the ER. Resolved -Chronic medical debility. At baseline patient is a two-person assist and requires a Roni lift -Left buttock decub ulcer stage II/III. Wound care team following -Hypovolemic, hyponatremia: Improving IV fluids -Positive troponin from hemodynamic mismatch. No ACS -Left bundle zoila block -Hyperlipidemia -Essential hypertension, [initially on presentation was in hypotensive shock] Remains off antihypertensives -Primary osteoarthritis multiple joint -Chronic congestive heart failure, from systolic dysfunction EF 25 to 30%. Follow fluid status closely. -Moderate to severe aortic regurgitation -DNR -Medical power of tax services manager, Kristen Doing much better. Plan to return to [facility] tomorrow. Past Medical History Past Medical History: Cancer, Heart Failure, GERD/Reflux, Hyperlipidemia, Hypertension Additional Past Medical History / Comment(s): aortic aneurysm,neuropathy, chronic back pain, radiation, multiple myloma History of Any Multi-Drug Resistant Organisms: None Reported Past Surgical History: Back Surgery, Joint Replacement, Orthopedic Surgery Additional Past Surgical History / Comment(s): Aortic aneurysm repair, Lt knee replacement Past Anesthesia/Blood Transfusion Reactions: No Reported Reaction Past Psychological History: No Psychological Hx Reported Smoking Status: Never smoker Past Alcohol Use History: None Reported Past Drug Use History: None Reported
[2024-08-04] MEDS: SACUBITRIL/VALSARTAN 24 MG-26 MG TABLET PO SCH (21:53)
[2024-08-05 08:28] LABS: BUN/Creat Ratio 44.78 Ratio (12.00-20.00); Blood Urea Nitrogen 40.3 mg/dL (9.0-27.0); Calcium 6.9 mg/dL (8.7-10.3); Carbon Dioxide 29.3 mmol/L (21.6-31.8); Chloride 102 mmol/L (96-109); Glucose 121 mg/dL (70-110); Magnesium 1.6 mg/dL (1.5-2.4); Potassium 4.1 mmol/L (3.5-5.5); Sodium 139 mmol/L (135-145)
--- NOTE | 2024-08-05 11:04 | P.PN ---
Subjective Patient is seen in follow-up for acute kidney injury. Renal function at baseline. Has White catheter. Nonoliguric. Oral intake good. Vital signs are stable. General: No acute distress. HEENT: Head exam is unremarkable. On room air. LUNGS: No audible rhonchi or wheezes. HEART: Rate and Rhythm are regular. ABDOMEN: Nontender. EXTREMITITES: No edema. Objective - Vital Signs Vital signs: Vital Signs Temp 97.5 F L 08/05/24 07:46 Pulse 60 08/05/24 07:46 Resp 17 08/05/24 07:46 BP 162/73 08/05/24 07:46 Pulse Ox 95 08/05/24 07:46 FiO2 35 08/01/24 07:30 Intake & Output 08/04/24 08/05/24 08/05/24 18:59 06:59 18:59 Output Total 1999 3200 Balance -1999 -3200 Output: Urine 1999 3200 Other: Voiding Method Indwelling Catheter Indwelling Catheter # Bowel Movements 1 - Labs CBC & Chem 7: 08/04/24 05:34 08/05/24 04:46 Labs: Abnormal Lab Results - Last 24 Hours (Table) 08/04/24 08/05/24 Range/Units 05:34 04:46 BUN 42.2 H 40.3 H (9.0-27.0) mg/dL BUN/Creatinine Ratio 35.17 H 44.78 H (12.00-20.00) Ratio Glucose 121 H (70-110) mg/dL Calcium 6.9 L (8.7-10.3) mg/dL Assessment and Plan Plan: Assessment: 1. Acute kidney injury secondary to ATN. Creatinine 0.6 dated May 29, 2024. Creatinine 3.75 this admission and improved to 0.9 today. 2. Right renal mass. Urology following. 3. Chronic urinary retention with White catheter. This was changed August 02, 2024. 4. Severe sepsis secondary to UTI on antibiotics. 5. Chronic systolic CHF ejection fraction of 25 to 30% with moderate to severe aortic regurgitation. 6. Hypomagnesemia from diuresis. Add oral magnesium oxide. Plan: Entresto and Demadex added by cardiology August 04, 2024. Encourage oral intake. Avoid nephrotoxins. Add oral magnesium oxide. Continue to monitor renal function and urine output. Repeat BMP and magnesium level 2 to 3 days postdischarge. Follow-up outpatient in 1 week.
--- NOTE | 2024-08-05 11:04 | P.PN ---
Subjective HISTORY OF PRESENT ILLNESS: Patient is known to Dr. Hutchinson. 83-year-old with past medical history multiple myeloma, hypertension, dyslipidemia. Resident of a nursing facility, two-person assist, wheelchair bound, has a chronic White since March. He is not able to provide much history and history is obtained from the present at bedside and from the medical chart. He was brought to the hospital because of altered mental status and was found to be hypoxic. He was also found to be hypertensive with concerns of cloudy urine from the White catheter. In ER he received IV fluid resuscitation and was placed on pressors. Cardiology was consulted for elevated troponins, hemodynamic instability and for management of his multiple cardiac comorbidities. Admission Labs: Leukocytosis WBC 16, repeat 21, Hb 13 repeat 11, BUN 37, creatinine 3.75 Admission EKG: Sinus tachycardia with left middle branch block Imaging: Chest x-ray showed mild increased interstitial marking however no signs of consolidation congestion. Prior cardiac testing: Echo from May 2024 shows an EF of 25 to 30%, moderate concentric LVH, mildly dilated RV with mildly reduced systolic function, moderate to severe aortic regurgitation, ascending aorta aneurysm measuring 4.6 cm 08/02/2024 Seen and examined at bedside this a.m. Very drowsy and not able to provide a review of system. He received Seroquel this morning since then he has been sleeping. Off pressors, blood pressure is stable, sinus rhythm on telemetry Mild swelling in the legs, will discontinue IV fluids 08/03/2024 Patient seen and examined at bedside this a.m. Kidney function is improving Moved out of ICU Doing better blood pressure is controlled Consider adding diuretic tomorrow. 06/06/2024 BP 167/83, heart rate 87 bpm, 08/05/2024 Patient examined this morning at the bedside. Patient currently denies chest pain or pressure. He denies shortness of breath. Vital signs are stable. PHYSICAL EXAM: VITAL SIGNS: Reviewed. GENERAL: Well-developed in no acute distress. NECK: Supple. No JVD or thyromegaly LUNGS: Respirations even and unlabored. Lungs essentially clear to auscultation bilaterally. HEART: Regular rate and rhythm. S1 and S2 heard. EXTREMITIES: Normal range of motion. No clubbing or cyanosis. Peripheral pulses intact. No lower extremity edema ASSESSMENT: # Septic shock, likely from complicated UTI, likely from infected indwelling White catheter, resolving # Metabolic encephalopathy, likely due to above # Acute on chronic hypoxic respiratory failure # ROSA, creatinine 3.5. Baseline 0.5 # Elevated troponin, type II NSTEMI, because of poor renal clearance and septic shock # CAD status post CABG # Moderate to severe aortic regurgitation # Dilated ascending aorta at 4.6 cm # History of multiple myeloma # Essential hypertension, dyslipidemia # History of aortic aneurysm status post surgical repair PLAN: Continue current cardiac medications Patient is currently stable from a cardiac standpoint with no further inpatient recommendations We will sign off. Please reconsult if needed. Nurse practitioner note has been reviewed by physician. Signing provider agrees with the documented findings, assessment, and plan of care documented by AUDITING MANAGER as a scribe. Objective - Vital Signs Vital signs: Vital Signs Temp 97.5 F L 08/05/24 07:46 Pulse 60 08/05/24 07:46 Resp 17 08/05/24 07:46 BP 162/73 08/05/24 07:46 Pulse Ox 95 08/05/24 07:46 FiO2 35 08/01/24 07:30 Intake & Output 08/04/24 08/05/24 08/05/24 18:59 06:59 18:59 Output Total 1999 3200 Balance -2000 -3200 Output: Urine 1999 3200 Other: Voiding Method Indwelling Catheter Indwelling Catheter # Bowel Movements 1 - Labs CBC & Chem 7: 08/04/24 05:34 08/05/24 04:46 Labs: Abnormal Lab Results - Last 24 Hours (Table) 08/04/24 08/05/24 Range/Units 05:34 04:46 BUN 42.2 H 40.3 H (9.0-27.0) mg/dL BUN/Creatinine Ratio 35.17 H 44.78 H (12.00-20.00) Ratio Glucose 121 H (70-110) mg/dL Calcium 6.9 L (8.7-10.3) mg/dL
[2024-08-05] MEDS: MAGNESIUM OXIDE 400 MG TAB PO SCH (11:36)
--- NOTE | 2024-08-05 12:37 | P.PN ---
Subjective Progress Note Date: 08/05/24 Principal diagnosis: Reason for follow-up is sepsis and UTI Patient is a 83-year-old male with a past medical history significant for reflux hyperlipidemia hypertension aortic aneurysm history of multiple myeloma and [facility] resident patient did have a chronic indwelling White catheter for retention brought to the hospital for unresponsiveness and has been diagnosed with sepsis secondary to catheter associated UTI. On today's evaluation that is 08/05/2024, patient has been afebrile, patient is breathing comfortably and is currently on room air, patient denies having any chest pain and cough, patient denies nausea vomiting or diarrhea and no abdominal pain patient feeling better. Patient did have a creatinine 0.9 white count was 10.4 as of yesterday culture has been negative so far Objective - Vital Signs Vital signs: Vital Signs Temp 97.5 F L 08/05/24 07:46 Pulse 60 08/05/24 07:46 Resp 17 08/05/24 07:46 BP 162/73 08/05/24 07:46 Pulse Ox 95 08/05/24 07:46 FiO2 35 08/01/24 07:30 Intake & Output 08/04/24 08/05/24 08/05/24 18:59 06:59 18:59 Output Total 1999 3200 Balance -1999 -3200 Output: Urine 1999 3200 Other: Voiding Method Indwelling Catheter Indwelling Catheter Indwelling Catheter # Bowel Movements 1 - Exam GENERAL DESCRIPTION: An elderly male lying in bed in no distress RESPIRATORY SYSTEM: Unlabored breathing , decreased breath sounds at bases HEART: S1 S2 regular rate and rhythm , ABDOMEN: Soft , no tenderness EXTREMITIES: No edema feet - Labs CBC & Chem 7: 08/04/24 05:34 08/05/24 04:46 Labs: Abnormal Lab Results - Last 24 Hours (Table) 08/05/24 Range/Units 04:46 BUN 40.3 H (9.0-27.0) mg/dL BUN/Creatinine Ratio 44.78 H (12.00-20.00) Ratio Glucose 121 H (70-110) mg/dL Calcium 6.9 L (8.7-10.3) mg/dL Assessment and Plan (1) Catheter-associated urinary tract infection Current Visit: Yes Status: Acute Code(s): T83.511A - I/I REACT D/T INDWELLING URETHRAL CATHETER, INIT; N39.0 - URINARY TRACT INFECTION, SITE NOT SPECIFIED SNOMED Code(s): 011149995 (2) Sepsis Current Visit: Yes Status: Acute Code(s): A41.9 - SEPSIS, UNSPECIFIED ORGANISM SNOMED Code(s): 88704911 Plan: 1patient presented hospital with sepsis in this patient who did have fever tachycardia elevated white count hypotension and tachypnea requiring admission to the ICU source is likely catheter associated UTI keeping in mind patient is a [facility] resident will need to cover for resistant gram-negative with a likely pathogen 2patient did have elevated creatinine high risk of nephrotoxicity from certain anTIbiotics, patient did have ultrasound suggestive of right renal mass will benefit from urology evaluation 3-White catheter has already been change urine culture as well as blood cultures has been negative however the urine culture were done after the patient has received antibiotic 3patient seem to be doing well on Rocephin and plan to finish therapy with Ceftin on discharge Dictation was produced using [employer] dictation software. please excuse any grammatical, word or spelling errors.
[2024-08-05 13:03] VITALS: BP 106/59; PULSE 67; RESP 16; TEMP 98
--- NOTE | 2024-08-05 13:38 | P.DS ---
Providers Date of admission: 07/31/24 13:34 Expected date of discharge: 08/05/24 Attending physician: Vasile Villagomez Consults: 07/31/24 13:30 Consult Physician Routine Consulting Provider: Randal Macias Consult Reason/Comments: sepsis Do you want consulting provider notified?: Yes 07/31/24 13:34 Consult Physician Routine Consulting Provider: Feroz Dejesus Consult Reason/Comments: jessika Do you want consulting provider notified?: Yes 07/31/24 14:15 Consult Physician Routine Consulting Provider: Pablo Mcneill Consult Reason/Comments: icu Do you want consulting provider notified?: Yes 08/03/24 09:31 Consult Physician Routine Consulting Provider: Sae Jones Consult Reason/Comments: chronic saunders and irritation to insertion site Do you want consulting provider notified?: Yes Primary care physician: Marce Murrell [facility] Course: Chief Complaint: Altered mentation This is a 83-year-old patient who was transferred from [facility]. Patient Dr. Marce Murrell Most of the history obtained by the nurse at the bedside. Patient at the baseline nonambulatory. Is a 2% maximum assist. They often use a Roni lift. Patient at baseline is AOx3 rather talkative. Patient is at a chronic Saunders catheter since March. Last changed in June of this year. Patient was brought in today because of altered mental status and also is found to have a pulse ox of 84%. Patient's urine was found to be rather cloudy. Patient became hypotensive felt to be in hypotensive shock. Was given a liter bolus by the EMS and 2 more liters in the ER. Admitted to the ICU. Put on vasopressors to include IV vasopressin and norepinephrine. Patient is on ZOLL on a BiPAP. Patient's Brenda does the medical decision making. Patient's CODE STATUS is DNR. Earlier in the day patient was seen by the science professor. Saunders catheter was changed the ER. Does have some traumatic hematuria. Which is starting to clear up. Present time patient unable to give any history August 01: ICU. Awake. Was delirious this morning with confusion and shouting out. On epinephrine. Patient been off BiPAP. On room air 97%. Saunders ca theter. No hematuria. On IV cefepime. Was n.p.o. this morning. Sodium bicarb drip for metabolic acidosis August 02: ICU. Patient seen this afternoon. Not confused anymore. Remains on room air. On IV cefepime. Sinus rhythm. Refused to eat. Renal function slowly improving. Saunders catheter. August 03: Patient is on the medical floor. at the bedside. More awake. Answering questions. Eating much better.. Urine and blood cultures pending. On IV cefepime. August 04: Eating well. at the bedside. Baseline patient is nonambulatory. 96% room air. Urine culture negative. Blood culture pending. Plan to discharge to rehab tomorrow. August 05: Patient doing well. Communicating. Eating well. Creatinine back to normal. Patient returned to [facility]. Spoke to case consultant Hilary. Discussion and discharge planning more than 35 minutes Social history: Resident of [facility]. Two-person maximum assist. Often Roni lift is used. Patient's monitors the medical power of sports attorney. No history of smoking or alcohol reported Physical examination: VITAL SIGNS: 98, 67, 16, 106/59, 96% room air GENERAL: Reclining in bed, eating lunch EYES: Pupils equal. Conjunctiva mi l. HEENT: External appearance of nose and ears normal, oral cavity grossly normal. NECK: JVD unable to assess; masses not palpable. HEART: First and second heart sounds are normal; no edema. LUNGS: Respiratory rate normal diminished breath sounds. ABDOMEN: Soft, nontender, liver spleen not palpable, no masses palpable. Saunders catheter PSYCH: Answering questions appropriately INVESTIGATIONS, reviewed in the clinical context: Urine culture: Negative August 05: Potassium 4.1 creatinine 0.9 August 04: White count 10.4 hemoglobin platelets 231 sodium 145 potassium 3.9 creatinine 1.2 July 31, 2024: White count 16 hemoglobin 13.4 platelets 225 sodium 130 potassium 4.1 BUN 36 creatinine 3.75 lactic acid 2.9 phosphorus 6.1 troponin I 0.122 proB [place] [id number] TSH 2.4 UA moderate blood. Large leukoesterase. WBC greater than 182. Nitrite negative Influenza type A, type B, RSV, SARS-CoV-2: Not detected EKG tracing personally reviewed by me-normal sinus rhythm. Left bundle zoila block pattern. Abnormal baseline Chest x-ray film personally reviewed by me-possible scattered infiltrates right base 2D echocardiogram: [May 2024) EF 25 to 30%. Moderate concentric LVH. Moderate to severe aortic regurgitation Creatinine 0.66 May 29, 2024 Assessment plan: -Septic shock: Resolved Patient received IV fluid boluses. Initially on IV vasopressin norepinephrine -Right basal pneumonia suspect gram-negative organism, causing acute hypoxic respiratory failure: Much better Urine and blood cultures pending IV cefepime: Completed course -Acute delirium/toxic encephalopathy, from sepsis: Much improved -Acute hypoxic respiratory failure secondary to pneumonia: Resolved Initially BiPAP. Now on room air r -Acute kidney injury, ATN from septic shock: I resolved Patient's creatinine was 0.6 in May 29, 2024. Creatinine 3.75 on admission IV fluids. Follow renal function closely -Metabolic acidosis from renal failure: Corrected Received sodium bicarbonate drip -Acute UTI with cystitis causing sepsis from chronic Saunders catheter. Urine culture negative . IV cefepime: Completed course -Chronic bladder outflow obstruction patient has a chronic Saunders catheter since March 2024. Catheter was last changed in June of this year and in the ER. -Traumatic hematuria from Saunders catheter being replaced in the ER. Resolved -Chronic medical debility. At baseline patient is a two-person assist and requires a Roni lift -Left buttock decub ulcer stage II/III. Wound care team following -Hypovolemic, hyponatremia: Improving IV fluids -Positive troponin from hemodynamic mismatch. No ACS -Left bundle zoila block -Hyperlipidemia -Essential hypertension, [initially on presentation was in hypotensive shock] Remains off antihypertensives -Primary osteoarthritis multiple joint -Chronic congestive heart failure, from systolic dysfunction EF 25 to 30%. Follow fluid status closely. -Moderate to severe aortic regurgitation -DNR -Medical power of sports attorney, Kristen Disposition: [facility], [facility] Past Medical History Past Medical History: Cancer, Heart Failure, GERD/Reflux, Hyperlipidemia, Hypertension Additional Past Medical History / Comment(s): aortic aneurysm,neuropathy, chronic back pain, radiation, multiple myloma History of Any Multi-Drug Resistant Organisms: None Reported Past Surgical History: Back Surgery, Joint Replacement, Orthopedic Surgery Additional Past Surgical History / Comment(s): Aortic aneurysm repair, Lt knee replacement Past Anesthesia/Blood Transfusion Reactions: No Reported Reaction Past Psychological History: No Psychological Hx Reported Smoking Status: Never smoker Past Alcohol Use History: None Reported Past Drug Use History: None Reported Plan - Discharge Summary Discharge Rx Participant: No New Discharge Prescriptions: New Magnesium Oxide [Mag-Ox] 400 mg PO DAILY tab Torsemide [Demadex] 20 mg PO DAILY #30 tab HYDROcodone/APAP 5-325MG [[place] 5-325] 1 each PO Q8HR PRN #9 tab PRN Reason: Moderate To Severe Pain (4-10) Continue DULoxetine HCL [Cymbalta] 30 mg PO DAILY carvediloL [Coreg] 25 mg PO BID Dapagliflozin Propanediol [Farxiga] 10 mg PO DAILY #0 tab Potassium Chloride ER [K-Dur 10] 10 meq PO DAILY Omeprazole [PriLOSEC] 20 mg PO BID Atorvastatin [Lipitor] 20 mg PO HS Acetaminophen Tab [Tylenol] 650 mg PO Q6H PRN PRN Reason: Pain Sacubitril/Valsartan [Entresto 24 mg-26 mg Tablet] 1 tab PO BID Aspirin 81 mg PO HS Sennosides [Senokot] 17.2 mg PO DAILY hydrALAZINE HCL [Apresoline] 100 mg PO TID #0 Tamsulosin [Flomax] 0.4 mg PO HS Naloxone HCl 0.4 mg IM DIRECTED PRN PRN Reason: suspected opioid overdose Changed Spironolactone [Aldactone] 12.5 mg PO DAILY #0 tab HYDROcodone/APAP 5-325MG [[place] 5-325] 1 tab PO Q8HR PRN #9 tab PRN Reason: Moderate To Severe Pain (4-10) Discontinued Docusate [Colace] 100 mg PO BID Furosemide [Lasix] 40 mg PO DAILY tab Naloxone HCl [Narcan] 4 mg NASAL DIRECTED PRN PRN Reason: suspected opioid overdose Discharge Medication List DULoxetine HCL [Cymbalta] 30 mg PO DAILY 12/17/21 [History] carvediloL [Coreg] 25 mg PO BID 05/22/24 [History] Dapagliflozin Propanediol [Farxiga] 10 mg PO DAILY #0 tab 05/30/24 [Rx] hydrALAZINE HCL [Apresoline] 100 mg PO TID #0 05/30/24 [Rx] Acetaminophen Tab [Tylenol] 650 mg PO Q6H PRN 07/31/24 [History] Aspirin 81 mg PO HS 07/31/24 [History] Atorvastatin [Lipitor] 20 mg PO HS 07/31/24 [History] Naloxone HCl 0.4 mg IM DIRECTED PRN 07/31/24 [History] Omeprazole [PriLOSEC] 20 mg PO BID 07/31/24 [History] Potassium Chloride ER [K-Dur 10] 10 meq PO DAILY 07/31/24 [History] Sacubitril/Valsartan [Entresto 24 mg-26 mg Tablet] 1 tab PO BID 07/31/24 [History] Sennosides [Senokot] 17.2 mg PO DAILY 07/31/24 [History] Tamsulosin [Flomax] 0.4 mg PO HS 07/31/24 [History] HYDROcodone/APAP 5-325MG [[place] 5-325] 1 each PO Q8HR PRN #9 tab 08/05/24 [Rx] HYDROcodone/APAP 5-325MG [[place] 5-325] 1 tab PO Q8HR PRN #9 tab 08/05/24 [Rx] Magnesium Oxide [Mag-Ox] 400 mg PO DAILY tab 08/05/24 [Rx] Spironolactone [Aldactone] 12.5 mg PO DAILY #0 tab 08/05/24 [Rx] Torsemide [Demadex] 20 mg PO DAILY #30 tab 08/05/24 [Rx] Follow up Appointment(s)/Referral(s): juan dowling [Other] - 1 Week Marce Murrell MD [Primary Care Provider] - 1-2 days Activity/Diet/Wound Care/Special Instructions: get wound care orders
== END 2024-08-05 18:18 | DRG 698 ==
LOC: EC 12:03 → 2SICU 13:34 → 5NMEDONC 08-02 14:15
PROVIDERS: ADMIT Hospitalist; ATTEND Hospitalist
PROC: 3E043XZ Introduction of Vasopressor into Central Vein, Percutaneous Approach (ICD-10-PCS; principal; 2024-07-31)
PROC: 02HV33Z Insertion of Infusion Device into Superior Vena Cava, Percutaneous Approach (ICD-10-PCS; principal; 2024-07-31)
PROC: 5A09357 Assistance with Respiratory Ventilation, Less than 24 Consecutive Hours, Continuous Positive Airway Pressure (ICD-10-PCS; 2024-07-31)
DX: T83.511A Infection and inflammatory reaction due to indwelling urethral catheter, initial encounter (principal); A41.9 Sepsis, unspecified organism; G93.41 Metabolic encephalopathy; I21.A1 Myocardial infarction type 2; R65.21 Severe sepsis with septic shock; N17.0 Acute kidney failure with tubular necrosis; J96.21 Acute and chronic respiratory failure with hypoxia; J15.69 Pneumonia due to other Gram-negative bacteria; Z66 Do not resuscitate; I50.22 Chronic systolic (congestive) heart failure; F03.93 Unspecified dementia, unspecified severity, with mood disturbance; I11.0 Hypertensive heart disease with heart failure; I35.1 Nonrheumatic aortic (valve) insufficiency; F32.A Depression, unspecified; I42.9 Cardiomyopathy, unspecified; F03.92 Unspecified dementia, unspecified severity, with psychotic disturbance; E87.20 Acidosis, unspecified; E87.1 Hypo-osmolality and hyponatremia; F05 Delirium due to known physiological condition; N13.8 Other obstructive and reflux uropathy; L89.322 Pressure ulcer of left buttock, stage 2; N39.0 Urinary tract infection, site not specified; E86.0 Dehydration; I25.10 Atherosclerotic heart disease of native coronary artery without angina pectoris; E83.42 Hypomagnesemia; E86.1 Hypovolemia; G62.9 Polyneuropathy, unspecified; N28.89 Other specified disorders of kidney and ureter; R31.0 Gross hematuria; N40.1 Benign prostatic hyperplasia with lower urinary tract symptoms; R33.8 Other retention of urine; E78.5 Hyperlipidemia, unspecified; G89.29 Other chronic pain; K21.9 Gastro-esophageal reflux disease without esophagitis; M54.9 Dorsalgia, unspecified; M15.9 Polyosteoarthritis, unspecified; Z79.84 Long term (current) use of oral hypoglycemic drugs; Z79.899 Other long term (current) drug therapy; Z79.82 Long term (current) use of aspirin; Z95.1 Presence of aortocoronary bypass graft; Z99.3 Dependence on wheelchair; Z96.652 Presence of left artificial knee joint; Z92.3 Personal history of irradiation; Z85.79 Personal history of other malignant neoplasms of lymphoid, hematopoietic and related tissues; Y84.6 Urinary catheterization as the cause of abnormal reaction of the patient, or of later complication, without mention of misadventure at the time of the procedure
CPT/HCPCS: 36415; 71045; 76770; 80048; 80053; 81001; 83605; 83735; 83880; 84100; 84132; 84443; 84484; 85025; 85610; 85730; 87040; 87086; 87636; 93005; 94640; 94660; 96361; 96365; 96366; 96367; 96368; 96375; 99291